=== PATIENT | male | born 1960 | race Caucasian/White ===

== ENCOUNTER 2016-11-09 21:35 | Observation (INO) | payer MEDICARE, MEDICAID ==
[~2016-11-09] VITALS: Ht 182.9 cm; Wt 105.0 kg
[2016-11-09 21:37] VITALS: BP 184/116; PULSE 93; RESP 18; TEMP 99.1; O2SAT 98
--- NOTE | 2016-11-09 21:57 | PD ---
HPI . Dyspnea Chief Complaint: Respiratory Symptoms Time Seen by Provider: 21:44 Travel History International Travel<30 days: No Contact w/Intl Traveler<30days: No Traveled to known affect area: No History of Present Illness HPI Patient presents with dyspnea which started today. He states that it has been getting progressively worse. He has also subsequently developed some chest pain. He denies dyspnea on exertion. He does complain with orthopnea. He states that the chest pain seems to be getting worse as the shortness of breath is getting worse. Patient reports that he has been off of all medications for the last couple of years. He has a history of hypertension, coronary artery disease with a previous PA, CHF and diabetes. PFSH Past Medical History Cardiovascular Problems: Yes (CHF) High Cholesterol: Yes Congestive Heart Failure: Yes Hypertension: Yes Social History Alcohol Use: No Tobacco Use: Yes (08/10 PPD) Substance Use: No Allergies-Medications (Allergen,Severity, Reaction): Coded Allergies: Contrast Media (Verified Allergy, Severe, Itching, 11/09/16) Reported Meds & Prescriptions Reported Meds & Active Scripts Active No Active Prescriptions or Reported Medications Review of Systems Except as stated in HPI: all other systems reviewed are Neg General / Constitutional: No: Fever, Chills Cardiovascular: Positive: Chest Pain or Discomfort Respiratory: Positive: Shortness of Breath Musculoskeletal: Positive: Edema (he states that the edema is chronic and is not any worse today than usual) Physical Exam Narrative GENERAL: Patient is awake and alert. He does not appear to be having any acute respiratory distress. SKIN: Warm and dry. HEAD: Atraumatic. Normocephalic. EYES: Pupils equal and round. Extraocular movements are intact. ENT: No nasal bleeding or discharge. Mucous membranes pink and moist. NECK: Trachea midline. Neck is supple. CARDIOVASCULAR: Regular rate and rhythm. Heart sounds are normal. RESPIRATORY: No accessory muscle use. Lungs have some rhonchi in the left base. GASTROINTESTINAL: Abdomen soft, non-tender, nondistended. MUSCULOSKELETAL: No obvious deformities. Trace pretibial pitting edema. NEUROLOGICAL: Awake and alert. No obvious cranial nerve deficits. Motor grossly within normal limits. Normal speech. PSYCHIATRIC: Appropriate mood and affect; insight and judgment normal. Data Data Last Documented VS Vital Signs Date Time Temp Pulse Resp B/P Pulse Ox O2 Delivery O2 Flow Rate FiO2 11/09/16 22:30 80 18 166/102 98 11/09/16 22:06 Nasal Cannula 2 11/09/16 21:37 99.1 Orders Complete Blood Count With Diff (11/09/16 21:52) Basic Metabolic Panel (Bmp) (11/09/16 21:52) B-Type Natriuretic Peptide (11/09/16 21:52) Ckmb (Isoenzyme) Profile (11/09/16 21:52) Troponin I (11/09/16 21:52) Iv Access Insert/Monitor (11/09/16 21:52) Electrocardiogram (11/09/16 21:52) Ecg Monitoring (11/09/16 21:52) Oximetry (11/09/16 21:52) Oxygen Administration (11/09/16 21:52) Chest, Single Ap (11/09/16 21:52) Sodium Chloride 0.9% Flush (Ns Flush) (11/09/16 22:00) Furosemide Inj (Lasix Inj) (11/09/16 22:00) Nitroglycerin 2% Oint (Nitroglycerin 2% (11/09/16 22:00) CKMB (11/09/16 22:02) CKMB% (11/09/16 22:02) Blood Culture (11/09/16 23:20) Ceftriaxone Inj (Rocephin Inj) (11/09/16 23:30) Azithromycin (Zithromax) (11/09/16 23:30) Aspirin (Aspirin) (11/09/16 23:30) Labs Laboratory Tests Test 11/09/16 22:02 White Blood Count 11.1 TH/MM3 Red Blood Count 5.24 MIL/MM3 Hemoglobin 15.8 GM/DL Hematocrit 46.0 % Mean Corpuscular Volume 87.9 FL Mean Corpuscular Hemoglobin 30.2 PG Mean Corpuscular Hemoglobin 34.3 % Concent Red Cell Distribution Width 14.2 % Platelet Count 177 TH/MM3 Mean Platelet Volume 8.9 FL Neutrophils (%) (Auto) 64.0 % Lymphocytes (%) (Auto) 24.8 % Monocytes (%) (Auto) 9.3 % Eosinophils (%) (Auto) 1.6 % Basophils (%) (Auto) 0.3 % Neutrophils # (Auto) 7.1 TH/MM3 Lymphocytes # (Auto) 2.7 TH/MM3 Monocytes # (Auto) 1.0 TH/MM3 Eosinophils # (Auto) 0.2 TH/MM3 Basophils # (Auto) 0.0 TH/MM3 CBC Comment DIFF FINAL Differential Comment Sodium Level 141 MEQ/L Potassium Level 3.8 MEQ/L Chloride Level 105 MEQ/L Carbon Dioxide Level 27.6 MEQ/L Anion Gap 8 MEQ/L Blood Urea Nitrogen 17 MG/DL Creatinine 1.31 MG/DL Estimat Glomerular Filtration 57 ML/MIN Rate Random Glucose 96 MG/DL Calcium Level 8.8 MG/DL Total Creatine Kinase 140 U/L Creatine Kinase MB 0.7 NG/ML Troponin I 0.02 NG/ML B-Type Natriuretic Peptide 135 PG/ML MDM Medical Decision Making Medical Screen Exam Complete: Yes Emergency Medical Condition: Yes Medical Record Reviewed: Yes (the patient does not have any previous visits here regarding coronary artery disease/PA/CHF) Interpretation(s) EKG shows a sinus rhythm with no ST segment elevation or depression. He does have some nonspecific T-wave changes. Differential Diagnosis Differential diagnosis of dyspnea includes but is not limited to congestive heart failure, pneumonia, wheezing, pneumothorax, pulmonary embolism Narrative Course Patient presents complaining with dyspnea. He has a history of CHF. He has been noncompliant with his medications. Last Impressions Chest X-Ray 11/09/162151 Signed Impressions: Service Date/Time: Wednesday, November 09, 2016 21:57 - CONCLUSION: Possible non-consolidative infiltrates in the left lower lung. Pepe Harper MD CBC & BMP Diagram 11/09/16 22:02 His CK and troponin are normal. His BNP is 135. I have discussed the results of his chest x-ray and blood tests. The patient is amenable to admission for further treatment of apparent pneumonia as well as hypertension. Physician Communication Physician Communication Discussed with Trey Abreu PA-C. The patient will be admitted to [facility] to Dr. Mckenzie's service. Diagnosis Primary Impression: Chest pain Qualified Code: R07.1 - Chest pain on breathing Additional Impressions: Pneumonia Qualified Code: J18.1 - Pneumonia of left lower lobe due to infectious organism Hypertension Qualified Code: I10 - Essential hypertension Dyspnea Qualified Code: R06.00 - Dyspnea, unspecified type Admitting Information Admitting Physician Requests: Observation Scripts No Active Prescriptions or Reported Meds Condition: Denise Salcedo MD Nov 09, 2016 21:57
[2016-11-09] MEDS ORDERED: SODIUM CHLORIDE 0.9% FLUSH 10 ML FLUSH IVF PRN (22:00)
[2016-11-09] MEDS ORDERED: NITROGLYCERIN 2% OINT 1 GM PACKET TOPICAL ONE (22:00)
[2016-11-09] MEDS ORDERED: FUROSEMIDE 40 MG/4 ML VIAL IVP ONE (22:00)
[2016-11-09 22:21] LABS: AUTOMATED NEUTROPHIL # 7.1 TH/MM3 (1.8-7.7); BASOPHIL % 0.3 % (0.0-2.0); EOSINOPHIL # 0.2 TH/MM3 (0-0.4); EOSINOPHIL % 1.6 % (0.0-4.0); HEMO FLAGS DIFF FINAL; LYMPH % 24.8 % (9.0-44.0); LYMPHOCYTE # 2.7 TH/MM3 (1.0-4.8); MEAN CELL VOLUME 87.9 FL (80.0-100.0); MEAN CORPUSCULAR HEMOGLOBIN 30.2 PG (27.0-34.0); MEAN CORPUSCULAR HGB CONC 34.3 % (32.0-36.0); MONO % 9.3 % (0.0-8.0); PLATELET COUNT 177 TH/MM3 (150-450); RED BLOOD COUNT 5.24 MIL/MM3 (4.50-5.90); RED CELL DISTRIBUTION WIDTH 14.2 % (11.6-17.2); WHITE BLOOD COUNT 11.1 TH/MM3 (4.0-11.0)
[2016-11-09 22:30] VITALS: BP 166/102; PULSE 80; RESP 18; O2SAT 98
--- NOTE | 2016-11-09 22:35 | RADRPT ---
EXAM DATE/TIME: 11/09/2016 21:57 [facility] COMPARISON: No previous studies available for comparison. INDICATIONS : Short of breath MEDICAL HISTORY : Diabetes mellitus type II. Hypertension Congestive heart failure. SURGICAL HISTORY : None. ENCOUNTER: Initial ACUITY: 1 day PAIN SCORE: 5/10 LOCATION: Bilateral chest FINDINGS: The right lung is clear. There is some peribronchial thickening in the left lower lung suggesting po ssible infiltrate. No focal areas of consolidation. The heart is upper limits normal size for an AP film. Both hemidiaphragms are well delineated. CONCLUSION: Possible non-consolidative infiltrates in the left lower lung. Pepe Harper MD on November 09, 2016 at 22:33 Board Certified Radiologist. This report was verified electronically.
[2016-11-09 22:53] LABS: ANION GAP 8 MEQ/L (5-15); BICARBONATE 27.6 MEQ/L (21.0-32.0); BLOOD UREA NITROGEN 17 MG/DL (7-18); CHLORIDE 105 MEQ/L (98-107); GLOMERULAR FILTRATION RATE 57 ML/MIN (>89); POTASSIUM 3.8 MEQ/L (3.5-5.1); SODIUM (NA) 141 MEQ/L (136-145)
[2016-11-09 22:57] LABS: CREATINE KINASE 140 U/L (39-308)
[2016-11-09 23:09] LABS: CKMB 0.7 NG/ML (0.5-3.6)
[2016-11-09] MEDS ORDERED: cefTRIAXone INJ 2,000 MG in SODIUM CHLORIDE 0.9% INJ 100 ML IV ONE (23:30)
[2016-11-09] MEDS ORDERED: AZITHROMYCIN 250 MG TAB PO ONE (23:30)
[2016-11-09] MEDS ORDERED: ASPIRIN 325 MG TAB PO ONE (23:30)
[2016-11-10] VITALS (10 sets, daily range): BP systolic 128–170; BP diastolic 75–110; PULSE 66–91; RESP 16–20; TEMP 98.2–98.7; O2SAT 95–99
[2016-11-10] MEDS ORDERED: ONDANSETRON HCL 4 MG/2 ML VIAL IVP PRN (01:00)
[2016-11-10] MEDS ORDERED: SODIUM CHLORIDE 0.9% FLUSH 10 ML FLUSH IV FLUSH PRN (01:00)
[2016-11-10] MEDS ORDERED: NITROGLYCERIN 0.4 MG SL 25 TABS/BTL SL PRN (01:00)
[2016-11-10] MEDS ORDERED: AZITHROMYCIN INJ 500 MG in SODIUM CHLOR 0.9% 250 ML INJ 250 ML IV SCH (01:00)
[2016-11-10] MEDS ORDERED: ACETAMINOPHEN 325 MG TAB PO PRN ×2 (01:00)
[2016-11-10] MEDS ORDERED: NALOXONE HCL 0.4 MG/ML AMP IV PRN (01:00)
[2016-11-10] MEDS ORDERED: SENNOSIDES 8.6 MG TAB PO PRN (01:00)
[2016-11-10] MEDS ORDERED: MORPHINE SULFATE 4 MG/ML INJ IV PRN (01:00)
[2016-11-10] MEDS: MORPHINE SULFATE 4 MG/ML INJ IV PRN ×2 (03:05→23:52)
[2016-11-10] MEDS: NITROGLYCERIN 2% OINT 1 GM PACKET TOPICAL SCH ×3 (05:07→18:28)
[2016-11-10] MEDS ORDERED: GLUCAGON 1 MG/ML VIAL OTHER PRN (08:45)
[2016-11-10] MEDS ORDERED: BENZONATATE 100 MG CAP PO PRN (08:45)
[2016-11-10] MEDS ORDERED: DEXTROSE 50% IN WATER 50 ML VIAL(D50) IV PRN (08:45)
[2016-11-10] MEDS ORDERED: ENOXAPARIN SODIUM 40 MG/0.4 ML SYRINGE SQ SCH (09:00)
[2016-11-10] MEDS ORDERED: ASPIRIN EC 81 MG TABEC PO SCH (09:00)
[2016-11-10] MEDS ORDERED: NICOTINE 7 MG/24 HR PATCH T-DERMAL SCH (09:00)
[2016-11-10] MEDS ORDERED: REMOVE OLD PATCH T-DERMAL SCH (09:00)
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
[2016-11-10] MEDS: METOPROLOL TARTRATE 25 MG TAB PO SCH ×2 (09:28→21:37)
[2016-11-10] MEDS: SODIUM CHLORIDE 0.9% FLUSH 10 ML FLUSH IV FLUSH SCH ×2 (09:29→21:39)
[2016-11-10] MEDS: INSULIN ASPART SUPPLEMENTAL SCALE SQ SCH ×3 (11:00→21:00)
[2016-11-10] MEDS: RESP: ALBUTEROL 2.5 MG/IPRATROPIUM 0.5 MG NEB (SCH) NEB ×2 (11:15→16:55)
--- NOTE | 2016-11-10 12:59 | MB ---
cc: BRANDYN EVERETT MD DATE OF CONSULTATION: 11/10/2016 REASON FOR CONSULTATION: Atypical chest pain. HISTORY OF PRESENT ILLNESS The patient is a pleasant 55-year-old gentleman who tells me he has a history of several myocardial infarctions in the past though he denies ever having a cardiac catheterization. He presented with several days of worsening pleuritic chest pain, particularly when he would lie flat. Because of the symptoms he presented emergency department where he has had two sets of negative cardiac enzymes. He is currently asymptomatic denying any residual chest pain, shortness of breath, lightheadedness, dizziness or syncope. PAST MEDICAL HISTORY 1. Several myocardial infarctions per the patient, though he denies cardiac catheterization. 2. Congestive heart failure (again per the patient, though he is quite vague about the details). 3. Ongoing tobacco abuse 4. Diabetes. 5. Obesity. 6. Hypertension. CURRENT MEDICATIONS 1. Ceftriaxone. 2. Azithromycin. 3. Aspirin 162 mg daily 4. Metoprolol 25 milligrams p.o. q12. ALLERGIES: CONTRAST MEDIA PHYSICAL EXAMINATION VITAL SIGNS: Afebrile, pulse 84, respiratory rate 18, BP 137/90 sating 97% on two liters. General: Very pleasant well-appearing gentleman who is somewhat vague about his cardiac history but in no distress. Neck: No JVD. Lungs: Occasional wheezes and otherwise clear. Cardiovascular: Regular rate and rhythm. No murmurs appreciated. Abdomen is benign. Extremities: No edema. LABORATORY DATA Sodium 141, potassium 3.8, chloride 105, bicarb 27.8, BUN 17, creatinine 1.31, glucose 96, cardiac enzymes are negative x2. White count 11.1, hematocrit 46.0, platelets 177. IMAGING STUDIES: Chest x-ray showed possible non-consolidative infiltrates in the left lower lung. EKG shows sinus rhythm with anterior/anterolateral T-wave changes consistent with ischemia. IMPRESSION: Atypical chest pain. The patient has atypical chest pain and chest x-ray showing possible consolidations, so pneumonia certainly is a reasonable diagnosis. Will add on D-Dimer and if positive he may require a V/Q scan to exclude pulmonary embolism. If cardiac enzymes are normal, though his EKG is certainly abnormal, consistent with the patient's history of prior cardiac catheterization so I will have him undergo a nuclear stress test. I do find it odd that he has never had a cardiac catheterization if indeed he has had these myocardial infarctions in the past. Further recommendations will be based on his upcoming studies. Thank you again for the opportunity to participate in this patient's care. MD GUILHERME Hankins/DOMINIQUE /11:35 AM /12:54 PM
--- NOTE | 2016-11-10 14:23 | EKG ---
Date Performed: 11/09/2016 Time Performed: 22:22:11 PTAGE: 55 years EKG: Nonspecific T-wave change anterolateraly NO PREVIOUS TRACING DOCTOR: Kam Martínez Interpretating Date/Time 11/10/2016 14:22:48
--- NOTE | 2016-11-10 14:37 | EKG ---
Date Performed: 11/10/2016 Time Performed: 07:34:22 PTAGE: 55 years EKG: Nonspecific T-wave change anterolaterally Since PREVIOUS TRACING 11/09/2016, T-wave changes are somewhat more prominent anterolaterally with T-wave inversions now in lead V3 and more prominently in V4. Clinical correlation is recommended . PREVIOUS TRACIN11/09/2016 14.04 DOCTOR: Kam Martínez Interpretating Date/Time 11/10/2016 14:37:05
[2016-11-10] MEDS ORDERED: HYDR-3583 PO (21:57)
[2016-11-10] MEDS ORDERED: ASPI81CH CHEW (21:57)
[2016-11-10] MEDS ORDERED: METF1000 PO (21:57)
[2016-11-10] MEDS ORDERED: CYCL1TAB29 PO (21:57)
[2016-11-10] MEDS ORDERED: METO25TA3 PO (21:57)
[2016-11-10] MEDS ORDERED: CLON0.3T PO (21:57)
[2016-11-10] MEDS ORDERED: CLOR3.755 PO (21:57)
[2016-11-10] MEDS ORDERED: FURO40TA PO (21:57)
[2016-11-11] MEDS ORDERED: AZITHROMYCIN INJ 500 MG in SODIUM CHLOR 0.9% 250 ML INJ 250 ML IV SCH ×2
[2016-11-11] MEDS ORDERED: cefTRIAXone INJ 1,000 MG in SODIUM CHLORIDE 0.9% INJ 100 ML IV SCH (01:00)
[2016-11-11] MEDS: RESP: ALBUTEROL 2.5 MG/IPRATROPIUM 0.5 MG NEB (SCH) NEB (02:29)
[2016-11-11 03:47] VITALS: BP 126/87; RESP 18; O2SAT 96
[2016-11-11 04:47] LABS: AUTOMATED NEUTROPHIL # 5.7 TH/MM3 (1.8-7.7); BASOPHIL % 0.4 % (0.0-2.0); EOSINOPHIL # 0.1 TH/MM3 (0-0.4); EOSINOPHIL % 1.5 % (0.0-4.0); HEMATOCRIT 43.3 % (39.0-51.0); HEMO FLAGS DIFF FINAL; LYMPH % 25.3 % (9.0-44.0); LYMPHOCYTE # 2.3 TH/MM3 (1.0-4.8); MEAN CELL VOLUME 88.8 FL (80.0-100.0); MEAN CORPUSCULAR HEMOGLOBIN 30.1 PG (27.0-34.0); MEAN CORPUSCULAR HGB CONC 33.9 % (32.0-36.0); MONO % 9.8 % (0.0-8.0); PLATELET COUNT 156 TH/MM3 (150-450); RED BLOOD COUNT 4.87 MIL/MM3 (4.50-5.90); RED CELL DISTRIBUTION WIDTH 14.1 % (11.6-17.2); WHITE BLOOD COUNT 9.1 TH/MM3 (4.0-11.0)
[2016-11-11 04:54] LABS: ALT (GPT) 17 U/L (12-78); ANION GAP 4 MEQ/L (5-15); AST (GOT) 11 U/L (15-37); BICARBONATE 33.3 MEQ/L (21.0-32.0); BLOOD UREA NITROGEN 19 MG/DL (7-18); CHLORIDE 106 MEQ/L (98-107); GLOMERULAR FILTRATION RATE 60 ML/MIN (>89); SODIUM (NA) 143 MEQ/L (136-145)
[2016-11-11 04:56] LABS: ALKALINE PHOSPHATASE 58 U/L (45-117); HDL CHOLESTEROL 38.2 MG/DL (40.0-60.0); INDIRECT BILIRUBIN 0.4 MG/DL (0.0-0.8); LDL CHOLESTEROL 80 MG/DL (0-99); TOTAL BILIRUBIN ADULT 0.5 MG/DL (0.2-1.0)
[2016-11-11] MEDS: NITROGLYCERIN 2% OINT 1 GM PACKET TOPICAL SCH ×2 (05:43)
[2016-11-11 11:40] LABS: HEMOGLOBIN A1a 1.1 %; HEMOGLOBIN A1b 0.9 %; HEMOGLOBIN Ao 85.1 %; HEMOGLOBIN P3 3.8 %
== END 2016-11-11 06:53 | disposition left against medical advice (07) ==
LOC: NEPC 21:35 → NEDA 23:42 → NEPGCP 11-10 01:52
PROVIDERS: ADMIT Internal Medicine; ATTEND Internal Medicine
DX: R07.89 Other chest pain (principal); R06.02 Shortness of breath; I11.0 Hypertensive heart disease with heart failure; I50.9 Heart failure, unspecified; I25.2 Old myocardial infarction; E11.9 Type 2 diabetes mellitus without complications; E78.00 Pure hypercholesterolemia, unspecified; I25.10 Atherosclerotic heart disease of native coronary artery without angina pectoris; N28.9 Disorder of kidney and ureter, unspecified; J44.1 Chronic obstructive pulmonary disease with (acute) exacerbation; E78.5 Hyperlipidemia, unspecified; G89.29 Other chronic pain; M54.5 Low back pain; E66.9 Obesity, unspecified; F17.200 Nicotine dependence, unspecified, uncomplicated; Z79.82 Long term (current) use of aspirin; Z91.041 Radiographic dye allergy status; Z79.4 Long term (current) use of insulin; Z91.14 Patient's other noncompliance with medication regimen; Z68.31 Body mass index [BMI] 31.0-31.9, adult
CPT/HCPCS: 71010; 80048; 80061; 80076; 82550; 82552; 82948; 83036; 83880; 84484; 85025; 85379; 87040; 87205; 93005; 94640; 94664; 96365; 96366; 96367; 96372; 96375; 99285; G0378; J0456; J0696; J1650; J1940; J2270; J7050

== ENCOUNTER 2017-02-04 12:51 | Emergency (ER) | payer MEDICARE, MEDICAID ==
[~2017-02-04] VITALS: Ht 185.4 cm; Wt 120.0 kg
[~2017-02-04 12:51] MED LIST: ASPI81CH CHEW; CLON0.3T PO; CLOR3.755 PO; CYCL1TAB29 PO; FURO40TA PO; HYDR-3583 PO; METF1000 PO; METO25TA3 PO
[2017-02-04 12:57] VITALS: BP 200/111; PULSE 101; RESP 18; TEMP 98.2; O2SAT 99
[2017-02-04 13:00] VITALS: BP 171/115; PULSE 86; RESP 18
--- NOTE | 2017-02-04 13:03 | PD ---
Physical Exam Time Seen by Provider: 12:57 Narrative 56yo M c/o generalized rash x 3 days. Says he has shingles. Rash is extremely itchy. Denies fever, vomiting. Has HTN and has taken his medications today. BP recheck in triage 171/115. Denies chest pain, SOB, CORRIGAN. Patient seen in triage. VS reviewed. Patient awaiting bed placement. Data Data Last Documented VS Vital Signs Date Time Temp Pulse Resp B/P (MAP) Pulse Ox O2 Delivery O2 Flow Rate FiO2 02/04/17 12:57 98.2 101 18 200/111 (140) 99 MDM Supervised Visit with GUERRERO: Sarika Short Feb 04, 2017 13:03
--- NOTE | 2017-02-04 14:33 | PD ---
HPI Chief Complaint: Skin Problem Time Seen by Provider: 14:33 Travel History International Travel<30 days: No Contact w/Intl Traveler<30days: No Traveled to known affect area: No History of Present Illness HPI 56-year-old male presents to emergency department for evaluation of a generalized, micropapular, pruritic rash. He states that he noticed this a few days ago. He states that it is burning and tingling at times. He denies any new exposures. No recent illnesses, fever, chills. He has had a sore throat recently. He thinks that this is shingles per his research. Denies HSV keratitis. No difficulty breathing. No urinary symptoms. No other symptoms to report. PFSH Past Medical History Blood Disorders: No Heart Rhythm Problems: No Cancer: No Cardiovascular Problems: Yes (HTN, [place] X3) High Cholesterol: Yes Chest Pain: Yes Congestive Heart Failure: Yes Cerebrovascular Accident: Yes (2004) Diabetes: Yes Endocrine: Yes Genitourinary: No Hypertension: Yes Immune Disorder: No Musculoskeletal: No Neurologic: No Psychiatric: No Reproductive: No Respiratory: No Thyroid Disease: No Social History Alcohol Use: No Tobacco Use: Yes (08/10 PPD) Substance Use: No Allergies-Medications (Allergen,Severity, Reaction): Coded Allergies: diatrizoate meglumine (Verified Allergy, Severe, Itching, 02/04/17) gadobenic acid (Verified Allergy, Severe, Itching, 02/04/17) gadodiamide (Verified Allergy, Severe, Itching, 02/04/17) gadoteridol (Verified Allergy, Severe, Itching, 02/04/17) iodixanol (Verified Allergy, Severe, Itching, 02/04/17) iohexol (Verified Allergy, Severe, Itching, 02/04/17) Reported Meds & Prescriptions Reported Meds & Active Scripts Active Zantac (Ranitidine HCl) 300 Mg Tab 300 Mg PO DAILY 3 Days Reported Aspirin 81 Mg Chew 81 Mg CHEW DAILY Flexeril (Cyclobenzaprine HCl) 10 Mg Tab 10 Mg PO TID Clorazepate (Clorazepate Dipotassium) 3.75 Mg Tab 3.75 Mg PO BID PRN Metformin (Metformin HCl) 1,000 Mg Tab 1,000 Mg PO DAILY With a meal Metoprolol Tartrate 25 Mg Tab 25 Mg PO BID Furosemide 40 Mg Tab 40 Mg PO BID Hydrocodone-Acetaminophen 10-325 mg Tab 1 Tab PO Q6H PRN Clonidine (Clonidine HCl) 0.3 Mg Tab 0.3 Mg PO BID Review of Systems Except as stated in HPI: all other systems reviewed are Neg Physical Exam Narrative GENERAL: Well-nourished male patient, ambulatory and in no acute distress SKIN: Focused skin assessment warm/dry. Micropapular rash over the trunk and extremities. No vesicles or pustules. HEAD: Atraumatic. Normocephalic. EYES: Pupils equal and round. No scleral icterus. No injection or drainage. ENT: No nasal bleeding or discharge. Mucous membranes pink and moist. NECK: Trachea midline. No JVD. CARDIOVASCULAR: Regular rate and rhythm. No murmur appreciated. RESPIRATORY: No accessory muscle use. Clear to auscultation. Breath sounds equal bilaterally. GASTROINTESTINAL: Abdomen soft, non-tender, nondistended. Hepatic and splenic margins not palpable. MUSCULOSKELETAL: No obvious deformities. No clubbing. No cyanosis. No edema. NEUROLOGICAL: Awake and alert. No obvious cranial nerve deficits. Motor grossly within normal limits. Normal speech. Data Data Last Documented VS Vital Signs Date Time Temp Pulse Resp B/P (MAP) Pulse Ox O2 Delivery O2 Flow Rate FiO2 02/04/17 17:07 97.8 154/86 (108) 99 02/04/17 14:30 17 02/04/17 13:00 86 Room Air Orders Orders Basic Metabolic Panel (Bmp) (02/04/17 14:51) Complete Blood Count With Diff (02/04/17 14:51) Iv Access Insert/Monitor (02/04/17 14:51) Group A Rapid Strep Screen (02/04/17 14:51) Diphenhydramine Inj (Benadryl Inj) (02/04/17 15:00) Methylprednisolone So Succ Inj (Solumedr (02/04/17 15:00) Famotidine Inj (Pepcid Inj) (02/04/17 15:00) Strep Culture (Group A) (02/04/17 15:10) Labs Laboratory Tests Test 02/04/17 15:10 White Blood Count 10.2 TH/MM3 Red Blood Count 5.29 MIL/MM3 Hemoglobin 16.2 GM/DL Hematocrit 48.1 % Mean Corpuscular Volume 90.8 FL Mean Corpuscular Hemoglobin 30.6 PG Mean Corpuscular Hemoglobin Concent 33.7 % Red Cell Distribution Width 14.0 % Platelet Count 193 TH/MM3 Mean Platelet Volume 8.9 FL Neutrophils (%) (Auto) 68.1 % Lymphocytes (%) (Auto) 19.8 % Monocytes (%) (Auto) 8.1 % Eosinophils (%) (Auto) 3.6 % Basophils (%) (Auto) 0.4 % Neutrophils # (Auto) 6.9 TH/MM3 Lymphocytes # (Auto) 2.0 TH/MM3 Monocytes # (Auto) 0.8 TH/MM3 Eosinophils # (Auto) 0.4 TH/MM3 Basophils # (Auto) 0.0 TH/MM3 CBC Comment DIFF FINAL Differential Comment Blood Urea Nitrogen 22 MG/DL Creatinine 1.74 MG/DL Random Glucose 90 MG/DL Calcium Level 8.9 MG/DL Sodium Level 143 MEQ/L Potassium Level 4.1 MEQ/L Chloride Level 105 MEQ/L Carbon Dioxide Level 30.9 MEQ/L Anion Gap 7 MEQ/L Estimat Glomerular Filtration Rate 41 ML/MIN MDM Medical Decision Making Medical Screen Exam Complete: Yes Emergency Medical Condition: Yes Medical Record Reviewed: Yes Differential Diagnosis Contact dermatitis versus allergic reaction versus urticaria versus folliculitis versus viral exanthem Narrative Course 56-year-old male presents to emergency department for evaluation of a micropapular rash. It is blanchable. It is generalized and on the trunk and extremities. Patient has a patent airway with no stridor. He does not recall any new exposures. I have assured him that this is not consistent with shingles. He is treated with Benadryl, Pepcid, and steroids. He is aware to monitor his blood glucose closely as this may place an increase. Patient verbalizes improvement in the itching. He'll be discharged follow-up with primary care provider. He agrees to return immediately with any acute serious symptoms. Diagnosis Primary Impression: Papular rash, generalized Additional Impression: Hypertension Qualified Codes: I10 - Essential (primary) hypertension Referrals: Primary Care Physician Patient Instructions: Acute Rash (ED), General Instructions Additional Instructions: Avoid scratching the lesions Follow-up with your primary care provider Seek dermatology evaluation Monitor blood glucose closely as steroids will cause an increase in your blood sugar Continue Benadryl as directed on the package as needed for symptoms of itching or rash Return immediately to the emergency department with any acute worsening symptoms Med/Other Pt SpecificInfo: Prescription(s) given Scripts Ranitidine (Zantac) 300 Mg Tab 300 MG PO DAILY for 3 Days, TAB 0 Refills Prov: Loreto Villanueva 02/04/17 Disposition: 01 DISCHARGE HOME Condition: Stable Loreto Villanueva Feb 04, 2017 14:33
[2017-02-04] MEDS ORDERED: methylPREDNISolone SOD SUCC 125 MG/2 ML VIAL IV PUSH ONE (15:00)
[2017-02-04] MEDS ORDERED: diphenhydrAMINE HCL 50 MG/ML VIAL IV PUSH ONE (15:00)
[2017-02-04] MEDS ORDERED: FAMOTIDINE 20 MG/2 ML VIAL IV PUSH SCH (15:00)
[2017-02-04 16:00] LABS: AUTOMATED NEUTROPHIL # 6.9 TH/MM3 (1.8-7.7); BASOPHIL % 0.4 % (0.0-2.0); EOSINOPHIL # 0.4 TH/MM3 (0-0.4); EOSINOPHIL % 3.6 % (0.0-4.0); HEMATOCRIT 48.1 % (39.0-51.0); HEMO FLAGS DIFF FINAL; LYMPH % 19.8 % (9.0-44.0); MEAN CELL VOLUME 90.8 FL (80.0-100.0); MEAN CORPUSCULAR HEMOGLOBIN 30.6 PG (27.0-34.0); MEAN CORPUSCULAR HGB CONC 33.7 % (32.0-36.0); MONO % 8.1 % (0.0-8.0); NEUT % 68.1 % (16.0-70.0); PLATELET COUNT 193 TH/MM3 (150-450); RED BLOOD COUNT 5.29 MIL/MM3 (4.50-5.90); WHITE BLOOD COUNT 10.2 TH/MM3 (4.0-11.0)
[2017-02-04 16:14] LABS: BICARBONATE 30.9 MEQ/L (21.0-32.0); POTASSIUM 4.1 MEQ/L (3.5-5.1)
[2017-02-04] MEDS ORDERED: ZANT300T PO (16:59)
[2017-02-04 17:07] VITALS: BP 154/86; TEMP 97.8
== END 2017-02-04 17:07 | disposition home or self-care (01) ==
LOC: NEPD 12:51
DX: R21 Rash and other nonspecific skin eruption (principal); J02.9 Acute pharyngitis, unspecified; I10 Essential (primary) hypertension; I50.9 Heart failure, unspecified; E11.9 Type 2 diabetes mellitus without complications; I25.2 Old myocardial infarction; F17.200 Nicotine dependence, unspecified, uncomplicated; Z86.73 Personal history of transient ischemic attack (TIA), and cerebral infarction without residual deficits; Z79.899 Other long term (current) drug therapy
CPT/HCPCS: 80048; 85025; 87081; 87880; 96374; 96375; 99284; J1200; J2930

== ENCOUNTER 2017-04-02 01:13 | Inpatient (IN) | payer MEDICARE, MEDICAID ==
[2017-04-02] VITALS (16 sets, daily range): BP systolic 120–201; BP diastolic 72–106; PULSE 73–115; RESP 18–28; TEMP 98.7–103.1; O2SAT 94–100
[~2017-04-02] VITALS: Ht 182.9 cm; Wt 123.2 kg
[~2017-04-02 01:13] MED LIST changes: +ZANT300T PO
[2017-04-02] MEDS ORDERED: SODIUM CHLORID 0.9% 500 ML INJ 500 ML IV ONE (01:45)
[2017-04-02] MEDS ORDERED: ACETAMINOPHEN 325 MG TAB PO ONE (01:45)
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
[2017-04-02 02:09] LABS: AUTOMATED NEUTROPHIL # 14.7 TH/MM3 (1.8-7.7); BASOPHIL # 0.1 TH/MM3 (0-0.2); BASOPHIL % 0.4 % (0.0-2.0); EOSINOPHIL # 0.1 TH/MM3 (0-0.4); EOSINOPHIL % 0.8 % (0.0-4.0); HEMATOCRIT 49.9 % (39.0-51.0); LYMPH % 8.5 % (9.0-44.0); LYMPHOCYTE # 1.5 TH/MM3 (1.0-4.8); MEAN CELL VOLUME 89.4 FL (80.0-100.0); MEAN CORPUSCULAR HEMOGLOBIN 30.4 PG (27.0-34.0); NEUT % 84.3 % (16.0-70.0); PLATELET COUNT 183 TH/MM3 (150-450); RED BLOOD COUNT 5.58 MIL/MM3 (4.50-5.90); RED CELL DISTRIBUTION WIDTH 13.7 % (11.6-17.2); WHITE BLOOD COUNT 17.5 TH/MM3 (4.0-11.0)
[2017-04-02 02:18] LABS: INTERNATIONAL NORMALIZED RATIO 0.9 RATIO; PROTHROMBIN TIME - PATIENT 10.4 SEC (9.8-11.6)
--- NOTE | 2017-04-02 02:24 | RADRPT ---
EXAM DATE/TIME: 04/02/2017 02:34 [place] COMPARISON: CHEST SINGLE AP, November 09, 2016, 21:57. INDICATIONS : Fever, shortness of breath. MEDICAL HISTORY : Hypertension. Congestive heart failure. Diabetes mellitus type II. SURGICAL HISTORY : None. ENCOUNTER: Initial ACUITY: 1 day PAIN SCORE: 0/10 LOCATION: Bilateral chest FINDINGS: A single view of the chest demonstrates minimal left basilar density. Right lung clear. Heart normal in size The cardiomediastinal contours are unremarkable. Osseous structures are intact. CONCLUSION: 1. Left basilar atelectasis versus minimal infiltrate. David David MD on April 02, 2017 at 2:22 Board Certified Radiologist. This report was verified electronically.
[2017-04-02 02:42] LABS: ALBUMIN 3.7 GM/DL (3.4-5.0); ALT (GPT) 25 U/L (12-78); AST (GOT) 14 U/L (15-37); BICARBONATE 29.9 MEQ/L (21.0-32.0); BLOOD UREA NITROGEN 14 MG/DL (7-18); C-REACTIVE PROTEIN 1.24 MG/DL (0.00-0.30); CALCIUM 8.8 MG/DL (8.5-10.1); CHLORIDE 105 MEQ/L (98-107); CREATININE 1.42 MG/DL (0.60-1.30); GLOMERULAR FILTRATION RATE 51 ML/MIN (>89); GLUCOSE,RANDOM 141 MG/DL (74-106); LIPASE 88 U/L (73-393); MAGNESIUM 1.9 MG/DL (1.5-2.5); SODIUM (NA) 140 MEQ/L (136-145)
[2017-04-02 02:45] LABS: ALKALINE PHOSPHATASE 79 U/L (45-117); TOTAL BILIRUBIN ADULT 0.6 MG/DL (0.2-1.0); TOTAL PROTEIN 7.9 GM/DL (6.4-8.2); TROPONIN I 0.03 NG/ML (0.02-0.05)
[2017-04-02] MEDS ORDERED: KETOROLAC TROMETHAMINE 30 MG/ML (IVP) VIAL IV PUSH ONE (03:15)
[2017-04-02] MEDS ORDERED: VANCOMYCIN INJ 1,000 MG in SODIUM CHLOR 0.9% 250 ML INJ 250 ML IV ONE (03:15)
[2017-04-02] MEDS ORDERED: SODIUM CHLOR 0.9% 1000 ML INJ 1,000 ML IV ONE (03:15)
[2017-04-02] MEDS ORDERED: LABETALOL HCL 100 MG/20 ML VIAL IV PUSH ONE (03:15)
[2017-04-02] MEDS ORDERED: PIPERACIL-TAZO 3.375 GM PREMIX 50 ML IV ONE (03:15)
[2017-04-02] MEDS ORDERED: RESP: ALBUTEROL 2.5 MG/IPRATROPIUM 0.5 MG NEB (SCH) NEB ONE (04:15)
[2017-04-02] MEDS ORDERED: NALOXONE HCL 0.4 MG/ML AMP IV PUSH PRN (04:30)
[2017-04-02] MEDS ORDERED: DEXTROSE 50% IN WATER 50 ML VIAL(D50) IV PUSH PRN ×2 (04:30→08:00)
[2017-04-02] MEDS ORDERED: BISACODYL 10 MG SUPP RECTAL PRN (04:30)
[2017-04-02] MEDS ORDERED: ONDANSETRON HCL 4 MG/2 ML VIAL IVP PRN (04:30)
[2017-04-02] MEDS ORDERED: GLUCAGON 1 MG/ML VIAL OTHER PRN ×2 (04:30→08:00)
[2017-04-02] MEDS ORDERED: Vancomycin Consult Pharmacy 1 EA OTHER SCH (04:30)
[2017-04-02] MEDS ORDERED: LACTULOSE SYRUP 20 GM/30 ML CUP PO PRN (04:30)
[2017-04-02] MEDS ORDERED: HEPARIN SODIUM - SQ 10,000 UNITS/ML VIAL SQ SCH (04:30)
[2017-04-02] MEDS ORDERED: MAGNESIUM HYDROXIDE SUSP 30 ML CUP PO PRN (04:30)
[2017-04-02] MEDS ORDERED: SENNOSIDES 8.6 MG TAB PO PRN (04:30)
[2017-04-02] MEDS ORDERED: SODIUM CHLORIDE 0.9% FLUSH 10 ML FLUSH IV FLUSH PRN (04:30)
[2017-04-02] MEDS ORDERED: VANCOMYCIN 1,000 MG/NS 250 ML IV ONE ×2 (05:00)
[2017-04-02] MEDS ORDERED: METOPROLOL TARTRATE 25 MG TAB PO SCH (06:00)
[2017-04-02] MEDS: INSULIN ASPART SUPPLEMENTAL SCALE SQ SCH ×7 (07:57→21:00)
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
[2017-04-02] MEDS: SODIUM CHLOR 0.45% 1000 ML INJ 1,000 ML IV SCH ×2 (09:13→22:06)
[2017-04-02] MEDS: METOPROLOL TARTRATE 25 MG TAB PO SCH ×2 (09:14→22:02)
[2017-04-02] MEDS: cloNIDine HCL 0.2 MG TAB PO SCH ×2 (09:14→22:02)
[2017-04-02] MEDS: cefTRIAXone INJ 1,000 MG in SODIUM CHLORIDE 0.9% INJ 100 ML IV SCH (09:14)
[2017-04-02] MEDS: DOXYCYCLINE HYCLATE 100 MG CAP PO SCH ×2 (09:15→22:01)
[2017-04-02] MEDS: FAMOTIDINE 20 MG TAB PO SCH ×2 (09:15→22:01)
[2017-04-02] MEDS: HEPARIN SODIUM - SQ 10,000 UNITS/ML VIAL SQ SCH ×2 (09:15→22:04)
[2017-04-02] MEDS: SODIUM CHLORIDE 0.9% FLUSH 10 ML FLUSH IV FLUSH SCH ×2 (09:15→22:05)
[2017-04-02] MEDS ORDERED: PIPERACIL-TAZO 3.375 GM PREMIX 50 ML IV SCH (10:00)
[2017-04-02 11:52] LABS: BILIRUBIN, URINE NEG (NEG); BLOOD, URINE NEG (NEG); GLUCOSE,URINE NEG (NEG); KETONE, URINE NEG (NEG); MUCUS URINE FEW /lpf (OCC); NITRITE,URINE NEG (NEG); PH, URINE 5.5 (5.0-8.5); SQUAMOUS EPITHELIAL CELL URINE <1 /hpf (0-5); URINE COLOR YELLOW (YELLW/STRAW); URINE LEUKOCYTE ESTERASE NEG (NEG)
[2017-04-02] MEDS ORDERED: ACETAMINOPHEN 325 MG TAB PO PRN (15:45)
[2017-04-02] MEDS: RESP: ALBUTEROL 2.5 MG/IPRATROPIUM 0.5 MG NEB (PRN) NEB (22:40)
[2017-04-02] MEDS: VANCOMYCIN INJ 1,500 MG in SODIUM CHLORID 0.9% 500 ML INJ 500 ML IV SCH (23:58)
[2017-04-03] VITALS (7 sets, daily range): BP systolic 126–142; BP diastolic 74–93; PULSE 72–93; RESP 18–24; TEMP 97.7–100; O2SAT 94–99
[2017-04-03 07:18] LABS: AUTOMATED NEUTROPHIL # 8.9 TH/MM3 (1.8-7.7); BASOPHIL # 0.1 TH/MM3 (0-0.2); BASOPHIL % 0.7 % (0.0-2.0); EOSINOPHIL % 0.1 % (0.0-4.0); HEMATOCRIT 40.9 % (39.0-51.0); HEMOGLOBIN 13.8 GM/DL (13.0-17.0); LYMPH % 13.2 % (9.0-44.0); LYMPHOCYTE # 1.5 TH/MM3 (1.0-4.8); MEAN CORPUSCULAR HEMOGLOBIN 30.7 PG (27.0-34.0); MEAN CORPUSCULAR HGB CONC 33.7 % (32.0-36.0); MEAN PLATELET VOLUME 9.1 FL (7.0-11.0); MONO % 7.1 % (0.0-8.0); MONOCYTE # 0.8 TH/MM3 (0-0.9); NEUT % 78.9 % (16.0-70.0); PLATELET COUNT 136 TH/MM3 (150-450); RED BLOOD COUNT 4.49 MIL/MM3 (4.50-5.90); RED CELL DISTRIBUTION WIDTH 13.8 % (11.6-17.2); WHITE BLOOD COUNT 11.3 TH/MM3 (4.0-11.0)
[2017-04-03] MEDS: INSULIN ASPART SUPPLEMENTAL SCALE SQ SCH ×8 (08:00→21:15)
[2017-04-03 08:05] LABS: BICARBONATE 25.2 MEQ/L (21.0-32.0); CALCIUM 8.3 MG/DL (8.5-10.1); CREATININE 1.3 MG/DL (0.60-1.30)
[2017-04-03] MEDS: cloNIDine HCL 0.2 MG TAB PO SCH ×2 (08:23→21:13)
[2017-04-03] MEDS: FAMOTIDINE 20 MG TAB PO SCH ×2 (08:23→21:13)
[2017-04-03] MEDS: DOXYCYCLINE HYCLATE 100 MG CAP PO SCH ×2 (08:23→21:13)
[2017-04-03] MEDS: METOPROLOL TARTRATE 25 MG TAB PO SCH ×2 (08:24→21:13)
[2017-04-03] MEDS: cefTRIAXone INJ 1,000 MG in SODIUM CHLORIDE 0.9% INJ 100 ML IV SCH (08:30)
[2017-04-03] MEDS: RESP: ALBUTEROL 2.5 MG/IPRATROPIUM 0.5 MG NEB (PRN) NEB ×2 (08:32→12:28)
[2017-04-03] MEDS: HEPARIN SODIUM - SQ 10,000 UNITS/ML VIAL SQ SCH ×2 (08:47→21:14)
--- NOTE | 2017-04-03 08:53 | HHI.PR ---
Subjective History of Present Illness Feels little better Still coughing a lot, swallowing the sputum Wheezing, shortness of breath Fever is down Appetite is okay but don't like hospital food Wants to smoke cigarette No Nausea or vomit No Abdominal pain Offers no other complaints Vitals/Results Vital Signs Vital Signs Date Time Temp Pulse Resp B/P (MAP) Pulse Ox O2 Delivery O2 Flow Rate FiO2 04/03/17 07:08 95 Nasal Cannula 2.00 04/03/17 07:07 98.5 81 24 137/93 (108) 97 04/03/17 03:40 99.1 75 19 135/89 (104) 99 04/03/17 02:40 Nasal Cannula 2.00 04/02/17 23:40 100.5 73 18 120/78 (92) 96 04/02/17 22:41 96 21 04/02/17 19:32 99.8 82 20 135/75 (95) 98 04/02/17 15:44 102.4 04/02/17 14:16 103.1 92 18 137/77 (97) 94 04/02/17 13:45 102.8 04/02/17 11:33 102.7 86 20 122/72 (89) 95 04/02/17 09:15 101.0 CBC/BMP: 04/03/17 0620 04/03/17 0620 Lab Results Laboratory Tests Test 04/02/17 11:30 04/03/17 06:20 Urine Color YELLOW Urine Turbidity CLEAR Urine pH 5.5 Urine Specific [place] 1.029 Urine Protein 30 mg/dL Urine Glucose (UA) NEG mg/dL Urine Ketones NEG mg/dL Urine Occult Blood NEG Urine Nitrite NEG Urine Bilirubin NEG Urine Urobilinogen 2.0 MG/DL Urine Leukocyte Esterase NEG Urine RBC 1 /hpf Urine WBC 1 /hpf Urine Squamous Epithelial Cells <1 /hpf Urine Mucus FEW /lpf Microscopic Urinalysis Comment CULT NOT INDICATED White Blood Count 11.3 TH/MM3 Red Blood Count 4.49 MIL/MM3 Hemoglobin 13.8 GM/DL Hematocrit 40.9 % Mean Corpuscular Volume 91.0 FL Mean Corpuscular Hemoglobin 30.7 PG Mean Corpuscular Hemoglobin Concent 33.7 % Red Cell Distribution Width 13.8 % Platelet Count 136 TH/MM3 Mean Platelet Volume 9.1 FL Neutrophils (%) (Auto) 78.9 % Lymphocytes (%) (Auto) 13.2 % Monocytes (%) (Auto) 7.1 % Eosinophils (%) (Auto) 0.1 % Basophils (%) (Auto) 0.7 % Neutrophils # (Auto) 8.9 TH/MM3 Lymphocytes # (Auto) 1.5 TH/MM3 Monocytes # (Auto) 0.8 TH/MM3 Eosinophils # (Auto) 0.0 TH/MM3 Basophils # (Auto) 0.1 TH/MM3 CBC Comment DIFF FINAL Differential Comment Blood Urea Nitrogen 16 MG/DL Creatinine 1.30 MG/DL Random Glucose 97 MG/DL Calcium Level 8.3 MG/DL Sodium Level 136 MEQ/L Potassium Level 3.8 MEQ/L Chloride Level 105 MEQ/L Carbon Dioxide Level 25.2 MEQ/L Anion Gap 6 MEQ/L Estimat Glomerular Filtration Rate 57 ML/MIN Microbiology Microbiology 04/02/17 Aerobic Blood Culture, Received Pending 04/02/17 Anaerobic Blood Culture, Received Pending 04/02/17 Influenza Types A,B Antigen ([facility]) - Final, Complete NEGATIVE FOR FLU A AND B ANTIGEN.... Physical Exam General General Appearance: No Acute Distress, Comfortable, Obese Eyes Eye Exam: Pupils Equal, Sclera White, Extraocular Movement Intact Ears & Nose Ears & Nose Exam: Nasal Mucosa Floral Throat Throat Exam: Oral Mucosa Floral & Moist Neck Neck Exam: Neck Supple, Trachea Midline Pulmonary Resp Exam: Breath Sounds Equal, No Distress, Rhonchi Cardiology CV Exam: Regular, Normal Sinus Rhythm Gastrointestinal/Abdomen GI Exam: Soft, Non-Tender, Bowel Sounds Present Musculoskeletal MS Exam: Joints Intact, Normal Tone Integumentary Skin Exam: Warm, Dry Skin Remarks Healing lesions right anterior arredondo with scab formation,minimal redness Neurologic Neuro Exam: Alert, Awake, Oriented, Speech Clear, Moving All Extremities Psychiatric Psych Exam: Appropriate Responses Assessment/Plan Assessment/Plan 1. Acute febrile illness 2. Leukocytosis and left shift associated infection, possible early pneumonia versus right lower extremity invasion with cellulitis, rule-out other etiologies, UTI, influenza, rule out bacteremia. 3. Diabetes type 2 4. Hypertension, poorly controlled. 5. Chronic kidney disease stage III. 6. Reported history of heart attack. 7. COPD 8. History of sleep apnea not using C-PAP. 9. Chronic back pain and narcotic dependence. 10. Chronic smoker 11. Strong family history of cancer. 12. Noncompliance with her care. 13. Homelessness. Plan Oxygen Empiric IV antibiotic, currently getting Rocephin and doxycycline Follow cultures and adjust antibiotic And IV steroids for possible COPD Aerosol Diabetic diet Accu-Cheks UC and daily at bedtime with sliding scale coverage Nicotine patch Counseled patient against cigarette smoking, he did not pay attention to my recommendation Blood pressure control Analgesics Pepcid For GI Subcutaneous Lovenox for DVT prophylaxis Discussed patient detail With NUPUR Jamil labs Will follow Jeremy Harris MD Apr 03, 2017 08:53
[2017-04-03] MEDS: SODIUM CHLORIDE 0.9% FLUSH 10 ML FLUSH IV FLUSH SCH ×2 (09:00→21:16)
[2017-04-03] MEDS: methylPREDNISolone SOD SUCC 40 MG/1 ML VIAL IV PUSH SCH ×2 (11:28→21:15)
[2017-04-03] MEDS: NICOTINE 14 MG/24 HR PATCH T-DERMAL SCH (11:29)
[2017-04-03] MEDS: REMOVE OLD PATCH T-DERMAL SCH (12:00)
[2017-04-03] MEDS: VANCOMYCIN INJ 1,500 MG in SODIUM CHLORID 0.9% 500 ML INJ 500 ML IV SCH (17:25)
[2017-04-04] VITALS (9 sets, daily range): BP systolic 118–158; BP diastolic 76–106; PULSE 69–76; RESP 18–20; TEMP 97.2–98; O2SAT 96–100
[2017-04-04] MEDS: RESP: ALBUTEROL 2.5 MG/IPRATROPIUM 0.5 MG NEB (PRN) NEB ×2 (00:06→15:21)
[2017-04-04 07:53] LABS: BICARBONATE 25.4 MEQ/L (21.0-32.0); CALCIUM 9.4 MG/DL (8.5-10.1); CREATININE 1.27 MG/DL (0.60-1.30)
[2017-04-04] MEDS: REMOVE OLD PATCH T-DERMAL SCH (09:00)
[2017-04-04] MEDS: INSULIN ASPART SUPPLEMENTAL SCALE SQ SCH ×8 (09:01→21:00)
[2017-04-04] MEDS: NICOTINE 14 MG/24 HR PATCH T-DERMAL SCH (09:02)
[2017-04-04] MEDS: methylPREDNISolone SOD SUCC 40 MG/1 ML VIAL IV PUSH SCH ×2 (09:03→21:56)
[2017-04-04] MEDS: HEPARIN SODIUM - SQ 10,000 UNITS/ML VIAL SQ SCH ×2 (09:03→21:56)
[2017-04-04] MEDS: FAMOTIDINE 20 MG TAB PO SCH ×2 (09:03→21:57)
[2017-04-04] MEDS: METOPROLOL TARTRATE 25 MG TAB PO SCH ×2 (09:03→21:56)
[2017-04-04] MEDS: DOXYCYCLINE HYCLATE 100 MG CAP PO SCH ×2 (09:03→21:56)
[2017-04-04] MEDS: cloNIDine HCL 0.2 MG TAB PO SCH ×2 (09:03→17:04)
[2017-04-04] MEDS: cefTRIAXone INJ 1,000 MG in SODIUM CHLORIDE 0.9% INJ 100 ML IV SCH (09:05)
[2017-04-04] MEDS: SODIUM CHLORIDE 0.9% FLUSH 10 ML FLUSH IV FLUSH SCH ×2 (09:05→21:57)
[2017-04-04] MEDS ORDERED: PHARMACY ORDERED LAB ONE (11:45)
--- NOTE | 2017-04-04 11:56 | HHI.PR ---
Subjective Remarks Follow-up cellulitis and hypertension Patient states his cellulitis in the right lower extremity is slowly improving complaining of now left lower extremity cellulitis Await cultures Continue on empiric antibiotics Adjust blood pressure medications A.m. labs Case management for discharge Physical therapy and occupational therapy Objective Vitals Vital Signs Date Time Temp Pulse Resp B/P (MAP) Pulse Ox O2 Delivery O2 Flow Rate FiO2 04/04/17 08:20 Nasal Cannula 2.00 21 04/04/17 07:45 97 Nasal Cannula 2.00 04/04/17 07:34 98.0 76 18 146/106 (119) 98 04/04/17 07:20 Nasal Cannula 2.00 04/04/17 05:30 97.9 72 20 134/86 (102) 100 04/04/17 00:37 97.6 76 19 118/76 (90) 97 04/04/17 00:08 96 Nasal Cannula 2.00 04/03/17 20:45 Nasal Cannula 2.00 04/03/17 20:35 97.7 72 18 126/74 (91) 97 04/03/17 15:45 98.5 82 24 131/83 (99) 97 04/03/17 14:47 98.8 04/03/17 12:00 100.0 93 18 142/88 (106) 94 I/O 04/03/17 04/03/17 04/03/17 04/04/17 04/04/17 04/04/17 07:00 15:00 23:00 07:00 15:00 23:00 Intake Total 1429 ml 647 ml 500 ml 1400 ml Output Total 200 ml 300 ml 700 ml 600 ml Balance 1229 ml 347 ml -200 ml 800 ml Intake Oral 500 ml 1400 ml IV Total 1429 ml 647 ml Output Urine Total 200 ml 300 ml 700 ml 600 ml Result Diagram: 04/03/17 0620 04/04/17 0553 Other Results Laboratory Tests Test 04/02/17 01:45 04/02/17 11:30 04/03/17 06:20 04/04/17 05:53 White Blood Count 17.5 TH/MM3 11.3 TH/MM3 Red Blood Count 5.58 MIL/MM3 4.49 MIL/MM3 Hemoglobin 17.0 GM/DL 13.8 GM/DL Hematocrit 49.9 % 40.9 % Mean Corpuscular Volume 89.4 FL 91.0 FL Mean Corpuscular Hemoglobin 30.4 PG 30.7 PG Mean Corpuscular Hemoglobin Concent 34.0 % 33.7 % Red Cell Distribution Width 13.7 % 13.8 % Platelet Count 183 TH/MM3 136 TH/MM3 Mean Platelet Volume 9.0 FL 9.1 FL Neutrophils (%) (Auto) 84.3 % 78.9 % Lymphocytes (%) (Auto) 8.5 % 13.2 % Monocytes (%) (Auto) 6.0 % 7.1 % Eosinophils (%) (Auto) 0.8 % 0.1 % Basophils (%) (Auto) 0.4 % 0.7 % Neutrophils # (Auto) 14.7 TH/MM3 8.9 TH/MM3 Lymphocytes # (Auto) 1.5 TH/MM3 1.5 TH/MM3 Monocytes # (Auto) 1.0 TH/MM3 0.8 TH/MM3 Eosinophils # (Auto) 0.1 TH/MM3 0.0 TH/MM3 Basophils # (Auto) 0.1 TH/MM3 0.1 TH/MM3 CBC Comment DIFF FINAL DIFF FINAL Differential Comment Prothrombin Time 10.4 SEC Prothromb Time International Ratio 0.9 RATIO Activated Partial Thromboplast Time 26.4 SEC Blood Urea Nitrogen 14 MG/DL 16 MG/DL 19 MG/DL Creatinine 1.42 MG/DL 1.30 MG/DL 1.27 MG/DL Random Glucose 141 MG/DL 97 MG/DL 174 MG/DL Total Protein 7.9 GM/DL Albumin 3.7 GM/DL Calcium Level 8.8 MG/DL 8.3 MG/DL 9.4 MG/DL Magnesium Level 1.9 MG/DL Alkaline Phosphatase 79 U/L Aspartate Amino Transf (AST/SGOT) 14 U/L Alanine Aminotransferase (ALT/SGPT) 25 U/L Total Bilirubin 0.6 MG/DL Sodium Level 140 MEQ/L 136 MEQ/L 139 MEQ/L Potassium Level 4.1 MEQ/L 3.8 MEQ/L 4.5 MEQ/L Chloride Level 105 MEQ/L 105 MEQ/L 105 MEQ/L Carbon Dioxide Level 29.9 MEQ/L 25.2 MEQ/L 25.4 MEQ/L Anion Gap 5 MEQ/L 6 MEQ/L 9 MEQ/L Estimat Glomerular Filtration Rate 51 ML/MIN 57 ML/MIN 58 ML/MIN Lactic Acid Level 1.4 mmol/L Total Creatine Kinase 172 U/L Creatine Kinase MB 1.5 NG/ML Troponin I 0.03 NG/ML C-Reactive Protein 1.24 MG/DL B-Type Natriuretic Peptide 106 PG/ML Lipase 88 U/L Urine Color YELLOW Urine Turbidity CLEAR Urine pH 5.5 Urine Specific [place] 1.029 Urine Protein 30 mg/dL Urine Glucose (UA) NEG mg/dL Urine Ketones NEG mg/dL Urine Occult Blood NEG Urine Nitrite NEG Urine Bilirubin NEG Urine Urobilinogen 2.0 MG/DL Urine Leukocyte Esterase NEG Urine RBC 1 /hpf Urine WBC 1 /hpf Urine Squamous Epithelial Cells <1 /hpf Urine Mucus FEW /lpf Microscopic Urinalysis Comment CULT NOT INDICATED Imaging Last Impressions Chest X-Ray 04/02/17 0139 Signed Impressions: Service Date/Time: Sunday, April 02, 2017 02:34 - CONCLUSION: 1. Left basilar atelectasis versus minimal infiltrate. David David MD Objective Remarks GENERAL: Awake alert oriented talkative and cooperative SKIN: Warm and dry. Has rash on the left lower extremity and right lower extremity with some areas of scabbing above the knee and below the knee on the right lower extremity HEAD: Atraumatic. Normocephalic. EYES: Pupils equal and round. No scleral icterus. No injection or drainage. Extraocular muscles intact ENT: No nasal bleeding or discharge. Mucous membranes pink and moist. Tongue is midline NECK: Trachea midline. No JVD. Supple CARDIOVASCULAR: Regular rate and rhythm. S1-S2 no S3 or S4 RESPIRATORY: No accessory muscle use.. Breath sounds equal bilaterally. Few rhonchi GASTROINTESTINAL: Abdomen soft, non-tender, nondistended. Hepatic and splenic margins not palpable. MUSCULOSKELETAL: Extremities without clubbing, cyanosis, or edema. No obvious deformities. NEUROLOGICAL: Awake and alert. No obvious cranial nerve deficits. Motor grossly within normal limits. Five out of 5 muscle strength in the arms and legs. Normal speech. PSYCHIATRIC: Appropriate mood and affect; insight and judgment normal. Medications and IVs Current Medications Acetaminophen (Tylenol) 650 mg ONCE ONCE PO Last administered on 04/02/17 02 :00; Start 04/02/17 at 01:45; Stop 04/02/17 at 01:46; Status DC Sodium Chloride 500 ml @ 500 mls/hr BOLUS ONCE IV Last administered on 02:00; Start 04/02/17 at 01:45; Stop 04/02/17 at 02:44; Status DC Piperacillin Sod/ Tazobactam Sod 50 ml @ 100 mls/hr ONCE ONCE IV Last administered on 04/02/17 03:24; Start 04/02/17 at 03:15; Stop 04/02/17 at 03 :44; Status DC Vancomycin HCl 1000 mg/Sodium Chloride 250 ml @ 250 mls/hr ONCE ONCE IV Last administered on 04/02/17 03:52; Start 04/02/17 at 03:15; Stop 04/02/17 at 04 :14; Status DC Sodium Chloride 1,000 ml @ 999 mls/hr BOLUS ONCE IV Last administered on 03:33; Start 04/02/17 at 03:15; Stop 04/02/17 at 04:15; Status DC Ketorolac Tromethamine (Toradol Inj) 15 mg ONCE ONCE IV PUSH Last administered on 04/02/17 03:33; Start 04/02/17 at 03:15; Stop 04/02/17 at 03 :16; Status DC Labetalol HCl (Trandate Inj) 10 mg ONCE ONCE IV PUSH Last administered on 03:34; Start 04/02/17 at 03:15; Stop 04/02/17 at 03:16; Status DC Albuterol/ Ipratropium (Duoneb Neb) 1 ampule ONCE ONCE NEB Last administered on 04/02/17 04:15; Start 04/02/17 at 04:15; Stop 04/02/17 at 04:16; Status DC Sodium Chloride (NS Flush) 2 ml UNSCH PRN IV FLUSH FLUSH AFTER USING IV ACCESS ; Start 04/02/17 at 04:30 Sodium Chloride (NS Flush) 2 ml BID IV FLUSH Last administered on 04/04/17 09 :05; Start 04/02/17 at 09:00 Ondansetron HCl (Zofran Inj) 4 mg Q6H PRN IVP NAUSEA OR VOMITING; Start at 04:30 Heparin Sodium (Porcine) (Heparin Inj) 5,000 units Q12H SQ ; Start 04/02/17 at 04:30; Stop 04/02/17 at 04:30; Status DC Naloxone HCl (Narcan Inj) 0.4 mg UNSCH PRN IV PUSH SEE LABEL COMMENTS; Start 04/02/17 at 04:30 Magnesium Hydroxide (Milk Of Magnesia Liq) 30 ml Q12H PRN PO Mild constipation ; Start 04/02/17 at 04:30 Sennosides (Senokot) 17.2 mg Q12H PRN PO Moderate constipation; Start at 04:30 Bisacodyl (Dulcolax Supp) 10 mg DAILY PRN RECTAL SEVERE CONSITIPATION; Start 04/02/17 at 04:30 Lactulose (Lactulose Liq) 30 ml DAILY PRN PO SEVERE CONSITIPATION; Start 04/02 at 04:30 Pharmacy Profile Note 0 ml @ 0 mls/hr UNSCH OTHER ; Start 04/02/17 at 04:30 Piperacillin Sod/ Tazobactam Sod 50 ml @ 100 mls/hr Q6H IV ; Start 04/02/17 at 10:00; Stop 04/02/17 at 10:00; Status DC Metoprolol Tartrate (Lopressor) 12.5 mg Q8HR PO Last administered on 06:20; Start 04/02/17 at 06:00; Stop 04/02/17 at 08:11; Status DC Clonidine (Catapres) 0.2 mg Q12HR PO Last administered on 04/04/17 09:03; Start 04/02/17 at 09:00 Dextrose (D50w (Vial) Inj) 50 ml UNSCH PRN IV PUSH HYPOGLYCEMIA-SEE COMMENTS; Start 04/02/17 at 04:30 Glucagon (Glucagon Inj) 1 mg UNSCH PRN OTHER HYPOGLYCEMIA-SEE COMMENTS; Start 04/02/17 at 04:30 Insulin Aspart (NovoLOG SUPPLEMENTAL SCALE) 1 ACHS SLIDING SCALE SQ Last administered on 04/04/17 09:01; Start 04/02/17 at 08:00 Famotidine (Pepcid) 20 mg BID PO Last administered on 04/04/17 09:03; Start 04/02/17 at 09:00 Heparin Sodium (Porcine) (Heparin Inj) 5,000 units Q12H SQ Last administered on 04/04/17 09:03; Start 04/02/17 at 09:00 Vancomycin HCl 1000 mg/Sodium Chloride 250 ml @ 250 mls/hr ONCE ONCE IV Last administered on 04/02/17 06:36; Start 04/02/17 at 05:00; Stop 04/02/17 at 05 :59; Status DC Dextrose (D50w (Vial) Inj) 50 ml UNSCH PRN IV PUSH HYPOGLYCEMIA-SEE COMMENTS; Start 04/02/17 at 08:00 Glucagon (Glucagon Inj) 1 mg UNSCH PRN OTHER HYPOGLYCEMIA-SEE COMMENTS; Start 04/02/17 at 08:00 Insulin Aspart (NovoLOG SUPPLEMENTAL SCALE) 1 ACHS SLIDING SCALE SQ Last administered on 04/03/17 17:28; Start 04/02/17 at 08:00 Ceftriaxone Sodium 1000 mg/ Sodium Chloride 100 ml @ 200 mls/hr Q24H IV Last administered on 04/04/17 09:05; Start 04/02/17 at 09:00 Doxycycline Hyclate (Vibramycin) 100 mg BID PO Last administered on 04/04/17 09:03; Start 04/02/17 at 09:00 Sodium Chloride 1,000 ml @ 84 mls/hr [id number] IV Last administered on 22:06; Start 04/02/17 at 09:00; Stop 04/03/17 at 10:19; Status DC Metoprolol Tartrate (Lopressor) 25 mg Q12HR PO Last administered on 04/04/17 09:03; Start 04/02/17 at 09:00 Vancomycin HCl 1500 mg/Sodium Chloride 515 ml @ 250 mls/hr Q18H IV Last administered on 04/03/17 17:25; Start 04/03/17 at 00:00 Miscellaneous Information SPECIFIC LAB TO BE DRAWN:VANCOMYCIN TROUGH DATE TO... ONCE ONCE .XX ; Start 04/04/17 at 11:45; Stop 04/04/17 at 11:46 Acetaminophen (Tylenol) 650 mg Q6H PRN PO PAIN SCALE 1-10; TEMP>101F Last administered on 04/02/17 15:45; Start 04/02/17 at 15:45 Albuterol/ Ipratropium (Duoneb Neb) 1 ampule Q4HR NEB PRN NEB SHORTNESS OF BREATH Last administered on 04/04/17 00:06; Start 04/02/17 at 22:00 Nicotine (Habitrol 14 Mg Patch.24 Hr) 1 patch DAILY T-DERMAL Last administered on 04/04/17 09:02; Start 04/03/17 at 12:00 Methylprednisolone Sodium Succinate (SoluMEDROL INJ) 40 mg Q12HR IV PUSH Last administered on 04/04/17 09:03; Start 04/03/17 at 12:00 Miscellaneous Information 1 DAILY T-DERMAL ; Start 04/03/17 at 12:00 A/P Assessment and Plan 1. Acute febrile illness 2. Leukocytosis and left shift associated infection, possible early pneumonia versus right lower extremity invasion with cellulitis, rule-out other etiologies, UTI, influenza, rule out bacteremia. 3. Diabetes type 2 4. Hypertension, poorly controlled. 5. Chronic kidney disease stage III. 6. Reported history of heart attack. 7. COPD 8. History of sleep apnea not using C-PAP. 9. Chronic back pain and narcotic dependence. 10. Chronic smoker 11. Strong family history of cancer. 12. Noncompliance with her care. 13. Homelessness. Plan Oxygen Empiric IV antibiotic, currently getting Rocephin and doxycycline Follow cultures and adjust antibiotic And IV steroids for possible COPD Aerosol Diabetic diet Accu-Cheks ac and daily at bedtime with sliding scale coverage Nicotine patch Counseled patient against cigarette smoking, he did not pay attention to my recommendation Blood pressure control Analgesics Pepcid For GI Subcutaneous Lovenox for DVT prophylaxis Discussed patient detail With NUPUR Herbert. labs Will follow am labs PT AND OT ANTIBIOTICS STOP SMOKING ADJUST HTN MEDS Alvarez Nix DO Apr 04, 2017 11:56
[2017-04-04] MEDS ORDERED: cloNIDine HCL 0.1 MG TAB PO PRN (12:00)
[2017-04-04] MEDS: VANCOMYCIN INJ 1,500 MG in SODIUM CHLORID 0.9% 500 ML INJ 500 ML IV SCH (14:08)
[2017-04-04] MEDS ORDERED: cloNIDine HCL 0.2 MG TAB PO SCH (17:00)
[2017-04-04] MEDS: FUROSEMIDE 40 MG/4 ML VIAL IV PUSH SCH (17:04)
[2017-04-04] MEDS ORDERED: FUROSEMIDE 40 MG TAB PO SCH (21:00)
[2017-04-05] VITALS (10 sets, daily range): BP systolic 122–158; BP diastolic 57–97; PULSE 58–70; RESP 16–20; TEMP 97.3–97.8; O2SAT 94–98
[2017-04-05] MEDS: cloNIDine HCL 0.2 MG TAB PO SCH ×3 (01:41→17:45)
[2017-04-05] MEDS: VANCOMYCIN 1,500 MG/NS 500 ML IV SCH ×4 (01:46→13:34)
[2017-04-05] MEDS: RESP: ALBUTEROL 2.5 MG/IPRATROPIUM 0.5 MG NEB (PRN) NEB ×3 (02:03→19:37)
[2017-04-05 08:42] LABS: AUTOMATED NEUTROPHIL # 9.6 TH/MM3 (1.8-7.7); BASOPHIL % 0.1 % (0.0-2.0); HEMATOCRIT 44.2 % (39.0-51.0); HEMOGLOBIN 14.7 GM/DL (13.0-17.0); LYMPH % 8.1 % (9.0-44.0); LYMPHOCYTE # 0.9 TH/MM3 (1.0-4.8); MEAN CELL VOLUME 90.9 FL (80.0-100.0); MEAN CORPUSCULAR HEMOGLOBIN 30.3 PG (27.0-34.0); MEAN CORPUSCULAR HGB CONC 33.4 % (32.0-36.0); MEAN PLATELET VOLUME 9.3 FL (7.0-11.0); MONO % 4.1 % (0.0-8.0); MONOCYTE # 0.4 TH/MM3 (0-0.9); NEUT % 87.7 % (16.0-70.0); PLATELET COUNT 177 TH/MM3 (150-450); RED BLOOD COUNT 4.86 MIL/MM3 (4.50-5.90); RED CELL DISTRIBUTION WIDTH 13.8 % (11.6-17.2)
[2017-04-05] MEDS ORDERED: RANITIDINE 300 MG PO SCH (09:00)
[2017-04-05] MEDS: REMOVE OLD PATCH T-DERMAL SCH (09:00)
[2017-04-05] MEDS: INSULIN ASPART SUPPLEMENTAL SCALE SQ SCH ×4 (09:04→22:07)
[2017-04-05] MEDS: NICOTINE 14 MG/24 HR PATCH T-DERMAL SCH (09:05)
[2017-04-05] MEDS: cefTRIAXone INJ 1,000 MG in SODIUM CHLORIDE 0.9% INJ 100 ML IV SCH (09:06)
[2017-04-05] MEDS: FUROSEMIDE 40 MG/4 ML VIAL IV PUSH SCH ×2 (09:06→17:45)
[2017-04-05] MEDS: methylPREDNISolone SOD SUCC 40 MG/1 ML VIAL IV PUSH SCH ×2 (09:06→21:59)
[2017-04-05] MEDS: ASPIRIN 81 MG CHEW TAB CHEW SCH (09:07)
[2017-04-05] MEDS: DOXYCYCLINE HYCLATE 100 MG CAP PO SCH ×2 (09:07→21:56)
[2017-04-05] MEDS: HEPARIN SODIUM - SQ 10,000 UNITS/ML VIAL SQ SCH ×2 (09:07→21:57)
[2017-04-05] MEDS: FAMOTIDINE 20 MG TAB PO SCH ×2 (09:07→21:56)
[2017-04-05] MEDS: SODIUM CHLORIDE 0.9% FLUSH 10 ML FLUSH IV FLUSH SCH ×2 (09:07→21:59)
[2017-04-05] MEDS: METOPROLOL TARTRATE 25 MG TAB PO SCH ×2 (09:07→21:56)
[2017-04-05 09:15] LABS: ALBUMIN 3.2 GM/DL (3.4-5.0); BICARBONATE 27.1 MEQ/L (21.0-32.0); BLOOD UREA NITROGEN 27 MG/DL (7-18); CALCIUM 9.3 MG/DL (8.5-10.1); CHLORIDE 104 MEQ/L (98-107); CREATININE 1.32 MG/DL (0.60-1.30); GLOMERULAR FILTRATION RATE 56 ML/MIN (>89); GLUCOSE,RANDOM 149 MG/DL (74-106); MAGNESIUM 2.4 MG/DL (1.5-2.5); SODIUM (NA) 139 MEQ/L (136-145)
[2017-04-05 09:16] LABS: AST (GOT) 13 U/L (15-37)
[2017-04-05 09:26] LABS: ALKALINE PHOSPHATASE 65 U/L (45-117); ALT (GPT) 45 U/L (12-78); FREE T4 0.94 NG/DL (0.76-1.46); PHOSPHORUS 3.5 MG/DL (2.5-4.9); TOTAL BILIRUBIN ADULT 0.5 MG/DL (0.2-1.0); TOTAL PROTEIN 7.3 GM/DL (6.4-8.2)
--- NOTE | 2017-04-05 14:37 | HHI.PR ---
Subjective Remarks No acute events overnight. Afebrile, vital signs stable. Patient continues to complain of severe shortness of breath with any ambulation, including just walking to the bathroom. He denies chest pain. States he is overall feeling better. Objective Vitals Vital Signs Date Time Temp Pulse Resp B/P (MAP) Pulse Ox O2 Delivery O2 Flow Rate FiO2 04/05/17 08:03 97.4 68 16 139/95 (110) 97 04/05/17 08:00 66 04/05/17 08:00 Nasal Cannula 2.00 04/05/17 07:30 98 Nasal Cannula 3.00 04/05/17 04:00 Nasal Cannula 3.00 04/05/17 04:00 97.3 63 20 158/97 (117) 96 04/05/17 02:07 98 Nasal Cannula 3.00 04/05/17 00:00 97.6 65 20 122/78 (93) 97 04/05/17 00:00 Nasal Cannula 3.00 04/04/17 20:00 97 Nasal Cannula 3.00 21 04/04/17 20:00 97.5 70 20 158/97 (117) 96 04/04/17 20:00 72 04/04/17 16:00 97.8 71 18 153/85 (107) 98 04/04/17 15:21 99 Nasal Cannula 3.00 I/O 04/04/17 04/04/17 04/04/17 04/05/17 04/05/17 04/05/17 07:00 15:00 23:00 07:00 15:00 23:00 Intake Total 1400 ml 100 ml 1095 ml Output Total 600 ml 600 ml Balance 800 ml 100 ml 495 ml Intake Oral 1400 ml 580 ml IV Total 100 ml 515 ml Output Urine Total 600 ml 600 ml # Voids 2 # Bowel Movements 0 Result Diagram: 04/05/1771704/05/17717 Objective Remarks Gen.: No acute distress Head: Normocephalic. Atraumatic. EENT: Pupils equal round and reactive to light. Nose without drainage. Airway intact. Throat without injection. Cardiovascular: Regular rate and rhythm. No murmurs, rubs or gallops. Respiratory: Lungs clear to auscultation bilaterally. No wheezes or rhonchi. Abdomen: Soft, nontender, nondistended. No peritoneal signs. Musculoskeletal: No gross deformities. No edema. Skin: No obvious rashes or erythema. Neuro: Sensory and motor grossly intact. Cranial nerves II through XII grossly intact. Psych: Appropriate mood and affect A/P Assessment and Plan 1. Acute febrile illness 2. Leukocytosis and left shift associated infection 3. Diabetes type 2 4. Hypertension, poorly controlled. 5. Chronic kidney disease stage III. 6. Reported history of heart attack. 7. COPD 8. History of sleep apnea not using C-PAP. 9. Chronic back pain and narcotic dependence. 10. Chronic smoker 11. Strong family history of cancer. 12. Noncompliance with care. 13. Homelessness. Plan Oxygen to maintain sats over 92%, patient requiring 2 L nasal cannula at this time Empiric IV antibiotic, currently getting Rocephin, vancomycin and doxycycline Follow cultures and adjust antibiotic - blood cultures no growth 3 days IV steroids for possible COPD - consider de-escalation tomorrow if oxygen requirements continued to improve Diabetic diet Continue antihypertensive regimen Accu-Cheks ac and daily at bedtime with sliding scale coverage Nicotine patch Pepcid For GI Subcutaneous Lovenox for DVT prophylaxis Lindsay Caceres MD Apr 05, 2017 14:37
[2017-04-06] VITALS (10 sets, daily range): BP systolic 139–152; BP diastolic 78–99; PULSE 55–70; RESP 18–20; TEMP 97.5–98.3; O2SAT 96–100
[2017-04-06] MEDS ORDERED: PHARMACY ORDERED LAB ONE (01:45)
[2017-04-06] MEDS: cloNIDine HCL 0.2 MG TAB PO SCH ×3 (02:36→17:39)
[2017-04-06] MEDS: VANCOMYCIN 1,500 MG/NS 500 ML IV SCH ×2 (02:37)
[2017-04-06] MEDS: RESP: ALBUTEROL 2.5 MG/IPRATROPIUM 0.5 MG NEB (PRN) NEB (06:11)
[2017-04-06 07:02] LABS: AUTOMATED NEUTROPHIL # 7.4 TH/MM3 (1.8-7.7); BASOPHIL % 0.2 % (0.0-2.0); HEMATOCRIT 41.9 % (39.0-51.0); LYMPH % 12.9 % (9.0-44.0); LYMPHOCYTE # 1.2 TH/MM3 (1.0-4.8); MEAN CELL VOLUME 91.1 FL (80.0-100.0); MEAN CORPUSCULAR HEMOGLOBIN 30.5 PG (27.0-34.0); MEAN CORPUSCULAR HGB CONC 33.5 % (32.0-36.0); MONO % 5.3 % (0.0-8.0); MONOCYTE # 0.5 TH/MM3 (0-0.9); NEUT % 81.6 % (16.0-70.0); PLATELET COUNT 169 TH/MM3 (150-450); RED CELL DISTRIBUTION WIDTH 13.5 % (11.6-17.2); WHITE BLOOD COUNT 9.1 TH/MM3 (4.0-11.0)
[2017-04-06 07:21] LABS: BICARBONATE 30.7 MEQ/L (21.0-32.0); CALCIUM 8.8 MG/DL (8.5-10.1); CREATININE 1.36 MG/DL (0.60-1.30)
[2017-04-06] MEDS: REMOVE OLD PATCH T-DERMAL SCH (08:24)
[2017-04-06] MEDS: NICOTINE 14 MG/24 HR PATCH T-DERMAL SCH (08:24)
[2017-04-06] MEDS: DOXYCYCLINE HYCLATE 100 MG CAP PO SCH (08:26)
[2017-04-06] MEDS: HEPARIN SODIUM - SQ 10,000 UNITS/ML VIAL SQ SCH ×2 (08:26→20:57)
[2017-04-06] MEDS: methylPREDNISolone SOD SUCC 40 MG/1 ML VIAL IV PUSH SCH ×2 (08:26→20:57)
[2017-04-06] MEDS: ASPIRIN 81 MG CHEW TAB CHEW SCH (08:26)
[2017-04-06] MEDS: METOPROLOL TARTRATE 25 MG TAB PO SCH ×2 (08:26→20:57)
[2017-04-06] MEDS: FAMOTIDINE 20 MG TAB PO SCH ×2 (08:26→20:57)
[2017-04-06] MEDS: cefTRIAXone INJ 1,000 MG in SODIUM CHLORIDE 0.9% INJ 100 ML IV SCH ×2 (08:27→09:03)
[2017-04-06] MEDS: SODIUM CHLORIDE 0.9% FLUSH 10 ML FLUSH IV FLUSH SCH ×2 (08:27→20:57)
[2017-04-06] MEDS: FUROSEMIDE 40 MG/4 ML VIAL IV PUSH SCH ×2 (08:27→17:39)
[2017-04-06] MEDS: INSULIN ASPART SUPPLEMENTAL SCALE SQ SCH ×4 (09:03→20:58)
--- NOTE | 2017-04-06 12:57 | HHI.PR ---
Subjective Remarks No acute events overnight. Patient complains that his LLE cellulitis is worsening. Denies CP/SOB. Stable on RA. Objective Vitals Vital Signs Date Time Temp Pulse Resp B/P (MAP) Pulse Ox O2 Delivery O2 Flow Rate FiO2 04/06/17 08:03 98.3 70 18 143/95 (111) 99 04/06/17 08:00 70 04/06/17 04:49 Room Air 04/06/17 04:00 97.6 63 20 150/88 (108) 100 04/06/17 00:00 97.6 67 20 142/78 (99) 98 04/06/17 00:00 Nasal Cannula 3.00 04/05/17 22:00 Nasal Cannula 3.00 04/05/17 20:00 Nasal Cannula 4.00 04/05/17 20:00 Nasal Cannula 4.00 04/05/17 20:00 97.8 70 20 129/57 (81) 97 04/05/17 20:00 70 04/05/17 19:40 98 Nasal Cannula 3.00 04/05/17 16:03 97.4 58 16 140/83 (102) 98 I/O 04/05/17 04/05/17 04/05/17 04/06/17 04/06/17 04/06/17 07:00 15:00 23:00 07:00 15:00 23:00 Intake Total 1095 ml 420 ml 1130 ml Output Total 600 ml Balance 495 ml 420 ml 1130 ml Intake Oral 580 ml 420 ml 600 ml IV Total 515 ml 530 ml Output Urine Total 600 ml # Voids 6 6 # Bowel Movements 0 1 Result Diagram: 04/06/17 0635 04/06/17 0635 Objective Remarks Gen.: No acute distress Head: Normocephalic. Atraumatic. EENT: Pupils equal round and reactive to light. Nose without drainage. Airway intact. Throat without injection. Cardiovascular: Regular rate and rhythm. No murmurs, rubs or gallops. Respiratory: Lungs clear to auscultation bilaterally. No wheezes or rhonchi. Abdomen: Soft, nontender, nondistended. No peritoneal signs. Musculoskeletal: No gross deformities. No edema. Skin: Area of erythema with purple papules on LLE arredondo. Neuro: Sensory and motor grossly intact. Cranial nerves II through XII grossly intact. Psych: Appropriate mood and affect A/P Assessment and Plan 1. Acute febrile illness 2. Leukocytosis and left shift associated infection 3. Diabetes type 2 4. Hypertension, poorly controlled. 5. Chronic kidney disease stage III. 6. Reported history of heart attack. 7. COPD 8. History of sleep apnea not using C-PAP. 9. Chronic back pain and narcotic dependence. 10. Chronic smoker 11. Strong family history of cancer. 12. Noncompliance with care. 13. Homelessness. Plan Completed empiric IV antibiotic coverage with Rocephin, vancomycin and doxycycline x 5 days for possible PNA and cellulitis. De-escalate on 04/06 given clinical improvement. Started Bactrim DS for cellulitis. Repeat labs in am, if stable patient can be dc'ed on PO abx. Follow cultures and adjust antibiotic - blood cultures no growth 4 days DC IV steroids for COPD given clinical improvement Diabetic diet Continue antihypertensive regimen Accu-Cheks ac and daily at bedtime with sliding scale coverage Nicotine patch Pepcid For GI Subcutaneous Lovenox for DVT prophylaxis Discharge Planning DC to retirement likely tomorrow Lindsay Caceres MD Apr 06, 2017 12:57
[2017-04-06 14:05] LABS: HEMOGLOBIN A1C 6.4 % (4.3-6.0)
[2017-04-06] MEDS: SULFAMETHOXAZOLE-TRIMETHOPRIM DS 800-160 MG TAB PO SCH (20:57)
[2017-04-07] VITALS: BP 132/91; PULSE 60; RESP 17; TEMP 97.5; O2SAT 99
[2017-04-07] MEDS: cloNIDine HCL 0.2 MG TAB PO SCH ×2 (01:39→08:17)
[2017-04-07 04:00] VITALS: BP 127/83; PULSE 57; RESP 17; TEMP 98; O2SAT 99
[2017-04-07 05:27] LABS: AUTOMATED NEUTROPHIL # 9.7 TH/MM3 (1.8-7.7); BASOPHIL % 0.3 % (0.0-2.0); HEMATOCRIT 45.8 % (39.0-51.0); HEMOGLOBIN 15.2 GM/DL (13.0-17.0); LYMPH % 12.8 % (9.0-44.0); LYMPHOCYTE # 1.5 TH/MM3 (1.0-4.8); MEAN CELL VOLUME 91.1 FL (80.0-100.0); MEAN CORPUSCULAR HEMOGLOBIN 30.2 PG (27.0-34.0); MEAN CORPUSCULAR HGB CONC 33.1 % (32.0-36.0); MEAN PLATELET VOLUME 8.5 FL (7.0-11.0); MONO % 6.6 % (0.0-8.0); MONOCYTE # 0.8 TH/MM3 (0-0.9); NEUT % 80.3 % (16.0-70.0); PLATELET COUNT 198 TH/MM3 (150-450); RED BLOOD COUNT 5.03 MIL/MM3 (4.50-5.90); RED CELL DISTRIBUTION WIDTH 13.6 % (11.6-17.2); WHITE BLOOD COUNT 12.1 TH/MM3 (4.0-11.0)
[2017-04-07 05:48] LABS: BICARBONATE 32.7 MEQ/L (21.0-32.0); CALCIUM 8.8 MG/DL (8.5-10.1); CREATININE 1.33 MG/DL (0.60-1.30)
[2017-04-07 08:00] VITALS: BP 133/90; PULSE 51; RESP 18; TEMP 98; O2SAT 99
[2017-04-07] MEDS: INSULIN ASPART SUPPLEMENTAL SCALE SQ SCH ×2 (08:00→12:00)
[2017-04-07 08:17] VITALS: PULSE 54
[2017-04-07] MEDS: METOPROLOL TARTRATE 25 MG TAB PO SCH (08:17)
[2017-04-07] MEDS: FUROSEMIDE 40 MG/4 ML VIAL IV PUSH SCH (08:17)
[2017-04-07] MEDS: FAMOTIDINE 20 MG TAB PO SCH (08:17)
[2017-04-07] MEDS: ASPIRIN 81 MG CHEW TAB CHEW SCH (08:17)
[2017-04-07] MEDS: HEPARIN SODIUM - SQ 10,000 UNITS/ML VIAL SQ SCH (08:17)
[2017-04-07] MEDS: SULFAMETHOXAZOLE-TRIMETHOPRIM DS 800-160 MG TAB PO SCH (08:17)
[2017-04-07] MEDS: methylPREDNISolone SOD SUCC 40 MG/1 ML VIAL IV PUSH SCH (08:17)
[2017-04-07] MEDS: REMOVE OLD PATCH T-DERMAL SCH (08:18)
[2017-04-07] MEDS: NICOTINE 14 MG/24 HR PATCH T-DERMAL SCH (08:18)
[2017-04-07] MEDS: SODIUM CHLORIDE 0.9% FLUSH 10 ML FLUSH IV FLUSH SCH (08:25)
[2017-04-07] MEDS ORDERED: SODIUM CHLORID 0.9% 500 ML INJ 500 ML IV SCH (09:00)
--- NOTE | 2017-04-07 09:08 | HHI.PR ---
Subjective Remarks Pt denies any CP/SOB/N/V States that his legs are like "night and day" and he is pleased w the results. Would like to go for a walk. Does have a PCP. Discussed w RN, no concerns Objective Vitals Vital Signs Date Time Temp Pulse Resp B/P (MAP) Pulse Ox O2 Delivery O2 Flow Rate FiO2 04/07/17 08:00 98.0 51 18 133/90 (104) 99 04/07/17 04:00 Nasal Cannula 3.00 04/07/17 04:00 98.0 57 17 127/83 (98) 99 04/07/17 00:00 Nasal Cannula 3.00 04/07/17 00:00 97.5 60 17 132/91 (105) 99 04/06/17 20:14 57 04/06/17 20:00 97.5 63 18 145/99 (114) 96 04/06/17 17:43 96 Nasal Cannula 3.00 04/06/17 16:03 97.5 55 18 152/94 (113) 96 04/06/17 13:24 99 Nasal Cannula 3.00 04/06/17 12:03 97.6 57 18 139/86 (103) 100 I/O 04/06/17 04/06/17 04/06/17 04/07/17 04/07/17 04/07/17 07:00 15:00 23:00 07:00 15:00 23:00 Intake Total 1130 ml 420 ml 0 ml Balance 1130 ml 420 ml 0 ml Intake Oral 600 ml 420 ml 0 ml IV Total 530 ml # Voids 6 6 2 # Bowel Movements 0 Result Diagram: 04/07/17 0515 04/07/17 0515 Imaging Last Impressions Chest X-Ray 04/02/17 0139 Signed Impressions: Service Date/Time: Sunday, April 02, 2017 02:34 - CONCLUSION: 1. Left basilar atelectasis versus minimal infiltrate. David David MD Objective Remarks Gen.: sitting up in chair, appears comfortable. EENT: EOMI Cardiovascular: Regular rate and rhythm. No murmurs Respiratory: Lungs clear to auscultation bilaterally. No wheezes Abdomen: Soft, nontender, nondistended. No peritoneal signs. Musculoskeletal: No gross deformities. No edema. Skin: minimal erythema on the left lower extremity. scabs noted bilaterally, no signs of infection. no swelling noted. Neuro: Sensory and motor grossly intact. Psych: Appropriate mood and affect A/P Assessment and Plan 1. Acute febrile illness 2. Leukocytosis and left shift associated infection 3. Diabetes type 2 4. Hypertension, poorly controlled. 5. Chronic kidney disease stage III. 6. Reported history of heart attack. 7. COPD 8. History of sleep apnea not using C-PAP. 9. Chronic back pain and narcotic dependence. 10. Chronic smoker 11. Strong family history of cancer. 12. Noncompliance with care. 13. Homelessness. Plan Pt Completed empiric IV antibiotic coverage with Rocephin, vancomycin and doxycycline x 5 days for possible PNA and cellulitis. He was de-escalated on given clinical improvement and was started on Bactrim DS for cellulitis. Pt is clinically improving and tolerating the bactrim well. Will go ahead and d/c patient on bactrim. all cultures neg x 4 days s/p IV steroids for COPD. will perform walk test however pt is currently on RA. anticipate he will do well. Diabetic diet Continue antihypertensive regimen. BP stable. Accu-Cheks ac and daily at bedtime with sliding scale coverage Nicotine patch Pepcid For GI Subcutaneous Lovenox for DVT prophylaxis Discharge Planning awaiting walk test. Cindi Oneal MD Apr 07, 2017 09:08
[2017-04-07] MEDS ORDERED: MEDR4PAK PO (09:12)
[2017-04-07] MEDS ORDERED: SULF1TAB23 PO (09:12)
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
--- NOTE | 2017-04-07 09:35 | HHI.PR ---
Addendum to Inpatient Note Addendum Reason: Additional Documentation Additional Information I was notified by RN that Tic room called and pt had 12 run beat of Vtach and I did review the strip. Will consult cards for evaluation and recs. Appreciate assistance. Pt is asymptomatic. will hold discharge until evaluate by Cindi Huerta MD Apr 07, 2017 09:35
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
[2017-04-07 12:00] VITALS: BP 134/87; PULSE 63; RESP 20; TEMP 98.2; O2SAT 93
[2017-04-07 13:49] VITALS: O2SAT 93
== END 2017-04-07 14:27 | disposition home or self-care (01) | DRG 871 ==
LOC: NEPC 01:13 → NEDA 04:20 → NEPFCDU 05:45 → N04A 04-04 11:50
PROVIDERS: ADMIT Hospitalist; ATTEND Hospitalist
DX: A41.9 Sepsis, unspecified organism (principal); J18.9 Pneumonia, unspecified organism; I47.2 Ventricular tachycardia; I13.0 Hypertensive heart and chronic kidney disease with heart failure and stage 1 through stage 4 chronic kidney disease, or unspecified chronic kidney disease; E11.22 Type 2 diabetes mellitus with diabetic chronic kidney disease; I50.9 Heart failure, unspecified; F11.20 Opioid dependence, uncomplicated; L03.115 Cellulitis of right lower limb; L03.116 Cellulitis of left lower limb; J44.0 Chronic obstructive pulmonary disease with (acute) lower respiratory infection; N18.3 Chronic kidney disease, stage 3 (moderate); E78.5 Hyperlipidemia, unspecified; G47.30 Sleep apnea, unspecified; G89.29 Other chronic pain; M54.9 Dorsalgia, unspecified; I25.10 Atherosclerotic heart disease of native coronary artery without angina pectoris; I25.2 Old myocardial infarction; E66.9 Obesity, unspecified; F17.210 Nicotine dependence, cigarettes, uncomplicated; Z59.0 Homelessness; Z80.9 Family history of malignant neoplasm, unspecified; Z86.73 Personal history of transient ischemic attack (TIA), and cerebral infarction without residual deficits; Z91.19 Patient's noncompliance with other medical treatment and regimen; Z68.36 Body mass index [BMI] 36.0-36.9, adult
CPT/HCPCS: 71010; 76937; 80048; 80053; 80202; 81001; 82550; 82552; 82948; 83036; 83605; 83690; 83735; 83880; 84100; 84439; 84443; 84484; 85025; 85610; 85730; 86140; 87040; 87804; 94620; 94640; 94664; 96361; 96365; 96367; 96375; J0696; J1644; J1815; J1885; J1940; J2543; J2920; J3370; J7030; J7040; J7050

== ENCOUNTER 2017-08-16 04:18 | Emergency (ER) | payer MEDICARE, MEDICAID ==
[~2017-08-16 04:18] MED LIST changes: +ASPI-516 CHEW; -ASPI81CH CHEW; +CYCL10TA PO; -CYCL1TAB29 PO; +MEDR4PAK PO; +SULF1TAB23 PO
[2017-08-16 04:23] VITALS: BP 202/131; PULSE 81; RESP 18; TEMP 97.8; O2SAT 96
--- NOTE | 2017-08-16 04:26 | PD ---
HPI Chief Complaint: Shortness of breath Time Seen by Provider: 04:24 Travel History International Travel<30 days: No Contact w/Intl Traveler<30days: No Traveled to known affect area: No History of Present Illness HPI 56-year-old male patient with history of COPD and CHF, presents to the ER today brought in by EMS for shortness of breath worsening at midnight. He has been wheezing, was initially given DuoNeb's and EMS thought they heard rales, started him on BiPAP, nitroglycerin, and Lasix 100 mg in the ambulance. He states he feels a little bit better but is still quite short of breath. He denies any fevers or other issues. Modifying Factors: None Associated Signs & Symptoms: Worsening shortness of breath, dyspnea on exertion Risk Factors: COPD, CHF PFSH Past Medical History Blood Disorders: No Heart Rhythm Problems: No Cancer: No Cardiovascular Problems: Yes (HTN, [place] X3) High Cholesterol: Yes Chest Pain: Yes Congestive Heart Failure: Yes Cerebrovascular Accident: Yes (2004?) Diabetes: Yes Diminished Hearing: No Endocrine: Yes Gastrointestinal Disorders: No Genitourinary: Yes Hypertension: Yes Immune Disorder: No Implanted Vascular Access Dvce: No Musculoskeletal: No Neurologic: No Psychiatric: No Reproductive: No Respiratory: Yes Renal Failure: Yes (CKD) Thyroid Disease: No Past Surgical History Other Surgery: No Social History Alcohol Use: No (PT DENIES) Tobacco Use: Yes (3/4 PPD) Substance Use: No Allergies-Medications (Allergen,Severity, Reaction): Coded Allergies: diatrizoate meglumine (Verified Allergy, Severe, Itching, 02/04/17) gadobenic acid (Verified Allergy, Severe, Itching, 02/04/17) gadodiamide (Verified Allergy, Severe, Itching, 02/04/17) gadoteridol (Verified Allergy, Severe, Itching, 02/04/17) iodixanol (Verified Allergy, Severe, Itching, 02/04/17) iohexol (Verified Allergy, Severe, Itching, 02/04/17) Iodinated Contrast- Oral and IV Dye (Unverified Allergy, Unknown, 04/03/17 ) PATIENT STATED ALLERGY TO CONTRAST MEDIA. Reported Meds & Prescriptions Reported Meds & Active Scripts Active Medrol Dosepak (Methylprednisolone) 4 Mg Dspk 4 Mg PO DIRECTED Per Pharmacist direction Sulfamethoxazole-Trimethoprim 800-160 Mg Tab 1 Tab PO Q12HR Zantac (Ranitidine HCl) 300 Mg Tab 300 Mg PO DAILY 3 Days Reported Aspirin 81 Mg Chew 81 Mg CHEW DAILY Flexeril (Cyclobenzaprine HCl) 10 Mg Tab 10 Mg PO TID Clorazepate (Clorazepate Dipotassium) 3.75 Mg Tab 3.75 Mg PO BID PRN Metformin (Metformin HCl) 1,000 Mg Tab 1,000 Mg PO DAILY With a meal Metoprolol Tartrate 25 Mg Tab 25 Mg PO BID Furosemide 40 Mg Tab 40 Mg PO BID Hydrocodone-Acetaminophen 10-325 mg Tab 1 Tab PO Q6H PRN Clonidine (Clonidine HCl) 0.3 Mg Tab 0.3 Mg PO BID Review of Systems Except as stated in HPI: all other systems reviewed are Neg Physical Exam Narrative GENERAL: Well-developed middle-age male patient currently and mild to moderate respiratory distress. Awake and oriented 3. SKIN: Focused skin assessment warm/dry. HEAD: Atraumatic. Normocephalic. EYES: Pupils equal and round. No scleral icterus. No injection or drainage. ENT: No nasal bleeding or discharge. Mucous membranes pink and moist. NECK: Trachea midline. No JVD. CARDIOVASCULAR: Regular rate and rhythm. No murmur appreciated. RESPIRATORY: Mild accessory muscle use. Wheezing bilaterally. Breath sounds equal bilaterally. GASTROINTESTINAL: Abdomen soft, non-tender, nondistended. Hepatic and splenic margins not palpable. MUSCULOSKELETAL: No obvious deformities. No clubbing. No cyanosis. No edema. NEUROLOGICAL: Awake and alert. No obvious cranial nerve deficits. Motor grossly within normal limits. Normal speech. PSYCHIATRIC: Appropriate mood and affect; insight and judgment normal. Data Data Last Documented VS Vital Signs Date Time Temp Pulse Resp B/P (MAP) Pulse Ox O2 Delivery O2 Flow Rate FiO2 08/16/17 06:46 08/16/17 06:38 81 18 97 08/16/17 04:54 Nasal Cannula 2.00 08/16/17 04:23 97.8 Orders Orders Complete Blood Count With Diff (08/16/17 04:24) Comprehensive Metabolic Panel (08/16/17 04:24) B-Type Natriuretic Peptide (08/16/17 04:24) Ckmb (Isoenzyme) Profile (08/16/17 04:24) Iv Access Insert/Monitor (08/16/17 04:24) Electrocardiogram (08/16/17 04:24) Ecg Monitoring (08/16/17 04:24) Oximetry (08/16/17 04:24) Oxygen Administration (08/16/17 04:24) Chest, Single Ap (08/16/17 04:24) Sodium Chloride 0.9% Flush (Ns Flush) (08/16/17 04:30) Albuterol-Ipratropium Neb (Duoneb Neb) (08/16/17 04:30) CKMB (08/16/17 04:45) CKMB% (08/16/17 04:45) Labs Laboratory Tests Test 08/16/17 04:45 White Blood Count 9.8 TH/MM3 Red Blood Count 5.33 MIL/MM3 Hemoglobin 16.2 GM/DL Hematocrit 46.9 % Mean Corpuscular Volume 88.0 FL Mean Corpuscular Hemoglobin 30.3 PG Mean Corpuscular Hemoglobin Concent 34.5 % Red Cell Distribution Width 13.0 % Platelet Count 183 TH/MM3 Mean Platelet Volume 8.3 FL Neutrophils (%) (Auto) 64.9 % Lymphocytes (%) (Auto) 26.3 % Monocytes (%) (Auto) 6.4 % Eosinophils (%) (Auto) 1.9 % Basophils (%) (Auto) 0.5 % Neutrophils # (Auto) 6.4 TH/MM3 Lymphocytes # (Auto) 2.6 TH/MM3 Monocytes # (Auto) 0.6 TH/MM3 Eosinophils # (Auto) 0.2 TH/MM3 Basophils # (Auto) 0.1 TH/MM3 CBC Comment DIFF FINAL Differential Comment Blood Urea Nitrogen 17 MG/DL Creatinine 1.46 MG/DL Random Glucose 122 MG/DL Total Protein 7.8 GM/DL Albumin 4.1 GM/DL Calcium Level 8.6 MG/DL Alkaline Phosphatase 88 U/L Aspartate Amino Transf (AST/SGOT) 25 U/L Alanine Aminotransferase (ALT/SGPT) 51 U/L Total Bilirubin 0.5 MG/DL Sodium Level 142 MEQ/L Potassium Level 3.6 MEQ/L Chloride Level 108 MEQ/L Carbon Dioxide Level 25.3 MEQ/L Anion Gap 9 MEQ/L Estimat Glomerular Filtration Rate 50 ML/MIN Total Creatine Kinase 135 U/L Creatine Kinase MB 1.9 NG/ML B-Type Natriuretic Peptide 418 PG/ML [facility] Medical Decision Making Medical Screen Exam Complete: Yes Emergency Medical Condition: Yes Medical Record Reviewed: Yes Interpretation(s) Laboratory Tests Test 08/16/17 04:45 Creatinine 1.46 MG/DL (0.60-1.30) Random Glucose 122 MG/DL (74-106) Chloride Level 108 MEQ/L (98-107) Estimat Glomerular Filtration Rate 50 ML/MIN (>89) B-Type Natriuretic Peptide 418 PG/ML (0-100) EKG shows normal sinus rhythm at a rate of 89 bpm. No signs of acute ST elevations or depressions. Last 24 hours Impressions Chest X-Ray 08/16/17 0424 Signed Impressions: Service Date/Time: Wednesday, August 16, 2017 04:28 - CONCLUSION: Bibasilar pneumonia. Trey Reyes MD Differential Diagnosis Pneumonia versus bronchitis versus COPD exacerbation versus CHF Narrative Course Chest x-ray shows bibasilar infiltrates questionable for pneumonia versus CHF. Patient's BNP is elevated at 400. Patient had been given Lasix by EMS, nitroglycerin, and several duo nebs have been given. On reevaluation at 6:50 AM , he states he is feeling much better. He is ambulatory in the ER, doing well, and at this point I do not think that this is pneumonia. There is no significant leukocytosis or any fevers. I suspect that this may be an underlying COPD exacerbation with possible mild CHF as well. It appears that he has been treated with current therapy. He states that he wants to leave at this point. My plan would be to release him with follow-up to primary care doctor. Return for worsening in symptoms as needed. The plan has been discussed with him and he states understanding. Diagnosis Primary Impression: COPD exacerbation Med/Other Pt SpecificInfo: Prescription(s) given Scripts Albuterol 6.7 GM Inh (Proventil Hfa 6.7 GM Inh) 90 Mcg/Act Aer 2 PUFF INH Q4-6H Y for SHORTNESS OF BREATH, #1 INHALER 0 Refills Prov: Yeimy Hilario MD 08/16/17 Furosemide (Lasix) 40 Mg Tab 40 MG PO BID, #14 TAB 0 Refills Prov: Yeimy Hilario MD 08/16/17 Methylprednisolone Dosepak (Medrol Dosepak) 4 Mg Dspk 4 MG PO DIRECTED, #1 DSPK 0 Refills Per Pharmacist direction Prov: Yeimy Hilario MD 08/16/17 Disposition: 01 DISCHARGE HOME Condition: Stable Yeimy Hilario MD Aug 16, 2017 04:26
[2017-08-16] MEDS ORDERED: SODIUM CHLORIDE 0.9% FLUSH 10 ML FLUSH IVF PRN (04:30)
[2017-08-16] MEDS: RESP: ALBUTEROL 2.5 MG/IPRATROPIUM 0.5 MG NEB (SCH) INH (04:37)
--- NOTE | 2017-08-16 04:48 | RADRPT ---
EXAM DATE/TIME: 08/16/2017 04:28 [facility] COMPARISON: CHEST SINGLE AP, April 02, 2017, 2:34. INDICATIONS : Shortness of breath. MEDICAL HISTORY : Hypercholesterolemia. Chronic obstructive pulmonary disease. Hypertension. Congestive heart fail ure. Diabetes mellitus type II. SURGICAL HISTORY : None. ENCOUNTER: Initial ACUITY: 1 day PAIN SCORE: 0/10 LOCATION: Bilateral chest FINDINGS: Ill-defined consolidation seen in both bases. No perceptible effusion. No pneumothorax. Heart size up per limits of normal. CONCLUSION: Bibasilar pneumonia. Trey Reyes MD on August 16, 2017 at 4:46 Board Certified Radiologist. This report was verified electronically.
[2017-08-16 05:03] LABS: AUTOMATED NEUTROPHIL # 6.4 TH/MM3 (1.8-7.7); BASOPHIL # 0.1 TH/MM3 (0-0.2); BASOPHIL % 0.5 % (0.0-2.0); EOSINOPHIL # 0.2 TH/MM3 (0-0.4); EOSINOPHIL % 1.9 % (0.0-4.0); HEMATOCRIT 46.9 % (39.0-51.0); HEMOGLOBIN 16.2 GM/DL (13.0-17.0); LYMPH % 26.3 % (9.0-44.0); LYMPHOCYTE # 2.6 TH/MM3 (1.0-4.8); MEAN CORPUSCULAR HEMOGLOBIN 30.3 PG (27.0-34.0); MEAN CORPUSCULAR HGB CONC 34.5 % (32.0-36.0); MEAN PLATELET VOLUME 8.3 FL (7.0-11.0); MONO % 6.4 % (0.0-8.0); MONOCYTE # 0.6 TH/MM3 (0-0.9); NEUT % 64.9 % (16.0-70.0); PLATELET COUNT 183 TH/MM3 (150-450); RED BLOOD COUNT 5.33 MIL/MM3 (4.50-5.90); WHITE BLOOD COUNT 9.8 TH/MM3 (4.0-11.0)
[2017-08-16 05:28] LABS: ALBUMIN 4.1 GM/DL (3.4-5.0); ALT (GPT) 51 U/L (12-78); AST (GOT) 25 U/L (15-37); BICARBONATE 25.3 MEQ/L (21.0-32.0); BLOOD UREA NITROGEN 17 MG/DL (7-18); CALCIUM 8.6 MG/DL (8.5-10.1); CHLORIDE 108 MEQ/L (98-107); CREATININE 1.46 MG/DL (0.60-1.30); GLOMERULAR FILTRATION RATE 50 ML/MIN (>89); GLUCOSE,RANDOM 122 MG/DL (74-106); SODIUM (NA) 142 MEQ/L (136-145)
[2017-08-16 05:31] LABS: ALKALINE PHOSPHATASE 88 U/L (45-117); TOTAL BILIRUBIN ADULT 0.5 MG/DL (0.2-1.0); TOTAL PROTEIN 7.8 GM/DL (6.4-8.2)
[2017-08-16 06:38] VITALS: BP 173/97; PULSE 81; RESP 18; O2SAT 97
[2017-08-16] MEDS ORDERED: FURO1TAB60 PO (06:52)
[2017-08-16] MEDS ORDERED: MEDR4PAK PO (06:52)
[2017-08-16] MEDS ORDERED: ALBU6.7H INH (06:52)
--- NOTE | 2017-08-16 23:47 | EKG ---
Date Performed: 08/16/2017 Time Performed: 04:27:40 PTAGE: 56 years EKG: Sinus rhythm POSSIBLE LEFT ATRIAL ENLARGEMENT MODERATE INTRAVENTRICULAR CONDUCTION DELAY NONSPECIFIC T-WAVE ABNOR MALITY ABNORMAL ECG PREVIOUS TRACING : 11/10/2016 07.34 Compared to prior tracing, anterolateral changes no longer noted DOCTOR: Elijah Cruz Interpretating Date/Time 08/16/2017 23:45:30
== END 2017-08-16 06:57 | disposition home or self-care (01) ==
LOC: NEPE 04:18
DX: J44.1 Chronic obstructive pulmonary disease with (acute) exacerbation (principal); J18.9 Pneumonia, unspecified organism; R94.31 Abnormal electrocardiogram [ECG] [EKG]; I13.0 Hypertensive heart and chronic kidney disease with heart failure and stage 1 through stage 4 chronic kidney disease, or unspecified chronic kidney disease; I50.9 Heart failure, unspecified; N18.9 Chronic kidney disease, unspecified; E11.22 Type 2 diabetes mellitus with diabetic chronic kidney disease; E78.00 Pure hypercholesterolemia, unspecified; F17.200 Nicotine dependence, unspecified, uncomplicated
CPT/HCPCS: 71045; 80053; 82550; 82552; 83880; 85025; 93005; 94640; 94664

== ENCOUNTER 2017-08-21 04:49 | Inpatient (IN) | payer MEDICARE, MEDICAID ==
[~2017-08-21] VITALS: Ht 182.9 cm; Wt 125.0 kg
[2017-08-21] VITALS (18 sets, daily range): BP systolic 144–182; BP diastolic 93–139; PULSE 63–92; RESP 16–20; TEMP 98.1–98.7; O2SAT 91–99
[~2017-08-21 04:49] MED LIST changes: +ALBU6.7H INH; +FURO1TAB60 PO
[2017-08-21] MEDS ORDERED: NITROGLYCERIN 0.4 MG SL 25 TABS/BTL SL ONE ×2 (05:00)
[2017-08-21] MEDS ORDERED: NITROGLYCERIN 2% OINT 1 GM PACKET TOPICAL ONE (05:00)
[2017-08-21] MEDS ORDERED: FUROSEMIDE 40 MG/4 ML VIAL IV PUSH ONE ×2 (05:00→10:30)
--- NOTE | 2017-08-21 05:16 | PD ---
HPI Chief Complaint: Respiratory Symptoms Time Seen by Provider: 04:53 Travel History International Travel<30 days: No Contact w/Intl Traveler<30days: No Traveled to known affect area: No History of Present Illness HPI Patient is a 56-year-old male who was outside on the [facility] sitting outside. He possibly was homeless he is brought in because he cannot breathe short of breath orthopnea he was just discharged recently from the hospital in the ER on the 10th 3 days ago with a chest x-ray that showed bibasilar pneumonias apparently he was given antibiotics and scripts but he was unable to fill them because of his co-pay is now reactivated that it is the new year and he has not paid down his deductible minimum he is without his Lasix without his metoprolol without his lisinopril and he comes into the ER hypertensive 175/137 , diffuse wheeze , etiology unclear to paramedics no treatment initiated en route, on arrival moderate resp distress. but able to communiocated in full sents [facility] Past Medical History Blood Disorders: No Heart Rhythm Problems: No Cancer: No Cardiovascular Problems: Yes (HTN, [place] X3) High Cholesterol: Yes Chest Pain: Yes Congestive Heart Failure: Yes COPD: Yes Cerebrovascular Accident: Yes Diabetes: Yes Patient Takes Glucophage: Yes (hasnt had for 16mths) Diminished Hearing: No Endocrine: Yes Gastrointestinal Disorders: No Genitourinary: Yes Hypertension: Yes Immune Disorder: No Implanted Vascular Access Dvce: No Kidney Stones: Yes Musculoskeletal: No Neurologic: No Psychiatric: No Reproductive: No Respiratory: Yes Renal Failure: Yes (CKD) Thyroid Disease: No Tetanus Vaccination: < 5 Years Influenza Vaccination: No Past Surgical History Other Surgery: Yes (FACIAL, C1-C2, L. FOOT) Social History Alcohol Use: No Tobacco Use: Yes (3/4PPD ) Substance Use: No Allergies-Medications (Allergen,Severity, Reaction): Coded Allergies: diatrizoate meglumine (Verified Allergy, Severe, Itching, 02/04/17) gadobenic acid (Verified Allergy, Severe, Itching, 02/04/17) gadodiamide (Verified Allergy, Severe, Itching, 02/04/17) gadoteridol (Verified Allergy, Severe, Itching, 02/04/17) iodixanol (Verified Allergy, Severe, Itching, 02/04/17) iohexol (Verified Allergy, Severe, Itching, 02/04/17) Iodinated Contrast- Oral and IV Dye (Unverified Allergy, Unknown, 04/03/17 ) PATIENT STATED ALLERGY TO CONTRAST MEDIA. Reported Meds & Prescriptions Reported Meds & Active Scripts Active Proventil Hfa 6.7 GM Inh (Albuterol Sulfate) 90 Mcg/Act Aer 2 Puff INH Q4-6H PRN Zantac (Ranitidine HCl) 300 Mg Tab 300 Mg PO DAILY 3 Days Reported Aspirin 81 Mg Chew 81 Mg CHEW DAILY Flexeril (Cyclobenzaprine HCl) 10 Mg Tab 10 Mg PO TID Clorazepate (Clorazepate Dipotassium) 3.75 Mg Tab 3.75 Mg PO BID PRN Metoprolol Tartrate 25 Mg Tab 25 Mg PO BID Hydrocodone-Acetaminophen 10-325 mg Tab 1 Tab PO Q6H PRN Review of Systems Except as stated in HPI: all other systems reviewed are Neg Physical Exam Narrative GENERAL: Patient is a sun burn red-faced from exposure SKIN: Warm and dry. HEAD: Atraumatic. Normocephalic. EYES: Pupils equal and round. No scleral icterus. No injection or drainage. ENT: No nasal bleeding or discharge. Mucous membranes pink and moist. NECK: Trachea midline. No JVD. CARDIOVASCULAR: Regular rate and rhythm. Hypertensive 175/137 RESPIRATORY: No accessory muscle use. Clear to auscultation. Breath sounds equal bilaterally. Diffuse wheezes throughout all [place] possibly cardiac asthma GASTROINTESTINAL: Abdomen soft, non-tender, nondistended. Hepatic and splenic margins not palpable. MUSCULOSKELETAL: Extremities without clubbing, cyanosis, or edema. No obvious deformities. NEUROLOGICAL: Awake and alert. No obvious cranial nerve deficits. Motor grossly within normal limits. Five out of 5 muscle strength in the arms and legs. Normal speech. PSYCHIATRIC: Appropriate mood and affect; insight and judgment normal. Data Data Last Documented VS Vital Signs Date Time Temp Pulse Resp B/P (MAP) Pulse Ox O2 Delivery O2 Flow Rate FiO2 08/21/17 06:07 80 20 160/100 (120) 94 Room Air 08/21/17 04:51 98.7 Orders Orders Nitroglycerin Sl (Nitrostat Sl) (08/21/17 05:00) Nitroglycerin Sl (Nitrostat Sl) (08/21/17 05:00) Furosemide Inj (Lasix Inj) (08/21/17 05:00) Nitroglycerin 2% Oint (Nitroglycerin 2% (08/21/17 05:00) Complete Blood Count With Diff (08/21/17 04:55) Comprehensive Metabolic Panel (08/21/17 04:55) Ckmb (Isoenzyme) Profile (08/21/17 04:55) Troponin I (08/21/17 04:55) B-Type Natriuretic Peptide (08/21/17 04:55) Lipase (08/21/17 04:55) Chest, Single Ap (08/21/17 04:55) Lisinopril (Prinivil) (08/21/17 05:30) Metoprolol Tartrate (Lopressor) (08/21/17 05:30) CKMB (08/21/17 05:00) CKMB% (08/21/17 05:00) Aspirin Chew (Aspirin Chew) (08/21/17 09:00) Aspirin Chew (Aspirin Chew) (08/21/17 06:15) Vital Signs (Adult) Q4H (08/21/17 06:12) Activity Oob With Assistance (08/21/17 06:12) Data Entry Email Processor / Telemetry .CONTINUOUS (08/21/17 06:12) Intake + Output SANCHEZ.QSHIFT (08/21/17 06:12) Diet Heart Healthy (08/21/17 Breakfast) Sodium Chloride 0.9% Flush (Ns Flush) (08/21/17 06:15) Sodium Chloride 0.9% Flush (Ns Flush) (08/21/17 09:00) Basic Metabolic Panel (Bmp) (08/22/17 06:00) Complete Blood Count With Diff (08/22/17 06:00) Troponin I (08/21/17 11:00) Troponin I (08/21/17 17:00) Electrocardiogram (08/21/17 11:00) Pt Request For Service (08/21/17 06:12) Case Management Consult (08/21/17 06:12) Naloxone Inj (Narcan Inj) (08/21/17 06:15) Admit Order (Ed Use Only) (08/21/17 06:13) Ct Thorax/ Chest Wo Iv Contras (08/21/17 ) Labs Laboratory Tests Test 08/21/17 05:00 White Blood Count 9.0 TH/MM3 Red Blood Count 5.39 MIL/MM3 Hemoglobin 16.0 GM/DL Hematocrit 47.2 % Mean Corpuscular Volume 87.5 FL Mean Corpuscular Hemoglobin 29.7 PG Mean Corpuscular Hemoglobin Concent 34.0 % Red Cell Distribution Width 13.0 % Platelet Count 181 TH/MM3 Mean Platelet Volume 8.7 FL Neutrophils (%) (Auto) 67.1 % Lymphocytes (%) (Auto) 23.6 % Monocytes (%) (Auto) 7.2 % Eosinophils (%) (Auto) 1.6 % Basophils (%) (Auto) 0.5 % Neutrophils # (Auto) 6.0 TH/MM3 Lymphocytes # (Auto) 2.1 TH/MM3 Monocytes # (Auto) 0.6 TH/MM3 Eosinophils # (Auto) 0.1 TH/MM3 Basophils # (Auto) 0.0 TH/MM3 CBC Comment DIFF FINAL Differential Comment Blood Urea Nitrogen 16 MG/DL Creatinine 1.36 MG/DL Random Glucose 115 MG/DL Total Protein 7.5 GM/DL Albumin 3.9 GM/DL Calcium Level 8.5 MG/DL Alkaline Phosphatase 80 U/L Aspartate Amino Transf (AST/SGOT) 21 U/L Alanine Aminotransferase (ALT/SGPT) 42 U/L Total Bilirubin 0.6 MG/DL Sodium Level 144 MEQ/L Potassium Level 3.7 MEQ/L Chloride Level 107 MEQ/L Carbon Dioxide Level 28.7 MEQ/L Anion Gap 8 MEQ/L Estimat Glomerular Filtration Rate 54 ML/MIN Total Creatine Kinase 149 U/L Creatine Kinase MB 1.9 NG/ML Troponin I 0.04 NG/ML B-Type Natriuretic Peptide 404 PG/ML Lipase 80 U/L [facility] Medical Decision Making Medical Screen Exam Complete: Yes Emergency Medical Condition: Yes Medical Record Reviewed: Yes Differential Diagnosis DDx diagnosis is CHF fluid overload versus COPD exacerbation versus pneumonia versus bronchitis thorax versus other possibly viral ,, vs ACS with flash pulmonary edema other flu Narrative Course BNP 404 and Chest xray inconclusive possible edema but motion artifact , CT ordered and pt admit for resp distress and htn and possible fluid overload lungs Diagnosis Primary Impression: Shortness of breath Additional Impression: HTN (hypertension) Scripts Atorvastatin (Atorvastatin) 40 Mg Tab 40 MG PO HS for Cholesterol Management, #30 TAB Prov: Ramona Lan [employer] 08/23/17 Nicotine (Eq Nicotine) 21 Mg/24 Hour Dis 1 PATCH T-DERMAL DAILY for Tobacco Cessation, #30 PATCH Prov: Ramona Lan 08/23/17 Methylprednisolone Dosepak (Medrol Dosepak) 4 Mg Dspk 4 MG PO DIRECTED for COPD exac, #1 DSPK 0 Refills Per Pharmacist direction Prov: Ramona Lan 08/23/17 Furosemide (Furosemide) 40 Mg Tab 40 MG PO BID for CHF, #60 TAB 0 Refills Prov: Ramona Lan 08/23/17 Jr Horner MD Aug 21, 2017 05:16
[2017-08-21 05:20] LABS: BASOPHIL % 0.5 % (0.0-2.0); EOSINOPHIL # 0.1 TH/MM3 (0-0.4); EOSINOPHIL % 1.6 % (0.0-4.0); HEMATOCRIT 47.2 % (39.0-51.0); LYMPH % 23.6 % (9.0-44.0); LYMPHOCYTE # 2.1 TH/MM3 (1.0-4.8); MEAN CELL VOLUME 87.5 FL (80.0-100.0); MEAN CORPUSCULAR HEMOGLOBIN 29.7 PG (27.0-34.0); MEAN PLATELET VOLUME 8.7 FL (7.0-11.0); MONO % 7.2 % (0.0-8.0); MONOCYTE # 0.6 TH/MM3 (0-0.9); NEUT % 67.1 % (16.0-70.0); PLATELET COUNT 181 TH/MM3 (150-450); RED BLOOD COUNT 5.39 MIL/MM3 (4.50-5.90)
--- NOTE | 2017-08-21 05:28 | RADRPT ---
EXAM DATE/TIME: 08/21/2017 05:05 [facility] COMPARISON: CHEST SINGLE AP, August 16, 2017, 4:28. INDICATIONS : Shortness of breath. MEDICAL HISTORY : Hypercholesterolemia. Chronic obstructive pulmonary disease. Hypertension. Congestive heart failure. Diabetes mellitus type II. SURGICAL HISTORY : None. ENCOUNTER: Initial ACUITY: 1 day PAIN SCORE: 0/10 LOCATION: Bilateral chest FINDINGS: Study is breathing motion degraded. A single view of the chest demonstrates the lungs to be symmetric ally aerated without evidence of mass, infiltrate or effusion. Mild cardiomegaly. Pulmonary vasculatu re cannot be assessed. Osseous structures are intact. CONCLUSION: Cardiomegaly. Pepe Boyer Jr., MD on August 21, 2017 at 5:25 Board Certified Radiologist. This report was verified electronically.
[2017-08-21] MEDS ORDERED: METOPROLOL TARTRATE 25 MG TAB PO ONE (05:30)
[2017-08-21] MEDS ORDERED: LISINOPRIL 20 MG TAB PO ONE (05:30)
[2017-08-21 05:47] LABS: ALBUMIN 3.9 GM/DL (3.4-5.0); ALT (GPT) 42 U/L (12-78); AST (GOT) 21 U/L (15-37); BICARBONATE 28.7 MEQ/L (21.0-32.0); BLOOD UREA NITROGEN 16 MG/DL (7-18); CALCIUM 8.5 MG/DL (8.5-10.1); CHLORIDE 107 MEQ/L (98-107); CREATININE 1.36 MG/DL (0.60-1.30); GLOMERULAR FILTRATION RATE 54 ML/MIN (>89); GLUCOSE,RANDOM 115 MG/DL (74-106); SODIUM (NA) 144 MEQ/L (136-145)
[2017-08-21 05:50] LABS: ALKALINE PHOSPHATASE 80 U/L (45-117); TOTAL BILIRUBIN ADULT 0.6 MG/DL (0.2-1.0); TOTAL PROTEIN 7.5 GM/DL (6.4-8.2); TROPONIN I 0.04 NG/ML (0.02-0.05)
[2017-08-21] MEDS ORDERED: SODIUM CHLORIDE 0.9% FLUSH 10 ML FLUSH IV FLUSH PRN (06:15)
[2017-08-21] MEDS ORDERED: NALOXONE HCL 0.4 MG/ML AMP IV PUSH PRN (06:15)
[2017-08-21] MEDS ORDERED: ASPIRIN 81 MG CHEW TAB CHEW ONE (06:15)
--- NOTE | 2017-08-21 06:46 | RADRPT ---
EXAM DATE/TIME: 08/21/2017 06:31 [facility] COMPARISON: No previous studies available for comparison. INDICATIONS : Shortness of breath, evaluate for pneumonia. RADIATION DOSE: 17.41 CTDIvol (mGy) MEDICAL HISTORY : Hypertension. Congestive heart failure. Chronic obstructive pulmonary disease. Renal failure. SURGICAL HISTORY : None. ENCOUNTER: Initial ACUITY: 4 - 6 days PAIN SCALE: 0/10 LOCATION: chest TECHNIQUE: Volumetric scanning of the chest was performed. Using automated exposure control and adjustment of t he mA and/or kV according to patient size, radiation dose was kept as low as reasonably achievable to obtain optimal diagnostic quality images. DICOM format image data is available electronically for r eview and comparison. Follow-up recommendations for detected pulmonary nodules are based at a minimum on nodule size and pa tient risk factors according to Fleischner Society Guidelines. FINDINGS: LUNGS: There is no consolidation or pneumothorax. No concerning pulmonary nodule is visualized. PLEURAE: There is no pleural thickening or pleural effusion. MEDIASTINUM: The heart and great vessels demonstrate no acute abnormality. There is no mediastinal or hilar lymph adenopathy. AXILLAE: Within normal limits. No lymphadenopathy. MUSCULOSKELETAL: Within normal limits for patient age. MISCELLANEOUS: The visualized upper abdominal organs demonstrate no acute abnormality. CONCLUSION: No acute disease. Pepe Boyer Jr., MD on August 21, 2017 at 6:43 Board Certified Radiologist. This report was verified electronically.
[2017-08-21] MEDS: SODIUM CHLORIDE 0.9% FLUSH 10 ML FLUSH IV FLUSH SCH ×2 (09:00→21:14)
[2017-08-21] MEDS ORDERED: ASPIRIN 81 MG CHEW TAB CHEW SCH (09:00)
[2017-08-21] MEDS: METOPROLOL TARTRATE 25 MG TAB PO SCH ×2 (10:30→21:14)
--- NOTE | 2017-08-21 10:30 | HHI.HP ---
[facility] Service [facility] Primary Care Physician Duglas Perez III, Admission Diagnosis chf Diagnoses: Travel History International Travel<30 Days: No Contact w/Intl Traveler <30 Da: No Traveled to Known Affected Are: No History of Present Illness 56-year-old male says he called 911 because he was feeling short of breath for the last 2-3 days they came upon gradually. Says that his shortness of breath would get worse when he would lie down, when he sits up gets better. Denies any chest pain nausea vomiting fevers or chills. Says that he has been out of his prescribed medications for the last 8-9 days. When he has his medications most recently, he says he was asymptomatic and doing fine. He apparently came to our emergency room about 5 days ago for similar symptoms but did not get his medications filled because he could not afford them even with his insurance co- pays. Patient says he is homeless and chooses to be homeless. Says he gets a check every month for disability secondary to 3 heart attacks and stroke yet he says he has not undergone any cardiac catheterization with no stenting. Patient denies ever having a diagnosis of congestive heart failure. In the emergency room he was found to be hypoxic at 88%, given Lasix, clinical improvement in his dyspnea. Eventually reached 90% saturations on room air. Review of Systems Except as stated in HPI: all other systems reviewed are Neg Past Family Social History Past Medical History Apparently coronary artery disease and CVA Allergies: Coded Allergies: diatrizoate meglumine (Verified Allergy, Severe, Itching, 02/04/17) gadobenic acid (Verified Allergy, Severe, Itching, 02/04/17) gadodiamide (Verified Allergy, Severe, Itching, 02/04/17) gadoteridol (Verified Allergy, Severe, Itching, 02/04/17) iodixanol (Verified Allergy, Severe, Itching, 02/04/17) iohexol (Verified Allergy, Severe, Itching, 02/04/17) Iodinated Contrast- Oral and IV Dye (Unverified Allergy, Unknown, 04/03/17 ) PATIENT STATED ALLERGY TO CONTRAST MEDIA. Family History Father with lung cancer, liver cancer, pancreatic cancer Mother with metastatic lung cancer Social History Reports smoking a pack per day lifelong Physical Exam Vital Signs Vital Signs Date Time Temp Pulse Resp B/P (MAP) Pulse Ox O2 Delivery O2 Flow Rate FiO2 08/21/17 08:08 66 16 154/94 (114) 98 Nasal Cannula 2.00 08/21/17 06:23 75 20 167/97 (120) 95 Room Air 08/21/17 06:07 80 20 160/100 (120) 94 Room Air 08/21/17 06:04 81 20 179/110 (133) 95 Room Air 08/21/17 05:55 81 179/115 (136) 97 Room Air 08/21/17 05:27 87 20 169/112 (131) 94 Room Air 08/21/17 05:22 169/105 (126) 08/21/17 05:13 85 161/99 (119) 08/21/17 05:11 89 20 154/99 (117) 94 Room Air 08/21/17 05:03 89 20 169/120 (136) 95 Room Air 08/21/17 04:55 90 20 182/114 (136) 95 Room Air 08/21/17 04:51 98.7 92 20 178/139 (152) 95 Physical Exam VS: afebrile GENERAL: Lying in bed, no acute distress, on nasal cannula SKIN: Warm and dry. EYES: No scleral icterus. No injection or drainage. ENT: No nasal bleeding or discharge. Mucous membranes pink and moist. CARDIOVASCULAR: Regular rate and rhythm. no murmurs RESPIRATORY: No accessory muscle use. Slightly diminished breath sounds in the bases, otherwise clear, on nasal cannula GASTROINTESTINAL: Abdomen soft, non-tender, nondistended, obese habitus. Extremities: No clubbing, cyanosis. Mild to moderate bilateral lower extremity nonpitting edema MUSCULOSKELETAL: adequate muscle bulk and tone for age and habitus NEUROLOGICAL: Awake and alert. No obvious cranial nerve deficits. No facial droop nor slurred speech noted. PSYCHIATRIC: Appropriate mood and affect; insight and judgment normal. Laboratory Laboratory Tests Test 08/21/17 05:00 White Blood Count 9.0 Red Blood Count 5.39 Hemoglobin 16.0 Hematocrit 47.2 Mean Corpuscular Volume 87.5 Mean Corpuscular Hemoglobin 29.7 Mean Corpuscular Hemoglobin Concent 34.0 Red Cell Distribution Width 13.0 Platelet Count 181 Mean Platelet Volume 8.7 Neutrophils (%) (Auto) 67.1 Lymphocytes (%) (Auto) 23.6 Monocytes (%) (Auto) 7.2 Eosinophils (%) (Auto) 1.6 Basophils (%) (Auto) 0.5 Neutrophils # (Auto) 6.0 Lymphocytes # (Auto) 2.1 Monocytes # (Auto) 0.6 Eosinophils # (Auto) 0.1 Basophils # (Auto) 0.0 CBC Comment DIFF FINAL Differential Comment Blood Urea Nitrogen 16 Creatinine 1.36 Random Glucose 115 Total Protein 7.5 Albumin 3.9 Calcium Level 8.5 Alkaline Phosphatase 80 Aspartate Amino Transf (AST/SGOT) 21 Alanine Aminotransferase (ALT/SGPT) 42 Total Bilirubin 0.6 Sodium Level 144 Potassium Level 3.7 Chloride Level 107 Carbon Dioxide Level 28.7 Anion Gap 8 Estimat Glomerular Filtration Rate 54 Total Creatine Kinase 149 Creatine Kinase MB 1.9 Troponin I 0.04 B-Type Natriuretic Peptide 404 Lipase 80 Result Diagram: 08/21/17 0500 08/21/17 0500 Imaging Last Impressions Chest X-Ray 08/21/17 0455 Signed Impressions: Service Date/Time: August 05:05 - CONCLUSION: Cardiomegaly. Pepe Boyer Jr., MD Chest CT 08/21/17 0000 Signed Impressions: Service Date/Time: August 06:31 - CONCLUSION: No acute disease. MD Bijal Walker Jr. VTE Risk Assessment Jonahrini VTE Risk Assessment: Mod/High Risk (score >= 2) Caprini Risk Assessment Model Point Value = 1 Point Value = 2 Point Value = 3 Point Value = 5 Age 41-60 Minor surgery BMI > 25 kg/m2 Swollen legs Varicose veins or History of unexplained or recurrent spontaneous Oral contraceptives or hormone replacement Sepsis (< 1 month) Serious lung disease, including pneumonia (< 1 month) Abnormal pulmonary function Acute myocardial infarction Congestive heart failure (< 1 month) History of inflammatory bowel disease Medical patient at bed rest Age 61-74 Arthroscopic surgery Major open surgery (> 45 min) Laparoscopic surgery (> 45 min) Malignancy Confined to bed (> 72 hours) Immobilizing plaster cast Central venous access Age >= 75 History of VTE Family history of VTE Factor V Leiden Prothrombin [id number] Lupus anticoagulant Anticardiolipin antibodies Elevated serum homocysteine Heparin-induced thrombocytopenia Other congenital or acquired thrombophilia Stroke (< 1 month) Elective arthroplasty Hip, pelvis, or leg fracture Acute spinal cord injury (< 1 month) Prophylaxis Regimen Total Risk Factor Score Risk Level Prophylaxis Regimen 0-1 Low Early ambulation 2 Moderate Order ONE of the following: *Sequential Compression Device (SCD) *Heparin 5000 units SQ BID 3-4 Higher Order ONE of the following medications: *Heparin 5000 units SQ TID *Enoxaparin/Lovenox 40 mg SQ daily (WT < 150 kg, CrCl > 30 mL/min) *Enoxaparin/Lovenox 30 mg SQ daily (WT < 150 kg, CrCl > 10-29 mL/min) *Enoxaparin/Lovenox 30 mg SQ BID (WT < 150 kg, CrCl > 30 mL/min) AND/OR *Sequential Compression Device (SCD) 5 or more Highest Order ONE of the following medications: *Heparin 5000 units SQ TID (Preferred with Epidurals) *Enoxaparin/Lovenox 40 mg SQ daily (WT < 150 kg, CrCl > 30 mL/min) *Enoxaparin/Lovenox 30 mg SQ daily (WT < 150 kg, CrCl > 10-29 mL/min) *Enoxaparin/Lovenox 30 mg SQ BID (WT < 150 kg, CrCl > 30 mL/min) AND *Sequential Compression Device (SCD) Assessment and Plan Assessment and Plan Acute hypoxic respiratory failure -Likely secondary to below etiologies, treat as below, supplemental O2 as needed. I independently reviewed the CT chest which was unremarkable for any infiltrates. Shortness of breath - possible undiagnosed congestive heart failure (either right sided or left sided given smoking hx) although BNP is just around 400, will obtain echocardiogram, continue with twice daily Lasix IV. Intake and output. Resume previously prescribed Lopressor - additionally will order steroids and duo nebs to cover for suspected undiagnosed COPD History of CAD/CVA -Continue home aspirin, start Lipitor Lovenox Will order past MR from OSH in [facility]. Physician Certification 2 Midnight Certification Type: Admission for Inpatient Services Order for Inpatient Services The services are ordered in accordance with Medicare regulations or non- Medicare payer requirements, as applicable. In the case of services not specified as inpatient-only, they are appropriately provided as inpatient services in accordance with the 2-midnight benchmark. Estimated LOS (days): 2 2 days is the estimated time the patient will need to remain in the hospital, assuming treatment plan goals are met and no additional complications. Post-Hospital Plan: Not yet determined Jonathan Clarke MD Aug 21, 2017 10:30
[2017-08-21] MEDS: methylPREDNISolone SOD SUCC 125 MG/2 ML VIAL IV PUSH SCH ×2 (14:00→21:14)
[2017-08-21] MEDS: RESP: ALBUTEROL 2.5 MG/IPRATROPIUM 0.5 MG NEB (SCH) NEB ×2 (14:00→22:45)
--- NOTE | 2017-08-21 14:08 | EKG ---
Date Performed: 08/21/2017 Time Performed: 04:54:29 PTAGE: 56 years EKG: Sinus rhythm WITH OCCASIONAL SUPRAVENTRICULAR PREMATURE COMPLEXES POSSIBLE LEFT ATRIAL ENLARGEMENT MODERATE INTRA VENTRICULAR CONDUCTION DELAY NONSPECIFIC T-WAVE ABNORMALITY ABNORMAL ECG Since the PREVIOUS TRACING , no significant change noted PREVIOUS TRACING DOCTOR: Mariangel Briggs Interpretating Date/Time 08/21/2017 13:58:37
[2017-08-21] MEDS ORDERED: ENOXAPARIN SODIUM 30 MG/0.3 ML SYRINGE SQ SCH (16:00)
[2017-08-21] MEDS: FUROSEMIDE 40 MG/4 ML VIAL IV PUSH SCH (18:30)
[2017-08-21] MEDS: ATORVASTATIN 40 MG TAB PO SCH (21:13)
[2017-08-22] VITALS (10 sets, daily range): BP systolic 109–163; BP diastolic 65–99; PULSE 74–84; RESP 16–20; TEMP 97.7–98.2; O2SAT 91–98
[2017-08-22] MEDS: methylPREDNISolone SOD SUCC 125 MG/2 ML VIAL IV PUSH SCH ×3 (05:17→21:10)
[2017-08-22 07:43] LABS: AUTOMATED NEUTROPHIL # 12.8 TH/MM3 (1.8-7.7); BASOPHIL % 0.1 % (0.0-2.0); HEMATOCRIT 49.9 % (39.0-51.0); HEMOGLOBIN 16.9 GM/DL (13.0-17.0); LYMPH % 6.5 % (9.0-44.0); LYMPHOCYTE # 0.9 TH/MM3 (1.0-4.8); MEAN CORPUSCULAR HEMOGLOBIN 29.9 PG (27.0-34.0); MONO % 0.9 % (0.0-8.0); MONOCYTE # 0.1 TH/MM3 (0-0.9); NEUT % 92.5 % (16.0-70.0); PLATELET COUNT 223 TH/MM3 (150-450); RED BLOOD COUNT 5.67 MIL/MM3 (4.50-5.90); RED CELL DISTRIBUTION WIDTH 13.5 % (11.6-17.2); WHITE BLOOD COUNT 13.8 TH/MM3 (4.0-11.0)
[2017-08-22 08:14] LABS: BICARBONATE 27.1 MEQ/L (21.0-32.0); CALCIUM 9.5 MG/DL (8.5-10.1); CREATININE 1.43 MG/DL (0.60-1.30)
[2017-08-22] MEDS: RESP: ALBUTEROL 2.5 MG/IPRATROPIUM 0.5 MG NEB (SCH) NEB ×3 (08:37→20:16)
[2017-08-22] MEDS: METOPROLOL TARTRATE 25 MG TAB PO SCH ×2 (09:52→21:11)
[2017-08-22] MEDS: ASPIRIN 81 MG CHEW TAB CHEW SCH (09:53)
[2017-08-22] MEDS: SODIUM CHLORIDE 0.9% FLUSH 10 ML FLUSH IV FLUSH SCH ×2 (09:54→21:11)
[2017-08-22] MEDS: FUROSEMIDE 40 MG/4 ML VIAL IV PUSH SCH ×2 (09:54→18:16)
[2017-08-22] MEDS ORDERED: LORazepam 0.5 MG TAB PO PRN (10:30)
[2017-08-22] MEDS: NICOTINE 21 MG/24 HR PATCH T-DERMAL SCH (11:43)
--- NOTE | 2017-08-22 14:06 | HHI.PR ---
Subjective Remarks The patient is in the chair he feels short of breath however seems better than yesterday. Satting well on 3 L cannula. No nausea vomiting no diarrhea or constipation. Eating fairly well. Not much lower extremity edema. No fever or chills. He is not coughing. Objective Vitals Vital Signs Date Time Temp Pulse Resp B/P (MAP) Pulse Ox O2 Delivery O2 Flow Rate FiO2 08/22/17 11:14 97.7 84 16 156/85 (108) 95 08/22/17 07:21 98.0 76 16 158/86 (110) 92 08/22/17 05:05 98.2 76 18 144/77 (99) 92 08/22/17 00:58 74 18 140/68 (92) 91 08/22/17 00:00 75 08/21/17 22:47 93 Nasal Cannula 3.00 08/21/17 21:45 98.1 86 18 171/93 (119) 91 08/21/17 20:30 Room Air 08/21/17 17:35 Nasal Cannula 3.00 08/21/17 16:16 98.4 73 20 171/113 (132) 97 I/O 08/21/17 08/21/17 08/21/17 08/22/17 08/22/17 08/22/17 07:00 15:00 23:00 07:00 15:00 23:00 Intake Total 150 ml 480 ml 960 ml Output Total 1950 ml 600 ml 400 ml Balance -1950 ml 150 ml -120 ml 560 ml Intake Oral 150 ml 480 ml 960 ml Output Urine Total 1950 ml 600 ml 400 ml # Voids 3 2 Result Diagram: 08/22/17 0600 08/22/17 0600 Imaging Last Impressions Chest X-Ray 08/21/17 0455 Signed Impressions: Service Date/Time: August 05:05 - CONCLUSION: Cardiomegaly. Pepe Boyer Jr., MD Chest CT 08/21/17 0000 Signed Impressions: Service Date/Time: August 06:31 - CONCLUSION: No acute disease. Pepe Boyer Jr., MD Objective Remarks GENERAL: Lying in bed, no acute distress, on nasal cannula SKIN: Warm and dry. CARDIOVASCULAR: Regular rate and rhythm. no murmurs RESPIRATORY: No accessory muscle use. Slightly diminished breath sounds in the bases, otherwise clear, on nasal cannula GASTROINTESTINAL: Abdomen soft, non-tender, nondistended, obese habitus. Extremities: No clubbing, cyanosis. Mild to moderate bilateral lower extremity nonpitting edema MUSCULOSKELETAL: adequate muscle bulk and tone for age and habitus NEUROLOGICAL: Awake and alert. No obvious cranial nerve deficits. No facial droop nor slurred speech noted. PSYCHIATRIC: Appropriate mood and affect; insight and judgment normal. A/P Assessment and Plan Acute hypoxic respiratory failure CHF with patient -Likely secondary to below etiologies, treat as below, supplemental O2 as needed. I independently reviewed the CT chest which was unremarkable for any infiltrates. Shortness of breath CHF with exacerbation - possible undiagnosed congestive heart failure (either right sided or left sided given smoking hx) although BNP is just around 400, will obtain echocardiogram, continue with twice daily Lasix IV. Intake and output. Resume previously prescribed Lopressor - additionally will order steroids and duo nebs to cover for suspected undiagnosed COPD History of CAD/CVA -Continue home aspirin, start Lipitor Lovenox Will order past MR from OSH in [facility]. Discussed with the patient, nurse. Discharge home in 1 or 2 days when improved. Patient still requires oxygen by 3 L will have to do a walking test at discharge. Marleny Montana MD Aug 22, 2017 14:06
--- NOTE | 2017-08-22 14:26 | EKG ---
Date Performed: 08/21/2017 Time Performed: 11:29:00 PTAGE: 56 years EKG: Sinus rhythm POSSIBLE LEFT ATRIAL ENLARGEMENT MODERATE T-WAVE ABNORMALITY, CONSIDER ANTEROLATERAL ISCHEMIA ABNORM AL ECG PREVIOUS TRACING : 08/21/[address]-T changes more pronounced. Cannot rule out ischemia. DOCTOR: Venkat Philip Interpretating Date/Time 08/22/2017 14:25:53
--- NOTE | 2017-08-22 17:38 | ECHRPT ---
Indication: HEART FAILURE CONCLUSIONS Mildly dilated left ventricle. Wall thickness is normal. The left ventricular systolic function is mildly reduced with an estimated ejection fraction 45%. M ild global hypokinesis. Trace mitral valve regurgitation. There is mild tricuspid valve regurgitation. The estimated pulmonary arterial pressure is 47 mmHg. BP: 171 / 113 HR: Rhythm: MEASUREMENTS (Male / Female) Normal Values Technical Quality:Good 2D ECHO LV Diastolic Diameter PLAX 6.4 cm 4.2 - 5.9 / 3.9 - 5.3 cm LV Systolic Diameter PLAX 5.4 cm IVS Diastolic Thickness 1.2 cm 0.6 - 1.0 / 0.6 - 0.9 cm LVPW Diastolic Thickness 1.1 cm 0.6 - 1.0 / 0.6 - 0.9 cm LV Relative Wall Thickness 0.4 RV Internal Dim ED PLAX 4.3 cm LVOT Diameter 2.3 cm LA Systolic Diameter LX 6.1 cm 3.0 - 4.0 / 2.7 - 3.8 cm LA Volume Index 47.9 cm/m 16 - 28 cm/m M-MODE Aortic Root Diameter MM 3.2 cm LA Systolic Diameter MM 5.5 cm LA Ao Ratio MM 1.7 AV Cusp Separation MM 2.2 cm DOPPLER AV Peak Velocity 132.0 cm/s AV Peak Gradient 7.0 mmHg LVOT Peak Velocity 107.0 cm/s LVOT Peak Gradient 4.6 mmHg AV Area Cont Eq pk 3.4 cm MV Area PHT 3.9 cm Mitral E Point Velocity 109.0 cm/s Mitral A Point Velocity 59.2 cm/s Mitral E to A Ratio 1.8 LV E' Lateral Velocity 8.6 cm/s Mitral E to LV E' Lateral Ratio 12.7 LV E' Septal Velocity 4.4 cm/s Mitral E to LV E' Septal Ratio 24.6 TR Peak Velocity 305.0 cm/s TR Peak Gradient 37.2 mmHg Right Atrial Pressure 10.0 mmHg Pulmonary Artery Systolic Pressu 47.2 mmHg Right Ventricular Systolic Press 47.2 mmHg FINDINGS LEFT VENTRICLE Mildly dilated left ventricle. Wall thickness is normal. The left ventricular systolic function is mildly reduced with an estimated ejection fraction 45%. M ild global hypokinesis. RIGHT VENTRICLE Normal right ventricular size and systolic function. LEFT ATRIUM The left atrial size is upper limits of normal. RIGHT ATRIUM The right atrial size is normal. ATRIAL SEPTUM Normal atrial septal thickness without atrial level shunting by limited color doppler interrogation. AORTA The aortic root and proximal ascending aorta are normal in size on limited imaging. MITRAL VALVE Structurally normal mitral valve. Trace mitral valve regurgitation. AORTIC VALVE Trileaflet aortic valve. No aortic valve stenosis or regurgitation. TRICUSPID VALVE There is mild tricuspid valve regurgitation. The estimated pulmonary arterial pressure is 47 mmHg. PULMONARY VALVE No pulmonary valve regurgitation or stenosis. VESSELS The inferior vena cava is normal in size. PERICARDIUM No pericardial effusion. Herman Kirk MD (Electronically Signed) Final Date:22 August 2017 17:38
[2017-08-22] MEDS: ENOXAPARIN SODIUM 40 MG/0.4 ML SYRINGE SQ SCH (18:20)
[2017-08-22] MEDS: ATORVASTATIN 40 MG TAB PO SCH (21:10)
[2017-08-23 03:45] VITALS: BP 135/86; PULSE 71; RESP 18; TEMP 97.5; O2SAT 96
[2017-08-23] MEDS: methylPREDNISolone SOD SUCC 125 MG/2 ML VIAL IV PUSH SCH ×2 (05:33→13:16)
[2017-08-23] MEDS: RESP: ALBUTEROL 2.5 MG/IPRATROPIUM 0.5 MG NEB (SCH) NEB ×2 (07:16→14:00)
[2017-08-23 08:00] VITALS: BP 139/91; PULSE 90; RESP 19; TEMP 98; O2SAT 97
[2017-08-23] MEDS: NICOTINE 21 MG/24 HR PATCH T-DERMAL SCH (08:25)
[2017-08-23] MEDS: SODIUM CHLORIDE 0.9% FLUSH 10 ML FLUSH IV FLUSH SCH (08:26)
[2017-08-23] MEDS: METOPROLOL TARTRATE 25 MG TAB PO SCH (08:26)
[2017-08-23] MEDS ORDERED: NICO21DI25 T-DERMAL (08:27)
[2017-08-23] MEDS ORDERED: FURO40TA PO (08:27)
[2017-08-23] MEDS ORDERED: MEDR4PAK PO (08:27)
[2017-08-23] MEDS: FUROSEMIDE 40 MG/4 ML VIAL IV PUSH SCH (08:27)
[2017-08-23] MEDS ORDERED: ATOR40TA16 PO (08:27)
[2017-08-23] MEDS: ASPIRIN 81 MG CHEW TAB CHEW SCH (08:28)
[2017-08-23] MEDS ORDERED: REMOVE OLD PATCH T-DERMAL SCH (09:00)
[2017-08-23] MEDS ORDERED: BUDESONIDE-FORMOTEROL 160/4.5 MCG INHALER INH SCH (09:00)
[2017-08-23 11:39] LABS: HEMATOCRIT 46.6 % (39.0-51.0); HEMOGLOBIN 15.5 GM/DL (13.0-17.0); MEAN CELL VOLUME 89.1 FL (80.0-100.0); MEAN CORPUSCULAR HEMOGLOBIN 29.7 PG (27.0-34.0); MEAN CORPUSCULAR HGB CONC 33.3 % (32.0-36.0); MEAN PLATELET VOLUME 9.1 FL (7.0-11.0); PLATELET COUNT 207 TH/MM3 (150-450); RED BLOOD COUNT 5.23 MIL/MM3 (4.50-5.90); RED CELL DISTRIBUTION WIDTH 13.5 % (11.6-17.2); WHITE BLOOD COUNT 17.1 TH/MM3 (4.0-11.0)
[2017-08-23] MEDS ORDERED: GLUCAGON 1 MG/ML VIAL OTHER PRN (11:45)
[2017-08-23] MEDS ORDERED: DEXTROSE 50% IN WATER 50 ML VIAL(D50) IV PUSH PRN (11:45)
[2017-08-23 11:57] LABS: BICARBONATE 30.6 MEQ/L (21.0-32.0); CALCIUM 8.8 MG/DL (8.5-10.1); CREATININE 1.66 MG/DL (0.60-1.30)
[2017-08-23 12:00] VITALS: BP 115/60; PULSE 70; RESP 20; TEMP 98.1; O2SAT 93
[2017-08-23] MEDS: INSULIN ASPART SUPPLEMENTAL SCALE SQ SCH ×2 (12:00→13:16)
--- NOTE | 2017-08-23 14:01 | HHI.DS ---
Discharge Summary Admission Date Aug 22, 2017 at 15:54 Discharge Date: Aug 23, 2017 Admitting Diagnosis chf (1) COPD exacerbation ICD Code: J44.1 - Chronic obstructive pulmonary disease with (acute) exacerbation Status: Acute (2) Tobacco abuse ICD Code: Z72.0 - Tobacco use Status: Acute (3) CHF (congestive heart failure) ICD Code: I50.9 - Heart failure, unspecified Status: Acute (4) Nonsustained paroxysmal ventricular tachycardia ICD Code: I47.2 - Ventricular tachycardia (5) Non compliance with medical treatment ICD Code: Z91.19 - Patient's noncompliance with other medical treatment and regimen Status: Acute Procedures none Brief History - From Admission 56-year-old male says he called 911 because he was feeling short of breath for the last 2-3 days they came upon gradually. Says that his shortness of breath would get worse when he would lie down, when he sits up gets better. Denies any chest pain nausea vomiting fevers or chills. Says that he has been out of his prescribed medications for the last 8-9 days. When he has his medications most recently, he says he was asymptomatic and doing fine. He apparently came to our emergency room about 5 days ago for similar symptoms but did not get his medications filled because he could not afford them even with his insurance co- pays. Patient says he is homeless and chooses to be homeless. Says he gets a check every month for disability secondary to 3 heart attacks and stroke yet he says he has not undergone any cardiac catheterization with no stenting. Patient denies ever having a diagnosis of congestive heart failure. In the emergency room he was found to be hypoxic at 88%, given Lasix, clinical improvement in his dyspnea. Eventually reached 90% saturations on room air. CBC/BMP: 08/23/17 1038 08/23/17 1038 Significant Findings Laboratory Tests Test 08/21/17 05:00 08/21/17 11:02 08/21/17 20:37 08/22/17 06:00 Creatinine 1.36 MG/DL (0.60-1.30) 1.43 MG/DL (0.60-1.30) Random Glucose 115 MG/DL (74-106) 160 MG/DL (74-106) Estimat Glomerular Filtration Rate 54 ML/MIN (>89) 51 ML/MIN (>89) B-Type Natriuretic Peptide 404 PG/ML (0-100) Troponin I LESS THAN 0.02 NG/ML White Blood Count 13.8 TH/MM3 (4.0-11.0) Neutrophils (%) (Auto) 92.5 % (16.0-70.0) Lymphocytes (%) (Auto) 6.5 % (9.0-44.0) Neutrophils # (Auto) 12.8 TH/MM3 (1.8-7.7) Lymphocytes # (Auto) 0.9 TH/MM3 (1.0-4.8) Blood Urea Nitrogen 22 MG/DL (7-18) Test 08/23/17 10:38 White Blood Count 17.1 TH/MM3 (4.0-11.0) Blood Urea Nitrogen 30 MG/DL (7-18) Creatinine 1.66 MG/DL (0.60-1.30) Random Glucose 232 MG/DL (74-106) Estimat Glomerular Filtration Rate 43 ML/MIN (>89) Imaging Last Impressions Chest X-Ray 08/21/17 0455 Signed Impressions: Service Date/Time: August 05:05 - CONCLUSION: Cardiomegaly. Pepe Boyer Jr., MD Chest CT 08/21/17 0000 Signed Impressions: Service Date/Time: August 06:31 - CONCLUSION: No acute disease. Pepe Boyer Jr., MD PE at Discharge GENERAL: Lying in bed, no acute distress, on nasal cannula SKIN: Warm and dry. CARDIOVASCULAR: Regular rate and rhythm. no murmurs RESPIRATORY: No accessory muscle use. Slightly diminished breath sounds in the bases, otherwise clear, on nasal cannula GASTROINTESTINAL: Abdomen soft, non-tender, nondistended, obese habitus. Extremities: No clubbing, cyanosis. Mild to moderate bilateral lower extremity nonpitting edema MUSCULOSKELETAL: adequate muscle bulk and tone for age and habitus NEUROLOGICAL: Awake and alert. No obvious cranial nerve deficits. No facial droop nor slurred speech noted. PSYCHIATRIC: Appropriate mood and affect; insight and judgment normal. Pt update on day of discharge Patient is walking without any problems. Passed O2 walking test. Feels much imprpved. No n/v/d/c. Hospital Course 42 y/o female with a history of depression presented to the ED with complaints of shortness of breath. PNA, unilateral, right upper Possible Underlying COPD, smoker -CT angiogram reviewed and shows Scattered areas of infiltrate most pronounced within the right upper lobe. -Duonebs scheduled and prn -Solumedrol IV -Protonix po for GI prophylaxis -IV antibiotics: Zithromax and Rocephin -Guaifenesin BID -Sputum culture pending results -Blood cultures pending Elevated troponin, patient denies chest pain, likely due to excessive coughing r/o ACS Troponin 0.15, ck-mb 6.8 -Possibly demand ischemia -Serial troponin 0.15-->0.16 -Serial EKG. EKG reviewed SR without ST changes noted -CPK improving Depression, chronic -Resume home medications zoloft DVT prophylaxis: SCDs 42 y/o female with a history of depression presented to the ED with complaints of shortness of breath. PNA, unilateral, right upper Possible Underlying COPD, smoker -CT angiogram reviewed and shows Scattered areas of infiltrate most pronounced within the right upper lobe. -Duonebs scheduled and prn -Solumedrol IV -Protonix po for GI prophylaxis -IV antibiotics: Zithromax and Rocephin -Guaifenesin BID -Sputum culture pending results -Blood cultures pending Elevated troponin, patient denies chest pain r/o ACS Troponin 0.15, ck-mb 6.8 -Possibly demand ischemia -Serial troponin 0.15-->0.16 -Serial EKG. EKG reviewed SR without ST changes noted -CPK improving Depression, chronic -Resume home medications zoloft DVT prophylaxis: SCDs Patient improved / Passed O2 walking test. DC home in stable condition to follow up as OP with pCP and consultants Pt Condition on Discharge: Stable Discharge Disposition: Discharge Home Discharge Time: > 30 minutes Discharge Instructions DIET: Follow Instructions for: Heart Healthy Diet Activities you can perform: Weight Bearing as Shakila Follow up Referrals: Cardiology - 2 Weeks PCP Follow-up - 2-3 Days Pulmonology - 2 Weeks New Medications: Atorvastatin (Atorvastatin) 40 Mg Tab 40 MG PO HS for Cholesterol Management, #30 TAB Nicotine (Eq Nicotine) 21 Mg/24 Hour Dis 1 PATCH T-DERMAL DAILY for Tobacco Cessation, #30 PATCH Continued Medications: Albuterol 6.7 GM Inh (Proventil Hfa 6.7 GM Inh) 90 Mcg/Act Aer 2 PUFF INH Q4-6H PRN for SHORTNESS OF BREATH, #1 INHALER 0 Refills Aspirin (Aspirin) 81 Mg Chew 81 MG CHEW DAILY, TAB 0 Refills Clorazepate (Clorazepate) 3.75 Mg Tab 3.75 MG PO BID PRN for Anxiety, TAB 0 Refills Cyclobenzaprine (Flexeril) 10 Mg Tab 10 MG PO TID for Muscle Spasm, #90 TAB 0 Refills Furosemide (Furosemide) 40 Mg Tab 40 MG PO BID for CHF, #60 TAB 0 Refills (This prescription has been renewed) Hydrocodone-Acetaminophen (Hydrocodone-Acetaminophen) 10-325 mg Tab 1 TAB PO Q6H PRN for PAIN, TAB 0 Refills Methylprednisolone Dosepak (Medrol Dosepak) 4 Mg Dspk 4 MG PO DIRECTED for COPD exac, #1 DSPK 0 Refills (This prescription has been renewed) Per Pharmacist direction Metoprolol Tartrate (Metoprolol Tartrate) 25 Mg Tab 25 MG PO BID, #60 TAB 0 Refills Ranitidine (Zantac) 300 Mg Tab 300 MG PO DAILY for 3 Days, TAB 0 Refills Discontinued Medications: Clonidine (Clonidine) 0.3 Mg Tab 0.3 MG PO BID for Blood Pressure Management, #60 TAB 0 Refills Furosemide (Lasix) 40 Mg Tab 40 MG PO BID, #14 TAB 0 Refills Metformin (Metformin) 1,000 Mg Tab 1000 MG PO DAILY for Blood Sugar Management, #30 TAB 0 Refills With a meal Sulfamethoxazole-Trimethoprim (Sulfamethoxazole-Trimethoprim) 800-160 Mg Tab 1 TAB PO Q12HR, #4 TAB Marleny Montana MD Aug 23, 2017 14:01
--- NOTE | 2017-08-23 15:45 | HHI.DCPOC ---
Discharge Care Plan Diagnosis: (1) COPD exacerbation (2) Tobacco abuse (3) CHF (congestive heart failure) Your Health Problems Are: Shortness of Breath Goals to Promote Your Health * To prevent worsening of your condition and complications * To maintain your health at the optimal level Directions to Meet Your Goals Take your medications as prescribed Follow your dietary instruction Follow activity as directed Keep your appointments as scheduled Take your immunizations and boosters as scheduled If your symptoms worsen call your PCP, if no PCP go to Urgent Care Center or Emergency Room Smoking is Dangerous to Your Health. Avoid second hand smoke Call the 24-hour hour crisis hotline for domestic abuse at [facility] Lan Aug 23, 2017 3:45 pm
[2017-08-23 16:00] VITALS: BP 132/78; PULSE 79; RESP 18; TEMP 98.3; O2SAT 96
[2017-08-23] MEDS: ENOXAPARIN SODIUM 40 MG/0.4 ML SYRINGE SQ SCH (16:00)
[2017-08-24] MEDS ORDERED: FUROSEMIDE 40 MG TAB PO SCH (09:00)
--- NOTE | 2017-09-04 16:02 | PQ ---
Physician Query Response Document PATIENT: VINCE GODINEZ : 1960 ADMIT DATE: 08/22/2017 3:54 PM DISCH DATE: 08/23/2017 5:02 PM RESPONDING PROVIDER #: mcosma QUERY TEXT: CHF Acuity and Type Congestive Heart Failure is documented in the Medical Record. Please document the type and acuity (in cludes probable or suspected) Such as: Type: -- Systolic -- Diastolic -- Combined -- Other, please specify Acuity: -- Acute -- Chronic -- Acute on chronic -- Other, please specify Also please document the underlying cause of the CHF (includes probable or suspected) If you have any additional questions/comments and/or concerns, please do not hesitate to reach out to the CDI/Coding Hotline, Ext. [phone]. The patient's Clinical Indicators include: Discharge Summary documents diagnosis of CHF. Echocardiogram performed 08/22/17: CONCLUSIONS; Mildly dilated left ventricle. Wall thickness is normal. The left ventricular systolic function is mildly reduced with an estimated ejection fraction 45%. Mi ld global hypokinesis. Trace mitral valve regurgitation. There is mild tricuspid valve regurgitation. The estimated pulmonary arterial pressure is 47 mmHg. Query created by: Reva Barlow on 08/29/2017 4:59 PM RESPONSE TEXT: Mild Systolic CHF with EF of 45% Electronically signed by: Marleny Montana MD 09/04/2017 3:58 PM
== END 2017-08-23 17:02 | disposition home or self-care (01) | DRG 189 ==
LOC: NEPC 04:49 → NEDA 06:22 → INTOOBSV 06:22 → NEDA 11:24 → NEPGCP 16:23 → OBSVTOIN 08-22 15:54
PROVIDERS: ADMIT Hospitalist; ATTEND Hospitalist
DX: J96.01 Acute respiratory failure with hypoxia (principal); I47.2 Ventricular tachycardia; J18.9 Pneumonia, unspecified organism; I50.20 Unspecified systolic (congestive) heart failure; J44.1 Chronic obstructive pulmonary disease with (acute) exacerbation; J44.0 Chronic obstructive pulmonary disease with (acute) lower respiratory infection; F17.210 Nicotine dependence, cigarettes, uncomplicated; I25.10 Atherosclerotic heart disease of native coronary artery without angina pectoris; I25.2 Old myocardial infarction; F32.9 Major depressive disorder, single episode, unspecified; Z59.0 Homelessness; Z91.19 Patient's noncompliance with other medical treatment and regimen; Z86.73 Personal history of transient ischemic attack (TIA), and cerebral infarction without residual deficits
CPT/HCPCS: 71045; 71250; 80048; 80053; 82550; 82552; 82948; 83690; 83880; 84484; 85025; 85027; 93005; 93306; 94618; 94640; 94664; 96374; G8987-GP; G8988-GP; J1650; J1815; J1940; J2930

== ENCOUNTER 2017-09-19 16:34 | Observation (INO) | payer MEDICARE, MEDICAID ==
[~2017-09-19] VITALS: Ht 185.4 cm; Wt 122.5 kg
[~2017-09-19 16:34] MED LIST changes: +ATOR40TA16 PO; -CLON0.3T PO; -FURO1TAB60 PO; -METF1000 PO; +NICO21DI25 T-DERMAL; -SULF1TAB23 PO
[2017-09-19 16:37] VITALS: BP 185/99; PULSE 90; RESP 20; TEMP 98.3; O2SAT 99
[2017-09-19 20:22] VITALS: BP 185/120; PULSE 75; RESP 16; O2SAT 98
[2017-09-19] MEDS ORDERED: METF500T PO (20:30)
[2017-09-19] MEDS ORDERED: NAPR500 PO (20:30)
[2017-09-19] MEDS ORDERED: LISI40TA PO (20:30)
[2017-09-19] MEDS ORDERED: ASPI-183 PO (20:30)
[2017-09-19] MEDS ORDERED: CLON0.3T PO (20:30)
--- NOTE | 2017-09-19 20:33 | PD ---
HPI Chief Complaint: Cold / Flu Symptoms Time Seen by Provider: 20:32 Travel History International Travel<30 days: No Contact w/Intl Traveler<30days: No Traveled to known affect area: No History of Present Illness HPI 56-year-old male arrives by EMS due to shortness of breath and orthopnea. He reports frequent cough lately. He reports a diagnosis of COPD and CHF. Strict compliance with Lasix is reported. He does report multiple pneumonias in the past few months however denies change in normal state of health otherwise. No fever. Patient denies dyspnea on exertion. No dietary indiscretion with salt. PFSH Past Medical History Blood Disorders: No Heart Rhythm Problems: No Cancer: No Cardiovascular Problems: Yes (HTN, CO X3) High Cholesterol: Yes Chest Pain: Yes Congestive Heart Failure: Yes COPD: Yes Cerebrovascular Accident: Yes Diabetes: Yes Patient Takes Glucophage: Yes Diminished Hearing: No Endocrine: Yes Gastrointestinal Disorders: No Genitourinary: Yes Hypertension: Yes Immune Disorder: No Implanted Vascular Access Dvce: No Kidney Stones: Yes Musculoskeletal: No Neurologic: No Psychiatric: No Reproductive: No Respiratory: Yes (COPD) Renal Failure: Yes (CKD) Thyroid Disease: No Past Surgical History Other Surgery: Yes (FACIAL, C1-C2, L. FOOT) Social History Alcohol Use: No Tobacco Use: Yes (1ppd) Substance Use: No Allergies-Medications (Allergen,Severity, Reaction): Coded Allergies: diatrizoate meglumine (Verified Allergy, Severe, Itching, 02/04/17) gadobenic acid (Verified Allergy, Severe, Itching, 02/04/17) gadodiamide (Verified Allergy, Severe, Itching, 02/04/17) gadoteridol (Verified Allergy, Severe, Itching, 02/04/17) iodixanol (Verified Allergy, Severe, Itching, 02/04/17) iohexol (Verified Allergy, Severe, Itching, 02/04/17) Iodinated Contrast- Oral and IV Dye (Unverified Allergy, Unknown, 04/03/17 ) PATIENT STATED ALLERGY TO CONTRAST MEDIA. Reported Meds & Prescriptions Reported Meds & Active Scripts Active Atorvastatin (Atorvastatin Calcium) 40 Mg Tab 40 Mg PO HS Furosemide 40 Mg Tab 40 Mg PO BID Proventil Hfa 6.7 GM Inh (Albuterol Sulfate) 90 Mcg/Act Aer 2 Puff INH Q4-6H PRN Reported Lisinopril 40 Mg Tab 40 Mg PO DAILY Clonidine (Clonidine HCl) 0.3 Mg Tab 0.3 Mg PO BID Naprosyn (Naproxen) 500 Mg Tab 500 Mg PO BID Aspirin 325 Mg Tab 325 Mg PO DAILY Metformin (Metformin HCl) 500 Mg Tab 500 Mg PO DAILY With a meal Flexeril (Cyclobenzaprine HCl) 10 Mg Tab 10 Mg PO TID Clorazepate (Clorazepate Dipotassium) 3.75 Mg Tab 3.75 Mg PO BID PRN Metoprolol Tartrate 25 Mg Tab 25 Mg PO BID Review of Systems Except as stated in HPI: all other systems reviewed are Neg General / Constitutional: No: Fever Eyes: No: Diploplia HENT: No: Vertigo Physical Exam Narrative GENERAL: 56-year-old male pleasant well-nourished well-developed Vital Signs Date Time Temp Pulse Resp B/P (MAP) Pulse Ox O2 Delivery O2 Flow Rate FiO2 09/19/17 20:45 96 Nasal Cannula 3.00 09/19/17 20:22 97 3.00 09/19/17 20:22 75 16 185/120 (141) 98 Nasal Cannula 3.00 09/19/17 16:37 98.3 90 20 185/99 (127) 99 SKIN: Warm and dry. HEAD: Atraumatic. Normocephalic. EYES: Pupils equal and round. No scleral icterus. No injection or drainage. ENT: No nasal bleeding or discharge. Mucous membranes pink and moist. NECK: Trachea midline. No JVD. CARDIOVASCULAR: Regular rate and rhythm. RESPIRATORY: Wheezing is present bilaterally. No significant tachypnea. GASTROINTESTINAL: Abdomen soft, non-tender, nondistended. Hepatic and splenic margins not palpable. MUSCULOSKELETAL: Trace edema bilateral lower extremities. No induration or warmth. NEUROLOGICAL: Awake and alert. No obvious cranial nerve deficits. Motor grossly within normal limits. Five out of 5 muscle strength in the arms and legs. Normal speech. PSYCHIATRIC: Appropriate mood and affect; insight and judgment normal. Data Data Last Documented VS Vital Signs Date Time Temp Pulse Resp B/P (MAP) Pulse Ox O2 Delivery O2 Flow Rate FiO2 09/19/17 22:15 99 3.00 09/19/17 21:56 76 20 Nasal Cannula 09/19/17 16:37 98.3 Orders Orders Complete Blood Count With Diff (09/19/17 20:38) Comprehensive Metabolic Panel (09/19/17 20:38) B-Type Natriuretic Peptide (09/19/17 20:38) Magnesium (Mg) (09/19/17 20:38) Ckmb (Isoenzyme) Profile (09/19/17 20:38) Troponin I (09/19/17 20:38) Iv Access Insert/Monitor (09/19/17 20:38) Electrocardiogram (09/19/17 20:38) Ecg Monitoring (09/19/17 20:38) Oximetry (09/19/17 20:38) Oxygen Administration (09/19/17 20:38) Chest, Single Ap (09/19/17 20:38) Sodium Chloride 0.9% Flush (Ns Flush) (09/19/17 20:45) Furosemide Inj (Lasix Inj) (09/19/17 20:45) Methylprednisolone So Succ Inj (Solumedr (09/19/17 20:45) Albuterol-Ipratropium Neb (Duoneb Neb) (09/19/17 20:45) CKMB (09/19/17 20:50) CKMB% (09/19/17 20:50) Furosemide Inj (Lasix Inj) (09/19/17 22:00) Admit Order (Ed Use Only) (09/19/17 ) Continuous Miner / Telemetry SANCHEZ.Q8H (09/19/17 22:15) Vital Signs (Adult) Q4H (09/19/17 22:15) Diet Npo (09/20/17 Breakfast) Activity Oob With Assistance (09/19/17 22:15) Notify Dr: Other (09/19/17 22:15) Labs Laboratory Tests Test 09/19/17 20:50 White Blood Count 7.8 TH/MM3 Red Blood Count 5.48 MIL/MM3 Hemoglobin 16.6 GM/DL Hematocrit 48.4 % Mean Corpuscular Volume 88.2 FL Mean Corpuscular Hemoglobin 30.2 PG Mean Corpuscular Hemoglobin Concent 34.2 % Red Cell Distribution Width 14.0 % Platelet Count 188 TH/MM3 Mean Platelet Volume 9.2 FL Neutrophils (%) (Auto) 53.5 % Lymphocytes (%) (Auto) 30.4 % Monocytes (%) (Auto) 10.3 % Eosinophils (%) (Auto) 5.3 % Basophils (%) (Auto) 0.5 % Neutrophils # (Auto) 4.2 TH/MM3 Lymphocytes # (Auto) 2.4 TH/MM3 Monocytes # (Auto) 0.8 TH/MM3 Eosinophils # (Auto) 0.4 TH/MM3 Basophils # (Auto) 0.0 TH/MM3 CBC Comment DIFF FINAL Differential Comment Blood Urea Nitrogen 18 MG/DL Creatinine 1.46 MG/DL Random Glucose 104 MG/DL Total Protein 7.2 GM/DL Albumin 3.7 GM/DL Calcium Level 9.4 MG/DL Magnesium Level 2.4 MG/DL Alkaline Phosphatase 79 U/L Aspartate Amino Transf (AST/SGOT) 17 U/L Alanine Aminotransferase (ALT/SGPT) 19 U/L Total Bilirubin 0.4 MG/DL Sodium Level 142 MEQ/L Potassium Level 4.4 MEQ/L Chloride Level 110 MEQ/L Carbon Dioxide Level 26.1 MEQ/L Anion Gap 6 MEQ/L Estimat Glomerular Filtration Rate 50 ML/MIN Total Creatine Kinase 118 U/L Creatine Kinase MB 1.3 NG/ML Troponin I LESS THAN 0.02 NG/ML B-Type Natriuretic Peptide 289 PG/ML [facility] Medical Decision Making Medical Screen Exam Complete: Yes Emergency Medical Condition: Yes Medical Record Reviewed: Yes Differential Diagnosis CHF, COPD, pneumonia, anemia, renal failure Narrative Course CBC & BMP Diagram 09/19/17 20:50 Total Protein 7.2, Albumin 3.7, Calcium Level 9.4, Magnesium Level 2.4, Alkaline Phosphatase 79, Aspartate Amino Transf (AST/SGOT) 17, Alanine Aminotransferase (ALT/SGPT) 19, Total Bilirubin 0.4 EKG shows a sinus rhythm with a rate of 78 normal axis intervals nonspecific ST changes BNP 289 Troponin less than 0.02 CXR: NACPD, cardiomegaly Patient received 40 mg IV Lasix. Patient is a good RDU candidate. d/w Dr Melo Diagnosis Primary Impression: CHF (congestive heart failure) Qualified Codes: I50.9 - Heart failure, unspecified Additional Impression: Shortness of breath Admitting Information Admitting Physician Requests: Observation Aaron Cruz MD Sep 19, 2017 20:33
[2017-09-19] MEDS ORDERED: FUROSEMIDE 40 MG/4 ML VIAL IVP ONE (20:45)
[2017-09-19] MEDS ORDERED: methylPREDNISolone SOD SUCC 125 MG/2 ML VIAL IV PUSH ONE (20:45)
[2017-09-19] MEDS: RESP: ALBUTEROL 2.5 MG/IPRATROPIUM 0.5 MG NEB (SCH) INH (20:51)
[2017-09-19 21:28] LABS: AUTOMATED NEUTROPHIL # 4.2 TH/MM3 (1.8-7.7); BASOPHIL % 0.5 % (0.0-2.0); EOSINOPHIL # 0.4 TH/MM3 (0-0.4); EOSINOPHIL % 5.3 % (0.0-4.0); HEMATOCRIT 48.4 % (39.0-51.0); HEMOGLOBIN 16.6 GM/DL (13.0-17.0); LYMPH % 30.4 % (9.0-44.0); LYMPHOCYTE # 2.4 TH/MM3 (1.0-4.8); MEAN CELL VOLUME 88.2 FL (80.0-100.0); MEAN CORPUSCULAR HEMOGLOBIN 30.2 PG (27.0-34.0); MEAN CORPUSCULAR HGB CONC 34.2 % (32.0-36.0); MEAN PLATELET VOLUME 9.2 FL (7.0-11.0); MONO % 10.3 % (0.0-8.0); MONOCYTE # 0.8 TH/MM3 (0-0.9); NEUT % 53.5 % (16.0-70.0); PLATELET COUNT 188 TH/MM3 (150-450); RED BLOOD COUNT 5.48 MIL/MM3 (4.50-5.90); WHITE BLOOD COUNT 7.8 TH/MM3 (4.0-11.0)
--- NOTE | 2017-09-19 21:30 | RADRPT ---
EXAM DATE/TIME: 09/19/2017 20:44 [place] COMPARISON: CHEST SINGLE AP, August 21, 2017, 5:05. INDICATIONS : Pain and shortness of breath. MEDICAL HISTORY : Congestive heart failure. Chronic obstructive pulmonary disease. SURGICAL HISTORY : None. ENCOUNTER: Initial ACUITY: 3 days PAIN SCORE: 5/10 LOCATION: Bilateral chest FINDINGS: A single view of the chest demonstrates cardiomegaly without consolidation or significant edema. No s ignificant effusion. No pneumothorax. CONCLUSION: Cardiomegaly without focal airspace disease or significant effusion. Cristian Miranda MD on September 19, 2017 at 21:26 Board Certified Radiologist. This report was verified electronically.
[2017-09-19 21:35] LABS: ALT (GPT) 19 U/L (12-78)
[2017-09-19 21:38] LABS: ALKALINE PHOSPHATASE 79 U/L (45-117); TOTAL BILIRUBIN ADULT 0.4 MG/DL (0.2-1.0); TOTAL PROTEIN 7.2 GM/DL (6.4-8.2); TROPONIN I LESS THAN 0.02 NG/ML (0.02-0.05)
[2017-09-19] MEDS: SODIUM CHLORIDE 0.9% FLUSH 10 ML FLUSH IVF PRN ×2 (21:38→22:15)
[2017-09-19 21:40] LABS: ALBUMIN 3.7 GM/DL (3.4-5.0); AST (GOT) 17 U/L (15-37); BICARBONATE 26.1 MEQ/L (21.0-32.0); BLOOD UREA NITROGEN 18 MG/DL (7-18); CALCIUM 9.4 MG/DL (8.5-10.1); CHLORIDE 110 MEQ/L (98-107); CREATININE 1.46 MG/DL (0.60-1.30); GLOMERULAR FILTRATION RATE 50 ML/MIN (>89); GLUCOSE,RANDOM 104 MG/DL (74-106); MAGNESIUM 2.4 MG/DL (1.5-2.5); SODIUM (NA) 142 MEQ/L (136-145)
[2017-09-19 21:56] VITALS: BP 164/102; PULSE 76; RESP 20
[2017-09-19] MEDS ORDERED: FUROSEMIDE 40 MG/4 ML VIAL IV PUSH ONE (22:00)
[2017-09-19 22:15] VITALS: O2SAT 99
[2017-09-19] MEDS ORDERED: BISACODYL 10 MG SUPP RECTAL PRN (22:30)
[2017-09-19] MEDS ORDERED: RESP: ALBUTEROL 2.5 MG/IPRATROPIUM 0.5 MG NEB (PRN) NEB (22:30)
[2017-09-19] MEDS ORDERED: ACETAMINOPHEN/HYDROcodone 325 MG/5 MG TAB PO PRN (22:30)
[2017-09-19] MEDS ORDERED: MORPHINE SULFATE 2 MG/ML SYRINGE IV PUSH PRN (22:30)
[2017-09-19] MEDS ORDERED: LACTULOSE SYRUP 20 GM/30 ML CUP PO PRN (22:30)
[2017-09-19] MEDS ORDERED: ACETAMINOPHEN 325 MG TAB PO PRN (22:30)
[2017-09-19] MEDS ORDERED: SENNOSIDES 8.6 MG TAB PO PRN (22:30)
[2017-09-19] MEDS ORDERED: MAGNESIUM HYDROXIDE SUSP 30 ML CUP PO PRN (22:30)
[2017-09-19] MEDS ORDERED: ONDANSETRON HCL 4 MG/2 ML VIAL IVP PRN (22:30)
[2017-09-19] MEDS ORDERED: GLUCAGON 1 MG/ML VIAL OTHER PRN (22:30)
[2017-09-19] MEDS ORDERED: SODIUM CHLORIDE 0.9% FLUSH 10 ML FLUSH IV FLUSH PRN (22:30)
[2017-09-19] MEDS ORDERED: DEXTROSE 50% IN WATER 50 ML VIAL(D50) IV PUSH PRN (22:30)
--- NOTE | 2017-09-19 22:32 | HHI.HP ---
HPI [facility] Duglas Perez III, MD Admission Diagnosis CHF Exacerbation Diagnoses: (1) CHF (congestive heart failure) Diagnosis: Principal (2) COPD (chronic obstructive pulmonary disease) Diagnosis: Principal (3) Renal insufficiency Diagnosis: Principal (4) HTN (hypertension) Diagnosis: Principal (5) DM (diabetes mellitus) Diagnosis: Principal (6) Tobacco abuse Diagnosis: Principal Travel History International Travel<30 Days: No Contact w/Intl Traveler <30 Da: No Traveled to Known Affected Are: No History of Present Illness This is a 56-year-old male with a PMH of HTN, CHF (Echo 08/22/2017 with EF 45%), COPD, DM and Tobacco Abuse who presented to the ER w/ complaints of SOB and wheezing x2 days. States symptoms have been "on and off" since May. States he is supposed to be on oxygen but "insurance won't cover it and I can't afford it". Continues to smoke <1ppd. Reports compliance w/ other medications. Denies fever or chills. On arrival, BP 185/99, HR 90, O2 sat 99% on 2L [place], Afebrile. CBC unremarkable. Creatinine 1.46, potassium 1.66 on 2017. Troponin negative. BNP 289. CXR with cardiomegaly, no focal airspace disease or effusion. S/p Lasix in ER in addition to DuoNeb. Review of Systems Except as stated in HPI: all other systems reviewed are Neg ROS: 14 point review of systems otherwise negative. Past Family Social History Past Medical History PMH: HTN, CHF (Echo 08/22/2017 with EF 45%), COPD, DM and Tobacco Abuse Past Surgical History PAST SURGICAL HISTORY: Facial Surgery, Left Foot Surgery, Cervical Surgery Allergies: Coded Allergies: diatrizoate meglumine (Verified Allergy, Severe, Itching, 02/04/17) gadobenic acid (Verified Allergy, Severe, Itching, 02/04/17) gadodiamide (Verified Allergy, Severe, Itching, 02/04/17) gadoteridol (Verified Allergy, Severe, Itching, 02/04/17) iodixanol (Verified Allergy, Severe, Itching, 02/04/17) iohexol (Verified Allergy, Severe, Itching, 02/04/17) Iodinated Contrast- Oral and IV Dye (Unverified Allergy, Unknown, 04/03/17 ) PATIENT STATED ALLERGY TO CONTRAST MEDIA. Family History PAST FAMILY HISTORY: Reviewed. No h/o DM or CAD Social History PAST SOCIAL HISTORY: Negative for alcohol or drugs. Smokes <1ppd. Physical Exam Vital Signs Vital Signs Date Time Temp Pulse Resp B/P (MAP) Pulse Ox O2 Delivery O2 Flow Rate FiO2 09/19/17 22:15 99 3.00 09/19/17 21:56 76 20 164/102 (122) Nasal Cannula 3.00 09/19/17 20:45 96 Nasal Cannula 3.00 09/19/17 20:22 97 3.00 09/19/17 20:22 75 16 185/120 (141) 98 Nasal Cannula 3.00 09/19/17 16:37 98.3 90 20 185/99 (127) 99 Physical Exam PE: GENERAL: Middle-aged white male in no acute distress, resting comfortably. HEENT: PERRLA, EOMI. No scleral icterus or conjunctival pallor. No lid lag or facial droop. CARDIOVASCULAR: Regular rate and rhythm. No obvious murmurs to auscultation. No chest tenderness to palpation. RESPIRATORY: No obvious rhonchi. Occasional wheezing. Clear to auscultation. Breath sounds equal bilaterally. GASTROINTESTINAL: Abdomen soft, non-tender, nondistended. BS normal. MUSCULOSKELETAL: Extremities without clubbing, cyanosis, or edema. No obvious deformities. NEUROLOGICAL: Awake, alert and oriented x4. No focal neurologic deficits. Moving both upper and lower extremities spontaneously. Laboratory Laboratory Tests Test 09/19/17 20:50 White Blood Count 7.8 Red Blood Count 5.48 Hemoglobin 16.6 Hematocrit 48.4 Mean Corpuscular Volume 88.2 Mean Corpuscular Hemoglobin 30.2 Mean Corpuscular Hemoglobin Concent 34.2 Red Cell Distribution Width 14.0 Platelet Count 188 Mean Platelet Volume 9.2 Neutrophils (%) (Auto) 53.5 Lymphocytes (%) (Auto) 30.4 Monocytes (%) (Auto) 10.3 Eosinophils (%) (Auto) 5.3 Basophils (%) (Auto) 0.5 Neutrophils # (Auto) 4.2 Lymphocytes # (Auto) 2.4 Monocytes # (Auto) 0.8 Eosinophils # (Auto) 0.4 Basophils # (Auto) 0.0 CBC Comment DIFF FINAL Differential Comment Blood Urea Nitrogen 18 Creatinine 1.46 Random Glucose 104 Total Protein 7.2 Albumin 3.7 Calcium Level 9.4 Magnesium Level 2.4 Alkaline Phosphatase 79 Aspartate Amino Transf (AST/SGOT) 17 Alanine Aminotransferase (ALT/SGPT) 19 Total Bilirubin 0.4 Sodium Level 142 Potassium Level 4.4 Chloride Level 110 Carbon Dioxide Level 26.1 Anion Gap 6 Estimat Glomerular Filtration Rate 50 Total Creatine Kinase 118 Creatine Kinase MB 1.3 Troponin I LESS THAN 0.02 B-Type Natriuretic Peptide 289 Result Diagram: 09/19/17204909/19/172049 Caprin VTE Risk Assessment Mer VTE Risk Assessment: No/Low Risk (score <= 1) Caprini Risk Assessment Model Point Value = 1 Point Value = 2 Point Value = 3 Point Value = 5 Age 41-60 Minor surgery BMI > 25 kg/m2 Swollen legs Varicose veins or History of unexplained or recurrent spontaneous Oral contraceptives or hormone replacement Sepsis (< 1 month) Serious lung disease, including pneumonia (< 1 month) Abnormal pulmonary function Acute myocardial infarction Congestive heart failure (< 1 month) History of inflammatory bowel disease Medical patient at bed rest Age 61-74 Arthroscopic surgery Major open surgery (> 45 min) Laparoscopic surgery (> 45 min) Malignancy Confined to bed (> 72 hours) Immobilizing plaster cast Central venous access Age >= 75 History of VTE Family history of VTE Factor V Leiden Prothrombin [id number] Lupus anticoagulant Anticardiolipin antibodies Elevated serum homocysteine Heparin-induced thrombocytopenia Other congenital or acquired thrombophilia Stroke (< 1 month) Elective arthroplasty Hip, pelvis, or leg fracture Acute spinal cord injury (< 1 month) Prophylaxis Regimen Total Risk Factor Score Risk Level Prophylaxis Regimen 0-1 Low Early ambulation 2 Moderate Order ONE of the following: *Sequential Compression Device (SCD) *Heparin 5000 units SQ BID 3-4 Higher Order ONE of the following medications: *Heparin 5000 units SQ TID *Enoxaparin/Lovenox 40 mg SQ daily (WT < 150 kg, CrCl > 30 mL/min) *Enoxaparin/Lovenox 30 mg SQ daily (WT < 150 kg, CrCl > 10-29 mL/min) *Enoxaparin/Lovenox 30 mg SQ BID (WT < 150 kg, CrCl > 30 mL/min) AND/OR *Sequential Compression Device (SCD) 5 or more Highest Order ONE of the following medications: *Heparin 5000 units SQ TID (Preferred with Epidurals) *Enoxaparin/Lovenox 40 mg SQ daily (WT < 150 kg, CrCl > 30 mL/min) *Enoxaparin/Lovenox 30 mg SQ daily (WT < 150 kg, CrCl > 10-29 mL/min) *Enoxaparin/Lovenox 30 mg SQ BID (WT < 150 kg, CrCl > 30 mL/min) AND *Sequential Compression Device (SCD) Assessment and Plan Problem List: (1) CHF (congestive heart failure) ICD Code: I50.9 - Heart failure, unspecified Status: Acute (2) COPD (chronic obstructive pulmonary disease) ICD Code: J44.9 - Chronic obstructive pulmonary disease, unspecified (3) Renal insufficiency ICD Code: N28.9 - Disorder of kidney and ureter, unspecified (4) HTN (hypertension) ICD Code: I10 - Essential (primary) hypertension Status: Acute (5) DM (diabetes mellitus) ICD Code: E11.9 - Type 2 diabetes mellitus without complications (6) Tobacco abuse ICD Code: Z72.0 - Tobacco use Status: Acute Assessment and Plan A/P: 1. CHF: Acute on Chronic. Systolic. Echo 08/22/17 w/ EF 45%, BNP 289, + orthopnea. S/p Lasix in ER. Will admit for Observation, continue Lasix IV bid , Monitor I/O, repeat labs in am. 2. COPD: Chronic Respiratory Failure w/ Acute Exacerbation. O2 sat 96% on 3L [place], states supposed to be on home oxygen but can't afford it. Solu-Medrol, DuoNeb, Symbicort, Mucinex. Counselled on tobacco. Eval for Home O2 needs 3. HTN: Uncontrolled. BP 180's, will resume home medications, monitor BP. 4. Renal Insufficiency: Chronic. Creatinine 1.46, previously 1.66 on . Monitor I/O, caution w/ diuresis. 5. DM: Sliding scale w/ Accu-Cheks. Hold Metformin for now 6. Tobacco Abuse: Ongoing. Pt counselled. NicoDerm prn 7. DVT Prophylaxis: Heparin sq 8. Social work for d/c planning as needed. 9. Case discussed w/ ER physician at length, labs/records/imaging reviewed by me. Problem Qualifiers (1) CHF (congestive heart failure): Qualified Codes: I50.9 - Heart failure, unspecified Evie Melo MD Sep 19, 2017 22:32
[2017-09-19] MEDS: NICOTINE 21 MG/24 HR PATCH T-DERMAL SCH (22:59)
[2017-09-19] MEDS: REMOVE OLD PATCH T-DERMAL SCH (23:01)
[2017-09-19 23:24] VITALS: BP 140/68; PULSE 79; RESP 16; TEMP 98.4; O2SAT 93
[2017-09-20] VITALS (7 sets, daily range): BP systolic 125–160; BP diastolic 58–98; PULSE 78–93; RESP 18–20; TEMP 97.2–98.6; O2SAT 92–98
[2017-09-20 04:19] LABS: AUTOMATED NEUTROPHIL # 6.8 TH/MM3 (1.8-7.7); BASOPHIL % 0.1 % (0.0-2.0); EOSINOPHIL % 0.2 % (0.0-4.0); HEMATOCRIT 50.2 % (39.0-51.0); HEMOGLOBIN 16.8 GM/DL (13.0-17.0); LYMPH % 6.2 % (9.0-44.0); LYMPHOCYTE # 0.5 TH/MM3 (1.0-4.8); MEAN CELL VOLUME 88.7 FL (80.0-100.0); MEAN CORPUSCULAR HEMOGLOBIN 29.7 PG (27.0-34.0); MEAN CORPUSCULAR HGB CONC 33.5 % (32.0-36.0); MEAN PLATELET VOLUME 8.9 FL (7.0-11.0); MONOCYTE # 0.1 TH/MM3 (0-0.9); NEUT % 92.5 % (16.0-70.0); PLATELET COUNT 173 TH/MM3 (150-450); RED BLOOD COUNT 5.66 MIL/MM3 (4.50-5.90); RED CELL DISTRIBUTION WIDTH 13.9 % (11.6-17.2); WHITE BLOOD COUNT 7.3 TH/MM3 (4.0-11.0)
[2017-09-20 04:45] LABS: AST (GOT) 13 U/L (15-37); BICARBONATE 29.4 MEQ/L (21.0-32.0); BLOOD UREA NITROGEN 16 MG/DL (7-18); CALCIUM 9.2 MG/DL (8.5-10.1); CHLORIDE 105 MEQ/L (98-107); CREATININE 1.58 MG/DL (0.60-1.30); GLOMERULAR FILTRATION RATE 45 ML/MIN (>89); GLUCOSE,RANDOM 183 MG/DL (74-106); SODIUM (NA) 141 MEQ/L (136-145)
[2017-09-20 04:46] LABS: ALT (GPT) 19 U/L (12-78)
[2017-09-20 04:50] LABS: ALKALINE PHOSPHATASE 83 U/L (45-117); TOTAL BILIRUBIN ADULT 0.4 MG/DL (0.2-1.0); TOTAL PROTEIN 7.8 GM/DL (6.4-8.2); TROPONIN I LESS THAN 0.02 NG/ML (0.02-0.05)
[2017-09-20] MEDS: methylPREDNISolone SOD SUCC 40 MG/1 ML VIAL IV PUSH SCH ×4 (05:20→17:18)
[2017-09-20] MEDS: INSULIN ASPART SUPPLEMENTAL SCALE SQ SCH ×4 (08:00→21:49)
[2017-09-20] MEDS: NICOTINE 21 MG/24 HR PATCH T-DERMAL SCH (08:06)
[2017-09-20] MEDS: DOCUSATE SODIUM 50 MG/SENNA 8.6 MG TAB PO SCH ×2 (08:06→21:51)
[2017-09-20] MEDS: cloNIDine HCL 0.3 MG TAB PO SCH ×2 (08:06→21:51)
[2017-09-20] MEDS: guaiFENesin E.R. 600 MG TAB PO SCH ×2 (08:06→21:51)
[2017-09-20] MEDS: CYCLOBENZAPRINE HCL 10 MG TAB PO SCH ×3 (08:06→17:18)
[2017-09-20] MEDS: ASPIRIN 325 MG TAB PO SCH (08:06)
[2017-09-20] MEDS: SODIUM CHLORIDE 0.9% FLUSH 10 ML FLUSH IV FLUSH SCH ×2 (08:06→21:50)
[2017-09-20] MEDS: HEPARIN SODIUM - SQ 10,000 UNITS/ML VIAL SQ SCH ×2 (08:07→21:50)
[2017-09-20] MEDS: BUDESONIDE-FORMOTEROL 160/4.5 MCG INHALER INH SCH ×2 (08:07→21:50)
[2017-09-20] MEDS: FUROSEMIDE 40 MG/4 ML VIAL IV PUSH SCH ×2 (08:07→17:18)
[2017-09-20] MEDS: METOPROLOL TARTRATE 25 MG TAB PO SCH ×2 (08:16→21:55)
--- NOTE | 2017-09-20 09:43 | HHI.PR ---
Subjective Remarks in no acute distress. however still with wheezing and exertional dyspnea. afebrile. Objective Vitals Vital Signs Date Time Temp Pulse Resp B/P (MAP) Pulse Ox O2 Delivery O2 Flow Rate FiO2 09/20/17 08:32 98.2 93 18 160/98 (118) 92 09/20/17 04:15 98.6 78 20 155/76 (102) 96 09/20/17 00:38 80 09/19/17 23:24 98.4 79 16 140/68 (92) 93 09/19/17 22:15 99 3.00 09/19/17 21:56 76 20 164/102 (122) Nasal Cannula 3.00 09/19/17 20:45 96 Nasal Cannula 3.00 09/19/17 20:22 97 3.00 09/19/17 20:22 75 16 185/120 (141) 98 Nasal Cannula 3.00 09/19/17 16:37 98.3 90 20 185/99 (127) 99 I/O 09/19/17 09/19/17 09/19/17 09/20/17 09/20/17 09/20/17 07:00 15:00 23:00 07:00 15:00 23:00 Output Total 1425 ml Balance -1425 ml Output Urine Total 1425 ml # Voids 3 Result Diagram: 09/20/1733709/20/17337 Imaging Last Impressions Chest X-Ray 09/19/172037 Signed Impressions: Service Date/Time: Tuesday, September 19, 2017 20:44 - CONCLUSION: Cardiomegaly without focal airspace disease or significant effusion. Cristian Miranda MD Objective Remarks GENERAL: This is a well-nourished, well-developed patient, in no apparent distress. CARDIOVASCULAR: Regular rate and regular rhythm without murmurs, gallops, or rubs. RESPIRATORY: bilateral wheezing. GASTROINTESTINAL: Abdomen soft, non-tender, nondistended. Normal, active bowel sounds MUSCULOSKELETAL: Extremities with mild bilateral pedal edema. NEURO: Alert & Oriented x4 to person, place, time, situation. Moves all ext x4 Medications and IVs Inpatient Medications Acetaminophen (Tylenol) 650 mg Q6H PRN PO FEVER/PAIN SCALE 1 TO 2; Start at 22:30 Acetaminophen/ Hydrocodone Bitart ([place] 5-325 Mg) 1 tab Q4H PRN PO PAIN SCALE 3 TO 5; Start 09/19/17 at 22:30 Albuterol/ Ipratropium (Duoneb Neb) 1 ampule Q4HR NEB PRN NEB SOB/WHEEZING; Start 09/19/17 at 22:30 Aspirin (Aspirin) 325 mg DAILY PO Last administered on 09/20/17at 08:06; Start 09/20/17 at 09:00 Atorvastatin Calcium (Lipitor) 40 mg HS PO ; Start 09/20/17 at 21:00 Bisacodyl (Dulcolax Supp) 10 mg DAILY PRN RECTAL SEVERE CONSITIPATION/ IF NPO ; Start 09/19/17 at 22:30 Budesonide/ Formoterol Fumarate (Symbicort 160-4.5 Mcg Inh) 2 puff Q12HR INH Last administered on 09/20/17at 08:07; Start 09/20/17 at 09:00 Clonidine (Catapres) 0.3 mg BID PO Last administered on 09/20/17at 08:06; Start 09/20/17 at 09:00 Cyclobenzaprine HCl (Flexeril) 10 mg TID PO Last administered on 09/20/17at 08: 06; Start 09/20/17 at 09:00 Dextrose (D50w (Vial) Inj) 50 ml UNSCH PRN IV PUSH HYPOGLYCEMIA-SEE COMMENTS; Start 09/19/17 at 22:30 Furosemide (Lasix Inj) 40 mg BID@09,18 IV PUSH Last administered on 09/20/17at 08:07; Start 09/20/17 at 09:00 Glucagon (Glucagon Inj) 1 mg UNSCH PRN OTHER HYPOGLYCEMIA-SEE COMMENTS; Start 09/19/17 at 22:30 Guaifenesin (Mucinex Er) 1,200 mg BID PO Last administered on 09/20/17at 08:06; Start 09/20/17 at 09:00 Heparin Sodium (Porcine) (Heparin Inj) 5,000 units Q12H SQ Last administered on 09/20/17at 08:07; Start 09/20/17 at 09:00 Insulin Aspart (NovoLOG SUPPLEMENTAL SCALE) 1 ACHS SLIDING SCALE SQ ; Start at 08:00 Lactulose (Lactulose Liq) 30 ml DAILY PRN PO SEVERE CONSITIPATION/ IF PO; Start 09/19/17 at 22:30 Magnesium Hydroxide (Milk Of Magnamita Liq) 30 ml Q12H PRN PO Mild constipation ; Start 09/19/17 at 22:30 Methylprednisolone Sodium Succinate (SoluMEDROL INJ) 40 mg Q6HR IV PUSH Last administered on 09/20/17at 05:20; Start 09/20/17 at 00:00 Metoprolol Tartrate (Lopressor) 25 mg BID PO Last administered on 09/20/17at 08: 16; Start 09/20/17 at 09:00 Miscellaneous Information 1 HS T-DERMAL Last administered on 09/19/17at 23:01; Start 09/19/17 at 22:45 Morphine Sulfate (Morphine Inj) 2 mg Q3H PRN IV PUSH Pain 6-10; Start 09/19/17 at 22:30 Nicotine (Habitrol 21 Mg Patch.24 Hr) 1 patch DAILY T-DERMAL Last administered on 09/20/17at 08:06; Start 09/19/17 at 22:45 Ondansetron HCl (Zofran Inj) 4 mg Q6H PRN IVP NAUSEA OR VOMITING; Start at 22:30 Senna/Docusate Sodium (Anamaria-Colace) 1 tab BID PO Last administered on at 08:06; Start 09/20/17 at 09:00 Sennosides (Senokot) 17.2 mg Q12H PRN PO Moderate constipation; Start 09/19/17 at 22:30 Sodium Chloride (NS Flush) 2 ml BID IV FLUSH Last administered on 09/20/17at 08: 06; Start 09/20/17 at 09:00 A/P Problem List: (1) CHF (congestive heart failure) ICD Code: I50.9 - Heart failure, unspecified Status: Acute (2) COPD (chronic obstructive pulmonary disease) ICD Code: J44.9 - Chronic obstructive pulmonary disease, unspecified (3) Renal insufficiency ICD Code: N28.9 - Disorder of kidney and ureter, unspecified (4) HTN (hypertension) ICD Code: I10 - Essential (primary) hypertension Status: Acute (5) DM (diabetes mellitus) ICD Code: E11.9 - Type 2 diabetes mellitus without complications (6) Tobacco abuse ICD Code: Z72.0 - Tobacco use Status: Acute Assessment and Plan A/P 1. CHF: Acute on Chronic. Systolic. Echo 08/22/17 w/ EF 45%, BNP 289, + orthopnea. S/p Lasix in ER. continue Lasix IV bid, Monitor I/O. 2. COPD: Chronic Respiratory Failure w/ Acute Exacerbation. O2 sat 96% on 3L [place], states supposed to be on home oxygen but can't afford it. Solu-Medrol, DuoNeb, Symbicort, Mucinex. Counselled on tobacco. Eval for Home O2 needs 3. HTN: Uncontrolled. BP 180's, will resume home medications, monitor BP. 4. Renal Insufficiency: Chronic. Monitor I/O, caution w/ diuresis. 5. DM: Sliding scale w/ Accu-Cheks. Hold Metformin for now 6. Tobacco Abuse: Ongoing. Pt counselled. NicoDerm prn 7. DVT Prophylaxis: Heparin sq Discharge Planning not ready for discharge. change to observation. Problem Qualifiers (1) CHF (congestive heart failure): Qualified Codes: I50.9 - Heart failure, unspecified Derrell Meza MD Sep 20, 2017 09:42
[2017-09-20] MEDS ORDERED: RESP: ALBUTEROL 1.25 MG/3 ML NEB (PRN) NEB (09:45)
[2017-09-20] MEDS: RESP: ALBUTEROL 2.5 MG/IPRATROPIUM 0.5 MG NEB (SCH) NEB ×4 (11:35→23:21)
--- NOTE | 2017-09-20 16:48 | EKG ---
Date Performed: 09/19/2017 Time Performed: 20:37:08 PTAGE: 56 years EKG: Sinus rhythm POSSIBLE LEFT ATRIAL ENLARGEMENT MODERATE T-WAVE ABNORMALITY, CONSIDER LATERAL ISCHEMIA Since the pr evious tracing, no significant change noted ABNORMAL ECG PREVIOUS TRACING : 08/21/2017 11.29 DOCTOR: Janet Plascencia Interpretating Date/Time 09/20/2017 16:46:44
[2017-09-20] MEDS ORDERED: ATORVASTATIN 40 MG TAB PO SCH (21:00)
[2017-09-20] MEDS: REMOVE OLD PATCH T-DERMAL SCH (21:00)
[2017-09-21 00:11] VITALS: BP 142/73; PULSE 68; RESP 18; TEMP 97.8; O2SAT 94
[2017-09-21] MEDS: methylPREDNISolone SOD SUCC 40 MG/1 ML VIAL IV PUSH SCH ×2 (00:30→07:06)
[2017-09-21] MEDS: RESP: ALBUTEROL 2.5 MG/IPRATROPIUM 0.5 MG NEB (SCH) NEB ×4 (03:18→15:04)
[2017-09-21 03:20] VITALS: BP 130/75; PULSE 68; RESP 18; TEMP 98.3; O2SAT 97
[2017-09-21 07:23] VITALS: O2SAT 94
[2017-09-21] MEDS: INSULIN ASPART SUPPLEMENTAL SCALE SQ SCH ×2 (08:00→12:00)
[2017-09-21 08:01] VITALS: BP 128/68; PULSE 70; RESP 20; TEMP 98.6; O2SAT 96
[2017-09-21] MEDS: CYCLOBENZAPRINE HCL 10 MG TAB PO SCH ×2 (08:24→12:25)
[2017-09-21] MEDS: SODIUM CHLORIDE 0.9% FLUSH 10 ML FLUSH IV FLUSH SCH (08:24)
[2017-09-21] MEDS: DOCUSATE SODIUM 50 MG/SENNA 8.6 MG TAB PO SCH (08:24)
[2017-09-21] MEDS: METOPROLOL TARTRATE 25 MG TAB PO SCH (08:24)
[2017-09-21] MEDS: cloNIDine HCL 0.3 MG TAB PO SCH (08:24)
[2017-09-21] MEDS: HEPARIN SODIUM - SQ 10,000 UNITS/ML VIAL SQ SCH (08:25)
[2017-09-21] MEDS: ASPIRIN 325 MG TAB PO SCH (08:25)
[2017-09-21] MEDS: FUROSEMIDE 40 MG/4 ML VIAL IV PUSH SCH (08:26)
[2017-09-21] MEDS: BUDESONIDE-FORMOTEROL 160/4.5 MCG INHALER INH SCH (09:00)
[2017-09-21] MEDS: NICOTINE 21 MG/24 HR PATCH T-DERMAL SCH (09:00)
--- NOTE | 2017-09-21 09:59 | HHI.PR ---
Subjective Remarks in no acute distress. sob has much improved and now looks more comfortable. no other complaints. Objective Vitals Vital Signs Date Time Temp Pulse Resp B/P (MAP) Pulse Ox O2 Delivery O2 Flow Rate FiO2 09/21/17 08:01 98.6 70 20 128/68 (88) 96 09/21/17 07:23 94 Nasal Cannula 3.00 09/21/17 03:20 98.3 68 18 130/75 (93) 97 09/21/17 00:11 97.8 68 18 142/73 (96) 94 09/20/17 20:52 98.0 81 20 125/60 (81) 95 09/20/17 19:30 98 Nasal Cannula 3.00 09/20/17 16:00 97.2 84 20 126/58 (80) 92 09/20/17 12:00 97.2 84 20 126/58 (80) 92 I/O 09/20/17 09/20/17 09/20/17 09/21/17 09/21/17 09/21/17 07:00 15:00 23:00 07:00 15:00 23:00 Intake Total 900 ml Output Total 2500 ml Balance -1600 ml Intake Oral 900 ml Output Urine Total 2500 ml # Voids 3 Result Diagram: 09/20/1733709/20/17337 Imaging Last Impressions Chest X-Ray 09/19/172037 Signed Impressions: Service Date/Time: Tuesday, September 19, 2017 20:44 - CONCLUSION: Cardiomegaly without focal airspace disease or significant effusion. Cristian Miranda MD Objective Remarks GENERAL: This is a well-nourished, well-developed patient, in no apparent distress. CARDIOVASCULAR: Regular rate and regular rhythm without murmurs, gallops, or rubs. RESPIRATORY: better air entry bilaterally. GASTROINTESTINAL: Abdomen soft, non-tender, nondistended. Normal, active bowel sounds MUSCULOSKELETAL: Extremities with mild bilateral pedal edema. NEURO: Alert & Oriented x4 to person, place, time, situation. Moves all ext x4 Procedures none Medications and IVs Inpatient Medications Acetaminophen (Tylenol) 650 mg Q6H PRN PO FEVER/PAIN SCALE 1 TO 2; Start at 22:30 Acetaminophen/ Hydrocodone Bitart ([place] 5-325 Mg) 1 tab Q4H PRN PO PAIN SCALE 3 TO 5; Start 09/19/17 at 22:30 Albuterol Sulfate (Albuterol Neb) 1.25 mg Q2HR NEB PRN NEB SHORTNESS OF BREATH ; Start 09/20/17 at 09:45 Albuterol/ Ipratropium (Duoneb Neb) 1 ampule Q4HR NEB NEB Last administered on 09/21/17 07:21; Start 09/20/17 at 12:00 Aspirin (Aspirin) 325 mg DAILY PO Last administered on 09/21/17 08:25; Start 09/20/17 at 09:00 Atorvastatin Calcium (Lipitor) 40 mg HS PO Last administered on 09/20/17 21:52 ; Start 09/20/17 at 21:00 Bisacodyl (Dulcolax Supp) 10 mg DAILY PRN RECTAL SEVERE CONSITIPATION/ IF NPO ; Start 09/19/17 at 22:30 Budesonide/ Formoterol Fumarate (Symbicort 160-4.5 Mcg Inh) 2 puff Q12HR INH Last administered on 09/20/17 21:50; Start 09/20/17 at 09:00 Clonidine (Catapres) 0.3 mg BID PO Last administered on 09/21/17 08:24; Start 09/20/17 at 09:00 Cyclobenzaprine HCl (Flexeril) 10 mg TID PO Last administered on 09/21/17 08: 24; Start 09/20/17 at 09:00 Dextrose (D50w (Vial) Inj) 50 ml UNSCH PRN IV PUSH HYPOGLYCEMIA-SEE COMMENTS; Start 09/19/17 at 22:30 Furosemide (Lasix Inj) 40 mg BID@,18 IV PUSH Last administered on 09/21/17at 08:26; Start 09/20/17 at 09:00 Glucagon (Glucagon Inj) 1 mg UNSCH PRN OTHER HYPOGLYCEMIA-SEE COMMENTS; Start 09/19/17 at 22:30 Guaifenesin (Mucinex Er) 1,200 mg BID PO Last administered on 09/20/17at 21:51; Start 09/20/17 at 09:00 Heparin Sodium (Porcine) (Heparin Inj) 5,000 units Q12H SQ Last administered on 09/21/17 08:25; Start 09/20/17 at 09:00 Insulin Aspart (NovoLOG SUPPLEMENTAL SCALE) 1 ACHS SLIDING SCALE SQ Last administered on 09/20/17at 21:49; Start 09/20/17 at 08:00 Lactulose (Lactulose Liq) 30 ml DAILY PRN PO SEVERE CONSITIPATION/ IF PO; Start 09/19/17 at 22:30 Magnesium Hydroxide (Milk Of Magnesia Liq) 30 ml Q12H PRN PO Mild constipation ; Start 09/19/17 at 22:30 Methylprednisolone Sodium Succinate (SoluMEDROL INJ) 40 mg Q6HR IV PUSH Last administered on 09/21/17at 07:06; Start 09/20/17 at 00:00 Metoprolol Tartrate (Lopressor) 25 mg BID PO Last administered on 09/21/17 08: 24; Start 09/20/17 at 09:00 Miscellaneous Information 1 HS T-DERMAL Last administered on 09/19/17at 23:01; Start 09/19/17 at 22:45 Morphine Sulfate (Morphine Inj) 2 mg Q3H PRN IV PUSH Pain 6-10; Start 09/19/17 at 22:30 Nicotine (Habitrol 21 Mg Patch.24 Hr) 1 patch DAILY T-DERMAL Last administered on 09/20/17at 08:06; Start 09/19/17 at 22:45 Ondansetron HCl (Zofran Inj) 4 mg Q6H PRN IVP NAUSEA OR VOMITING; Start at 22:30 Senna/Docusate Sodium (Anamaria-Colace) 1 tab BID PO Last administered on at 08:24; Start 09/20/17 at 09:00 Sennosides (Senokot) 17.2 mg Q12H PRN PO Moderate constipation; Start 09/19/17 at 22:30 Sodium Chloride (NS Flush) 2 ml BID IV FLUSH Last administered on 09/21/17at 08: 24; Start 09/20/17 at 09:00 A/P Problem List: (1) CHF (congestive heart failure) ICD Code: I50.9 - Heart failure, unspecified Status: Acute (2) COPD (chronic obstructive pulmonary disease) ICD Code: J44.9 - Chronic obstructive pulmonary disease, unspecified (3) Renal insufficiency ICD Code: N28.9 - Disorder of kidney and ureter, unspecified (4) HTN (hypertension) ICD Code: I10 - Essential (primary) hypertension Status: Acute (5) DM (diabetes mellitus) ICD Code: E11.9 - Type 2 diabetes mellitus without complications (6) Tobacco abuse ICD Code: Z72.0 - Tobacco use Status: Acute Assessment and Plan A/P 1. CHF: Acute on Chronic. Systolic. Echo 08/22/17 w/ EF 45%, continue Lasix IV bid, Monitor I/O.- improved. 2. COPD: Chronic Respiratory Failure w/ Acute Exacerbation. O2 sat 96% on 3L [place], states supposed to be on home oxygen but can't afford it. Solu-Medrol, DuoNeb, Symbicort, Mucinex. Counselled on tobacco. Eval for Home O2 needs; walk test today. 3. HTN: Uncontrolled. resumed home medications, monitor BP. 4. Renal Insufficiency: Chronic. Monitor I/O, caution w/ diuresis. 5. DM: Sliding scale w/ Accu-Cheks. dc metformin due to renal insufficiency and CHF- will start on Glipizide and f/u as outpatient. 6. Tobacco Abuse: Ongoing. Pt counselled. NicoDerm prn 7. DVT Prophylaxis: Heparin sq Discharge Planning walk test today. dc home within the next 24 hrs- pending walk test. see med list. d/w the patient. Problem Qualifiers (1) CHF (congestive heart failure): Qualified Codes: I50.9 - Heart failure, unspecified Derrell Meza MD Sep 21, 2017 09:59
[2017-09-21] MEDS ORDERED: GLIP1TAB60 PO (10:06)
[2017-09-21] MEDS ORDERED: Budeson-Formot 160-4.5 Mcg Inh INH (10:06)
[2017-09-21] MEDS ORDERED: PRED5TAB PO (10:06)
[2017-09-21 11:05] VITALS: BP 103/63; PULSE 70; RESP 20; TEMP 98.9; O2SAT 95
[2017-09-21] MEDS: guaiFENesin E.R. 600 MG TAB PO SCH (12:25)
--- NOTE | 2017-09-21 12:56 | HHI.DCPOC ---
Discharge Care Plan Diagnosis: (1) DM (diabetes mellitus) (2) HTN (hypertension) (3) Tobacco abuse (4) Renal insufficiency (5) COPD (chronic obstructive pulmonary disease) (6) CHF (congestive heart failure) (7) Shortness of breath Your Health Problems Are: Anxiety Shortness of Breath Goals to Promote Your Health * To prevent worsening of your condition and complications * To maintain your health at the optimal level Directions to Meet Your Goals Take your medications as prescribed Follow your dietary instruction Follow activity as directed Keep your appointments as scheduled Take your immunizations and boosters as scheduled If your symptoms worsen call your PCP, if no PCP go to Urgent Care Center or Emergency Room Smoking is Dangerous to Your Health. Avoid second hand smoke Call the 24-hour hour crisis hotline for domestic abuse at Ramona Lan Sep 21, 2017 12:56
[2017-09-21] MEDS ORDERED: methylPREDNISolone SOD SUCC 40 MG/1 ML VIAL IV PUSH SCH (14:00)
[2017-09-21] MEDS ORDERED: OXYGENDME NAS.CANULA (15:43)
== END 2017-09-21 16:08 | disposition home or self-care (01) ==
LOC: NEPC 16:34 → NEDA 22:16 → NEPGCP 23:07
PROVIDERS: ADMIT Internal Medicine; ATTEND Internal Medicine
DX: I50.9 Heart failure, unspecified (principal); I13.0 Hypertensive heart and chronic kidney disease with heart failure and stage 1 through stage 4 chronic kidney disease, or unspecified chronic kidney disease; N18.9 Chronic kidney disease, unspecified; J44.9 Chronic obstructive pulmonary disease, unspecified; E11.22 Type 2 diabetes mellitus with diabetic chronic kidney disease; J96.20 Acute and chronic respiratory failure, unspecified whether with hypoxia or hypercapnia; I25.2 Old myocardial infarction; F41.9 Anxiety disorder, unspecified; E78.00 Pure hypercholesterolemia, unspecified; F17.210 Nicotine dependence, cigarettes, uncomplicated; Z86.73 Personal history of transient ischemic attack (TIA), and cerebral infarction without residual deficits; Z87.442 Personal history of urinary calculi
CPT/HCPCS: 71045; 80053; 82550; 82552; 82948; 83735; 83880; 84484; 85025; 93005; 94618; 94640; 94664; 96372; 96374; 96375; 96376; 99285; G0378; J1644; J1815; J1940; J2920; J2930

== ENCOUNTER 2017-10-04 11:05 | Emergency (ER) | payer MEDICARE, MEDICAID ==
[~2017-10-04] VITALS: Ht 185.4 cm; Wt 122.5 kg
[~2017-10-04 11:05] MED LIST changes: +ASPI-183 PO; -ASPI-516 CHEW; +Budeson-Formot 160-4.5 Mcg Inh INH; +CLON0.3T PO; +GLIP1TAB60 PO; -HYDR-3583 PO; +LISI40TA PO; -MEDR4PAK PO; -NICO21DI25 T-DERMAL; +PRED5TAB PO; -ZANT300T PO
[2017-10-04 11:08] VITALS: BP 182/91; PULSE 92; RESP 18; TEMP 98; O2SAT 97
[2017-10-04 11:16] VITALS: BP 187/92; PULSE 91; RESP 16; O2SAT 99
[2017-10-04] MEDS ORDERED: METF500T4 PO (11:18)
--- NOTE | 2017-10-04 11:22 | PD ---
HPI Chief Complaint: Back/ Neck Pain or Injury Time Seen by Provider: 11:11 Travel History International Travel<30 days: No Contact w/Intl Traveler<30days: No Traveled to known affect area: No History of Present Illness HPI 56-year-old male presents emergency department with acute on chronic low back pain. Patient states he was fine yesterday, was able to ride his bicycle, but this morning upon awakening he had severe low back pain and stiffness. He had difficulty getting out of bed. He denies radiation to either lower extremity. He has no urinary symptoms or bowel symptoms. No recent fever or chills. Patient states that he used to be taking Lortab 04/02 up until a year and a half ago, when he was switched to Naprosyn daily. Patient takes Flexeril as well. Patient has history of CHF, pulmonary edema, and COPD, but has no complaints of chest congestion or shortness of breath. Pain is back is currently 10/10 and worse with movement or palpation. He is allergic to CT dye. PFSH Past Medical History Hx Anticoagulant Therapy: Yes Blood Disorders: No Anxiety: Yes Depression: Yes Heart Rhythm Problems: Yes Cancer: No Cardiovascular Problems: Yes (CHF, [place]) High Cholesterol: Yes Chest Pain: Yes Congestive Heart Failure: Yes COPD: Yes Diabetes: Yes (type 2) Patient Takes Glucophage: Yes (10/03) Diminished Hearing: No Endocrine: Yes Gastrointestinal Disorders: No Genitourinary: No (pt denies ) Hypertension: Yes Immune Disorder: No Implanted Vascular Access Dvce: No Kidney Stones: Yes Musculoskeletal: No Neurologic: No Psychiatric: No Reproductive: No Respiratory: Yes (COPD) Immunizations Current: Yes Renal Failure: Yes (CKD) Sleep Apnea: Yes (cpap at home) Thyroid Disease: No Past Surgical History Other Surgery: Yes (FACIAL, C1-C2, L. FOOT) Social History Alcohol Use: No Tobacco Use: Yes (1ppd) Substance Use: No Allergies-Medications (Allergen,Severity, Reaction): Coded Allergies: diatrizoate meglumine (Verified Allergy, Severe, Itching, 10/04/17) gadobenic acid (Verified Allergy, Severe, Itching, 10/04/17) gadodiamide (Verified Allergy, Severe, Itching, 10/04/17) gadoteridol (Verified Allergy, Severe, Itching, 10/04/17) iodixanol (Verified Allergy, Severe, Itching, 10/04/17) iohexol (Verified Allergy, Severe, Itching, 10/04/17) Iodinated Contrast- Oral and IV Dye (Unverified Allergy, Unknown, 10/04/17) PATIENT STATED ALLERGY TO CONTRAST MEDIA. Reported Meds & Prescriptions Reported Meds & Active Scripts Active Hydrocodone-Acetaminophen 5-325 mg Tab 1 Tab PO Q6H PRN Flexeril (Cyclobenzaprine HCl) 10 Mg Tab 10 Mg PO TID Ibuprofen 800 Mg Tab 800 Mg PO Q8H PRN Prednisone 5 Mg Tab 5 Mg PO DIRECTED 10 Days 40 mg po daily for two days then 30 mg po daily for two days then 20 mg po daily for two days then 10 mg po daily for two days then 5 mg po daily for two days then stop. [Budeson-Formot 160-4.5 Mcg Inh] 60 PUFF Aero 2 Puff INH Q12HR Atorvastatin (Atorvastatin Calcium) 40 Mg Tab 40 Mg PO HS Furosemide 40 Mg Tab 40 Mg PO BID Proventil Hfa 6.7 GM Inh (Albuterol Sulfate) 90 Mcg/Act Aer 2 Puff INH Q4-6H PRN Reported Metformin ER (Metformin HCl) 500 Mg Edson 500 Mg PO DAILY With evening meal Lisinopril 40 Mg Tab 40 Mg PO DAILY Clonidine (Clonidine HCl) 0.3 Mg Tab 0.3 Mg PO BID Aspirin 325 Mg Tab 325 Mg PO DAILY Flexeril (Cyclobenzaprine HCl) 10 Mg Tab 10 Mg PO TID Clorazepate (Clorazepate Dipotassium) 3.75 Mg Tab 3.75 Mg PO BID PRN Metoprolol Tartrate 25 Mg Tab 25 Mg PO BID Review of Systems Except as stated in HPI: all other systems reviewed are Neg General / Constitutional: No: Fever Eyes: No: Visual changes HENT: No: Headaches Cardiovascular: No: Chest Pain or Discomfort Respiratory: No: Shortness of Breath Gastrointestinal: No: Abdominal Pain Genitourinary: No: Dysuria Musculoskeletal: Positive: Myalgias, Arthralgias, Limited ROM, Pain Skin: No Rash Neurologic: No: Weakness Psychiatric: No: Depression Endocrine: No: Polydipsia Hematologic/Lymphatic: No: Easy Bruising Physical Exam Narrative GENERAL: Patient appears in mild to moderate distress. He is ambulatory with some guarding. SKIN: Warm and dry. Normal color. Normal turgor. No rash. HEAD: Atraumatic. Normocephalic. EYES: Pupils equal and round. No scleral icterus. No injection or drainage. ENT: No nasal bleeding or discharge. Mucous membranes pink and moist. Pharynx is clear. Airway is patent. NECK: Supple and nontender. CARDIOVASCULAR: Regular rate and rhythm. RESPIRATORY: No accessory muscle use. Clear to auscultation. Breath sounds equal bilaterally. GASTROINTESTINAL: Abdomen soft, non-tender, nondistended. Hepatic and splenic margins not palpable. MUSCULOSKELETAL: Extremities without clubbing, cyanosis, or edema. No obvious deformities. Patient has severe soft tissue back pain with palpation to the lower lumbar spine without bony tenderness or lower extremity radicular signs. Straight leg raise is normal bilaterally. Neurovascular exam is normal. NEUROLOGICAL: Awake and alert. No obvious cranial nerve deficits. Motor grossly within normal limits. Five out of 5 muscle strength in the arms and legs. Normal speech. PSYCHIATRIC: Appropriate mood and affect; insight and judgment normal. Data Data Last Documented VS Vital Signs Date Time Temp Pulse Resp B/P (MAP) Pulse Ox O2 Delivery O2 Flow Rate FiO2 10/04/17 11:16 91 16 187/92 (123) 99 Room Air 10/04/17 11:08 98.0 Orders Orders Ketorolac Inj (Toradol Inj) (10/04/17 11:30) Orphenadrine Inj (Norflex Inj) (10/04/17 11:30) Oxycodone-Acetamin 5-325 Mg (Percocet (10/04/17 11:30) Ed Discharge Order (10/04/17 12:32) Spine, Lumbar - Ltd (Ap & Lat) (10/04/17 13:35) [facility] Medical Decision Making Medical Screen Exam Complete: Yes Emergency Medical Condition: Yes Medical Record Reviewed: Yes Differential Diagnosis Lumbago. Muscle spasm. Acute on chronic back pain. Malingering. Narrative Course Patient is medically stable at time of exam. Patient is given Percocet 5/325 p.o. now. Patient is given Norflex 60 mg IM as well as 60 mg Toradol IM. Radiographic imaging is not felt warranted based on my history and physical.\ After 45 minutes, patient is improved and sleeping comfortably in the bed. Patient sent home on ibuprofen 800 mg 3 times daily with food. He is given a refill of Flexeril 10 mg every 8 hours as needed muscle spasm #15 Patient is given Lortab 5/325 one every 6 hours as needed pain #12 Patient to follow-up with his primary care physician as needed. Diagnosis Primary Impression: Acute exacerbation of chronic low back pain Patient Instructions: Acute Low Back Pain (ED), General Instructions, Narcotic given in the ED Additional Instructions: Patient is given Percocet 5/325 p.o. now. Patient is given Norflex 60 mg IM as well as 60 mg Toradol IM. Radiographic imaging is not felt warranted based on my history and physical.\ After 45 minutes, patient is improved and sleeping comfortably in the bed. Patient sent home on ibuprofen 800 mg 3 times daily with food. He is given a refill of Flexeril 10 mg every 8 hours as needed muscle spasm #15 Patient is given Lortab 5/325 one every 6 hours as needed pain #12 Patient to follow-up with his primary care physician as needed. Med/Other Pt SpecificInfo: Prescription(s) given Scripts Hydrocodone-Acetaminophen (Hydrocodone-Acetaminophen) 5-325 mg Tab 1 TAB PO Q6H Y for PAIN, #12 TAB 0 Refills Prov: Hilton Ramirez MD 10/04/17 Cyclobenzaprine (Flexeril) 10 Mg Tab 10 MG PO TID for Muscle Spasm, #15 TAB 0 Refills Prov: Hilton Ramirez MD 10/04/17 Ibuprofen (Ibuprofen) 800 Mg Tab 800 MG PO Q8H Y for Pain/Inflammation, #60 TAB 0 Refills Prov: Hilton Ramirez MD 10/04/17 Disposition: 01 DISCHARGE HOME Condition: Stable Isra Zaldivar Oct 04, 2017 11:22
[2017-10-04] MEDS ORDERED: ORPHENADRINE INJ 60 MG/2 ML AMP IM ONE (11:30)
[2017-10-04] MEDS ORDERED: KETOROLAC TROMETHAMINE 60 MG/2 ML (IM) VIAL IM ONE (11:30)
[2017-10-04] MEDS ORDERED: oxyCODONE/ACETAMINOPHEN 5 MG/325 MG TAB PO ONE (11:30)
[2017-10-04] MEDS ORDERED: ALBU0.08 NEB (12:23)
[2017-10-04] MEDS ORDERED: NEBULIZER1 MI1 (12:23)
[2017-10-04] MEDS ORDERED: TRAM50TA PO (12:23)
[2017-10-04] MEDS ORDERED: IBUP1TAB7 PO (12:31)
[2017-10-04] MEDS ORDERED: HYDR-3516 PO (12:31)
[2017-10-04] MEDS ORDERED: CYCL10TA PO (12:31)
== END 2017-10-04 14:17 | disposition home or self-care (01) ==
LOC: NEPD 11:05
DX: M54.5 Low back pain (principal); G89.29 Other chronic pain; I13.0 Hypertensive heart and chronic kidney disease with heart failure and stage 1 through stage 4 chronic kidney disease, or unspecified chronic kidney disease; I50.9 Heart failure, unspecified; E11.22 Type 2 diabetes mellitus with diabetic chronic kidney disease; N18.9 Chronic kidney disease, unspecified; E78.00 Pure hypercholesterolemia, unspecified; J44.9 Chronic obstructive pulmonary disease, unspecified; F17.200 Nicotine dependence, unspecified, uncomplicated; Z79.84 Long term (current) use of oral hypoglycemic drugs
CPT/HCPCS: 96372; 99283; J1885; J2360

== ENCOUNTER 2017-10-18 14:25 | Inpatient (IN) | payer MEDICARE, MEDICAID ==
[~2017-10-18] VITALS: Ht 185.4 cm; Wt 121.6 kg
[~2017-10-18 14:25] MED LIST changes: -GLIP1TAB60 PO; +HYDR-3516 PO; +IBUP1TAB7 PO; +METF500T4 PO
[2017-10-18 14:34] VITALS: TEMP 103.3
[2017-10-18 14:38] VITALS: BP 177/90; PULSE 110; RESP 19; O2SAT 95
[2017-10-18] MEDS ORDERED: ACETAMINOPHEN 325 MG TAB PO ONE (14:45)
[2017-10-18] MEDS ORDERED: SODIUM CHLOR 0.9% 1000 ML INJ 1,000 ML IV ONE ×2 (14:45→16:00)
--- NOTE | 2017-10-18 14:46 | PD ---
HPI . Fever Chief Complaint: Fever Time Seen by Provider: 14:36 Travel History International Travel<30 days: No Contact w/Intl Traveler<30days: No Traveled to known affect area: No History of Present Illness HPI Patient presents with the acute onset of fever. He is a homeless man. He was fine this morning when he woke up. He suddenly developed fevers and chills this afternoon. Rescue was called and he was brought to the hospital. His fever is associated with a cough. He denies any other infectious type symptoms. No modifying factors. Symptoms are mild to moderate. PFSH Past Medical History Hx Anticoagulant Therapy: Yes Blood Disorders: No Anxiety: Yes Depression: Yes Heart Rhythm Problems: Yes Cancer: No Cardiovascular Problems: Yes (CHF) High Cholesterol: Yes Chest Pain: Yes Congestive Heart Failure: Yes COPD: Yes Cerebrovascular Accident: Yes Diabetes: Yes Patient Takes Glucophage: Yes Diminished Hearing: No Endocrine: Yes Gastrointestinal Disorders: No Hypertension: Yes Immune Disorder: No Implanted Vascular Access Dvce: No Kidney Stones: Yes Musculoskeletal: No Neurologic: No Psychiatric: No Reproductive: No Respiratory: Yes (COPD) Immunizations Current: Yes Renal Failure: Yes (CKD) Sleep Apnea: Yes (cpap at home) Thyroid Disease: No ?: Not Past Surgical History Other Surgery: Yes (FACIAL, C1-C2, L. FOOT) Social History Alcohol Use: No Tobacco Use: Yes (1ppd) Substance Use: No Allergies-Medications (Allergen,Severity, Reaction): Coded Allergies: diatrizoate meglumine (Verified Allergy, Severe, Itching, 10/18/17) gadobenic acid (Verified Allergy, Severe, Itching, 10/18/17) gadodiamide (Verified Allergy, Severe, Itching, 10/18/17) gadoteridol (Verified Allergy, Severe, Itching, 10/18/17) iodixanol (Verified Allergy, Severe, Itching, 10/18/17) iohexol (Verified Allergy, Severe, Itching, 10/18/17) Iodinated Contrast- Oral and IV Dye (Unverified Allergy, Unknown, 10/18/17) PATIENT STATED ALLERGY TO CONTRAST MEDIA. acetaminophen (Verified Adverse Reaction, Unknown, Nausea/Vomiting, ) Reported Meds & Prescriptions Reported Meds & Active Scripts Active Hydrocodone-Acetaminophen 5-325 mg Tab 1 Tab PO Q6H PRN Ibuprofen 800 Mg Tab 800 Mg PO Q8H PRN Atorvastatin (Atorvastatin Calcium) 40 Mg Tab 40 Mg PO HS Furosemide 40 Mg Tab 40 Mg PO BID Proventil Hfa 6.7 GM Inh (Albuterol Sulfate) 90 Mcg/Act Aer 2 Puff INH Q4-6H PRN Reported Symbicort Inh (Budesonide/Formoterol Fumarate) 160-4.5 Mcg/Act Aero 2 Puff INH Q12HR Metformin ER (Metformin HCl) 500 Mg Edson 500 Mg PO DAILY With evening meal Lisinopril 40 Mg Tab 40 Mg PO DAILY Clonidine (Clonidine HCl) 0.3 Mg Tab 0.3 Mg PO BID Aspirin 325 Mg Tab 325 Mg PO DAILY Flexeril (Cyclobenzaprine HCl) 10 Mg Tab 10 Mg PO TID Clorazepate (Clorazepate Dipotassium) 3.75 Mg Tab 3.75 Mg PO BID PRN Metoprolol Tartrate 25 Mg Tab 25 Mg PO BID Review of Systems Except as stated in HPI: all other systems reviewed are Neg General / Constitutional: Positive: Fever, Chills HENT: No: Sore Throat, Rhinorrhea, Congestion Respiratory: Positive: Cough Gastrointestinal: No: Nausea, Vomiting, Diarrhea Genitourinary: No: Urgency, Frequency, Dysuria Physical Exam Narrative GENERAL: Awake and alert and in no acute distress. SKIN: warm/dry. Very hot to the touch. HEAD: Normocephalic. Atraumatic. EYES: Pupils equal and round. No scleral icterus. No injection or drainage. ENT: No nasal bleeding or discharge. Mucous membranes pink and moist. NECK: Trachea midline. Full range of motion without pain.. CARDIOVASCULAR: Regular rate and rhythm. Heart sounds are normal. RESPIRATORY: No accessory muscle use. Scattered rhonchi. Breath sounds equal bilaterally. GASTROINTESTINAL: Abdomen soft. Nontender. Bowel sounds present. Nondistended. MUSCULOSKELETAL: No obvious deformities. NEUROLOGICAL: Awake and alert. No obvious cranial nerve deficits. Motor grossly within normal limits. Normal speech. PSYCHIATRIC: Appropriate mood and affect; insight and judgment normal. Data Data Last Documented VS Vital Signs Date Time Temp Pulse Resp B/P (MAP) Pulse Ox O2 Delivery O2 Flow Rate FiO2 10/18/17 16:52 100.9 109 19 145/76 (99) 93 Room Air Orders Orders Sepsis Workup Initiated (10/18/17 ) Complete Blood Count With Diff (10/18/17 14:36) Comprehensive Metabolic Panel (10/18/17 14:36) Lactic Acid Sepsis Protocol (10/18/17 14:36) Urinalysis - C+S If Indicated (10/18/17 14:36) Blood Culture (10/18/17 14:36) Chest, Single Ap (10/18/17 14:36) Ecg Monitoring (10/18/17 14:36) Iv Access Insert/Monitor (10/18/17 14:36) Oximetry (10/18/17 14:36) Acetaminophen (Tylenol) (10/18/17 14:45) Sodium Chlor 0.9% 1000 Ml Inj (Ns 1000 M (10/18/17 14:45) Ibuprofen (Motrin) (10/18/17 15:00) Influenzae A/B Antigen (10/18/17 15:50) Sodium Chlor 0.9% 1000 Ml Inj (Ns 1000 M (10/18/17 16:00) Labs Laboratory Tests Test 10/18/17 14:45 10/18/17 14:55 10/18/17 17:27 Urine Color LIGHT-YELLOW Urine Turbidity CLEAR Urine pH 7.0 Urine Specific Elaine 1.011 Urine Protein NEG mg/dL Urine Glucose (UA) NEG mg/dL Urine Ketones NEG mg/dL Urine Occult Blood NEG Urine Nitrite NEG Urine Bilirubin NEG Urine Urobilinogen LESS THAN 2.0 MG/DL Urine Leukocyte Esterase NEG Urine RBC 1 /hpf Urine Mucus FEW /lpf Microscopic Urinalysis Comment CATH-CULT NOT IND White Blood Count 17.8 TH/MM3 Red Blood Count 5.08 MIL/MM3 Hemoglobin 15.1 GM/DL Hematocrit 45.1 % Mean Corpuscular Volume 88.9 FL Mean Corpuscular Hemoglobin 29.8 PG Mean Corpuscular Hemoglobin Concent 33.5 % Red Cell Distribution Width 14.3 % Platelet Count 212 TH/MM3 Mean Platelet Volume 8.6 FL Neutrophils (%) (Auto) 88.1 % Lymphocytes (%) (Auto) 5.1 % Monocytes (%) (Auto) 5.9 % Eosinophils (%) (Auto) 0.6 % Basophils (%) (Auto) 0.3 % Neutrophils # (Auto) 15.7 TH/MM3 Lymphocytes # (Auto) 0.9 TH/MM3 Monocytes # (Auto) 1.0 TH/MM3 Eosinophils # (Auto) 0.1 TH/MM3 Basophils # (Auto) 0.1 TH/MM3 CBC Comment DIFF FINAL Differential Comment Blood Urea Nitrogen 16 MG/DL Creatinine 1.58 MG/DL Random Glucose 150 MG/DL Total Protein 7.1 GM/DL Albumin 3.6 GM/DL Calcium Level 8.7 MG/DL Alkaline Phosphatase 69 U/L Aspartate Amino Transf (AST/SGOT) 14 U/L Alanine Aminotransferase (ALT/SGPT) 22 U/L Total Bilirubin 0.6 MG/DL Sodium Level 141 MEQ/L Potassium Level 3.8 MEQ/L Chloride Level 105 MEQ/L Carbon Dioxide Level 24.9 MEQ/L Anion Gap 11 MEQ/L Estimat Glomerular Filtration Rate 45 ML/MIN Lactic Acid Level 2.4 mmol/L 1.2 mmol/L [facility] Medical Decision Making Medical Screen Exam Complete: Yes Emergency Medical Condition: Yes Differential Diagnosis Differential diagnosis of fever includes but is not limited to viral illness, strep throat, otitis media, pneumonia, sepsis, UTI Narrative Course This is a homeless man who presents with the acute onset of fever. Septic workup is in process. He will be treated with a liter of IV fluids and some Tylenol. Further treatment will be dependent upon the results of this tests. Last Impressions Chest X-Ray 10/18/17 1436 Signed Impressions: Service Date/Time: Wednesday, October 18, 2017 14:46 - CONCLUSION: Cardiomegaly with mild interstitial prominence, no consolidation Alvarez Foy MD FACR CBC & BMP Diagram 10/18/17 14:55 Total Protein 7.1, Albumin 3.6, Calcium Level 8.7, Alkaline Phosphatase 69, Aspartate Amino Transf (AST/SGOT) 14 L, Alanine Aminotransferase (ALT/SGPT) 22, Total Bilirubin 0.6 LA 2.4 UA neg flu neg repeat LA 1.2 This patient meets SIRS criteria but not sepsis criteria. He does not have an obvious source for fever. His lactic acid has come down with fluids. Sepsis Criteria SIRS Criteria (2 or more): Temp > 100.9 or < 96.8, Heart rate over 90, WBC > 51753, < 4000 or > 10% bands Criteria Outcome: Meets SIRS criteria Physician Communication Physician Communication Case was discussed with Dr. Rouse who recommends admission for observation. Diagnosis Primary Impression: Fever Qualified Codes: R50.9 - Fever, unspecified Additional Impression: SIRS (systemic inflammatory response syndrome) Admitting Information Admitting Physician Requests: Observation Condition: Stable Denise Snowden MD October 18, 2017 14:46
[2017-10-18] MEDS ORDERED: IBUPROFEN 800 MG TAB PO ONE (15:00)
--- NOTE | 2017-10-18 15:01 | RADRPT ---
EXAM DATE/TIME: 10/18/2017 14:46 [facility] COMPARISON: CHEST SINGLE AP, September 19, 2017, 20:44. INDICATIONS : Shortness of breath, cough and fever. MEDICAL HISTORY : Chronic obstructive pulmonary disease. Hypertension SURGICAL HISTORY : None. ENCOUNTER: Initial ACUITY: 1 day PAIN SCORE: 0/10 LOCATION: chest FINDINGS: A single view of the chest demonstrates the lungs to be symmetrically aerated without evidence of mas s, infiltrate or effusion. Cardiomegaly with mild interstitial changes. No consolidation or effusio n. Osseous structures are intact. CONCLUSION: Cardiomegaly with mild interstitial prominence, no consolidation Alvarez Foy MD FACR on October 18, 2017 at 14:58 Board Certified Radiologist. This report was verified electronically.
[2017-10-18 15:30] LABS: AUTOMATED NEUTROPHIL # 15.7 TH/MM3 (1.8-7.7); BASOPHIL # 0.1 TH/MM3 (0-0.2); BASOPHIL % 0.3 % (0.0-2.0); EOSINOPHIL # 0.1 TH/MM3 (0-0.4); EOSINOPHIL % 0.6 % (0.0-4.0); HEMATOCRIT 45.1 % (39.0-51.0); HEMOGLOBIN 15.1 GM/DL (13.0-17.0); LYMPH % 5.1 % (9.0-44.0); LYMPHOCYTE # 0.9 TH/MM3 (1.0-4.8); MEAN CELL VOLUME 88.9 FL (80.0-100.0); MEAN CORPUSCULAR HEMOGLOBIN 29.8 PG (27.0-34.0); MEAN CORPUSCULAR HGB CONC 33.5 % (32.0-36.0); MEAN PLATELET VOLUME 8.6 FL (7.0-11.0); MONO % 5.9 % (0.0-8.0); NEUT % 88.1 % (16.0-70.0); PLATELET COUNT 212 TH/MM3 (150-450); RED BLOOD COUNT 5.08 MIL/MM3 (4.50-5.90); RED CELL DISTRIBUTION WIDTH 14.3 % (11.6-17.2); WHITE BLOOD COUNT 17.8 TH/MM3 (4.0-11.0)
[2017-10-18 15:39] LABS: LACTIC ACID SEPSIS PROTOCOL 2.4 mmol/L (0.4-2.0)
[2017-10-18 15:40] LABS: BILIRUBIN, URINE NEG (NEG); BLOOD, URINE NEG (NEG); GLUCOSE,URINE NEG (NEG); KETONE, URINE NEG (NEG); MUCUS URINE FEW /lpf (OCC); NITRITE,URINE NEG (NEG); URINE COLOR LIGHT-YELLOW (YELLW/STRAW); URINE LEUKOCYTE ESTERASE NEG (NEG)
[2017-10-18 15:46] LABS: ALBUMIN 3.6 GM/DL (3.4-5.0); ALT (GPT) 22 U/L (12-78); AST (GOT) 14 U/L (15-37); BICARBONATE 24.9 MEQ/L (21.0-32.0); BLOOD UREA NITROGEN 16 MG/DL (7-18); CALCIUM 8.7 MG/DL (8.5-10.1); CHLORIDE 105 MEQ/L (98-107); CREATININE 1.58 MG/DL (0.60-1.30); GLOMERULAR FILTRATION RATE 45 ML/MIN (>89); GLUCOSE,RANDOM 150 MG/DL (74-106); SODIUM (NA) 141 MEQ/L (136-145)
[2017-10-18 15:48] LABS: ALKALINE PHOSPHATASE 69 U/L (45-117); TOTAL BILIRUBIN ADULT 0.6 MG/DL (0.2-1.0); TOTAL PROTEIN 7.1 GM/DL (6.4-8.2)
[2017-10-18 16:52] VITALS: BP 145/76; PULSE 109; RESP 19; TEMP 100.9; O2SAT 93
[2017-10-18] MEDS ORDERED: SYMB160A INH (17:22)
[2017-10-18] MEDS: ENOXAPARIN SODIUM 40 MG/0.4 ML SYRINGE SQ SCH (18:15)
[2017-10-18] MEDS ORDERED: LACTULOSE SYRUP 20 GM/30 ML CUP PO PRN (18:15)
[2017-10-18] MEDS ORDERED: SODIUM CHLORIDE 0.9% FLUSH 10 ML FLUSH IV FLUSH PRN (18:15)
[2017-10-18] MEDS ORDERED: SENNOSIDES 8.6 MG TAB PO PRN (18:15)
[2017-10-18] MEDS ORDERED: MAGNESIUM HYDROXIDE SUSP 30 ML CUP PO PRN (18:15)
[2017-10-18] MEDS ORDERED: NALOXONE HCL 0.4 MG/ML AMP IV PUSH PRN (18:15)
[2017-10-18] MEDS ORDERED: BISACODYL 10 MG SUPP RECTAL PRN (18:15)
--- NOTE | 2017-10-18 18:16 | HHI.HP ---
[facility] Duglas Perez III, MD Admission Diagnosis fever Diagnoses: Chief Complaint: Fever, cough Travel History International Travel<30 Days: No Contact w/Intl Traveler <30 Da: No Traveled to Known Affected Are: No Sepsis Criteria SIRS Criteria (2 or more): Temp > 100.9 or < 96.8, Heart rate over 90, WBC > 86155, < 4000 or > 10% bands Sepsis Criteria (SIRS+source): Infect source susp/known Severe Sepsis (+one): Lactate >2 Criteria Outcome: Meets SIRS criteria, Meets sepsis criteria, Meets severe sepsis criteria History of Present Illness Mr. Perkins is a pleasant 56-year-old male with a history of COPD, diabetes mellitus, hyperlipidemia who presents to the emergency department on 05/2018 due to shortness of breath, cough, fever. Symptoms started day prior to this admission. Patient reports very little productive cough. He has headache but no generalized body ache. He denies any chest pain, abdominal pain , constipation or diarrhea. Denies any changes in bladder habits. On arrival, temperature 103.3F, heart rate 110, respiration 19, blood pressure 177/90, pulse oximetry 95% on room air. WBC 17.8, BUN 16, creatinine 1.58, estimated GFR 45, random glucose 150, lactic acid 2.4 and repeat lactic acid 1.2. Review of Systems Except as stated in HPI: all other systems reviewed are Neg Past Family Social History Past Medical History Hyperlipidemia, hypertension, headache, diabetes mellitus, COPD Past Surgical History C1 and C2 fracture surgery, no surgery, right knee surgery. Reported Medications Hydrocodone-Acetaminophen 5-325 mg Tab 1 Tab PO Q6H PRN Ibuprofen 800 Mg Tab 800 Mg PO Q8H PRN Atorvastatin (Atorvastatin Calcium) 40 Mg Tab 40 Mg PO HS Furosemide 40 Mg Tab 40 Mg PO BID Proventil Hfa 6.7 GM Inh (Albuterol Sulfate) 90 Mcg/Act Aer 2 Puff INH Q4-6H PRN Reported Symbicort Inh (Budesonide/Formoterol Fumarate) 160-4.5 Mcg/Act Aero 2 Puff INH Q12HR Metformin ER (Metformin HCl) 500 Mg Edson 500 Mg PO DAILY With evening meal Lisinopril 40 Mg Tab 40 Mg PO DAILY Clonidine (Clonidine HCl) 0.3 Mg Tab 0.3 Mg PO BID Aspirin 325 Mg Tab 325 Mg PO DAILY Flexeril (Cyclobenzaprine HCl) 10 Mg Tab 10 Mg PO TID Clorazepate (Clorazepate Dipotassium) 3.75 Mg Tab 3.75 Mg PO BID PRN Metoprolol Tartrate 25 Mg Tab 25 Mg PO BID Allergies: Coded Allergies: diatrizoate meglumine (Verified Allergy, Severe, Itching, 10/18/17) gadobenic acid (Verified Allergy, Severe, Itching, 10/18/17) gadodiamide (Verified Allergy, Severe, Itching, 10/18/17) gadoteridol (Verified Allergy, Severe, Itching, 10/18/17) iodixanol (Verified Allergy, Severe, Itching, 10/18/17) iohexol (Verified Allergy, Severe, Itching, 10/18/17) Iodinated Contrast- Oral and IV Dye (Unverified Allergy, Unknown, 10/18/17) PATIENT STATED ALLERGY TO CONTRAST MEDIA. acetaminophen (Verified Adverse Reaction, Unknown, Nausea/Vomiting, ) Family History Mother had metastatic cancer father had lung, liver, pancreatic cancer. Social History Patient smokes 1 pack a day. He quit drinking in 1978. Denies current alcohol use. Denies using illicit drugs. Physical Exam Vital Signs Vital Signs Date Time Temp Pulse Resp B/P (MAP) Pulse Ox O2 Delivery O2 Flow Rate FiO2 10/18/17 16:52 100.9 109 19 145/76 (99) 93 Room Air 10/18/17 14:38 110 19 177/90 (119) 95 Room Air 10/18/17 14:34 103.3 Physical Exam GENERAL: This is a well-nourished, well-developed patient, in no apparent distress. SKIN: No rashes, ecchymoses or lesions. Warm and dry. HEAD: Atraumatic. Normocephalic. No temporal or scalp tenderness. EYES: Pupils equal round and reactive. No injection or drainage. ENT: Nose without bleeding, purulent drainage or septal hematoma. Airway patent. NECK: Trachea midline. No lymphadenopathy. Supple, nontender, no meningeal signs. CARDIOVASCULAR: Regular rhythm with tachycardia without murmurs, gallops, or rubs. No JVD. RESPIRATORY: Moderate air entry. No wheezes, rales, or rhonchi. GASTROINTESTINAL: Abdomen soft, non-tender, nondistended. No guarding. MUSCULOSKELETAL: Extremities without clubbing, cyanosis, or edema. NEUROLOGICAL: Awake and alert. Cranial nerves II through XII intact. No focal neurological deficits. Normal speech. Laboratory Laboratory Tests Test 10/18/17 14:45 10/18/17 14:55 10/18/17 17:27 Urine Color LIGHT-YELLOW Urine Turbidity CLEAR Urine pH 7.0 Urine Specific [place] 1.011 Urine Protein NEG Urine Glucose (UA) NEG Urine Ketones NEG Urine Occult Blood NEG Urine Nitrite NEG Urine Bilirubin NEG Urine Urobilinogen LESS THAN 2.0 Urine Leukocyte Esterase NEG Urine RBC 1 Urine Mucus FEW Microscopic Urinalysis Comment CATH-CULT NOT IND White Blood Count 17.8 Red Blood Count 5.08 Hemoglobin 15.1 Hematocrit 45.1 Mean Corpuscular Volume 88.9 Mean Corpuscular Hemoglobin 29.8 Mean Corpuscular Hemoglobin Concent 33.5 Red Cell Distribution Width 14.3 Platelet Count 212 Mean Platelet Volume 8.6 Neutrophils (%) (Auto) 88.1 Lymphocytes (%) (Auto) 5.1 Monocytes (%) (Auto) 5.9 Eosinophils (%) (Auto) 0.6 Basophils (%) (Auto) 0.3 Neutrophils # (Auto) 15.7 Lymphocytes # (Auto) 0.9 Monocytes # (Auto) 1.0 Eosinophils # (Auto) 0.1 Basophils # (Auto) 0.1 CBC Comment DIFF FINAL Differential Comment Blood Urea Nitrogen 16 Creatinine 1.58 Random Glucose 150 Total Protein 7.1 Albumin 3.6 Calcium Level 8.7 Alkaline Phosphatase 69 Aspartate Amino Transf (AST/SGOT) 14 Alanine Aminotransferase (ALT/SGPT) 22 Total Bilirubin 0.6 Sodium Level 141 Potassium Level 3.8 Chloride Level 105 Carbon Dioxide Level 24.9 Anion Gap 11 Estimat Glomerular Filtration Rate 45 Lactic Acid Level 2.4 1.2 Date/Time Source Procedure Growth Status 10/18/17 14:45 Blood Peripheral Aerobic Blood Culture Pending Received 10/18/17 14:45 Blood Peripheral Anaerobic Blood Culture Pending Received 10/18/17 16:02 Nasal Washing Influenza Types A,B Antigen (BAILEY) - Final NEGATIVE FOR FLU A AND B ANTIGEN.... Complete Result Diagram: 10/18/17 1455 10/18/17 1455 Imaging Last Impressions Chest X-Ray 10/18/17 1436 Signed Impressions: Service Date/Time: Friday, October 18, 2017 14:46 - CONCLUSION: Cardiomegaly with mild interstitial prominence, no consolidation Alvarez Foy MD FACR [place] VTE Risk Assessment Caprini VTE Risk Assessment: Mod/High Risk (score >= 2) Caprini Risk Assessment Model Point Value = 1 Point Value = 2 Point Value = 3 Point Value = 5 Age 41-60 Minor surgery BMI > 25 kg/m2 Swollen legs Varicose veins or History of unexplained or recurrent spontaneous Oral contraceptives or hormone replacement Sepsis (< 1 month) Serious lung disease, including pneumonia (< 1 month) Abnormal pulmonary function Acute myocardial infarction Congestive heart failure (< 1 month) History of inflammatory bowel disease Medical patient at bed rest Age 61-74 Arthroscopic surgery Major open surgery (> 45 min) Laparoscopic surgery (> 45 min) Malignancy Confined to bed (> 72 hours) Immobilizing plaster cast Central venous access Age >= 75 History of VTE Family history of VTE Factor V Leiden Prothrombin [id number] Lupus anticoagulant Anticardiolipin antibodies Elevated serum homocysteine Heparin-induced thrombocytopenia Other congenital or acquired thrombophilia Stroke (< 1 month) Elective arthroplasty Hip, pelvis, or leg fracture Acute spinal cord injury (< 1 month) Prophylaxis Regimen Total Risk Factor Score Risk Level Prophylaxis Regimen 0-1 Low Early ambulation 2 Moderate Order ONE of the following: *Sequential Compression Device (SCD) *Heparin 5000 units SQ BID 3-4 Higher Order ONE of the following medications: *Heparin 5000 units SQ TID *Enoxaparin/Lovenox 40 mg SQ daily (WT < 150 kg, CrCl > 30 mL/min) *Enoxaparin/Lovenox 30 mg SQ daily (WT < 150 kg, CrCl > 10-29 mL/min) *Enoxaparin/Lovenox 30 mg SQ BID (WT < 150 kg, CrCl > 30 mL/min) AND/OR *Sequential Compression Device (SCD) 5 or more Highest Order ONE of the following medications: *Heparin 5000 units SQ TID (Preferred with Epidurals) *Enoxaparin/Lovenox 40 mg SQ daily (WT < 150 kg, CrCl > 30 mL/min) *Enoxaparin/Lovenox 30 mg SQ daily (WT < 150 kg, CrCl > 10-29 mL/min) *Enoxaparin/Lovenox 30 mg SQ BID (WT < 150 kg, CrCl > 30 mL/min) AND *Sequential Compression Device (SCD) Assessment and Plan Problem List: (1) Severe sepsis ICD Code: A41.9 - Sepsis, unspecified organism; R65.20 - Severe sepsis without septic shock (2) Pneumonia ICD Code: J18.9 - Pneumonia, unspecified organism Status: Acute (3) COPD (chronic obstructive pulmonary disease) ICD Code: J44.9 - Chronic obstructive pulmonary disease, unspecified (4) HTN (hypertension) ICD Code: I10 - Essential (primary) hypertension Status: Acute (5) DM (diabetes mellitus) ICD Code: E11.9 - Type 2 diabetes mellitus without complications Assessment and Plan Mr. Perkins is a 56-year-old male with a history of COPD, diabetes mellitus, hypertension, hyperlipidemia who presented on 10/18/2017 to the emergency department due to shortness of breath, cough, fever. Severe sepsis (tachycardia, fever, elevated WBC, lactic acid 2.4, suspected infection pneumonia) Probable pneumonia COPD -Clinically patient's symptoms are consistent with pneumonia. -We will start patient on ceftriaxone 2 g daily and Levaquin 750 mg daily pharmacy to adjust dose if necessary. -DuoNeb as needed -Currently patient is on room air. -If labs improve and patient remains hemodynamically stable, patient can likely be discharged within 1-2 days on oral antibiotics. -Consider Levaquin for 7 days. Hypertension -We will hold lisinopril for now due to creatinine 1.58 although this might be his baseline. -Patient takes clonidine scheduled. We will give clonidine as needed. -Start amlodipine 5 mg daily Chronic kidney disease stage III -Right and 1.58 may be close to his baseline. Patient has been taking NSAIDs for headache. -Advised patient not to take too much NSAIDs as it may affect his blood pressure as well as CKD. -We will avoid NSAIDs as well as lisinopril for now. Lisinopril can be considered in future due to his diabetes. Diabetes mellitus -Patient takes metformin 500 Mg daily. Will hold off for now. -Estimated GFR 45. It would be reasonable to continue metformin on discharge. -We will cover him with sliding scale insulin for now. Full code. Lovenox. Natty Rouse DO October 18, 2017 18:16
[2017-10-18 18:26] VITALS: O2SAT 94
[2017-10-18] MEDS ORDERED: cloNIDine HCL 0.1 MG TAB PO PRN (19:15)
[2017-10-18 19:24] VITALS: BP 158/71; PULSE 107; RESP 17; TEMP 100.1; O2SAT 95
[2017-10-18] MEDS: BUDESONIDE-FORMOTEROL 160/4.5 MCG INHALER INH SCH (21:00)
[2017-10-18] MEDS: SODIUM CHLORIDE 0.9% FLUSH 10 ML FLUSH IV FLUSH SCH (21:00)
[2017-10-18] MEDS: ATORVASTATIN 40 MG TAB PO SCH (21:27)
[2017-10-18] MEDS: METOPROLOL TARTRATE 25 MG TAB PO SCH (21:27)
[2017-10-18] MEDS: ACETAMINOPHEN 325 MG TAB PO PRN (21:28)
[2017-10-18] MEDS: cefTRIAXone INJ 2,000 MG in SODIUM CHLORIDE 0.9% INJ 100 ML IV SCH (21:29)
[2017-10-18] MEDS: SODIUM CHLOR 0.9% 1000 ML INJ 1,000 ML IV SCH (21:30)
[2017-10-18] MEDS: LEVOFLOXACIN 750 MG PREMIX INJ 150 ML IV SCH (21:30)
[2017-10-19] VITALS (8 sets, daily range): BP systolic 113–169; BP diastolic 58–102; PULSE 70–113; RESP 16–20; TEMP 97.8–102.3; O2SAT 91–98
[2017-10-19] MEDS: ACETAMINOPHEN 325 MG TAB PO PRN (02:07)
[2017-10-19] MEDS: RESP: ALBUTEROL 2.5 MG/IPRATROPIUM 0.5 MG NEB (PRN) NEB ×2 (02:57→12:37)
[2017-10-19 05:35] LABS: AUTOMATED NEUTROPHIL # 11.9 TH/MM3 (1.8-7.7); BASOPHIL % 0.3 % (0.0-2.0); EOSINOPHIL % 0.1 % (0.0-4.0); HEMATOCRIT 41.6 % (39.0-51.0); LYMPH % 5.8 % (9.0-44.0); LYMPHOCYTE # 0.8 TH/MM3 (1.0-4.8); MEAN CELL VOLUME 88.1 FL (80.0-100.0); MEAN CORPUSCULAR HEMOGLOBIN 29.6 PG (27.0-34.0); MEAN CORPUSCULAR HGB CONC 33.6 % (32.0-36.0); MEAN PLATELET VOLUME 8.7 FL (7.0-11.0); MONO % 5.8 % (0.0-8.0); MONOCYTE # 0.8 TH/MM3 (0-0.9); PLATELET COUNT 179 TH/MM3 (150-450); RED BLOOD COUNT 4.73 MIL/MM3 (4.50-5.90); RED CELL DISTRIBUTION WIDTH 14.3 % (11.6-17.2); WHITE BLOOD COUNT 13.5 TH/MM3 (4.0-11.0)
[2017-10-19 06:00] LABS: ALKALINE PHOSPHATASE 63 U/L (45-117); ALT (GPT) 20 U/L (12-78); AST (GOT) 14 U/L (15-37); BICARBONATE 24.7 MEQ/L (21.0-32.0); BLOOD UREA NITROGEN 16 MG/DL (7-18); CALCIUM 8.2 MG/DL (8.5-10.1); CHLORIDE 107 MEQ/L (98-107); CREATININE 1.51 MG/DL (0.60-1.30); GLOMERULAR FILTRATION RATE 48 ML/MIN (>89); GLUCOSE,RANDOM 113 MG/DL (74-106); SODIUM (NA) 141 MEQ/L (136-145); TOTAL BILIRUBIN ADULT 0.6 MG/DL (0.2-1.0); TOTAL PROTEIN 6.5 GM/DL (6.4-8.2)
[2017-10-19] MEDS: BUDESONIDE-FORMOTEROL 160/4.5 MCG INHALER INH SCH ×2 (09:06→21:00)
[2017-10-19] MEDS: SODIUM CHLORIDE 0.9% FLUSH 10 ML FLUSH IV FLUSH SCH ×2 (09:06→21:00)
[2017-10-19] MEDS: amLODIPine BESYLATE 5 MG TAB PO SCH (09:06)
[2017-10-19] MEDS: METOPROLOL TARTRATE 25 MG TAB PO SCH ×2 (09:07→21:05)
--- NOTE | 2017-10-19 10:35 | HHI.PR ---
Subjective Remarks Nursing denies any deterioration since last night. Patient himself says he still feels miserable. Is asking for me to increase his oxygen requirement even though there is no evidence right now that he is desaturating 3 L. Objective Vital Signs Date Time Temp Pulse Resp B/P (MAP) Pulse Ox O2 Delivery O2 Flow Rate FiO2 10/19/17 08:10 99.4 85 20 145/93 (110) 98 10/19/17 04:00 97.8 82 16 113/58 (76) 94 10/19/17 02:00 Nasal Cannula 3.00 10/19/17 00:00 Room Air 10/19/17 00:00 102.3 113 17 152/79 (103) 97 10/18/17 19:24 100.1 107 17 158/71 (100) 95 10/18/17 19:05 Nasal Cannula 2.00 10/18/17 18:26 94 21 10/18/17 16:52 100.9 109 19 145/76 (99) 93 Room Air 10/18/17 14:38 110 19 177/90 (119) 95 Room Air 10/18/17 14:34 103.3 I/O 10/18/17 10/18/17 10/18/17 10/19/17 10/19/17 10/19/17 07:00 15:00 23:00 07:00 15:00 23:00 Intake Total 2100 ml 390 ml Output Total 800 ml Balance 2100 ml -410 ml Intake Oral 240 ml IV Total 2100 ml 150 ml Output Urine Total 800 ml # Bowel Movements 1 Result Diagram: 10/19/17 0400 10/19/17 0400 Objective Remarks Lying in bed, awake, alert, has nasal cannula in his nose Appears to be in distress secondary to headache pain hAs expiratory wheezing with no focal crackles heard A/P Assessment and Plan Mr. Perkins is a 56-year-old male with a history of COPD, diabetes mellitus, hypertension, hyperlipidemia who presented on 10/18/2017 to the emergency department due to shortness of breath, cough, fever. Sepsis secondary to likely pneumonia -Blood cultures pending, see treatment below with antibiotic Probable pneumonia COPD -Clinically patient's symptoms are consistent with pneumonia. -ceftriaxone 2 g daily and Levaquin 750 mg daily pharmacy to adjust dose if necessary. -DuoNeb as needed, ordering IV steroids due to wheezing heard - If labs improve and patient remains hemodynamically stable, patient can likely be discharged within 1-2 days on oral antibiotics. Hypertension -We will hold lisinopril for now due to creatinine 1.58 although this might be his baseline. -Patient takes clonidine scheduled. We will give clonidine as needed. -amlodipine 5 mg daily Chronic sCHF - restart home lasix, lisinopril to be started but at a lower dose given CKD Chronic kidney disease stage III -Right and 1.58 may be close to his baseline. Patient has been taking NSAIDs for headache. -We will avoid NSAIDs Diabetes mellitus -Estimated GFR 45. It would be reasonable to continue metformin on discharge. -sliding scale insulin for now. Jonathan Clarke MD October 19, 2017 10:35
[2017-10-19] MEDS ORDERED: methylPREDNISolone SOD SUCC 125 MG/2 ML VIAL IV PUSH ONE (10:45)
[2017-10-19] MEDS ORDERED: DIAZEPAM 2 MG TAB PO PRN (11:45)
[2017-10-19] MEDS ORDERED: LISINOPRIL 5 MG TAB PO ONE (12:00)
[2017-10-19] MEDS: ASPIRIN EC 81 MG TABEC PO SCH (12:17)
[2017-10-19] MEDS: FUROSEMIDE 40 MG TAB PO SCH ×2 (12:18→17:21)
[2017-10-19] MEDS: SODIUM CHLOR 0.9% 1000 ML INJ 1,000 ML IV SCH ×2 (12:30→14:12)
[2017-10-19] MEDS: ENOXAPARIN SODIUM 40 MG/0.4 ML SYRINGE SQ SCH ×2 (17:21→17:27)
[2017-10-19] MEDS: LEVOFLOXACIN 750 MG PREMIX INJ 150 ML IV SCH (21:01)
[2017-10-19] MEDS: methylPREDNISolone SOD SUCC 125 MG/2 ML VIAL IV PUSH SCH (21:02)
[2017-10-19] MEDS: cefTRIAXone INJ 2,000 MG in SODIUM CHLORIDE 0.9% INJ 100 ML IV SCH (21:02)
[2017-10-19] MEDS: ATORVASTATIN 40 MG TAB PO SCH (21:03)
[2017-10-20] VITALS: BP 127/62; PULSE 73; RESP 19; TEMP 97.8; O2SAT 96
[2017-10-20] MEDS: SODIUM CHLOR 0.9% 1000 ML INJ 1,000 ML IV SCH (03:27)
[2017-10-20 04:00] VITALS: BP 149/99; PULSE 73; RESP 18; TEMP 97.6; O2SAT 97
[2017-10-20 08:00] VITALS: BP 145/96; PULSE 76; RESP 20; TEMP 98.2; O2SAT 96
[2017-10-20] MEDS: methylPREDNISolone SOD SUCC 125 MG/2 ML VIAL IV PUSH SCH (08:54)
[2017-10-20] MEDS: amLODIPine BESYLATE 5 MG TAB PO SCH (08:54)
[2017-10-20] MEDS: FUROSEMIDE 40 MG TAB PO SCH (08:54)
[2017-10-20] MEDS: ASPIRIN EC 81 MG TABEC PO SCH (08:57)
[2017-10-20] MEDS: METOPROLOL TARTRATE 25 MG TAB PO SCH (08:57)
[2017-10-20] MEDS: SODIUM CHLORIDE 0.9% FLUSH 10 ML FLUSH IV FLUSH SCH (08:58)
[2017-10-20] MEDS: BUDESONIDE-FORMOTEROL 160/4.5 MCG INHALER INH SCH (08:59)
[2017-10-20] MEDS ORDERED: LISINOPRIL 10 MG TAB PO SCH (09:00)
[2017-10-20] MEDS ORDERED: DEXTROSE 50% IN WATER 50 ML VIAL(D50) IV PUSH PRN (10:30)
[2017-10-20] MEDS ORDERED: GLUCAGON 1 MG/ML VIAL OTHER PRN (10:30)
[2017-10-20 12:00] VITALS: BP 157/103; PULSE 83; RESP 20; TEMP 98.2; O2SAT 93
[2017-10-20] MEDS ORDERED: INSULIN NovoLIN REGULAR SUPPLEMENTAL SCALE SQ SCH (12:00)
--- NOTE | 2017-10-20 12:51 | HHI.DCPOC ---
Discharge Care Plan Diagnosis: (1) Severe sepsis (2) Pneumonia (3) Shortness of breath Goals to Promote Your Health * To prevent worsening of your condition and complications * To maintain your health at the optimal level Directions to Meet Your Goals Take your medications as prescribed Follow your dietary instruction Follow activity as directed Keep your appointments as scheduled Take your immunizations and boosters as scheduled If your symptoms worsen call your PCP, if no PCP go to Urgent Care Center or Emergency Room Smoking is Dangerous to Your Health. Avoid second hand smoke Call the 24-hour hour crisis hotline for domestic abuse at Jonathan Clarke MD October 20, 2017 12:51
[2017-10-20] MEDS ORDERED: LEVO750T3 PO (13:20)
[2017-10-20] MEDS ORDERED: PRED20 PO (13:20)
[2017-10-20] MEDS ORDERED: ASPI81TA23 PO (13:20)
[2017-10-20] MEDS ORDERED: LISI10TA3 PO (13:20)
--- NOTE | 2017-10-20 13:21 | HHI.PR ---
Subjective Remarks Nursing denies any deterioration since last night. Patient is asking for an immediate shower. Otherwise he says he feels "110%." Objective Vital Signs Date Time Temp Pulse Resp B/P (MAP) Pulse Ox O2 Delivery O2 Flow Rate FiO2 10/20/17 08:00 98.2 76 20 145/96 (112) 96 10/20/17 07:00 Venturi Mask 3.00 35 10/20/17 04:00 97.6 73 18 149/99 (116) 97 10/20/17 04:00 97 Room Air 10/20/17 00:00 97.8 73 19 127/62 (83) 96 10/19/17 21:00 96 Venturi Mask 10/19/17 20:00 97.8 70 19 145/86 (105) 97 10/19/17 17:14 98 Venturi Mask 6.00 35 10/19/17 16:10 99.1 84 20 156/90 (112) 97 I/O 10/19/17 10/19/17 10/19/17 10/20/17 10/20/17 10/20/17 07:00 15:00 23:00 07:00 15:00 23:00 Intake Total 390 ml 460 ml 1150 ml Output Total 800 ml 900 ml 850 ml Balance -410 ml -440 ml 300 ml Intake Oral 240 ml 360 ml IV Total 150 ml 100 ml 1150 ml Output Urine Total 800 ml 900 ml 850 ml # Bowel Movements 1 1 Result Diagram: 10/19/17 0400 10/19/17 0400 Objective Remarks Lying in bed, awake, alert, has nasal cannula in his nose Appears to be in distress secondary to headache pain Clear lungs bilaterally, unlabored breathing, A/P Assessment and Plan Mr. Perkins is a 56-year-old male who was admitted with sepsis likely secondary to pneumonia with COPD exacerbation. -Clinically stabilized, tolerating 3 L nasal cannula which is the patient's baseline at home. We will discharge the patient on oral steroid taper as well as Levaquin. Blood cultures are negative. Patient has met maximal benefit from hospitalization and is clinically stable for discharge. Jonathan Clarke MD October 20, 2017 13:21
== END 2017-10-20 15:49 | disposition home or self-care (01) | DRG 871 ==
LOC: NEPC 14:25 → NEDA 18:14 → OBSVTOIN 18:15 → N04A 19:24
PROVIDERS: ADMIT Hospitalist; ATTEND Hospitalist
DX: A41.9 Sepsis, unspecified organism (principal); J18.9 Pneumonia, unspecified organism; I13.0 Hypertensive heart and chronic kidney disease with heart failure and stage 1 through stage 4 chronic kidney disease, or unspecified chronic kidney disease; I50.22 Chronic systolic (congestive) heart failure; E11.22 Type 2 diabetes mellitus with diabetic chronic kidney disease; J44.1 Chronic obstructive pulmonary disease with (acute) exacerbation; J44.0 Chronic obstructive pulmonary disease with (acute) lower respiratory infection; N18.3 Chronic kidney disease, stage 3 (moderate); R65.20 Severe sepsis without septic shock; E78.5 Hyperlipidemia, unspecified; F17.210 Nicotine dependence, cigarettes, uncomplicated; G47.30 Sleep apnea, unspecified; Z86.73 Personal history of transient ischemic attack (TIA), and cerebral infarction without residual deficits; Z59.0 Homelessness; Z87.442 Personal history of urinary calculi; Z88.8 Allergy status to other drugs, medicaments and biological substances; Z79.84 Long term (current) use of oral hypoglycemic drugs; Z79.82 Long term (current) use of aspirin
CPT/HCPCS: 71045; 80053; 81001; 82948; 83605; 85025; 87040; 87804; 94640; 94664; 96360; 96361; J0696; J1650; J1956; J2930; J7030

== ENCOUNTER 2017-11-17 01:17 | Emergency (ER) | payer MEDICARE, MEDICAID ==
[~2017-11-17] VITALS: Ht 182.9 cm; Wt 125.0 kg
[~2017-11-17 01:17] MED LIST changes: -ASPI-183 PO; +ASPI81TA23 PO; -Budeson-Formot 160-4.5 Mcg Inh INH; -IBUP1TAB7 PO; +LEVO750T3 PO; +LISI10TA3 PO; -LISI40TA PO; +PRED20 PO; -PRED5TAB PO; +SYMB160A INH
[2017-11-17 01:21] VITALS: BP 160/112; PULSE 93; RESP 22; TEMP 98.2; O2SAT 98
[2017-11-17 01:33] VITALS: BP 143/96; PULSE 90; RESP 20; TEMP 98; O2SAT 94
--- NOTE | 2017-11-17 01:55 | PD ---
HPI Chief Complaint: Respiratory Symptoms Time Seen by Provider: 01:41 Travel History International Travel<30 days: No Contact w/Intl Traveler<30days: No Traveled to known affect area: No History of Present Illness HPI Patient is a 56-year-old male with history of COPD, diabetes, hyperlipidemia, presents to the emergency room with complaints of cough and shortness of breath with wheezing. Patient reports that he is oxygen dependent with 3 L of nasal cannula oxygen at all times. Patient reports that he is a heavy smoker, reports history of COPD. Patient reports that for the past few days, he has been having a nonproductive cough with shortness of breath. Patient reports that he has been wheezing and has been using "too many albuterol treatments." Patient reports that nothing has been making symptoms better or worse. Reports that symptoms are similar to when he has had COPD exacerbation. Patient denies any fevers or chills, denies any chest pain at this time. Patient with no other complaints at this time. PFSH Past Medical History Hx Anticoagulant Therapy: Yes Blood Disorders: No Anxiety: Yes Depression: Yes Heart Rhythm Problems: Yes Cancer: No Cardiovascular Problems: Yes (CHF) High Cholesterol: Yes Chest Pain: Yes Congestive Heart Failure: Yes COPD: Yes Cerebrovascular Accident: Yes Diabetes: Yes Patient Takes Glucophage: Yes (11/03/2018) Diminished Hearing: No Endocrine: Yes Gastrointestinal Disorders: No Hypertension: Yes Immune Disorder: No Implanted Vascular Access Dvce: No Kidney Stones: Yes Musculoskeletal: No Neurologic: No Psychiatric: No Reproductive: No Respiratory: Yes (COPD) Immunizations Current: Yes Renal Failure: Yes (CKD) Sleep Apnea: Yes (cpap at home) Thyroid Disease: No Tetanus Vaccination: < 5 Years Influenza Vaccination: No Past Surgical History Other Surgery: Yes (FACIAL, C1-C2, L. FOOT) Social History Alcohol Use: No Tobacco Use: Yes (1ppd) Substance Use: No Allergies-Medications (Allergen,Severity, Reaction): Coded Allergies: diatrizoate meglumine (Verified Allergy, Severe, Itching, 11/17/17) gadobenic acid (Verified Allergy, Severe, Itching, 11/17/17) gadodiamide (Verified Allergy, Severe, Itching, 11/17/17) gadoteridol (Verified Allergy, Severe, Itching, 11/17/17) iodixanol (Verified Allergy, Severe, Itching, 11/17/17) iohexol (Verified Allergy, Severe, Itching, 11/17/17) Iodinated Contrast- Oral and IV Dye (Unverified Allergy, Unknown, 11/17/17) PATIENT STATED ALLERGY TO CONTRAST MEDIA. acetaminophen (Verified Adverse Reaction, Unknown, Nausea/Vomiting, ) Reported Meds & Prescriptions Reported Meds & Active Scripts Active Aspirin EC (Aspirin) 81 Mg Tabdr 81 Mg PO DAILY Lisinopril 10 Mg Tab 10 Mg PO DAILY Levofloxacin 750 Mg Tablet 750 Mg PO DAILY Atorvastatin (Atorvastatin Calcium) 40 Mg Tab 40 Mg PO HS Furosemide 40 Mg Tab 40 Mg PO BID Proventil Hfa 6.7 GM Inh (Albuterol Sulfate) 90 Mcg/Act Aer 2 Puff INH Q4-6H PRN Reported Symbicort Inh (Budesonide/Formoterol Fumarate) 160-4.5 Mcg/Act Aero 2 Puff INH Q12HR Metformin ER (Metformin HCl) 500 Mg Edson 500 Mg PO DAILY With evening meal Clonidine (Clonidine HCl) 0.3 Mg Tab 0.3 Mg PO BID Flexeril (Cyclobenzaprine HCl) 10 Mg Tab 10 Mg PO TID Clorazepate (Clorazepate Dipotassium) 3.75 Mg Tab 3.75 Mg PO BID PRN Metoprolol Tartrate 25 Mg Tab 25 Mg PO BID Review of Systems General / Constitutional: No: Fever Eyes: No: Visual changes HENT: No: Headaches Cardiovascular: No: Chest Pain or Discomfort, Palpitations, Irregular Rhythm Respiratory: Positive: Cough, Shortness of Breath, Wheezing Gastrointestinal: No: Abdominal Pain Genitourinary: No: Dysuria Musculoskeletal: No: Pain Skin: No Rash Neurologic: No: Weakness Psychiatric: No: Depression Endocrine: No: Polydipsia Hematologic/Lymphatic: No: Easy Bruising Physical Exam Narrative GENERAL: Mild distress SKIN: Focused skin assessment warm/dry. HEAD: Atraumatic. Normocephalic. EYES: Pupils equal and round. No scleral icterus. No injection or drainage. ENT: No nasal bleeding or discharge. Mucous membranes pink and moist. NECK: Trachea midline. No JVD. CARDIOVASCULAR: Regular rate and rhythm. No murmur appreciated. RESPIRATORY: No accessory muscle use. Scattered wheezing. Breath sounds equal bilaterally. GASTROINTESTINAL: Abdomen soft, non-tender, nondistended. Hepatic and splenic margins not palpable. MUSCULOSKELETAL: No obvious deformities. No clubbing. No cyanosis. No edema. NEUROLOGICAL: Awake and alert. No obvious cranial nerve deficits. Motor grossly within normal limits. Normal speech. PSYCHIATRIC: Appropriate mood and affect; insight and judgment normal. Data Data Last Documented VS Vital Signs Date Time Temp Pulse Resp B/P (MAP) Pulse Ox O2 Delivery O2 Flow Rate FiO2 11/17/17 02:05 20 11/17/17 02:04 Room Air 11/17/17 01:33 98.0 90 94 Orders Orders Complete Blood Count With Diff (11/17/17 01:49) Basic Metabolic Panel (Bmp) (11/17/17 01:49) B-Type Natriuretic Peptide (11/17/17 01:49) Magnesium (Mg) (11/17/17 01:49) Arterial Blood Gas (Abg) (11/17/17 01:49) Iv Access Insert/Monitor (11/17/17 01:49) Electrocardiogram (11/17/17 01:49) Ecg Monitoring (11/17/17 01:49) Oximetry (11/17/17 01:49) Oxygen Administration (11/17/17 01:49) Chest, Single Ap (11/17/17 01:49) Sodium Chloride 0.9% Flush (Ns Flush) (11/17/17 02:00) Methylprednisolone So Succ Inj (Solumedr (11/17/17 02:00) Albuterol-Ipratropium Neb (Duoneb Neb) (11/17/17 02:00) Sodium Chlor 0.9% 1000 Ml Inj (Ns 1000 M (11/17/17 02:00) Furosemide Inj (Lasix Inj) (11/17/17 09:00) Labs Laboratory Tests Test 11/17/17 02:02 11/17/17 02:10 White Blood Count 8.1 TH/MM3 Red Blood Count 5.16 MIL/MM3 Hemoglobin 15.5 GM/DL Hematocrit 46.3 % Mean Corpuscular Volume 89.7 FL Mean Corpuscular Hemoglobin 30.1 PG Mean Corpuscular Hemoglobin Concent 33.6 % Red Cell Distribution Width 14.9 % Platelet Count 200 TH/MM3 Mean Platelet Volume 8.2 FL Neutrophils (%) (Auto) 65.6 % Lymphocytes (%) (Auto) 23.6 % Monocytes (%) (Auto) 7.8 % Eosinophils (%) (Auto) 2.4 % Basophils (%) (Auto) 0.6 % Neutrophils # (Auto) 5.3 TH/MM3 Lymphocytes # (Auto) 1.9 TH/MM3 Monocytes # (Auto) 0.6 TH/MM3 Eosinophils # (Auto) 0.2 TH/MM3 Basophils # (Auto) 0.0 TH/MM3 CBC Comment DIFF FINAL Differential Comment Blood Urea Nitrogen 20 MG/DL Creatinine 1.34 MG/DL Random Glucose 124 MG/DL Calcium Level 8.6 MG/DL Magnesium Level 2.1 MG/DL Sodium Level 145 MEQ/L Potassium Level 4.1 MEQ/L Chloride Level 110 MEQ/L Carbon Dioxide Level 26.6 MEQ/L Anion Gap 8 MEQ/L Estimat Glomerular Filtration Rate 55 ML/MIN B-Type Natriuretic Peptide 625 PG/ML Blood Gas Puncture Site RT RADIAL Blood Gas Patient Temperature 98.6 Blood Gas HCO3 25 mmol/L Blood Gas Base Excess 0.8 mmol/L Blood Gas Oxygen Saturation 94 % Arterial Blood pH 7.40 Arterial Blood Partial Pressure CO2 41 mmHg Arterial Blood Partial Pressure O2 120 mmHG Arterial Blood Oxygen Content 19.4 Vol % Arterial Blood Carboxyhemoglobin 4.7 % Arterial Blood Methemoglobin 0.6 % Blood Gas Hemoglobin 14.6 G/DL Oxygen Delivery Device NASAL CANNULA Blood Gas Liter Flow 3 L/M MDM Medical Decision Making Medical Screen Exam Complete: Yes Emergency Medical Condition: Yes Medical Record Reviewed: Yes Interpretation(s) EKG at 0101: NSR at 91bpm, qt/qtc: 388/436, nonspecific t wave and t seg changes ; ekg similar to ekg from 09/19/17 Vital Signs Date Time Temp Pulse Resp B/P (MAP) Pulse Ox O2 Delivery O2 Flow Rate FiO2 11/17/17 01:33 98.0 90 20 143/96 (112) 94 Room Air 11/17/17 01:21 98.2 93 22 160/112 (128) 98 Differential Diagnosis COPD exacerbation, pneumonia, CHF, ACS, arrhythmia, electrolyte abnormality, PE , pneumothorax Narrative Course During the course of the patients emergency department visit, the patients history, examination, and differential diagnosis were reviewed with the patient. The patient was placed on a environmental monitoring technician with oximetry and frequent blood pressure monitoring. The patient had an IV access obtained and blood work sent for analysis. Patient was placed on 3 L nasal cannula oxygen as this is what he uses every day at baseline. The patient was initially provided IV Solu-Medrol as well as 3 DuoNeb's and IV fluids. The patients laboratory studies were reviewed and remarkable for Laboratory Tests Test 11/17/17 02:02 11/17/17 02:10 White Blood Count 8.1 TH/MM3 (4.0-11.0) Red Blood Count 5.16 MIL/MM3 (4.50-5.90) Hemoglobin 15.5 GM/DL (13.0-17.0) Hematocrit 46.3 % (39.0-51.0) Mean Corpuscular Volume 89.7 FL (80.0-100.0) Mean Corpuscular Hemoglobin 30.1 PG (27.0-34.0) Mean Corpuscular Hemoglobin Concent 33.6 % (32.0-36.0) Red Cell Distribution Width 14.9 % (11.6-17.2) Platelet Count 200 TH/MM3 (150-450) Mean Platelet Volume 8.2 FL (7.0-11.0) Neutrophils (%) (Auto) 65.6 % (16.0-70.0) Lymphocytes (%) (Auto) 23.6 % (9.0-44.0) Monocytes (%) (Auto) 7.8 % (0.0-8.0) Eosinophils (%) (Auto) 2.4 % (0.0-4.0) Basophils (%) (Auto) 0.6 % (0.0-2.0) Neutrophils # (Auto) 5.3 TH/MM3 (1.8-7.7) Lymphocytes # (Auto) 1.9 TH/MM3 (1.0-4.8) Monocytes # (Auto) 0.6 TH/MM3 (0-0.9) Eosinophils # (Auto) 0.2 TH/MM3 (0-0.4) Basophils # (Auto) 0.0 TH/MM3 (0-0.2) CBC Comment DIFF FINAL Differential Comment Blood Urea Nitrogen 20 MG/DL (7-18) Creatinine 1.34 MG/DL (0.60-1.30) Random Glucose 124 MG/DL (74-106) Calcium Level 8.6 MG/DL (8.5-10.1) Magnesium Level 2.1 MG/DL (1.5-2.5) Sodium Level 145 MEQ/L (136-145) Potassium Level 4.1 MEQ/L (3.5-5.1) Chloride Level 110 MEQ/L (98-107) Carbon Dioxide Level 26.6 MEQ/L (21.0-32.0) Anion Gap 8 MEQ/L (5-15) Estimat Glomerular Filtration Rate 55 ML/MIN (>89) B-Type Natriuretic Peptide 625 PG/ML (0-100) Blood Gas Puncture Site RT RADIAL Blood Gas Patient Temperature 98.6 Blood Gas HCO3 25 mmol/L (22-26) Blood Gas Base Excess 0.8 mmol/L (-2-2) Blood Gas Oxygen Saturation 94 % (90-100) Arterial Blood pH 7.40 (7.380-7.420) Arterial Blood Partial Pressure CO2 41 mmHg (38-42) Arterial Blood Partial Pressure O2 120 mmHG (61-120) Arterial Blood Oxygen Content 19.4 Vol % (12.0-20.0) Arterial Blood Carboxyhemoglobin 4.7 % (0-4) Arterial Blood Methemoglobin 0.6 % (0-2) Blood Gas Hemoglobin 14.6 G/DL (12.0-16.0) Oxygen Delivery Device NASAL CANNULA Blood Gas Liter Flow 3 L/M Radiology studies were reviewed and remarkable for Last Impressions Chest X-Ray 11/17/17 0149 Signed Impressions: CONCLUSION: Cardiac silhouette enlargement and pulmonary vascular congestion/mild pulmonary edema. cbc: wnl bmp: bun 20, creatine 1.34, glucose 124 bnp 624 Chest x-ray with pulmonary vascular congestion with mild pulmonary edema. Patient was given IV Solu-Medrol, duo nebs as well as IV Lasix, patient is feeling much better at this time. Patient will be discharged home with instructions to follow-up with his primary care doctor, signs and symptoms of when to return to the emergency room was reviewed with patient in detail. Patient was instructed to stop smoking cigarettes. Diagnosis Primary Impression: CHF (congestive heart failure) Qualified Codes: I50.9 - Heart failure, unspecified Additional Impressions: COPD (chronic obstructive pulmonary disease) Qualified Codes: J44.9 - Chronic obstructive pulmonary disease, unspecified Smoking addiction Patient Instructions: General Instructions Additional Instructions: Please follow up with your primary care doctor in 2-3 days Return to the ER if symptoms worsen or progress Return to the ER as needed Med/Other Pt SpecificInfo: Prescription(s) given Scripts Albuterol 8.5 GM Inh (Proair Hfa 8.5 GM Inh) 90 Mcg/Act Aer 2 PUFF INH Q4-6H Y for SHORTNESS OF BREATH, #1 INHALER 0 Refills 108 mcg/actuation Prov: Lindsay Heard DO 11/17/17 Prednisone (Prednisone) 20 Mg Tab 20 MG PO BID for 5 Days, #10 TAB 0 Refills Prov: Lindsay Heard DO 11/17/17 Disposition: 01 DISCHARGE HOME Condition: Stable Lindsay Heard DO Nov 17, 2017 01:55
[2017-11-17] MEDS ORDERED: methylPREDNISolone SOD SUCC 125 MG/2 ML VIAL IV PUSH ONE (02:00)
[2017-11-17] MEDS ORDERED: SODIUM CHLORIDE 0.9% FLUSH 10 ML FLUSH IVF PRN (02:00)
[2017-11-17] MEDS ORDERED: SODIUM CHLOR 0.9% 1000 ML INJ 1,000 ML IV ONE (02:00)
[2017-11-17 02:05] VITALS: RESP 20
[2017-11-17 02:07] LABS: AUTOMATED NEUTROPHIL # 5.3 TH/MM3 (1.8-7.7); BASOPHIL % 0.6 % (0.0-2.0); EOSINOPHIL # 0.2 TH/MM3 (0-0.4); EOSINOPHIL % 2.4 % (0.0-4.0); HEMATOCRIT 46.3 % (39.0-51.0); HEMOGLOBIN 15.5 GM/DL (13.0-17.0); LYMPH % 23.6 % (9.0-44.0); LYMPHOCYTE # 1.9 TH/MM3 (1.0-4.8); MEAN CELL VOLUME 89.7 FL (80.0-100.0); MEAN CORPUSCULAR HEMOGLOBIN 30.1 PG (27.0-34.0); MEAN CORPUSCULAR HGB CONC 33.6 % (32.0-36.0); MEAN PLATELET VOLUME 8.2 FL (7.0-11.0); MONO % 7.8 % (0.0-8.0); MONOCYTE # 0.6 TH/MM3 (0-0.9); NEUT % 65.6 % (16.0-70.0); PLATELET COUNT 200 TH/MM3 (150-450); RED BLOOD COUNT 5.16 MIL/MM3 (4.50-5.90); RED CELL DISTRIBUTION WIDTH 14.9 % (11.6-17.2); WHITE BLOOD COUNT 8.1 TH/MM3 (4.0-11.0)
[2017-11-17] MEDS: RESP: ALBUTEROL 2.5 MG/IPRATROPIUM 0.5 MG NEB (SCH) INH (02:16)
--- NOTE | 2017-11-17 02:18 | RADRPT ---
EXAM DATE: 11/17/2017 2:11 AM EDT AGE/SEX: 56 years / Male INDICATIONS: Shortness of breath. CLINICAL DATA: This is the patient's initial encounter. Patient reports that signs and symptoms have been present for 1 day and indicates a pain score of 0/10. MEDICAL/SURGICAL HISTORY: Chronic obstructive pulmonary disease. Congestive heart failure. Di abetes. Myocardial infarction. CVA. None. COMPARISON: No prior exams available for comparison. FINDINGS: Single AP view of the chest. Moderate cardiac silhouette enlargement. Mild bilateral diffuse pulmonar y vasculature enlargement and indistinctness suggesting pulmonary vascular congestion/mild pulmonary edema. No evidence of pleural effusion or pneumothorax. CONCLUSION: Cardiac silhouette enlargement and pulmonary vascular congestion/mild pulmonary edema. Electronically signed by: Fransisco Delgadillo MD 11/17/2017 2:16 AM EDT
[2017-11-17 02:43] LABS: BICARBONATE 26.6 MEQ/L (21.0-32.0); CALCIUM 8.6 MG/DL (8.5-10.1); CREATININE 1.34 MG/DL (0.60-1.30); MAGNESIUM 2.1 MG/DL (1.5-2.5)
[2017-11-17] MEDS ORDERED: PRED20 PO (03:33)
[2017-11-17] MEDS ORDERED: ALBUAER3 INH (03:33)
[2017-11-17] MEDS ORDERED: FUROSEMIDE 100 MG/10 ML VIAL IV PUSH ONE (03:45)
[2017-11-17 03:48] VITALS: BP 176/88; PULSE 92; RESP 20; O2SAT 94
[2017-11-17] MEDS ORDERED: FUROSEMIDE 40 MG/4 ML VIAL IV PUSH SCH (09:00)
--- NOTE | 2017-11-17 14:46 | EKG ---
Date Performed: 11/17/2017 Time Performed: 01:01:59 PTAGE: 56 years EKG: Sinus rhythm WITH FREQUENT SUPRAVENTRICULAR PREMATURE COMPLEXES NONSPECIFIC ST & T-WAVE ABNORMALITY ABNORMAL ECG Since the PREVIOUS TRACING , no significant change noted PREVIOUS TRACIN09/19/2017 @20.37 DOCTOR: Flo Magallanes Interpretating Date/Time 11/17/2017 14:44:48
== END 2017-11-17 06:03 | disposition home or self-care (01) ==
LOC: NEPE 01:17
DX: I13.0 Hypertensive heart and chronic kidney disease with heart failure and stage 1 through stage 4 chronic kidney disease, or unspecified chronic kidney disease (principal); I50.9 Heart failure, unspecified; E11.22 Type 2 diabetes mellitus with diabetic chronic kidney disease; N18.9 Chronic kidney disease, unspecified; J44.9 Chronic obstructive pulmonary disease, unspecified; F17.210 Nicotine dependence, cigarettes, uncomplicated; E78.00 Pure hypercholesterolemia, unspecified; Z79.84 Long term (current) use of oral hypoglycemic drugs; Z99.81 Dependence on supplemental oxygen
CPT/HCPCS: 36600; 71045; 80048; 82805; 83735; 83880; 85025; 93005; 94640; 94664; 96361; 96374; 96375; 99285; J1940; J2930; J7030

== ENCOUNTER 2017-12-13 19:24 | Observation (INO) ==
[2017-12-13] MEDS ORDERED: Lisinopril 20 MG Tablet PO ONE (21:07)
--- NOTE | 2017-12-13 21:24 | XR ---
EXAM DATE: 12/13/2017 9:20 PM EDT AGE/SEX: 56 years / Male INDICATIONS: Dyspnea CLINICAL DATA: This is the patient's initial encounter. Patient reports that signs and symptoms have been present for 1 day and indicates a pain score of 0/10. MEDICAL/SURGICAL HISTORY: Chronic obstructive pulmonary disease. None. COMPARISON: [facility] [place], CHEST SINGLE AP, 12/02/2017. . FINDINGS: A single AP view of the chest demonstrates the lungs to be symmetrically aerated without evidence of mass, infiltrate or effusion. The cardiomediastinal contours are prominent. Osseous structures are i ntact. CONCLUSION: Cardiomegaly. No focal consolidation or significant effusion. No pneumothorax. Electronically signed by: Cristian Miranda MD 12/13/2017 9:23 PM EDT
[2017-12-13 21:48] LABS: Baso % (Auto) 0.4 % (0.0-2.0); Eos # (Auto) 0.1 th/mm3 (0.0-0.4); Eos % (Auto) 1.5 % (0.0-4.0); Hematocrit 46.6 % (39.0-51.0); Hemoglobin 15.2 gm/dL (13.0-17.0); Lymph # (Auto) 2.3 th/mm3 (1.0-4.8); Lymph % (Auto) 22.9 % (9.0-44.0); Mean Corpuscular HGB Conc 32.6 % (32.0-36.0); Mean Corpuscular Volume 88.9 fL (80.0-100.0); Mean Platelet Volume 8.6 fL (7.0-11.0); Mono # (Auto) 0.7 th/mm3 (0.0-0.9); Mono % (Auto) 7.1 % (0.0-8.0); Neut # (Auto) 6.8 th/mm3 (1.8-7.7); Neut % (Auto) 68.1 % (16.0-70.0); Platelet Count 196 th/mm3 (150-450); Red Blood Count 5.24 mil/mm3 (4.50-5.90); Red Cell Distribution Width 14.8 % (11.6-17.2); White Blood Count 9.9 th/mm3 (4.0-11.0)
[2017-12-13 22:04] LABS: Albumin 3.6 g/dL (3.4-5.0); Anion Gap 9 meq/L (5-15); Aspartate Aminotransferase 28 U/L (15-37); Blood Urea Nitrogen 16 mg/dL (7-18); Calcium 8.7 mg/dL (8.5-10.1); Carbon Dioxide 23.9 meq/L (21.0-32.0); Chloride 111 meq/L (98-107); Glomerular Filtration Rate 54 mL/min (>89); Glucose,Random 103 mg/dL (74-106); Magnesium 2.2 mg/dL (1.5-2.5); Potassium 3.6 meq/L (3.5-5.1); Sodium 144 meq/L (136-145)
[2017-12-13 22:05] LABS: Alanine Aminotransferase 51 U/L (12-78)
[2017-12-13 22:08] LABS: Alkaline Phosphatase 69 U/L (45-117); Creatine Kinase 148 U/L (39-308); Troponin I 0.04 ng/mL (0.02-0.05)
[2017-12-13 22:18] LABS: Activated Partial Thrombo Time 25.8 sec (24.3-30.1); Prothrombin Time 10.6 sec (9.8-11.6)
[2017-12-13 22:21] LABS: Creatine Kinase MB 1.8 ng/mL (0.5-3.6)
--- NOTE | 2017-12-13 23:05 | ED ---
HPI General Chief Complaint: Shortness of Breath/Dyspnea Stated Complaint: Respiratory complaint Time Seen by Provider: 12/13/17 20:59 History of Present Illness Patient has a history of COPD presents secondary to shortness of breath 2 days. Says that he uses inhalers but only helped for short amount of time. Last COPD exacerbation was today, patient states that he has them every day. Last hospitalization he reports has been 2-3 weeks ago. He denies fever, chills , nausea, vomiting, chest pain, but reports lower extremity edema and cough. He' s been out of his lasix for about 1 week. Related Data Allergies Allergy/AdvReac Type Severity Reaction Status Date / Time diatrizoate meglumine Allergy Severe Itching Verified 12/02/17 00:14 gadobenic acid Allergy Severe Itching Verified 12/02/17 00:14 gadodiamide Allergy Severe Itching Verified 12/02/17 00:14 gadoteridol Allergy Severe Itching Verified 12/02/17 00:14 iodixanol Allergy Severe Itching Verified 12/02/17 00:14 iohexol Allergy Severe Itching Verified 12/02/17 00:14 Iodinated Contrast- Oral and Allergy Unknown Unverified 12/02/17 00:14 IV Dye acetaminophen AdvReac Unknown Nausea/Vomi Verified 12/02/17 00:14 ting Review of Systems ROS Unobtainable All other systems reviewed negative except as stated in HPI PMFSH Social History Social History Second Hand Smoke Exposure: Yes Smoking Status: Current every day smoker Tobacco Type: Cigarettes How Often Do You Have a Drink Containing Alcohol: Monthly or less Recent Travel in [facility] within the Last 8 Weeks: No Recent Out of Country Travel within the Last 8 Weeks: No Immunization History Tetanus Immunization: >5 Years Hx Influenza Vaccine This Season: Yes Exam Narrative Exam Narrative: GENERAL: No acute distress. SKIN: Focused skin assessment warm/dry. HEAD: Atraumatic. Normocephalic. EYES: Pupils equal and round. No scleral icterus. No injection or drainage. ENT: No nasal bleeding or discharge. Mucous membranes pink and moist. NECK: Trachea midline. No JVD. CARDIOVASCULAR: Regular rate and rhythm. No murmur appreciated. RESPIRATORY: No accessory muscle use. Positive crackles at the bases bilaterally GASTROINTESTINAL: Abdomen soft, non-tender, nondistended. Hepatic and splenic margins not palpable. MUSCULOSKELETAL: No obvious deformities. No clubbing. No cyanosis. Bilateral lower extremity edema NEUROLOGICAL: Awake and alert. No obvious cranial nerve deficits. Motor grossly within normal limits. Normal speech. PSYCHIATRIC: Appropriate mood and affect; insight and judgment normal. Course Initial Documented Vital Signs Temperature 98.9 F 12/13/17 19:46 Pulse Rate 88 12/13/17 19:46 Respiratory Rate 20 12/13/17 19:46 Blood Pressure 172/132 H 12/13/17 19:46 Pulse Oximetry 96 12/13/17 19:46 Last Documented Vital Signs Temperature 98.9 F 12/13/17 19:46 Pulse Rate 82 12/13/17 21:55 Respiratory Rate 25 H 12/13/17 21:47 Blood Pressure 175/115 H 12/13/17 21:55 Pulse Oximetry 98 12/13/17 21:55 Medical Decision Making MDM Narrative Medical decision making narrative: Patient presents to the emergency department complaining of shortness of breath. Placed on vehicle monitor technician, continuous pulse ox, IV access obtained. Labs/chest x-ray/EKG ordered. She requests an DuoNeb, which was given. He is also requesting to be placed on oxygen, despite room air O2 sat of 96% Labs: Elevated creatinine, BNP; ECG: SR, rate 78, TWI I, avL, V5, V6 CXR: CONCLUSION: Cardiomegaly. No focal consolidation or significant effusion. No pneumothorax. Patient given 40mg IV lasix and 1 in NTG to chest wall. Will admit for chf exacerbation. Lab Data Result diagrams: 12/13/17 21:30 12/13/17 21:30 Lab Results 12/13/17 12/13/17 12/13/17 Range/Units 21:30 21:30 21:30 WBC 9.9 (4.0-11.0) th/mm3 RBC 5.24 (4.50-5.90) mil/mm3 Hgb 15.2 (13.0-17.0) gm/dL Hct 46.6 (39.0-51.0) % MCV 88.9 (80.0-100.0) fL MCH 29.0 (27.0-34.0) pg MCHC 32.6 (32.0-36.0) % RDW 14.8 (11.6-17.2) % Plt Count 196 (150-450) th/mm3 MPV 8.6 (7.0-11.0) fL Neut % (Auto) 68.1 (16.0-70.0) % Lymph % (Auto) 22.9 (9.0-44.0) % Gove % (Auto) 7.1 (0.0-8.0) % Eos % (Auto) 1.5 (0.0-4.0) % Baso % (Auto) 0.4 (0.0-2.0) % Neut # (Auto) 6.8 (1.8-7.7) th/mm3 Lymph # (Auto) 2.3 (1.0-4.8) th/mm3 Gove # (Auto) 0.7 (0.0-0.9) th/mm3 Eos # (Auto) 0.1 (0.0-0.4) th/mm3 Baso # (Auto) 0.0 (0.0-0.2) th/mm3 WBC Differential . Differential Comment Auto diff final PT 10.6 (9.8-11.6) sec INR 1.0 Ratio APTT 25.8 (24.3-30.1) sec Sodium 144 (136-145) meq/L Potassium 3.6 (3.5-5.1) meq/L Chloride 111 H (98-107) meq/L Carbon Dioxide 23.9 (21.0-32.0) meq/L Anion Gap 9 (5-15) meq/L BUN 16 (7-18) mg/dL Creatinine 1.37 H (0.60-1.30) mg/dL Estimated GFR 54 L (>89) mL/min Random Glucose 103 (74-106) mg/dL Calcium 8.7 (8.5-10.1) mg/dL Magnesium 2.2 (1.5-2.5) mg/dL Total Bilirubin 0.5 (0.2-1.0) mg/dL AST 28 (15-37) U/L ALT 51 (12-78) U/L Alkaline Phosphatase 69 (45-117) U/L Total Creatine Kinase 148 (39-308) U/L CK-MB (CK-2) 1.8 (0.5-3.6) ng/mL Troponin I 0.04 (0.02-0.05) ng/mL B-Natriuretic Peptide (0-100) pg/mL Total Protein 7.0 (6.4-8.2) g/dL Albumin 3.6 (3.4-5.0) g/dL 12/13/17 Range/Units 21:30 WBC (4.0-11.0) th/mm3 RBC (4.50-5.90) mil/mm3 Hgb (13.0-17.0) gm/dL Hct (39.0-51.0) % MCV (80.0-100.0) fL MCH (27.0-34.0) pg MCHC (32.0-36.0) % RDW (11.6-17.2) % Plt Count (150-450) th/mm3 MPV (7.0-11.0) fL Neut % (Auto) (16.0-70.0) % Lymph % (Auto) (9.0-44.0) % Gove % (Auto) (0.0-8.0) % Eos % (Auto) (0.0-4.0) % Baso % (Auto) (0.0-2.0) % Neut # (Auto) (1.8-7.7) th/mm3 Lymph # (Auto) (1.0-4.8) th/mm3 Gove # (Auto) (0.0-0.9) th/mm3 Eos # (Auto) (0.0-0.4) th/mm3 Baso # (Auto) (0.0-0.2) th/mm3 WBC Differential Differential Comment PT (9.8-11.6) sec INR Ratio APTT (24.3-30.1) sec Sodium (136-145) meq/L Potassium (3.5-5.1) meq/L Chloride (98-107) meq/L Carbon Dioxide (21.0-32.0) meq/L Anion Gap (5-15) meq/L BUN (7-18) mg/dL Creatinine (0.60-1.30) mg/dL Estimated GFR (>89) mL/min Random Glucose (74-106) mg/dL Calcium (8.5-10.1) mg/dL Magnesium (1.5-2.5) mg/dL Total Bilirubin (0.2-1.0) mg/dL AST (15-37) U/L ALT (12-78) U/L Alkaline Phosphatase (45-117) U/L Total Creatine Kinase (39-308) U/L CK-MB (CK-2) (0.5-3.6) ng/mL Troponin I (0.02-0.05) ng/mL B-Natriuretic Peptide 850 H (0-100) pg/mL Total Protein (6.4-8.2) g/dL Albumin (3.4-5.0) g/dL Imaging Data Radiologist's impression: ITS Impressions Chest X-Ray 12/13/17 21:07 CONCLUSION: Cardiomegaly. No focal consolidation or significant effusion. No pneumothorax. Discharge Plan Discharge Disposition Patient Disposition: 30 Still Patient Discharge Condition Condition: Stable Discharge Details Discharge Problem: CHF (congestive heart failure) Physicians Team ED Provider: Zahra Pimentel Primary Care Provider: Duglas Sloan III Status ED Status: With Doctor
[2017-12-14] MEDS ORDERED: Acetaminophen 325 MG Tablet PO PRN (08:46)
[2017-12-14] MEDS ORDERED: Dextrose 50% in Water 50 ML Vial IV.PUSH PRN (08:48)
[2017-12-14] MEDS ORDERED: Naproxen 500 MG Tablet PO ONE (09:00)
--- NOTE | 2017-12-14 09:06 | P.HP ---
History of Present Illness Service: [facility] Primary Care Physician: Duglas Sloan III, MD Chief Complaint: Shortness of breath History of Present Illness: Patient is a 56-year-old male with primary medical history CHF, CVA, DM type II , HTN, HLD who initially came into the hospital for evaluation of increasing shortness of breath. Patient states that he has been short of breath for more than several days but yesterday. States that he continues to smoke 1 pack per day and was unable to quit even with gum, patch, hypnosis, injections. States that currently he lives in his car and has plans to go to [place] to meet up with you found son. Reports he has improved shortness of breath and dyspnea. Currently in O2 nasal cannula. Denies pain and discomfort. Denies chest pain, palpitations, headaches, dizziness. Denies fevers, chills, n/v/d. Denies hematuria, dysuria. - Diagnosis (1) CHF (congestive heart failure) (2) COPD (chronic obstructive pulmonary disease) Inpatient Certification: I certify that the inpatient services were ordered in accordance with Medicare regulations governing the order. This includes certification that hospital inpatient services are reasonable and necessary and in the case of services not specified as inpatient-only under 42 CFR 419.22(n), that they are appropriately provided as inpatient services in accordance to with the 2-midnight benchmark under 43 CFR 412.3(e) Estimated Total Length of Stay (Days): 2 Review of Systems All other systems reviewed negative except as stated in HPI PMFSH - History History Provided By: Patient - Medical History Medical History: Medical History (Last Updated 12/14/17 @ 08:55 by AMENA Burns) Cervical spine fracture (Acute) CVA (cerebral vascular accident) (Acute) Hypercholesteremia (Acute) Diabetes (Acute) CHF (congestive heart failure) (Acute) HTN (hypertension) (Acute) COPD (chronic obstructive pulmonary disease) (Acute) History of cervical fracture - Surgical History Surgical History: Surgical History (Last Updated 12/14/17 @ 08:55 by AMENA Burns) Status post right knee replacement - Family History Family History: Family History (Last Updated 12/14/17 @ 08:55 by AMENA Burns) Mother Family history of diabetes mellitus Father Family history of cancer - Tobacco History Second Hand Smoke Exposure: No Tobacco Use In Past 30 Days: Yes Smoking Status: Current every day smoker Tobacco Type: Cigarettes Packs Per Day: 1 - Alcohol History How Often Do You Have a Drink Containing Alcohol: Monthly or less - Substance Use History Substance History: No History of Abuse - Travel History Recent Travel in the [place] Within the Last 8 Weeks: No Recent Travel Out of the Country Within the Last 8 Weeks: No - Immunization History Tetanus Immunization: >5 Years Hx Influenza Vaccine This Season: Yes Medications and Allergies Active Medications: Active Medications Acetaminophen (Tylenol) 650 mg PO Q4H PRN PRN Reason: CORRIGAN, Pain 1-6, Temp >100.4 Albuterol (Duoneb Neb (Prn)) 1 ampul NEB Q4HR NEB PRN PRN Reason: SOB/Wheezing Albuterol (Duoneb Neb (Dennys)) 1 ampul NEB Q6HR WHILE AWAKE NEB [place] Budesonide/Formoterol Fumarate (Symbicort 160/4.5 Mcg Inh) 2 puff INH BID [place] Furosemide (Lasix Inj) 40 mg IV.PUSH BID@0900,1800 [facility] Last Admin: 12/14/17 08:35 Dose: 40 mg Naproxen (Naprosyn) 500 mg PO ONCE ONE Stop: 12/14/17 08:48 Sodium Chloride (Ns Flush) 2 ml IV.FLUSH BID [place] Last Admin: 12/14/17 08:37 Dose: 2 ml Sodium Chloride (Ns Flush) 2 ml IV.FLUSH UNSCH PRN PRN Reason: FLUSH AFTER USING IV ACCESS Tiotropium [place] (Spiriva 18 Mcg Inh) 18 mcg INH DAILY [facility] Allergies Allergy/AdvReac Type Severity Reaction Status Date / Time diatrizoate meglumine Allergy Severe Itching Verified 12/02/17 00:14 gadobenic acid Allergy Severe Itching Verified 12/02/17 00:14 gadodiamide Allergy Severe Itching Verified 12/02/17 00:14 gadoteridol Allergy Severe Itching Verified 12/02/17 00:14 iodixanol Allergy Severe Itching Verified 12/02/17 00:14 iohexol Allergy Severe Itching Verified 12/02/17 00:14 Iodinated Contrast- Oral and Allergy Unknown Unverified 12/02/17 00:14 IV Dye acetaminophen AdvReac Unknown Nausea/Vomi Verified 06/26/18 00:14 ting Exam Vital signs: Vital Signs 12/13/17 19:46 12/13/17 21:47 12/13/17 21:55 Temperature 98.9 F Pulse Rate 88 79 82 Respiratory Rate 20 25 H Blood Pressure 172/132 H 175/115 H Pulse Oximetry 96 98 12/13/17 23:34 12/14/17 01:31 12/14/17 02:02 Temperature 97.9 F Pulse Rate 75 78 80 Respiratory Rate 12 17 18 Blood Pressure 149/97 H 148/88 H 162/109 H Pulse Oximetry 97 95 97 12/14/17 03:52 12/14/17 08:00 Temperature 98.1 F 98.5 F Pulse Rate 80 86 Respiratory Rate 18 16 Blood Pressure 160/103 H 154/97 H Pulse Oximetry 97 98 Intake & Output 12/13/17 12/14/17 12/14/17 18:59 06:59 18:59 Weight 117.934 kg Narrative: GENERAL: This is a well-nourished, well-developed patient, mildly short of breath when conversing. SKIN: Warm and dry. HEENT: Normocephalic. Pupils equal round and reactive. Nose without bleeding. Airway patent. NECK: Trachea midline. Supple. CARDIOVASCULAR: Regular rate and rhythm with faint murmur, No gallops, or rubs. RESPIRATORY: Mild expiratory wheeze. Moderate air entry. GASTROINTESTINAL: Abdomen soft, non-tender, protuberant. Bowel Sounds normoactive x4. MUSCULOSKELETAL: Extremities without clubbing, cyanosis, or edema. NEUROLOGICAL: Awake and alert. Oriented to time, place, person. Moves all extremities. Normal speech. Results - Labs CBC & Chem 7: 12/13/17 21:30 12/15/17 06:16 Labs: Laboratory Results - last 24 hr 12/13/17 12/13/17 12/13/17 21:30 21:30 21:30 WBC 9.9 RBC 5.24 Hgb 15.2 Hct 46.6 MCV 88.9 MCH 29.0 MCHC 32.6 RDW 14.8 Plt Count 196 MPV 8.6 Neut % (Auto) 68.1 Lymph % (Auto) 22.9 [place] % (Auto) 7.1 Eos % (Auto) 1.5 Baso % (Auto) 0.4 Neut # (Auto) 6.8 Lymph # (Auto) 2.3 [place] # (Auto) 0.7 Eos # (Auto) 0.1 Baso # (Auto) 0.0 WBC Differential . Differential Comment Auto diff final PT 10.6 INR 1.0 APTT 25.8 Sodium 144 Potassium 3.6 Chloride 111 H Carbon Dioxide 23.9 Anion Gap 9 BUN 16 Creatinine 1.37 H Estimated GFR 54 L Random Glucose 103 Calcium 8.7 Magnesium 2.2 Total Bilirubin 0.5 AST 28 ALT 51 Alkaline Phosphatase 69 Total Creatine Kinase 148 CK-MB (CK-2) 1.8 Troponin I 0.04 B-Natriuretic Peptide Total Protein 7.0 Albumin 3.6 12/13/17 21:30 WBC RBC Hgb Hct MCV MCH MCHC RDW Plt Count MPV Neut % (Auto) Lymph % (Auto) [place] % (Auto) Eos % (Auto) Baso % (Auto) Neut # (Auto) Lymph # (Auto) [place] # (Auto) Eos # (Auto) Baso # (Auto) WBC Differential Differential Comment PT INR APTT Sodium Potassium Chloride Carbon Dioxide Anion Gap BUN Creatinine Estimated GFR Random Glucose Calcium Magnesium Total Bilirubin AST ALT Alkaline Phosphatase Total Creatine Kinase CK-MB (CK-2) Troponin I B-Natriuretic Peptide 850 H Total Protein Albumin - Imaging Impressions Chest X-Ray 12/13/17 21:07 CONCLUSION: Cardiomegaly. No focal consolidation or significant effusion. No pneumothorax. Caprini VTE Risk Assessment Caprini VTE Risk Assessment: Moderate/High Risk (score >= 2) Caprini Risk Assessment Model: Point Value = 1 Point Value = 2 Point Value = 3 Point Value = 5 Age 41-60 Minor surgery BMI > 25 kg/m2 Swollen legs Varicose veins or History of unexplained or recurrent spontaneous Oral contraceptives or hormone replacement Sepsis (< 1 month) Serious lung disease, including pneumonia (< 1 month) Abnormal pulmonary function Acute myocardial infarction Congestive heart failure (< 1 month) History of inflammatory bowel disease Medical patient at bed rest Age 61-74 Arthroscopic surgery Major open surgery (> 45 min) Laparoscopic surgery (> 45 min) Malignancy Confined to bed (> 72 hours) Immobilizing plaster cast Central venous access Age >= 75 History of VTE Family history of VTE Factor V Leiden Prothrombin [id number] Lupus anticoagulant Anticardiolipin antibodies Elevated serum homocysteine Heparin-induced thrombocytopenia Other congenital or acquired thrombophilia Stroke (< 1 month) Elective arthroplasty Hip, pelvis, or leg fracture Acute spinal cord injury (< 1 month) Prophylaxis Regimen: Total Risk Factor Score Risk Level Prophylaxis Regimen 0-1 Low Early ambulation 2 Moderate Order ONE of the following: *Sequential Compression Device (SCD) *Heparin 5000 units SQ BID 3-4 Higher Order ONE of the following medications: *Heparin 5000 units SQ TID *Enoxaparin/Lovenox 40 mg SQ daily (WT < 150 kg, CrCl > 30 mL/min) *Enoxaparin/Lovenox 30 mg SQ daily (WT < 150 kg, CrCl > 10-29 mL/min) *Enoxaparin/Lovenox 30 mg SQ BID (WT < 150 kg, CrCl > 30 mL/min) AND/OR *Sequential Compression Device (SCD) 5 or more Highest Order ONE of the following medications: *Heparin 5000 units SQ TID (Preferred with Epidurals) *Enoxaparin/Lovenox 40 mg SQ daily (WT < 150 kg, CrCl > 30 mL/min) *Enoxaparin/Lovenox 30 mg SQ daily (WT < 150 kg, CrCl > 10-29 mL/min) *Enoxaparin/Lovenox 30 mg SQ BID (WT < 150 kg, CrCl > 30 mL/min) AND *Sequential Compression Device (SCD) Assessment and Plan - Assessment (1) CHF (congestive heart failure) Code(s): I50.9 - Heart failure, unspecified Status: Acute (2) COPD (chronic obstructive pulmonary disease) Code(s): J44.9 - Chronic obstructive pulmonary disease, unspecified Status: Acute - Plan Patient is a 56-year-old male with primary medical history CHF, CVA, DM type II , HTN, HLD who initially came into the hospital for evaluation of increasing shortness of breath. CHF, systolic Acute exacerbation -Chest x-ray showed cardiomegaly. No focal consolidation or significant effusion. No pneumothorax -BNP 800 -Continue Lasix IV twice daily -Fluid restriction. Eyes and nose -Discussed with patient significantly diagnostic and lab results and diagnosis of CHF. Patient may need better management for CHF. Previous echo EF 44% (08/2017) -Monitor BMP, renal function -Had nitro paste, gives patient headache -Tylenol COPD mild exacerbation Tobacco abuse -Counseled. Discuss risk of continuing to smoke, not limited to -Nicotine patch -Duo nebs as needed, scheduled -Symbicort, tiotropium -O2 nasal cannula as needed keep O2 sat greater than 90% Acute kidney injury, possibly with underlying CKD secondary to diabetic nephropathy -Avoid nephrotoxins. Monitor renal indicis. DM type 2, on metformin at home -Hold off metformin for now. Start insulin sliding scale. Check hemoglobin A1c. DVT prop heparin Code Status: Full code Discussed Condition With: Patient, nursing Discharge Planning: Plan to DC home when clinically improved. (1) CHF (congestive heart failure) Qualifiers: Heart failure type: unspecified Heart failure chronicity: acute on chronic Qualified Code(s): I50.9 - Heart failure, unspecified
--- NOTE | 2017-12-14 11:20 | ECG ---
Date Performed: 12/13/2017 Time Performed: 23:11:09 PTAGE: 56 years EKG: Sinus rhythm POSSIBLE LEFT ATRIAL ENLARGEMENT NONSPECIFIC T-WAVE ABNORMALITY ABNORMAL ECG PREVIOUS TRACING : 12/02/2017 07.53 No significant change from previous tracing noted. DOCTOR: Herman Kirk Interpretating Date/Time 12/14/2017 11:19:33
[2017-12-14] MEDS: Tiotropium Bromide 18 MCG/ACT Inhaler INH SCH (12:28)
[2017-12-14] MEDS: Budesonide-Formoterol 160/4.5 MCG 6 GM Inhaler INH SCH ×2 (12:28→20:55)
[2017-12-14] MEDS: Heparin - SQ 10,000 UNITS/ML Vial SQ SCH ×2 (13:02→20:53)
[2017-12-14 13:34] LABS: Hemoglobin A1c 6.5 % (4.3-6.0)
[2017-12-14] MEDS: Insulin NovoLOG Aspart Correctional Sugar Inj SQ SCH ×2 (14:33→22:11)
[2017-12-14] MEDS: hydrALAZINE 25 MG Tablet PO SCH (20:52)
[2017-12-15 07:46] LABS: Calcium 9.2 mg/dL (8.5-10.1); Carbon Dioxide 30.6 meq/L (21.0-32.0)
[2017-12-15 07:48] LABS: Potassium 3.9 meq/L (3.5-5.1)
[2017-12-15 08:17] LABS: Bilirubin,Urine Negative (Negative); Clarity,Urine Clear (Clear); Color,Urine Yellow (Yellw/Straw); Glucose,Urine (UA) Negative (Negative); Hyaline Casts,Urine 1 /lpf (0-3); Leukocyte Esterase,Urine Negative (Negative); Mucus,Urine Few /lpf (Occasional); Nitrite,Urine Negative (Negative); Specific Gravity,Urine 1.011 (1.002-1.035)
--- NOTE | 2017-12-15 08:58 | P.PN ---
Subjective Interval history: Follow-up visit CHF exacerbation, COPD exacerbation, tobacco abuse, noncompliance. Patient seen and examined today. Reports he is doing a lot better. Shortness of breath has improved. Occasional cough which is chronic. States he cannot stop himself but when he gets out of the hospital he will continue to smoke. Discussed extensively with patient his condition and exacerbations can occur if he continues to smoke. Denies pain and discomfort. Denies chest pain, palpitations, headaches, dizziness. Denies fevers, chills, n/ v/d. Denies dysuria. Physical Exam Vital signs: Vital Signs 12/14/17 09:05 12/14/17 09:11 12/14/17 12:00 Temperature 97.9 F Pulse Rate 75 80 Respiratory Rate 16 20 Blood Pressure 166/122 H Pulse Oximetry 98 97 12/14/17 15:59 12/14/17 16:00 12/14/17 19:53 Temperature 97.6 F Pulse Rate 88 87 78 Respiratory Rate 18 20 18 Blood Pressure 152/120 H Pulse Oximetry 94 L 98 12/14/17 21:57 12/15/17 04:00 12/15/17 07:17 Temperature 97.4 F L 97.8 F Pulse Rate 79 75 72 Respiratory Rate 16 15 19 Blood Pressure 167/99 H 140/105 H Pulse Oximetry 98 98 12/15/17 08:00 Temperature 98.0 F Pulse Rate 82 Respiratory Rate 18 Blood Pressure 168/114 H Pulse Oximetry 97 Intake & Output 12/14/17 12/15/17 12/15/17 18:59 06:59 18:59 Output Total 1600 / 1600 Balance -1600 / -1600 Output: Urine 1600 / 1600 Other: # Voids 2 Narrative: GENERAL: This is a well-nourished, well-developed patient, in no apparent distress. SKIN: Warm and dry. HEENT: Normocephalic. Pupils equal round and reactive. Nose without bleeding. Airway patent. NECK: Trachea midline. No JVD. Supple. CARDIOVASCULAR: Regular rate and rhythm without murmurs, gallops, or rubs. RESPIRATORY: Moderate air entry, no wheezes, rales, or rhonchi. GASTROINTESTINAL: Abdomen soft, non-tender, nondistended. Bowel Sounds normoactive x4. MUSCULOSKELETAL: Extremities without clubbing, cyanosis. Trace edema NEUROLOGICAL: Awake and alert. Oriented to time, place, person. No focal neuro deficit. Moves all extremities. Normal speech. Results - Labs CBC & Chem 7: 12/13/17 21:30 12/15/17 06:16 Laboratory Results - last 24 hr 12/13/17 12/14/17 12/14/17 21:30 13:00 18:23 Sodium Potassium Chloride Carbon Dioxide Anion Gap BUN Creatinine Estimated GFR POC Glucose 169 H 109 Random Glucose Hemoglobin A1c 6.5 H Calcium Urine Color Urine Clarity Urine pH Ur Specific [place] Urine Protein Urine Glucose (UA) Urine Ketones Urine Occult Blood Urine Nitrate Urine Bilirubin Urine Urobilinogen Ur Leukocyte Esterase Urine RBC Urine WBC Hyaline Casts Urine Mucus 12/14/17 12/15/17 12/15/17 21:55 05:00 06:16 Sodium 142 Potassium 3.9 Chloride 105 Carbon Dioxide 30.6 Anion Gap 6 BUN 17 Creatinine 1.54 H Estimated GFR 47 L POC Glucose 174 H Random Glucose 117 H Hemoglobin A1c Calcium 9.2 Urine Color Yellow Urine Clarity Clear Urine pH 5.0 Ur Specific [place] 1.011 Urine Protein Negative Urine Glucose (UA) Negative Urine Ketones Negative Urine Occult Blood Negative Urine Nitrate Negative Urine Bilirubin Negative Urine Urobilinogen Less than 2 Ur Leukocyte Esterase Negative Urine RBC Less than 1 Urine WBC Less than 1 Hyaline Casts 1 Urine Mucus Few H 12/15/17 08:06 Sodium Potassium Chloride Carbon Dioxide Anion Gap BUN Creatinine Estimated GFR POC Glucose 157 H Random Glucose Hemoglobin A1c Calcium Urine Color Urine Clarity Urine pH Ur Specific [place] Urine Protein Urine Glucose (UA) Urine Ketones Urine Occult Blood Urine Nitrate Urine Bilirubin Urine Urobilinogen Ur Leukocyte Esterase Urine RBC Urine WBC Hyaline Casts Urine Mucus Assessment and Plan - Assessment (1) CHF (congestive heart failure) Code(s): I50.9 - Heart failure, unspecified Status: Acute (2) COPD (chronic obstructive pulmonary disease) Code(s): J44.9 - Chronic obstructive pulmonary disease, unspecified Status: Acute - Plan Patient is a 56-year-old male with primary medical history CHF, CVA, DM type II , HTN, HLD who initially came into the hospital for evaluation of increasing shortness of breath. CHF, systolic Acute exacerbation -Chest x-ray showed cardiomegaly. No focal consolidation or significant effusion. No pneumothorax -BNP 800 -Lasix IV twice daily given -Fluid restriction. Eyes and nose -Discussed with patient significantly diagnostic and lab results and diagnosis of CHF. Patient may need better management for CHF. Previous echo EF 44% (08/2017) -Switch to PO, improved status COPD mild exacerbation Tobacco abuse -Counseled. Discuss risk of continuing to smoke, not limited to -Nicotine patch -Duo nebs as needed, scheduled -Symbicort, tiotropium -O2 nasal cannula as needed keep O2 sat greater than 90% -Walk test today, if passed DC home without O2 Acute kidney injury, possibly with underlying CKD secondary to diabetic nephropathy -Avoid nephrotoxins. Monitor renal indicis. -Increase index secondary to diuretic use, but clinically needed for now DM type 2, on metformin at home -Hold off metformin for now. Insulin sliding scale. -Monitor Accuchecks -HgA1C 6.5 -DC home with Januvia DVT prop heparin Code Status: Full code Discussed Condition With: Patient, nursing Discharge Planning: Plan to DC home when clinically improved. (1) CHF (congestive heart failure) Qualifiers: Heart failure type: unspecified Heart failure chronicity: acute on chronic Qualified Code(s): I50.9 - Heart failure, unspecified
[2017-12-15] MEDS: Tiotropium Bromide 18 MCG/ACT Inhaler INH SCH (09:25)
[2017-12-15] MEDS: Budesonide-Formoterol 160/4.5 MCG 6 GM Inhaler INH SCH (09:25)
[2017-12-15] MEDS: hydrALAZINE 25 MG Tablet PO SCH (09:27)
[2017-12-15] MEDS: Heparin - SQ 10,000 UNITS/ML Vial SQ SCH (09:29)
[2017-12-15] MEDS: Insulin NovoLOG Aspart Correctional Sugar Inj SQ SCH ×3 (09:30→09:35)
--- NOTE | 2017-12-15 09:41 | P.DS ---
Date of admission: 12/13/17 23:22 Primary care physician: Duglas Sloan III, MD Attending physician on discharge: Mariola Vicente Anticipated date of discharge: 12/15/17 Brief History from admission: Patient is a 56-year-old male with primary medical history CHF, CVA, DM type II , HTN, HLD who initially came into the hospital for evaluation of increasing shortness of breath. Patient states that he has been short of breath for more than several days but yesterday. States that he continues to smoke 1 pack per day and was unable to quit even with gum, patch, hypnosis, injections. States that currently he lives in his car and has plans to go to [place] to meet up with you found son. Reports he has improved shortness of breath and dyspnea. Currently in O2 nasal cannula. Denies pain and discomfort. Denies chest pain, palpitations, headaches, dizziness. Denies fevers, chills, n/v/d. Denies hematuria, dysuria. DS: Diagnosis - Discharge Diagnosis (1) CHF (congestive heart failure) Status: Acute (2) COPD (chronic obstructive pulmonary disease) Status: Acute DS: Medications - Discharge Medications Prescriptions: budesonide-formoterol [Symbicort] 2 puff INH BID #1 inhaler carvedilol [Coreg] 3.125 mg PO BID #60 tab furosemide [Lasix] 40 mg PO DAILY #30 tab losartan [Cozaar] 50 mg PO DAILY #30 tab nicotine 1 patch TRANSDERMAL DAILY #30 ea sitagliptin [Januvia] 50 mg PO DAILY #30 tab tiotropium bromide [Spiriva with HandiHaler] 18 mcg INH DAILY #1 inh DS: Summary Hospital Course: Patient is a 56-year-old male with primary medical history CHF, CVA, DM type II , HTN, HLD who initially came into the hospital for evaluation of increasing shortness of breath. Patient BNP is 800. Chest x-ray showed cardiomegaly with no focal consolidation or significant effusion. Patient was started on IV Lasix twice daily which has significantly improve his shortness of breath. Fluid restriction, diet restriction of low salt has been provided. Discussed with patient significantly diagnostic and lab results and his diagnosis of congestive heart failure. His previous echo showed 45% EF. Discussed better management and outpatient. Patient provided medication including Coreg, losartan, Lasix p.o. for the outpatient. Patient also has mild exacerbation of his COPD. He is a current smoker with 1 pack per day more than 30 years. Counseling has been proven provided including nicotine patch use. Patient states that he will continue to smoke and outpatient because he cannot help himself. States that he had tried hypnosis, patches, gums, chewables, injectables but without success. States that he will continue to smoke in the outpatient and he is going to try his best to quit. He was started on Symbicort , tiotropium, provided nebulization. His labs showed some acute kidney injury possibly secondary to Lasix use but is clinically needed because of patient presentation. Patient also appears to have underlying CKD secondary to diabetic nephropathy, hypertensive nephropathy. He is on metformin at home for diabetes. Discussed with patient to hold off on metformin use for now and will be placed on Januvia 50 mg daily. He needs to follow-up with his primary care doctor to readjust his medications. His current hemoglobin A1c is 6.5. Clinically improved. Patient has met maximal benefits of hospitalization. Clinically stable for discharge. - Time Spent with Patient Total time spent providing and/or coordinating discharge services: Less than 30 minutes - Quality: VTE Deep Vein Thrombosis/Pulmonary Embolism Present on Admission: No Exam Vital signs: Vital Signs 12/14/17 12:00 12/14/17 15:59 12/14/17 16:00 Temperature 97.9 F 97.6 F Pulse Rate 80 88 87 Respiratory Rate 20 18 20 Blood Pressure 166/122 H 152/120 H Pulse Oximetry 97 94 L 12/14/17 19:53 12/14/17 21:57 12/15/17 04:00 Temperature 97.4 F L 97.8 F Pulse Rate 78 79 75 Respiratory Rate 18 16 15 Blood Pressure 167/99 H 140/105 H Pulse Oximetry 98 98 12/15/17 07:17 12/15/17 08:00 Temperature 98.0 F Pulse Rate 72 82 Respiratory Rate 19 18 Blood Pressure 168/114 H Pulse Oximetry 98 97 Intake & Output 12/14/17 12/15/17 12/15/17 18:59 06:59 18:59 Output Total 1600 / 1600 Balance -1600 / -1600 Output: Urine 1600 / 1600 Other: # Voids 2 Narrative: GENERAL: This is a well-nourished, well-developed patient, in no apparent distress. SKIN: Warm and dry. HEENT: Normocephalic. Pupils equal round and reactive. Nose without bleeding. Airway patent. NECK: Trachea midline. No JVD. Supple. CARDIOVASCULAR: Regular rate and rhythm without murmurs, gallops, or rubs. RESPIRATORY: Moderate air entry, no wheezes, rales, or rhonchi. GASTROINTESTINAL: Abdomen soft, non-tender, nondistended. Bowel Sounds normoactive x4. MUSCULOSKELETAL: Extremities without clubbing, cyanosis. Trace edema NEUROLOGICAL: Awake and alert. Oriented to time, place, person. No focal neuro deficit. Moves all extremities. Normal speech. Results Procedures completed during hospitalization: None Labs on day of discharge: Labs from last 24 hours 12/15/17 12/15/17 12/15/17 08:06 06:16 05:00 Sodium 142 Potassium 3.9 Chloride 105 Carbon Dioxide 30.6 Anion Gap 6 BUN 17 Creatinine 1.54 H Estimated GFR 47 L POC Glucose 157 H Random Glucose 117 H Hemoglobin A1c Calcium 9.2 Urine Color Yellow Urine Clarity Clear Urine pH 5.0 Ur Specific [place] 1.011 Urine Protein Negative Urine Glucose (UA) Negative Urine Ketones Negative Urine Occult Blood Negative Urine Nitrate Negative Urine Bilirubin Negative Urine Urobilinogen Less than 2 Ur Leukocyte Esterase Negative Urine RBC Less than 1 Urine WBC Less than 1 Hyaline Casts 1 Urine Mucus Few H 12/14/17 12/14/17 12/14/17 21:55 18:23 13:00 Sodium Potassium Chloride Carbon Dioxide Anion Gap BUN Creatinine Estimated GFR POC Glucose 174 H 109 169 H Random Glucose Hemoglobin A1c Calcium Urine Color Urine Clarity Urine pH Ur Specific [place] Urine Protein Urine Glucose (UA) Urine Ketones Urine Occult Blood Urine Nitrate Urine Bilirubin Urine Urobilinogen Ur Leukocyte Esterase Urine RBC Urine WBC Hyaline Casts Urine Mucus 12/13/17 21:30 Sodium Potassium Chloride Carbon Dioxide Anion Gap BUN Creatinine Estimated GFR POC Glucose Random Glucose Hemoglobin A1c 6.5 H Calcium Urine Color Urine Clarity Urine pH Ur Specific [place] Urine Protein Urine Glucose (UA) Urine Ketones Urine Occult Blood Urine Nitrate Urine Bilirubin Urine Urobilinogen Ur Leukocyte Esterase Urine RBC Urine WBC Hyaline Casts Urine Mucus - Impressions ITS Impressions Chest X-Ray 12/13/17 21:07 CONCLUSION: Cardiomegaly. No focal consolidation or significant effusion. No pneumothorax. Discharge Plan - Discharge Disposition Patient Disposition: Discharge Home - Discharge Condition Condition: Stable - Discharge Order Discharge Orders: Discharge Order (Routine); Ordered 12/15/17 Ordered By: Ramona Queen - Discharge Details Discharge Comment: DC after he passed walk test - Physicians Team Primary Care Provider: Duglas Sloan III Attending Provider: Mariola Vicente
== END 2017-12-15 11:39 | disposition home or self-care (01) ==
LOC: NEDA 19:24 → NEPE 19:24 → NEPGCP 19:24
PROVIDERS: ADMIT Family Medicine; ATTEND Family Medicine
DX: E78.00 Pure hypercholesterolemia, unspecified; Z91.19 Patient's noncompliance with other medical treatment and regimen; F17.210 Nicotine dependence, cigarettes, uncomplicated; I13.0 Hypertensive heart and chronic kidney disease with heart failure and stage 1 through stage 4 chronic kidney disease, or unspecified chronic kidney disease; Z79.84 Long term (current) use of oral hypoglycemic drugs; J44.1 Chronic obstructive pulmonary disease with (acute) exacerbation; Z79.899 Other long term (current) drug therapy; I50.20 Unspecified systolic (congestive) heart failure; R06.02 Shortness of breath; Z86.73 Personal history of transient ischemic attack (TIA), and cerebral infarction without residual deficits; Z83.3 Family history of diabetes mellitus; N17.9 Acute kidney failure, unspecified; N18.9 Chronic kidney disease, unspecified; R06.00 Dyspnea, unspecified; R60.0 Localized edema; R05 Cough; Z59.0 Homelessness; E11.22 Type 2 diabetes mellitus with diabetic chronic kidney disease; Z80.9 Family history of malignant neoplasm, unspecified; E78.5 Hyperlipidemia, unspecified; E11.21 Type 2 diabetes mellitus with diabetic nephropathy

== ENCOUNTER 2017-12-27 18:01 | Observation (INO) ==
--- NOTE | 2017-12-27 18:37 | XR ---
EXAM DATE: 12/27/2017 6:34 PM EDT AGE/SEX: 57 years / Male INDICATIONS: Shortness of breath. CLINICAL DATA: This is the patient's initial encounter. Patient reports that signs and symptoms have been present for 1 day and indicates a pain score of 0/10. MEDICAL/SURGICAL HISTORY: . Chronic obstructive pulmonary disease. Congestive heart failure. Di abetes. Myocardial infarction. CVA. . None. COMPARISON: C, CHEST 1V SINGLE AP, 12/13/2017. . FINDINGS: A single AP erect portable view of the chest was obtained and demonstrates no new confluent infiltrat es or effusions. The heart size remains mildly prominent. There is no perihilar edema. The bony thora x is intact. Overlying electrocardiogram leads are present. CONCLUSION: Stable appearance with no acute cardiopulmonary disease. Electronically signed by: Anthony Askew MD 12/27/2017 6:36 PM EDT
[2017-12-27 19:13] LABS: Activated Partial Thrombo Time 24.7 sec (24.3-30.1); Prothrombin Time 10.6 sec (9.8-11.6)
[2017-12-27 19:14] LABS: Magnesium 2.4 mg/dL (1.5-2.5)
[2017-12-27 19:38] LABS: Baso % (Auto) 0.5 % (0.0-2.0); Eos # (Auto) 0.2 th/mm3 (0.0-0.4); Hematocrit 45.5 % (39.0-51.0); Lymph # (Auto) 2.6 th/mm3 (1.0-4.8); Lymph % (Auto) 30.7 % (9.0-44.0); Mean Corpuscular HGB Conc 32.9 % (32.0-36.0); Mean Corpuscular Hemoglobin 29.5 pg (27.0-34.0); Mean Corpuscular Volume 89.7 fL (80.0-100.0); Mean Platelet Volume 9.2 fL (7.0-11.0); Mono # (Auto) 0.6 th/mm3 (0.0-0.9); Mono % (Auto) 7.7 % (0.0-8.0); Neut % (Auto) 59.1 % (16.0-70.0); Platelet Count 178 th/mm3 (150-450); Red Blood Count 5.07 mil/mm3 (4.50-5.90); Red Cell Distribution Width 14.7 % (11.6-17.2); White Blood Count 8.4 th/mm3 (4.0-11.0)
[2017-12-27 19:55] LABS: Albumin 3.5 g/dL (3.4-5.0); Anion Gap 9 meq/L (5-15); Aspartate Aminotransferase 9 U/L (15-37); Blood Urea Nitrogen 18 mg/dL (7-18); Calcium 8.8 mg/dL (8.5-10.1); Carbon Dioxide 26.4 meq/L (21.0-32.0); Chloride 112 meq/L (98-107); Glomerular Filtration Rate 44 mL/min (>89); Glucose,Random 105 mg/dL (74-106); Potassium 3.8 meq/L (3.5-5.1); Sodium 147 meq/L (136-145)
[2017-12-27 20:00] LABS: Alanine Aminotransferase 23 U/L (12-78); Alkaline Phosphatase 59 U/L (45-117); Total Protein 6.7 g/dL (6.4-8.2); Troponin I 0.03 ng/mL (0.02-0.05)
[2017-12-27] MEDS ORDERED: Lisinopril 20 MG Tablet PO ONE (20:12)
--- NOTE | 2017-12-27 20:24 | ED ---
HPI General Chief Complaint: Shortness of Breath/Dyspnea Stated Complaint: Resp Time Seen by Provider: 12/27/17 19:08 History of Present Illness Patient is a 56-year-old male with history of COPD, diabetes, hyperlipidemia, presents to the emergency room with complaints of cough and shortness of breath with wheezing. Patient reports that he is oxygen dependent with 3 L of nasal cannula oxygen at all times. Patient reports that he is a heavy smoker, reports history of COPD. Ran out of his meds did not take lasix today nor his clonidine nor lisinopril, symptoms have been getting progressively worse over the last few days. And he is noncompliant with his meds he says he did his laundry and somehow someone stole his meds? I am unclear exactly the history Related Data Home Medications Medication Instructions Recorded Confirmed trazodone 100 mg PO HS PRN 12/27/17 12/28/17 Previous Rx's Medication Instructions Recorded aspirin 81 mg PO DAILY 30 Days #30 tab 12/29/17 atorvastatin 40 mg PO DAILY 30 Days #30 tab 12/29/17 budesonide-formoterol [Symbicort] 2 puff INHALATION BID 30 Days g 12/29/17 carvedilol [Coreg] 3.125 mg PO BID #60 tab 12/29/17 clonidine HCl [Catapres] 0.2 mg PO BID 30 Days #60 tab 12/29/17 furosemide [Lasix] 40 mg PO DAILY 30 Days #30 tab 12/29/17 lisinopril 40 mg PO DAILY 30 Days #60 tab 12/29/17 potassium chloride 10 meq PO DAILY #30 tab 12/29/17 sitagliptin [Januvia] 50 mg PO DAILY #30 tab 12/29/17 tiotropium bromide [Spiriva with 18 mcg INH DAILY #1 inh 12/29/17 HandiHaler] Allergies Allergy/AdvReac Type Severity Reaction Status Date / Time diatrizoate meglumine Allergy Severe Itching Verified 12/02/17 00:14 gadobenic acid Allergy Severe Itching Verified 12/02/17 00:14 gadodiamide Allergy Severe Itching Verified 12/02/17 00:14 gadoteridol Allergy Severe Itching Verified 12/02/17 00:14 iodixanol Allergy Severe Itching Verified 12/02/17 00:14 iohexol Allergy Severe Itching Verified 12/02/17 00:14 Iodinated Contrast- Oral and Allergy Unknown Hypotension Verified 12/27/17 18:19 IV Dye acetaminophen AdvReac Unknown Nausea/Vomi Verified 12/02/17 00:14 ting Review of Systems Except as stated in HPI: all other systems reviewed are negative Respiratory Reports dyspnea and Reports other Comments: orthopnea [facility] Family History Family History Mother Family history of diabetes mellitus Father Family history of cancer Social History Social History Substance History: No History of Abuse Second Hand Smoke Exposure: Yes Smoking Status: Heavy tobacco smoker Tobacco Type: Cigarettes Packs Per Day: 1 Cigarettes Per Day: 20.0 How Often Do You Have a Drink Containing Alcohol: Never Recent Travel in [facility] within the Last 8 Weeks: No Recent Out of Country Travel within the Last 8 Weeks: No Immunization History Tetanus Immunization: Unable to Assess Hx Influenza Vaccine This Season: Unable to Assess Exam Narrative Exam Narrative: GENERAL: Patient in mild respiratory distress sitting up straight increased respiratory rate mild SKIN: Warm and dry. HEAD: Atraumatic. Normocephalic. EYES: Pupils equal and round. No scleral icterus. No injection or drainage. ENT: No nasal bleeding or discharge. Mucous membranes pink and moist. NECK: Trachea midline. No JVD. CARDIOVASCULAR: Regular rate and rhythm. RESPIRATORY: Patient is got bilateral basal rales and then upper airway wheeze he is moving air well in the upper airways bilaterally there are crackles and rales in the lower lungs bilateral GASTROINTESTINAL: Abdomen soft, non-tender, nondistended. Hepatic and splenic margins not palpable. MUSCULOSKELETAL: Extremities without clubbing, cyanosis, or edema. No obvious deformities. NEUROLOGICAL: Awake and alert. No obvious cranial nerve deficits. Motor grossly within normal limits. Five out of 5 muscle strength in the arms and legs. Normal speech. PSYCHIATRIC: Appropriate mood and affect; insight and judgment normal. Course Initial Documented Vital Signs Temperature 98.1 F 12/27/17 18:08 Pulse Rate 80 12/27/17 18:08 Respiratory Rate 22 12/27/17 18:08 Blood Pressure 187/110 H 12/27/17 18:08 Last Documented Vital Signs Temperature 97.9 F 12/29/17 11:58 Pulse Rate 59 L 12/29/17 11:58 Respiratory Rate 18 12/29/17 11:58 Blood Pressure 123/86 12/29/17 11:58 Pulse Oximetry 93 L 12/29/17 11:58 Medical Decision Making MDM Narrative Medical decision making narrative: Chest x-ray is done patient was placed on BiPAP patient is given diuretics and nitr oglycerin he is feeling much better chest x-ray indicates congestive heart failure he is admitted for further diuresis and management of his fluid overload BNP 1012 admit Differential Diagnosis Differential Diagnosis: Differential diagnosis includes COPD exacerbation versus CHF exacerbation versus fluid overload secondary to med noncompliance secondary to having no medication at home possible bronchitis possible pulmonary embolism possibly cardiac arrhythmia leading to venous congestion of the lungs Lab Data Result diagrams: 12/28/17 06:15 12/29/17 06:07 Lab Results 12/27/17 12/27/17 12/27/17 Range/Units 18:50 18:50 18:50 WBC 8.4 (4.0-11.0) th/mm3 RBC 5.07 (4.50-5.90) mil/mm3 Hgb 15.0 (13.0-17.0) gm/dL Hct 45.5 (39.0-51.0) % MCV 89.7 (80.0-100.0) fL MCH 29.5 (27.0-34.0) pg MCHC 32.9 (32.0-36.0) % RDW 14.7 (11.6-17.2) % Plt Count 178 (150-450) th/mm3 MPV 9.2 (7.0-11.0) fL Neut % (Auto) 59.1 (16.0-70.0) % Lymph % (Auto) 30.7 (9.0-44.0) % [place] % (Auto) 7.7 (0.0-8.0) % Eos % (Auto) 2.0 (0.0-4.0) % Baso % (Auto) 0.5 (0.0-2.0) % Neut # (Auto) 5.0 (1.8-7.7) th/mm3 Lymph # (Auto) 2.6 (1.0-4.8) th/mm3 [place] # (Auto) 0.6 (0.0-0.9) th/mm3 Eos # (Auto) 0.2 (0.0-0.4) th/mm3 Baso # (Auto) 0.0 (0.0-0.2) th/mm3 WBC Differential . Differential Comment Auto diff final PT 10.6 (9.8-11.6) sec INR 1.0 Ratio APTT 24.7 (24.3-30.1) sec Sodium 147 H (136-145) meq/L Potassium 3.8 (3.5-5.1) meq/L Chloride 112 H (98-107) meq/L Carbon Dioxide 26.4 (21.0-32.0) meq/L Anion Gap 9 (5-15) meq/L BUN 18 (7-18) mg/dL Creatinine 1.62 H (0.60-1.30) mg/dL Estimated GFR 44 L (>89) mL/min POC Glucose (68-110) mg/dl Random Glucose 105 (74-106) mg/dL Calcium 8.8 (8.5-10.1) mg/dL Magnesium (1.5-2.5) mg/dL Total Bilirubin 0.6 (0.2-1.0) mg/dL AST 9 L (15-37) U/L ALT 23 (12-78) U/L Alkaline Phosphatase 59 (45-117) U/L Total Creatine Kinase (39-308) U/L Troponin I 0.03 (0.02-0.05) ng/mL B-Natriuretic Peptide (0-100) pg/mL Total Protein 6.7 (6.4-8.2) g/dL Albumin 3.5 (3.4-5.0) g/dL 12/27/17 12/27/17 12/28/17 Range/Units 18:50 18:50 06:15 WBC 8.1 (4.0-11.0) th/mm3 RBC 5.30 (4.50-5.90) mil/mm3 Hgb 15.8 (13.0-17.0) gm/dL Hct 47.9 (39.0-51.0) % MCV 90.3 (80.0-100.0) fL MCH 29.9 (27.0-34.0) pg MCHC 33.1 (32.0-36.0) % RDW 15.0 (11.6-17.2) % Plt Count 185 (150-450) th/mm3 MPV 9.0 (7.0-11.0) fL Neut % (Auto) 89.7 H (16.0-70.0) % Lymph % (Auto) 8.2 L (9.0-44.0) % [place] % (Auto) 2.0 (0.0-8.0) % Eos % (Auto) 0.0 (0.0-4.0) % Baso % (Auto) 0.1 (0.0-2.0) % Neut # (Auto) 7.3 (1.8-7.7) th/mm3 Lymph # (Auto) 0.7 L (1.0-4.8) th/mm3 [place] # (Auto) 0.2 (0.0-0.9) th/mm3 Eos # (Auto) 0.0 (0.0-0.4) th/mm3 Baso # (Auto) 0.0 (0.0-0.2) th/mm3 WBC Differential . Differential Comment Auto diff final PT (9.8-11.6) sec INR Ratio APTT (24.3-30.1) sec Sodium (136-145) meq/L Potassium (3.5-5.1) meq/L Chloride (98-107) meq/L Carbon Dioxide (21.0-32.0) meq/L Anion Gap (5-15) meq/L BUN (7-18) mg/dL Creatinine (0.60-1.30) mg/dL Estimated GFR (>89) mL/min POC Glucose (68-110) mg/dl Random Glucose (74-106) mg/dL Calcium (8.5-10.1) mg/dL Magnesium 2.4 (1.5-2.5) mg/dL Total Bilirubin (0.2-1.0) mg/dL AST (15-37) U/L ALT (12-78) U/L Alkaline Phosphatase (45-117) U/L Total Creatine Kinase 97 (39-308) U/L Troponin I (0.02-0.05) ng/mL B-Natriuretic Peptide 1012 H (0-100) pg/mL Total Protein (6.4-8.2) g/dL Albumin (3.4-5.0) g/dL 12/28/17 12/28/17 12/28/17 Range/Units 06:15 08:34 13:27 WBC (4.0-11.0) th/mm3 RBC (4.50-5.90) mil/mm3 Hgb (13.0-17.0) gm/dL Hct (39.0-51.0) % MCV (80.0-100.0) fL MCH (27.0-34.0) pg MCHC (32.0-36.0) % RDW (11.6-17.2) % Plt Count (150-450) th/mm3 MPV (7.0-11.0) fL Neut % (Auto) (16.0-70.0) % Lymph % (Auto) (9.0-44.0) % [place] % (Auto) (0.0-8.0) % Eos % (Auto) (0.0-4.0) % Baso % (Auto) (0.0-2.0) % Neut # (Auto) (1.8-7.7) th/mm3 Lymph # (Auto) (1.0-4.8) th/mm3 [place] # (Auto) (0.0-0.9) th/mm3 Eos # (Auto) (0.0-0.4) th/mm3 Baso # (Auto) (0.0-0.2) th/mm3 WBC Differential Differential Comment PT (9.8-11.6) sec INR Ratio APTT (24.3-30.1) sec Sodium 142 (136-145) meq/L Potassium 3.9 (3.5-5.1) meq/L Chloride 107 (98-107) meq/L Carbon Dioxide 26.2 (21.0-32.0) meq/L Anion Gap 9 (5-15) meq/L BUN 19 H (7-18) mg/dL Creatinine 1.68 H (0.60-1.30) mg/dL Estimated GFR 42 L (>89) mL/min POC Glucose 171 H 152 H (68-110) mg/dl Random Glucose 163 H (74-106) mg/dL Calcium 9.1 (8.5-10.1) mg/dL Magnesium (1.5-2.5) mg/dL Total Bilirubin 0.7 (0.2-1.0) mg/dL AST 14 L (15-37) U/L ALT 23 (12-78) U/L Alkaline Phosphatase 62 (45-117) U/L Total Creatine Kinase (39-308) U/L Troponin I (0.02-0.05) ng/mL B-Natriuretic Peptide (0-100) pg/mL Total Protein 7.2 (6.4-8.2) g/dL Albumin 3.7 (3.4-5.0) g/dL 12/28/17 12/28/17 12/29/17 Range/Units 17:11 20:59 06:07 WBC (4.0-11.0) th/mm3 RBC (4.50-5.90) mil/mm3 Hgb (13.0-17.0) gm/dL Hct (39.0-51.0) % MCV (80.0-100.0) fL MCH (27.0-34.0) pg MCHC (32.0-36.0) % RDW (11.6-17.2) % Plt Count (150-450) th/mm3 MPV (7.0-11.0) fL Neut % (Auto) (16.0-70.0) % Lymph % (Auto) (9.0-44.0) % [place] % (Auto) (0.0-8.0) % Eos % (Auto) (0.0-4.0) % Baso % (Auto) (0.0-2.0) % Neut # (Auto) (1.8-7.7) th/mm3 Lymph # (Auto) (1.0-4.8) th/mm3 [place] # (Auto) (0.0-0.9) th/mm3 Eos # (Auto) (0.0-0.4) th/mm3 Baso # (Auto) (0.0-0.2) th/mm3 WBC Differential Differential Comment PT (9.8-11.6) sec INR Ratio APTT (24.3-30.1) sec Sodium 144 (136-145) meq/L Potassium 4.0 (3.5-5.1) meq/L Chloride 106 (98-107) meq/L Carbon Dioxide 29.9 (21.0-32.0) meq/L Anion Gap 8 (5-15) meq/L BUN 23 H (7-18) mg/dL Creatinine 1.72 H (0.60-1.30) mg/dL Estimated GFR 41 L (>89) mL/min POC Glucose 113 H 180 H (68-110) mg/dl Random Glucose 121 H (74-106) mg/dL Calcium 8.8 (8.5-10.1) mg/dL Magnesium (1.5-2.5) mg/dL Total Bilirubin (0.2-1.0) mg/dL AST (15-37) U/L ALT (12-78) U/L Alkaline Phosphatase (45-117) U/L Total Creatine Kinase (39-308) U/L Troponin I (0.02-0.05) ng/mL B-Natriuretic Peptide (0-100) pg/mL Total Protein (6.4-8.2) g/dL Albumin (3.4-5.0) g/dL 12/29/17 12/29/17 12/29/17 Range/Units 07:45 10:21 11:58 WBC (4.0-11.0) th/mm3 RBC (4.50-5.90) mil/mm3 Hgb (13.0-17.0) gm/dL Hct (39.0-51.0) % MCV (80.0-100.0) fL MCH (27.0-34.0) pg MCHC (32.0-36.0) % RDW (11.6-17.2) % Plt Count (150-450) th/mm3 MPV (7.0-11.0) fL Neut % (Auto) (16.0-70.0) % Lymph % (Auto) (9.0-44.0) % [place] % (Auto) (0.0-8.0) % Eos % (Auto) (0.0-4.0) % Baso % (Auto) (0.0-2.0) % Neut # (Auto) (1.8-7.7) th/mm3 Lymph # (Auto) (1.0-4.8) th/mm3 [place] # (Auto) (0.0-0.9) th/mm3 Eos # (Auto) (0.0-0.4) th/mm3 Baso # (Auto) (0.0-0.2) th/mm3 WBC Differential Differential Comment PT (9.8-11.6) sec INR Ratio APTT (24.3-30.1) sec Sodium (136-145) meq/L Potassium (3.5-5.1) meq/L Chloride (98-107) meq/L Carbon Dioxide (21.0-32.0) meq/L Anion Gap (5-15) meq/L BUN (7-18) mg/dL Creatinine (0.60-1.30) mg/dL Estimated GFR (>89) mL/min POC Glucose 119 H 136 H (68-110) mg/dl Random Glucose (74-106) mg/dL Calcium (8.5-10.1) mg/dL Magnesium (1.5-2.5) mg/dL Total Bilirubin (0.2-1.0) mg/dL AST (15-37) U/L ALT (12-78) U/L Alkaline Phosphatase (45-117) U/L Total Creatine Kinase (39-308) U/L Troponin I (0.02-0.05) ng/mL B-Natriuretic Peptide 313 H (0-100) pg/mL Total Protein (6.4-8.2) g/dL Albumin (3.4-5.0) g/dL Imaging Data Radiologist's impression: Chest X-Ray 12/27/17 18:19 CONCLUSION: Stable appearance with no acute cardiopulmonary disease. Discharge Plan Discharge Disposition Patient Disposition: 01 Discharge Home Discharge Condition Condition: Good Discharge Order Discharge Orders: Discharge Order (Routine); Ordered 12/29/17 Ordered By: Wilfredo Edmond Discharge Details Anticipated Discharge Date: 12/29/17 Physicians Team ED Provider: Jr Horner Primary Care Provider: Duglas Sloan III Attending Provider: Wilfredo Edmond Status ED Status: Left Department Discharge Information Discharge Date/Time: 12/28/17 01:57
[2017-12-28] MEDS ORDERED: Temazepam 15 MG Capsule PO PRN (00:17)
[2017-12-28] MEDS ORDERED: Bisacodyl 10 MG Supp RECTAL PRN (00:17)
[2017-12-28] MEDS ORDERED: hydrALAZINE HCl Inj 20 MG/ML Vial IV.PUSH ONE (00:17)
[2017-12-28] MEDS ORDERED: Dextrose 50% in Water 50 ML Vial IV.PUSH PRN (00:19)
--- NOTE | 2017-12-28 02:11 | P.HPIM ---
History of Present Illness Primary Care Physician: Duglas Sloan III, MD History of Present Illness: This is a 57-year-old male with a PMH of HTN, CHF (Echo 08/22/2017 with EF 45%), COPD, O2 Dependent, Tobacco Abuse and DM who presented to the ER with complaints of SOB, cough and wheezing. Recent admit 12/13-12/15/17 for similar symptoms, d/c'd on Lasix, Coreg, Losartan, Symbicort and Spiriva, however states he's been off his medications for several days because he ran out. Denies chest pain, fever or chills. On arrival, BP 187/110, HR 80, O2 sat 98% on 3.5L NC, Afebrile. CBC unremarkable. INR 1.0. Creatinine 1.62, previously 1.35 on 12/02/2017. BNP 1000. CXR stable appearance. S/p Lasix, DuoNeb and Clonidine in ER w/ improvement. - Diagnosis (1) CHF (congestive heart failure) (2) HTN (hypertension) (3) COPD (chronic obstructive pulmonary disease) (4) DM (diabetes mellitus) Review of Systems All other systems reviewed negative except as stated in HPI PMFSH - History History Provided By: Patient, Insulation Hoseman / EMT - Medical History Medical History: Medical History (Last Updated 12/27/17 @ 18:10 by Diann Mcnally) History of cervical fracture (Acute) Cervical spine fracture (Acute) CVA (cerebral vascular accident) (Acute) Hypercholesteremia (Acute) Diabetes (Acute) CHF (congestive heart failure) (Acute) HTN (hypertension) (Acute) COPD (chronic obstructive pulmonary disease) (Acute) - Surgical History Surgical History: Surgical History (Last Updated 12/27/17 @ 18:10 by Diann Mcnally) Status post right knee replacement (Acute) - Family History Family History: Family History (Last Updated 12/14/17 @ 08:55 by AMENA Burns) Mother Family history of diabetes mellitus Father Family history of cancer - Tobacco History Second Hand Smoke Exposure: No Tobacco Use In Past 30 Days: No Smoking Status: Never smoker Tobacco Type: Cigarettes Packs Per Day: 1 - Alcohol History How Often Do You Have a Drink Containing Alcohol: Never - Substance Use History Substance History: No History of Abuse, Unable to Obtain - Travel History Recent Travel in the [place] Within the Last 8 Weeks: No Recent Travel Out of the Country Within the Last 8 Weeks: No - Immunization History Tetanus Immunization: Unable to Assess Hx Influenza Vaccine This Season: Unable to Assess Medications and Allergies Active Medications: Active Medications Al Hydroxide/Mg Hydroxide (Milk Of Magnesia Liq) 30 ml PO Q12H PRN PRN Reason: Mild Constipation Albuterol (Duoneb Neb (Prn)) 1 ampul NEB Q4HR NEB PRN PRN Reason: SOB/WHEEZING Aspirin (Ecotrin) 81 mg PO DAILY [facility] Atorvastatin Calcium (Lipitor) 40 mg PO DAILY [facility] Bisacodyl (Dulcolax Supp) 10 mg RECTAL DAILY PRN PRN Reason: SEVERE CONSITIPATION Budesonide/Formoterol Fumarate (Symbicort 160/4.5 Mcg Inh) 2 puff INH BID [facility] Carvedilol (Coreg) 3.125 mg PO BID [facility] Clonidine HCl (Catapres) 0.2 mg PO BID [facility] Dextrose (D50w Vial) 50 ml IV.PUSH UNSCH PRN PRN Reason: PER HYPOGLYCEMIA PROTOCOL Furosemide (Lasix Inj) 40 mg IV.PUSH BID@0900,1800 [facility] Glucagon (Glucagon Inj) 1 mg OTHER PRN PRN PRN Reason: for Hypoglycemia Protocol Heparin Sodium (Porcine) (Heparin Inj) 5,000 units SQ Q12H [facility] Insulin Aspart (Novolog Insulin Correctional Sugar Inj) 0 unit SQ ACHS [facility]; Protocol Lactulose (Lactulose Liq) 30 ml PO DAILY PRN PRN Reason: SEVERE CONSITIPATION Lisinopril (Prinivil) 40 mg PO DAILY [facility] Nitroglycerin (Nitro-Bid 2% Oint) 0.5 inch TOPICAL Q6HR PRN PRN Reason: CHEST PAIN Ondansetron HCl (Zofran Inj) 4 mg IV.PUSH Q6H PRN PRN Reason: NAUSEA OR VOMITING Senna/Docusate Sodium ([place]-Colace) 1 tab PO BID [facility] Sennosides (Senokot) 17.2 mg PO Q12H PRN PRN Reason: Moderate Constipation Temazepam (Restoril) 15 mg PO HS PRN PRN Reason: INSOMNIA Tiotropium [place] (Spiriva 18 Mcg Inh) 18 mcg INH DAILY [facility] Trazodone HCl (Desyrel) 100 mg PO DAILY [facility] Allergies Allergy/AdvReac Type Severity Reaction Status Date / Time diatrizoate meglumine Allergy Severe Itching Verified 12/02/17 00:14 gadobenic acid Allergy Severe Itching Verified 12/02/17 00:14 gadodiamide Allergy Severe Itching Verified 12/02/17 00:14 gadoteridol Allergy Severe Itching Verified 12/02/17 00:14 iodixanol Allergy Severe Itching Verified 12/02/17 00:14 iohexol Allergy Severe Itching Verified 12/02/17 00:14 Iodinated Contrast- Oral and Allergy Unknown Hypotension Verified 12/27/17 18:19 IV Dye acetaminophen AdvReac Unknown Nausea/Vomi Verified 12/02/17 00:14 ting Home Medications Medication Instructions Recorded Confirmed Type aspirin 81 mg PO DAILY 12/27/17 12/27/17 History atorvastatin 40 mg PO DAILY 12/27/17 12/27/17 History budesonide-formoterol [Symbicort] 2 puff INHALATION BID 12/27/17 12/27/17 History clonidine HCl [Catapres] 0.2 mg PO BID 12/27/17 12/27/17 History furosemide [Lasix] 40 mg PO DAILY 12/27/17 12/27/17 History lisinopril 40 mg PO DAILY 12/27/17 12/27/17 History metformin 500 mg PO BID 12/27/17 12/27/17 History metoprolol tartrate 25 mg PO DAILY 12/27/17 12/27/17 History potassium chloride 10 meq PO DAILY 12/27/17 12/27/17 History trazodone 100 mg PO DAILY 12/27/17 12/27/17 History Exam Vital signs: Vital Signs 12/27/17 18:08 12/27/17 20:10 12/27/17 22:48 Temperature 98.1 F Pulse Rate 80 88 76 Respiratory Rate 22 18 17 Blood Pressure 187/110 H 181/122 H 180/87 H Pulse Oximetry 98 97 12/28/17 00:29 12/28/17 00:40 12/28/17 00:45 Temperature Pulse Rate 68 69 68 Respiratory Rate 18 20 Blood Pressure 167/100 H Pulse Oximetry 98 98 12/28/17 00:52 Temperature Pulse Rate 72 Respiratory Rate 20 Blood Pressure 158/91 H Pulse Oximetry 96 Intake & Output 12/27/17 12/27/17 12/28/17 06:59 18:59 06:59 Output Total 3000 / 3000 Balance -3000 / -3000 Weight 120 kg Output: Urine 3000 / 3000 Narrative: PE: GENERAL: Middle-aged white male in no acute distress. Resting comfortably peer HEENT: PERRLA, EOMI. No scleral icterus or conjunctival pallor. No lid lag or facial droop. CARDIOVASCULAR: Regular rate and rhythm. No obvious murmurs to auscultation. No chest tenderness to palpation. RESPIRATORY: No obvious rhonchi, occasional wheezing. Clear to auscultation. Breath sounds equal bilaterally. GASTROINTESTINAL: Abdomen soft, non-tender, nondistended. BS normal. MUSCULOSKELETAL: Extremities without clubbing, cyanosis, or edema. No obvious deformities. NEUROLOGICAL: Awake, alert and oriented x4. No focal neurologic deficits. Moving both upper and lower extremities spontaneously. Results - Labs CBC & Chem 7: 12/27/17 18:50 12/27/17 18:50 Labs: Short CBC 12/27/17 Range/Units 18:50 WBC 8.4 (4.0-11.0) th/mm3 Hgb 15.0 (13.0-17.0) gm/dL Hct 45.5 (39.0-51.0) % Plt Count 178 (150-450) th/mm3 BMP 12/27/17 18:50 Sodium 147 H Potassium 3.8 Chloride 112 H Carbon Dioxide 26.4 BUN 18 Creatinine 1.62 H Calcium 8.8 Cardiac Enzymes 12/27/17 12/27/17 Range/Units 18:50 18:50 Total Creatine Kinase 97 (39-308) U/L Troponin I 0.03 (0.02-0.05) ng/mL Liver Function 12/27/17 Range/Units 18:50 Total Bilirubin 0.6 (0.2-1.0) mg/dL AST 9 L (15-37) U/L ALT 23 (12-78) U/L Alkaline Phosphatase 59 (45-117) U/L Albumin 3.5 (3.4-5.0) g/dL - Imaging Impressions Chest X-Ray 12/27/17 18:19 CONCLUSION: Stable appearance with no acute cardiopulmonary disease. Caprini VTE Risk Assessment Caprini VTE Risk Assessment: No/Low Risk (score <= 1) Caprini Risk Assessment Model: Point Value = 1 Point Value = 2 Point Value = 3 Point Value = 5 Age 41-60 Minor surgery BMI > 25 kg/m2 Swollen legs Varicose veins or History of unexplained or recurrent spontaneous Oral contraceptives or hormone replacement Sepsis (< 1 month) Serious lung disease, including pneumonia (< 1 month) Abnormal pulmonary function Acute myocardial infarction Congestive heart failure (< 1 month) History of inflammatory bowel disease Medical patient at bed rest Age 61-74 Arthroscopic surgery Major open surgery (> 45 min) Laparoscopic surgery (> 45 min) Malignancy Confined to bed (> 72 hours) Immobilizing plaster cast Central venous access Age >= 75 History of VTE Family history of VTE Factor V Leiden Prothrombin [id number] Lupus anticoagulant Anticardiolipin antibodies Elevated serum homocysteine Heparin-induced thrombocytopenia Other congenital or acquired thrombophilia Stroke (< 1 month) Elective arthroplasty Hip, pelvis, or leg fracture Acute spinal cord injury (< 1 month) Prophylaxis Regimen: Total Risk Factor Score Risk Level Prophylaxis Regimen 0-1 Low Early ambulation 2 Moderate Order ONE of the following: *Sequential Compression Device (SCD) *Heparin 5000 units SQ BID 3-4 Higher Order ONE of the following medications: *Heparin 5000 units SQ TID *Enoxaparin/Lovenox 40 mg SQ daily (WT < 150 kg, CrCl > 30 mL/min) *Enoxaparin/Lovenox 30 mg SQ daily (WT < 150 kg, CrCl > 10-29 mL/min) *Enoxaparin/Lovenox 30 mg SQ BID (WT < 150 kg, CrCl > 30 mL/min) AND/OR *Sequential Compression Device (SCD) 5 or more Highest Order ONE of the following medications: *Heparin 5000 units SQ TID (Preferred with Epidurals) *Enoxaparin/Lovenox 40 mg SQ daily (WT < 150 kg, CrCl > 30 mL/min) *Enoxaparin/Lovenox 30 mg SQ daily (WT < 150 kg, CrCl > 10-29 mL/min) *Enoxaparin/Lovenox 30 mg SQ BID (WT < 150 kg, CrCl > 30 mL/min) AND *Sequential Compression Device (SCD) Assessment and Plan - Assessment (1) CHF (congestive heart failure) Code(s): I50.9 - Heart failure, unspecified Status: Acute (2) HTN (hypertension) Code(s): I10 - Essential (primary) hypertension Status: Acute (3) COPD (chronic obstructive pulmonary disease) Code(s): J44.9 - Chronic obstructive pulmonary disease, unspecified Status: Acute (4) DM (diabetes mellitus) Code(s): E11.9 - Type 2 diabetes mellitus without complications Status: Acute - Plan A/P: 1. CHF: Acute on Chronic. Systolic. Due to non-compliance. Echo 08/22/17 w/ EF 45%, states off Lasix for several days since he ran out. BNP 1012, increased in comparison to previous visits. CXR w/ no significant findings, images reviewed. S/p Lasix in ER, continue w/ Lasix 40mg IV bid, monitor I/O. 2. COPD: Chronic Respiratory Failure w/ Acute Exacerbation. Moderate. Wheezing on exam. Solu-Medrol, DuoNeb, Symbicort, resume home Spiriva, Non- compliant w/ meds-stressed importance of taking his medications as prescribed. 3. HTN: Uncontrolled. Secondary to non-compliance compounded by SOB. S/p Clonidine and Lisinopril in ER, monitor BP, antihypertensives as needed for BP > 180, resume home medications. 4. DM: Sliding scale w/ Accu-Cheks. 5. DVT Prophylaxis: SCD/Teds 6. Social work for d/c planning as needed 7. Case discussed w/ ER physician at length, labs/records/imaging reviewed by me. (1) CHF (congestive heart failure) Qualifiers:
[2017-12-28 07:29] LABS: Baso % (Auto) 0.1 % (0.0-2.0); Hematocrit 47.9 % (39.0-51.0); Hemoglobin 15.8 gm/dL (13.0-17.0); Lymph # (Auto) 0.7 th/mm3 (1.0-4.8); Lymph % (Auto) 8.2 % (9.0-44.0); Mean Corpuscular HGB Conc 33.1 % (32.0-36.0); Mean Corpuscular Hemoglobin 29.9 pg (27.0-34.0); Mean Corpuscular Volume 90.3 fL (80.0-100.0); Mono # (Auto) 0.2 th/mm3 (0.0-0.9); Neut # (Auto) 7.3 th/mm3 (1.8-7.7); Neut % (Auto) 89.7 % (16.0-70.0); Platelet Count 185 th/mm3 (150-450); White Blood Count 8.1 th/mm3 (4.0-11.0)
[2017-12-28 07:45] LABS: Albumin 3.7 g/dL (3.4-5.0); Anion Gap 9 meq/L (5-15); Aspartate Aminotransferase 14 U/L (15-37); Blood Urea Nitrogen 19 mg/dL (7-18); Calcium 9.1 mg/dL (8.5-10.1); Carbon Dioxide 26.2 meq/L (21.0-32.0); Chloride 107 meq/L (98-107); Glomerular Filtration Rate 42 mL/min (>89); Glucose,Random 163 mg/dL (74-106); Potassium 3.9 meq/L (3.5-5.1); Sodium 142 meq/L (136-145)
[2017-12-28 07:46] LABS: Alanine Aminotransferase 23 U/L (12-78)
[2017-12-28 07:49] LABS: Alkaline Phosphatase 62 U/L (45-117); Total Protein 7.2 g/dL (6.4-8.2)
[2017-12-28] MEDS ORDERED: traZODone 100 MG Tablet PO SCH (09:00)
[2017-12-28] MEDS ORDERED: Budesonide-Formoterol 160/4.5 MCG 6 GM Inhaler INH SCH (09:00)
[2017-12-28] MEDS: Tiotropium Bromide 18 MCG/ACT Inhaler INH SCH (10:30)
[2017-12-28] MEDS: Insulin NovoLOG Aspart Correctional Sugar Inj SQ SCH ×4 (10:32→21:07)
[2017-12-28] MEDS: Heparin - SQ 10,000 UNITS/ML Vial SQ SCH ×2 (10:32→20:55)
[2017-12-28] MEDS: Senna/Docusate Sodium 8.6/50 MG Tablet PO SCH ×2 (10:34→20:57)
[2017-12-28] MEDS: Lisinopril 20 MG Tablet PO SCH (10:34)
--- NOTE | 2017-12-28 15:34 | ECG ---
Date Performed: 12/27/2017 Time Performed: 18:11:08 PTAGE: 57 years EKG: Sinus rhythm WITH OCCASIONAL SUPRAVENTRICULAR PREMATURE COMPLEXES NONSPECIFIC T-WAVE ABNORMALITY ABNORMAL ECG Com pared to PREVIOUS TRACING , PACs are new, otherwise no significant change. PREVIOUS TRACIN12/13 23.11 DOCTOR: Kam Martínez Interpretating Date/Time 12/28/2017 15:34:08
[2017-12-28] MEDS: Budesonide-Formoterol 80/4.5 MCG 6.9 GM Inhaler INH SCH (22:08)
[2017-12-29 06:32] LABS: Calcium 8.8 mg/dL (8.5-10.1); Carbon Dioxide 29.9 meq/L (21.0-32.0)
[2017-12-29 07:29] VITALS: RESP 18
[2017-12-29] MEDS: Insulin NovoLOG Aspart Correctional Sugar Inj SQ SCH ×2 (07:53→12:01)
[2017-12-29] MEDS: Senna/Docusate Sodium 8.6/50 MG Tablet PO SCH (08:36)
[2017-12-29] MEDS: Heparin - SQ 10,000 UNITS/ML Vial SQ SCH (08:37)
[2017-12-29] MEDS: Lisinopril 20 MG Tablet PO SCH (08:38)
[2017-12-29] MEDS: Tiotropium Bromide 18 MCG/ACT Inhaler INH SCH (08:58)
[2017-12-29] MEDS: Budesonide-Formoterol 80/4.5 MCG 6.9 GM Inhaler INH SCH (09:00)
--- NOTE | 2017-12-29 09:29 | P.PNIM ---
Subjective Interval history: Says he is feeling on the little better today. Still short of breath with exertion. 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 He is not interested in cessation counseling at all. Patient also reports that he is on Adderall for ADHD. Patient also asks if there is security cameras to watch for people smoking. I advised him strongly that he is not to smoke Physical Exam Vital signs: Vital Signs 12/28/17 11:14 12/28/17 12:21 12/28/17 15:04 Temperature 97.6 F 97.6 F Pulse Rate 66 67 60 Respiratory Rate 20 16 18 Blood Pressure 132/78 131/79 125/71 Pulse Oximetry 97 97 96 12/28/17 19:00 12/28/17 19:26 12/28/17 22:49 Temperature 98.1 F 98.7 F Pulse Rate 68 63 Respiratory Rate 16 16 Blood Pressure 126/81 122/84 Pulse Oximetry 98 98 99 12/29/17 03:06 12/29/17 07:28 Temperature 98.1 F 98.3 F Pulse Rate 61 68 Respiratory Rate 17 18 Blood Pressure 128/77 127/91 H Pulse Oximetry 97 99 Intake & Output 12/28/17 12/29/17 12/29/17 18:59 06:59 18:59 Intake Total 1320 / 1320 240 / 240 Output Total 1949 1100 / 1100 Balance -630 / -630 -860 / -860 Weight 119 kg 120 kg Intake: Oral 1320 / 1320 240 / 240 Output: Urine 1949 1100 / 1100 Other: # Voids 2 Weight On Admission 119 kg Narrative: GENERAL: Patient lying in bed. Appears comfortable. Initially has oxygen on when I see him, however several months later oxygen as often is walking around the room without difficulty. SKIN: Warm and dry. HEAD: Normocephalic. EYES: No scleral icterus. No injection or drainage. NECK: Supple, trachea midline. No JVD or lymphadenopathy. CARDIOVASCULAR: Regular rate and rhythm without murmurs, gallops, or rubs. RESPIRATORY: Breath sounds equal bilaterally. No accessory muscle use. GASTROINTESTINAL: Abdomen soft, non-tender, nondistended. MUSCULOSKELETAL: No cyanosis, or edema. BACK: Nontender without obvious deformity. No CVA tenderness. Results - Labs CBC & Chem 7: 12/28/17 06:15 12/29/17 06:07 Laboratory Results - last 24 hr 12/28/17 12/28/17 12/28/17 13:27 17:11 20:59 Sodium Potassium Chloride Carbon Dioxide Anion Gap BUN Creatinine Estimated GFR POC Glucose 152 H 113 H 180 H Random Glucose Calcium 12/29/17 12/29/17 06:07 07:45 Sodium 144 Potassium 4.0 Chloride 106 Carbon Dioxide 29.9 Anion Gap 8 BUN 23 H Creatinine 1.72 H Estimated GFR 41 L POC Glucose 119 H Random Glucose 121 H Calcium 8.8 Assessment and Plan - Assessment (1) CHF (congestive heart failure) Code(s): I50.9 - Heart failure, unspecified Status: Acute (2) HTN (hypertension) Code(s): I10 - Essential (primary) hypertension Status: Acute (3) COPD (chronic obstructive pulmonary disease) Code(s): J44.9 - Chronic obstructive pulmonary disease, unspecified Status: Acute (4) DM (diabetes mellitus) Code(s): E11.9 - Type 2 diabetes mellitus without complications Status: Acute - Plan //CHF: Acute on Chronic. Systolic. Due to non-compliance. Echo 08/22/17 w/ EF 45%, states off Lasix for several days since he ran out. BNP 1012, increased in comparison to previous visits. CXR w/ no significant findings, images reviewed. S/p Lasix in ER, continue w/ Lasix 40mg IV bid, monitor I/O. = Continue diuresis. Creatinine 1.7. Relatively stable. Continue to monitor. Repeat BNP. // COPD: Chronic Respiratory Failure w/ Acute Exacerbation. Moderate. Wheezing on exam. Solu-Medrol, DuoNeb, Symbicort, resume home Spiriva, Non- compliant w/ meds-stressed importance of taking his medications as prescribed. = Continue Solu-Medrol, nebs. // HTN: Uncontrolled. Secondary to non-compliance compounded by SOB. S/p Clonidine and Lisinopril in ER, monitor BP, antihypertensives as needed for BP > 180, resume home medications. //DM: Sliding scale w/ Accu-Cheks. //DVT Prophylaxis: SCD/Teds Discharge Planning: Discharge when improved. PT consult pending. (1) CHF (congestive heart failure) Qualifiers:
[2017-12-29 11:58] VITALS: BP 123/86; PULSE 59; TEMP 97.9; O2SAT 93
[2017-12-29] MEDS ORDERED: traZODone 100 MG Tablet PO SCH (21:00)
== END 2017-12-29 15:45 | disposition home or self-care (01) ==
LOC: NEPC 18:01 → NEDA 18:01 → NEPFCDU 18:01
PROVIDERS: ADMIT Internal Medicine; ATTEND Internal Medicine

== ENCOUNTER 2018-01-29 22:11 | Observation (INO) ==
--- NOTE | 2018-01-29 22:51 | XR ---
EXAM DATE: 01/29/2018 10:48 PM EDT AGE/SEX: 57 years / Male INDICATIONS: Dysphagia CLINICAL DATA: This is the patient's initial encounter. Patient reports that signs and symptoms have been present for 1 day and indicates a pain score of 0/10. MEDICAL/SURGICAL HISTORY: Hypertension. Chronic obstructive pulmonary disease. Congestive heart failure. Diabetes. Myocardial infarction. CVA. .. None. COMPAR[place]: [facility] [place]27/2017. . FINDINGS: Cardiomegaly is stable from prior. There is a new ill-defined area of opacity at the left lung base w ith loss of delineation of portions of the left hemidiaphragm suggesting a nonconsolidative infiltrat e. The right lung is clear. The central bronchopulmonary markings are well delineated. CONCLUSION: Subsegmental nonconsolidative infiltrate left lung base. Electronically signed by: Pepe Harper MD 01/29/2018 10:50 PM EDT
[2018-01-29] MEDS ORDERED: Azithromycin Inj 500 MG in Sodium Chlor 0.9% Inj 250 ML IV.SIG ONE (22:53)
[2018-01-29] MEDS ORDERED: MethylPREDNISolone Sod Succinate Inj 125 MG/2 ML Vial IV.PUSH ONE (22:53)
[2018-01-29 23:15] LABS: Baso % (Auto) 0.4 % (0.0-2.0); Eos # (Auto) 0.1 th/mm3 (0.0-0.4); Hematocrit 46.4 % (39.0-51.0); Hemoglobin 15.6 gm/dL (13.0-17.0); Lymph % (Auto) 17.3 % (9.0-44.0); Mean Corpuscular HGB Conc 33.5 % (32.0-36.0); Mean Corpuscular Volume 89.4 fL (80.0-100.0); Mean Platelet Volume 9.3 fL (7.0-11.0); Mono # (Auto) 0.9 th/mm3 (0.0-0.9); Mono % (Auto) 7.6 % (0.0-8.0); Neut # (Auto) 8.3 th/mm3 (1.8-7.7); Neut % (Auto) 73.7 % (16.0-70.0); Platelet Count 168 th/mm3 (150-450); Red Blood Count 5.19 mil/mm3 (4.50-5.90); Red Cell Distribution Width 14.6 % (11.6-17.2); White Blood Count 11.3 th/mm3 (4.0-11.0)
[2018-01-29 23:16] LABS: INR 1.1 Ratio; Prothrombin Time 10.8 sec (9.8-11.6)
[2018-01-29 23:17] LABS: Alanine Aminotransferase 29 U/L (12-78); Albumin 3.8 g/dL (3.4-5.0); Anion Gap 8 meq/L (5-15); Aspartate Aminotransferase 14 U/L (15-37); Blood Urea Nitrogen 14 mg/dL (7-18); Calcium 8.5 mg/dL (8.5-10.1); Chloride 109 meq/L (98-107); Glomerular Filtration Rate 43 mL/min (>89); Glucose,Random 152 mg/dL (74-106); Potassium 3.5 meq/L (3.5-5.1); Sodium 143 meq/L (136-145)
[2018-01-29 23:20] LABS: Alkaline Phosphatase 66 U/L (45-117); Total Protein 7.7 g/dL (6.4-8.2); Troponin I 0.05 ng/mL (0.02-0.05)
--- NOTE | 2018-01-30 00:09 | ED ---
HPI General Chief Complaint: Shortness of Breath/Dyspnea Stated Complaint: respiratory Time Seen by Provider: 01/29/18 22:25 Source: patient Mode of arrival: ambulatory Limitations: no limitations History of Present Illness 57-year-old man who presents with 2 days of increasing dyspnea. His shortness of breath is especially bad with exertion but it is present even at rest. Patient also notes that he has much difficulty lying flat due to orthopnea. He typically sits upright in a car seat when he tries to sleep. He denies chest pain but describes the congestion in his chest as "like a vice was wrapped around it." He has a chronic nonproductive cough. He denies hemoptysis. He states that his legs are both swollen but it is not worse than typical. He claims compliance with all medications including his diuretics and antihypertensives and his respiratory inhalers. However he told me that he drinks a large volume of water in this due to heat exposure. Patient denies fever and chills. States he has been hospitalized at least 5 times in the past year for various respiratory complaints. MD Complaint: shortness of breath Onset (ago): day(s) (two) Related Data Home Medications Medication Instructions Recorded Confirmed trazodone 100 mg PO HS PRN 12/27/17 01/29/18 aspirin 325 mg PO DAILY 01/29/18 01/29/18 atorvastatin [Lipitor] 01/29/18 clonidine HCl 0.3 mg PO BID 01/29/18 01/29/18 clorazepate dipotassium 3.75 mg PO PRN PRN 01/29/18 01/29/18 cyclobenzaprine 10 mg PO BID 01/29/18 01/29/18 dextroamphetamine-amphetamine 10 mg PO DAILY 01/29/18 01/29/18 [Adderall XR] fluticasone-salmeterol [Advair 01/29/18 Diskus] furosemide [Lasix] 40 mg PO DAILY 01/29/18 01/29/18 gabapentin 800 mg PO HS 01/29/18 01/29/18 lisinopril 40 mg PO DAILY 01/29/18 01/29/18 metformin 1,000 mg PO DAILY 01/29/18 01/29/18 metoprolol tartrate 50 mg PO DAILY 01/29/18 01/29/18 oxycodone-acetaminophen 1 tab PO Q4-6H PRN 01/29/18 01/29/18 Previous Rx's Medication Instructions Recorded potassium chloride 10 meq PO DAILY #30 tab 12/29/17 sitagliptin [Januvia] 50 mg PO DAILY #30 tab 12/29/17 tiotropium bromide [Spiriva with 18 mcg INH DAILY #1 inh 12/29/17 HandiHaler] Allergies Allergy/AdvReac Type Severity Reaction Status Date / Time diatrizoate meglumine Allergy Severe Itching Verified 12/02/17 00:14 gadobenic acid Allergy Severe Itching Verified 12/02/17 00:14 gadodiamide Allergy Severe Itching Verified 12/02/17 00:14 gadoteridol Allergy Severe Itching Verified 12/02/17 00:14 iodixanol Allergy Severe Itching Verified 12/02/17 00:14 iohexol Allergy Severe Itching Verified 12/02/17 00:14 Iodinated Contrast- Oral and Allergy Unknown Hypotension Verified 12/27/17 18:19 IV Dye acetaminophen AdvReac Unknown Nausea/Vomi Verified 12/02/17 00:14 ting Review of Systems ROS: all other systems reviewed are negative Cardiovascular Denies chest pain, Reports leg edema, Reports dyspnea, Reports dyspnea on exertion and Reports orthopnea Respiratory Reports chest congestion, Reports cough, Denies hemoptysis, Denies pain on inspiration, Reports dyspnea, Reports dyspnea on exertion and Reports wheezing PMFSH Medical History Medical History Heart attack (Acute) History of cervical fracture (Acute) Cervical spine fracture (Acute) CVA (cerebral vascular accident) (Acute) Hypercholesteremia (Acute) Diabetes (Acute) CHF (congestive heart failure) (Acute) HTN (hypertension) (Acute) Surgical History Surgical History Status post right knee replacement (Acute) Family History Family History Mother Family history of diabetes mellitus Father Family history of cancer Social History Social History Substance History: No History of Abuse Second Hand Smoke Exposure: No Smoking Status: Current every day smoker Tobacco Type: Cigarettes Packs Per Day: 1 Cigarettes Per Day: 20.0 How Often Do You Have a Drink Containing Alcohol: Never Recent Travel in [place] within the Last 8 Weeks: No Recent Out of Country Travel within the Last 8 Weeks: No Immunization History Tetanus Immunization: >5 Years Hx Influenza Vaccine This Season: No Exam Narrative Exam Narrative: GENERAL: 57-year-old man seated on exam stretcher in upright position in no acute distress but appears to have increased work of breathing. No companions at bedside with patient at time of my exam. SKIN: Focused skin assessment warm/dry. HEAD: Atraumatic. Normocephalic. EYES: Pupils equal and round. No scleral icterus. No injection or drainage. ENT: No nasal bleeding or discharge. Mucous membranes pink and moist. NECK: Trachea midline. Fleshy neck limits evaluation of JVD. CARDIOVASCULAR: Regular rate and rhythm. No murmur appreciated. 2+ radial pulses bilaterally and 2+ dorsalis pedis pulses bilaterally. RESPIRATORY: No accessory muscle use. Wheezes throughout in both lungs. Tachypneic. Breath sounds equal bilaterally. GASTROINTESTINAL: Abdomen soft, non-tender, nondistended. Obese abdomen. MUSCULOSKELETAL: No obvious deformities. No clubbing. No cyanosis. Bilateral 1 + pitting edema to the level of the knees. NEUROLOGICAL: Awake and alert. No obvious cranial nerve deficits. Motor grossly within normal limits. Normal speech. PSYCHIATRIC: Appropriate mood and affect; insight and judgment normal. Course Hospital Course: Patient received 2 doses of DuoNeb in the emergency department however he had persistent wheezing despite these treatments. Also received Solu-Medrol and azithromycin with the intention of treating inflammatory changes of COPD. Consultations Consultation #1: Spoke with Dr. Caceres in person regarding the patient's case. She will admit patient for further treatment of his COPD exacerbation. Initial Documented Vital Signs Temperature 98.4 F 01/29/18 22:13 Pulse Rate 103 H 01/29/18 22:13 Respiratory Rate 23 01/29/18 22:13 Blood Pressure 117/82 01/29/18 22:13 Pulse Oximetry 96 01/29/18 22:13 Last Documented Vital Signs Temperature 97.9 F 01/30/18 02:05 Pulse Rate 94 H 01/30/18 02:05 Respiratory Rate 20 01/30/18 02:05 Blood Pressure 145/105 H 01/30/18 02:05 Pulse Oximetry 95 01/30/18 02:05 Medical Decision Making MDM Narrative Medical decision making narrative: 57-year-old man with complicated past medical history who presents with what is most consistent with a COPD exacerbation. Although he is not in respiratory failure he does have tachypnea and mild increased work of breathing with prominent wheezing. Cardiac asthma is also a possible cause of his symptoms and signs, but I favor COPD exacerbation at this time. Review of chest x-ray is negative for significant pulmonary edema and I believe favors COPD exacerbation despite patient's elevated BNP. Given that he did not have response to DuoNeb treatments I think that he ought to be admitted to the hospital for further care and observation. I think that PE is a remote differential diagnosis in this clinical scenario and the patient is also allergic to CT iodine contrast; therefore will not order D dimer or further consider workup for PE at this time. Medical Screen Exam Complete: Yes Emergency Medical Condition: Yes Medical Records Medical records reviewed: Yes I reviewed the patient's medical records. Lab Data Lab results reviewed: Yes I reviewed the patient's lab results. Result diagrams: 01/29/18 22:43 01/29/18 22:43 Lab Results 01/29/18 01/29/18 01/29/18 Range/Units 22:43 22:43 22:43 WBC 11.3 H (4.0-11.0) th/mm3 RBC 5.19 (4.50-5.90) mil/mm3 Hgb 15.6 (13.0-17.0) gm/dL Hct 46.4 (39.0-51.0) % MCV 89.4 (80.0-100.0) fL MCH 30.0 (27.0-34.0) pg MCHC 33.5 (32.0-36.0) % RDW 14.6 (11.6-17.2) % Plt Count 168 (150-450) th/mm3 MPV 9.3 (7.0-11.0) fL Neut % (Auto) 73.7 H (16.0-70.0) % Lymph % (Auto) 17.3 (9.0-44.0) % [place] % (Auto) 7.6 (0.0-8.0) % Eos % (Auto) 1.0 (0.0-4.0) % Baso % (Auto) 0.4 (0.0-2.0) % Neut # (Auto) 8.3 H (1.8-7.7) th/mm3 Lymph # (Auto) 2.0 (1.0-4.8) th/mm3 [place] # (Auto) 0.9 (0.0-0.9) th/mm3 Eos # (Auto) 0.1 (0.0-0.4) th/mm3 Baso # (Auto) 0.0 (0.0-0.2) th/mm3 WBC Differential . Differential Comment Auto diff final PT 10.8 (9.8-11.6) sec INR 1.1 Ratio Sodium 143 (136-145) meq/L Potassium 3.5 (3.5-5.1) meq/L Chloride 109 H (98-107) meq/L Carbon Dioxide 26.0 (21.0-32.0) meq/L Anion Gap 8 (5-15) meq/L BUN 14 (7-18) mg/dL Creatinine 1.65 H (0.60-1.30) mg/dL Estimated GFR 43 L (>89) mL/min POC Glucose (68-110) mg/dl Random Glucose 152 H (74-106) mg/dL Calcium 8.5 (8.5-10.1) mg/dL Magnesium (1.5-2.5) mg/dL Total Bilirubin 0.9 (0.2-1.0) mg/dL AST 14 L (15-37) U/L ALT 29 (12-78) U/L Alkaline Phosphatase 66 (45-117) U/L Troponin I 0.05 (0.02-0.05) ng/mL B-Natriuretic Peptide (0-100) pg/mL Total Protein 7.7 (6.4-8.2) g/dL Albumin 3.8 (3.4-5.0) g/dL 01/29/18 01/29/18 01/29/18 Range/Units 22:43 22:43 22:52 WBC (4.0-11.0) th/mm3 RBC (4.50-5.90) mil/mm3 Hgb (13.0-17.0) gm/dL Hct (39.0-51.0) % MCV (80.0-100.0) fL MCH (27.0-34.0) pg MCHC (32.0-36.0) % RDW (11.6-17.2) % Plt Count (150-450) th/mm3 MPV (7.0-11.0) fL Neut % (Auto) (16.0-70.0) % Lymph % (Auto) (9.0-44.0) % [place] % (Auto) (0.0-8.0) % Eos % (Auto) (0.0-4.0) % Baso % (Auto) (0.0-2.0) % Neut # (Auto) (1.8-7.7) th/mm3 Lymph # (Auto) (1.0-4.8) th/mm3 [place] # (Auto) (0.0-0.9) th/mm3 Eos # (Auto) (0.0-0.4) th/mm3 Baso # (Auto) (0.0-0.2) th/mm3 WBC Differential Differential Comment PT (9.8-11.6) sec INR Ratio Sodium (136-145) meq/L Potassium (3.5-5.1) meq/L Chloride (98-107) meq/L Carbon Dioxide (21.0-32.0) meq/L Anion Gap (5-15) meq/L BUN (7-18) mg/dL Creatinine (0.60-1.30) mg/dL Estimated GFR (>89) mL/min POC Glucose 153 H (68-110) mg/dl Random Glucose (74-106) mg/dL Calcium (8.5-10.1) mg/dL Magnesium 2.2 (1.5-2.5) mg/dL Total Bilirubin (0.2-1.0) mg/dL AST (15-37) U/L ALT (12-78) U/L Alkaline Phosphatase (45-117) U/L Troponin I (0.02-0.05) ng/mL B-Natriuretic Peptide 851 H (0-100) pg/mL Total Protein (6.4-8.2) g/dL Albumin (3.4-5.0) g/dL 01/30/18 01/30/18 Range/Units 01:52 02:05 WBC (4.0-11.0) th/mm3 RBC (4.50-5.90) mil/mm3 Hgb (13.0-17.0) gm/dL Hct (39.0-51.0) % MCV (80.0-100.0) fL MCH (27.0-34.0) pg MCHC (32.0-36.0) % RDW (11.6-17.2) % Plt Count (150-450) th/mm3 MPV (7.0-11.0) fL Neut % (Auto) (16.0-70.0) % Lymph % (Auto) (9.0-44.0) % [place] % (Auto) (0.0-8.0) % Eos % (Auto) (0.0-4.0) % Baso % (Auto) (0.0-2.0) % Neut # (Auto) (1.8-7.7) th/mm3 Lymph # (Auto) (1.0-4.8) th/mm3 [place] # (Auto) (0.0-0.9) th/mm3 Eos # (Auto) (0.0-0.4) th/mm3 Baso # (Auto) (0.0-0.2) th/mm3 WBC Differential Differential Comment PT (9.8-11.6) sec INR Ratio Sodium (136-145) meq/L Potassium (3.5-5.1) meq/L Chloride (98-107) meq/L Carbon Dioxide (21.0-32.0) meq/L Anion Gap (5-15) meq/L BUN (7-18) mg/dL Creatinine (0.60-1.30) mg/dL Estimated GFR (>89) mL/min POC Glucose 163 H 173 H (68-110) mg/dl Random Glucose (74-106) mg/dL Calcium (8.5-10.1) mg/dL Magnesium (1.5-2.5) mg/dL Total Bilirubin (0.2-1.0) mg/dL AST (15-37) U/L ALT (12-78) U/L Alkaline Phosphatase (45-117) U/L Troponin I (0.02-0.05) ng/mL B-Natriuretic Peptide (0-100) pg/mL Total Protein (6.4-8.2) g/dL Albumin (3.4-5.0) g/dL Imaging Data Radiologist's impression: Chest X-Ray 01/29/18 22:35 CONCLUSION: Subsegmental nonconsolidative infiltrate left lung base. ECG Data Attestation: I personally reviewed and interpreted this ECG as follows: Interpretation: Sinus rhythm, no ST depression or elevation, similar to previous ECGs. This is not a STEMI. Discharge Plan Discharge Disposition Patient Disposition: 30 Still Patient Discharge Condition Condition: Stable Discharge Details Diagnosis: Acute exacerbation of chronic obstructive pulmonary disease (COPD), Left lower lobe pneumonia Physicians Team ED Provider: Paul Sin Primary Care Provider: Duglas Sloan III Attending Provider: Lindsay Caceres Other Providers: [facility],Insurance Status ED Status: Left Department Discharge Information Discharge Date/Time: 01/30/18 02:00
[2018-01-30] MEDS ORDERED: Bisacodyl 10 MG Supp RECTAL PRN (01:28)
[2018-01-30] MEDS ORDERED: Acetaminophen 325 MG Tablet PO PRN (01:28)
[2018-01-30] MEDS ORDERED: traZODone 100 MG Tablet PO PRN (01:30)
[2018-01-30] MEDS ORDERED: Dextrose 50% in Water 50 ML Vial IV.PUSH PRN (01:34)
--- NOTE | 2018-01-30 01:39 | P.HP ---
History of Present Illness Service: [facility] Primary Care Physician: Duglas Sloan III, MD History of Present Illness: 57-year-old male with a past medical history significant for diabetes mellitus, CAD, CAD, CHF, history of CVA, hypertension, hyperlipidemia and COPD presents to the emergency department for the evaluation of shortness of breath. Patient is homeless and lives in his car. He reports he has been drinking a lot of water and Gatorade because of the heat. The patient denies any fever/chills. No chest pain. No abdominal pain. No nausea/vomiting/diarrhea. No weakness. No lateralizing signs/symptoms. Review of Systems All other systems reviewed negative except as stated in HPI [facility] - History History Provided By: Patient - Medical History Medical History: Medical History (Last Updated 01/29/18 @ 22:19 by Philly Pandey) Heart attack (Acute) History of cervical fracture (Acute) Cervical spine fracture (Acute) CVA (cerebral vascular accident) (Acute) Hypercholesteremia (Acute) Diabetes (Acute) CHF (congestive heart failure) (Acute) HTN (hypertension) (Acute) - Surgical History Surgical History: Surgical History (Last Updated 01/29/18 @ 22:19 by Philly Pandey) Status post right knee replacement (Acute) - Family History Family History: Family History (Last Updated 12/14/17 @ 08:55 by AMENA Burns) Mother Family history of diabetes mellitus Father Family history of cancer - Tobacco History Second Hand Smoke Exposure: Yes Tobacco Use In Past 30 Days: Yes Smoking Status: Current every day smoker Tobacco Type: Cigarettes Packs Per Day: 1 - Alcohol History How Often Do You Have a Drink Containing Alcohol: Never - Substance Use History Substance History: No History of Abuse - Travel History Recent Travel in the [place] Within the Last 8 Weeks: No Recent Travel Out of the Country Within the Last 8 Weeks: No - Immunization History Tetanus Immunization: >5 Years Hx Influenza Vaccine This Season: No Medications and Allergies Active Medications: Active Medications Acetaminophen (Tylenol) 650 mg PO Q4H PRN PRN Reason: Temp > 100.4 Al Hydroxide/Mg Hydroxide (Milk Of [place]amita Liq) 30 ml PO Q12H PRN PRN Reason: Mild Constipation Albuterol (Duoneb Neb (Dennys)) 1 ampul NEB Q4HR NEB [place] Aspirin (Aspirin) 325 mg PO DAILY [place] Atorvastatin Calcium (Lipitor) 10 mg PO HS [facility] Bisacodyl (Dulcolax Supp) 10 mg RECTAL DAILY PRN PRN Reason: SEVERE CONSITIPATION Clonidine HCl (Catapres) 0.3 mg PO BID [facility] Furosemide (Lasix) 40 mg PO DAILY [facility] Lactulose (Lactulose Liq) 30 ml PO DAILY PRN PRN Reason: SEVERE CONSITIPATION Levofloxacin (Levaquin) 750 mg PO DAILY [facility] Methylprednisolone Sodium Succinate (Solumedrol Inj) 60 mg IV.PUSH Q6H [facility] Metoprolol Tartrate (Lopressor) 50 mg PO DAILY [facility] Non-Formulary Medication (Fluticasone-Salmeterol [Advair Diskus]) 2 puff INH DAILY [facility] Non-Formulary Medication (Gabapentin [Gabapentin]) 800 mg PO HS [facility] Non-Formulary Medication (Lisinopril [Lisinopril]) 40 mg PO DAILY [facility] Ondansetron HCl (Zofran Inj) 4 mg IV.PUSH Q6H PRN PRN Reason: NAUSEA OR VOMITING Senna/Docusate Sodium (Anamaria-Colace) 1 tab PO BID [facility] Sennosides (Senokot) 17.2 mg PO Q12H PRN PRN Reason: Moderate Constipation Sodium Chloride (Ns Flush) 2 ml IV.FLUSH PRN PRN PRN Reason: FLUSH AFTER USING IV ACCESS Sodium Chloride (Ns Flush) 2 ml IV.FLUSH BID [place] Sodium Chloride (Ns Flush) 2 ml IV.FLUSH PRN PRN PRN Reason: FLUSH AFTER USING IV ACCESS Tiotropium [place] (Spiriva 18 Mcg Inh) 18 mcg INH DAILY [facility] Trazodone HCl (Desyrel) 100 mg PO HS PRN PRN Reason: Sleep Allergies Allergy/AdvReac Type Severity Reaction Status Date / Time diatrizoate meglumine Allergy Severe Itching Verified 12/02/17 00:14 gadobenic acid Allergy Severe Itching Verified 12/02/17 00:14 gadodiamide Allergy Severe Itching Verified 12/02/17 00:14 gadoteridol Allergy Severe Itching Verified 12/02/17 00:14 iodixanol Allergy Severe Itching Verified 12/02/17 00:14 iohexol Allergy Severe Itching Verified 12/02/17 00:14 Iodinated Contrast- Oral and Allergy Unknown Hypotension Verified 12/27/17 18:19 IV Dye acetaminophen AdvReac Unknown Nausea/Vomi Verified 12/02/17 00:14 ting Home Medications Medication Instructions Recorded Confirmed Type trazodone 100 mg PO HS PRN 12/27/17 01/29/18 History aspirin 325 mg PO DAILY 01/29/18 01/29/18 History atorvastatin [Lipitor] 01/29/18 History clonidine HCl 0.3 mg PO BID 01/29/18 01/29/18 History clorazepate dipotassium 3.75 mg PO PRN PRN 01/29/18 01/29/18 History cyclobenzaprine 10 mg PO BID 01/29/18 01/29/18 History dextroamphetamine-amphetamine 10 mg PO DAILY 01/29/18 01/29/18 History [Adderall XR] fluticasone-salmeterol [Advair 01/29/18 History Diskus] furosemide [Lasix] 40 mg PO DAILY 01/29/18 01/29/18 History gabapentin 800 mg PO HS 01/29/18 01/29/18 History lisinopril 40 mg PO DAILY 01/29/18 01/29/18 History metformin 1,000 mg PO DAILY 01/29/18 01/29/18 History metoprolol tartrate 50 mg PO DAILY 01/29/18 01/29/18 History oxycodone-acetaminophen 1 tab PO Q4-6H PRN 01/29/18 01/29/18 History Exam Vital signs: Vital Signs 01/29/18 22:13 01/29/18 22:14 01/29/18 22:29 Temperature 98.4 F Pulse Rate 103 H 103 H Respiratory Rate 23 23 Blood Pressure 117/82 175/114 H Pulse Oximetry 96 98 98 01/29/18 23:05 01/30/18 00:20 01/30/18 00:31 Temperature Pulse Rate 95 H 95 H 94 H Respiratory Rate 18 18 20 Blood Pressure 139/99 H Pulse Oximetry 98 99 Intake & Output 01/29/18 01/29/18 01/30/18 06:59 18:59 06:59 Intake Total 250 / 250 Balance 250 / 250 Weight 120.202 kg Intake: IV 250 / 250 Azithromycin Inj 500 MG In NS 250 / 250 Inj 250 ML @ 250 mls/hr IV.SIG ONCE ONE Rx#:[id number] Narrative: Gen.: No acute distress Head: Normocephalic. Atraumatic. EENT: Pupils equal round and reactive to light. Nose without drainage. Airway intact. Throat without injection. Cardiovascular: Regular rate and rhythm. No murmurs, rubs or gallops. Respiratory: Bilateral wheezes throughout. Abdomen: Soft, nontender, nondistended. No peritoneal signs. Musculoskeletal: No gross deformities. No edema. Skin: No obvious rashes or erythema. Neuro: Sensory and motor grossly intact. Cranial nerves II through XII grossly intact. Results - Labs CBC & Chem 7: 01/29/18 22:43 01/29/18 22:43 Labs: Laboratory Results - last 24 hr 01/29/18 01/29/18 01/29/18 22:43 22:43 22:43 WBC 11.3 H RBC 5.19 Hgb 15.6 Hct 46.4 MCV 89.4 MCH 30.0 MCHC 33.5 RDW 14.6 Plt Count 168 MPV 9.3 Neut % (Auto) 73.7 H Lymph % (Auto) 17.3 [place] % (Auto) 7.6 Eos % (Auto) 1.0 Baso % (Auto) 0.4 Neut # (Auto) 8.3 H Lymph # (Auto) 2.0 [place] # (Auto) 0.9 Eos # (Auto) 0.1 Baso # (Auto) 0.0 WBC Differential . Differential Comment Auto diff final PT 10.8 INR 1.1 Sodium 143 Potassium 3.5 Chloride 109 H Carbon Dioxide 26.0 Anion Gap 8 BUN 14 Creatinine 1.65 H Estimated GFR 43 L POC Glucose Random Glucose 152 H Calcium 8.5 Magnesium Total Bilirubin 0.9 AST 14 L ALT 29 Alkaline Phosphatase 66 Troponin I 0.05 B-Natriuretic Peptide Total Protein 7.7 Albumin 3.8 01/29/18 01/29/18 01/29/18 22:43 22:43 22:52 WBC RBC Hgb Hct MCV MCH MCHC RDW Plt Count MPV Neut % (Auto) Lymph % (Auto) [place] % (Auto) Eos % (Auto) Baso % (Auto) Neut # (Auto) Lymph # (Auto) [place] # (Auto) Eos # (Auto) Baso # (Auto) WBC Differential Differential Comment PT INR Sodium Potassium Chloride Carbon Dioxide Anion Gap BUN Creatinine Estimated GFR POC Glucose 153 H Random Glucose Calcium Magnesium 2.2 Total Bilirubin AST ALT Alkaline Phosphatase Troponin I B-Natriuretic Peptide 851 H Total Protein Albumin - Imaging Impressions Chest X-Ray 01/29/18 22:35 CONCLUSION: Subsegmental nonconsolidative infiltrate left lung base. Caprini VTE Risk Assessment Caprini VTE Risk Assessment: No/Low Risk (score <= 1) Caprini Risk Assessment Model: Point Value = 1 Point Value = 2 Point Value = 3 Point Value = 5 Age 41-60 Minor surgery BMI > 25 kg/m2 Swollen legs Varicose veins or History of unexplained or recurrent spontaneous Oral contraceptives or hormone replacement Sepsis (< 1 month) Serious lung disease, including pneumonia (< 1 month) Abnormal pulmonary function Acute myocardial infarction Congestive heart failure (< 1 month) History of inflammatory bowel disease Medical patient at bed rest Age 61-74 Arthroscopic surgery Major open surgery (> 45 min) Laparoscopic surgery (> 45 min) Malignancy Confined to bed (> 72 hours) Immobilizing plaster cast Central venous access Age >= 75 History of VTE Family history of VTE Factor V Leiden Prothrombin [id number] Lupus anticoagulant Anticardiolipin antibodies Elevated serum homocysteine Heparin-induced thrombocytopenia Other congenital or acquired thrombophilia Stroke (< 1 month) Elective arthroplasty Hip, pelvis, or leg fracture Acute spinal cord injury (< 1 month) Prophylaxis Regimen: Total Risk Factor Score Risk Level Prophylaxis Regimen 0-1 Low Early ambulation 2 Moderate Order ONE of the following: *Sequential Compression Device (SCD) *Heparin 5000 units SQ BID 3-4 Higher Order ONE of the following medications: *Heparin 5000 units SQ TID *Enoxaparin/Lovenox 40 mg SQ daily (WT < 150 kg, CrCl > 30 mL/min) *Enoxaparin/Lovenox 30 mg SQ daily (WT < 150 kg, CrCl > 10-29 mL/min) *Enoxaparin/Lovenox 30 mg SQ BID (WT < 150 kg, CrCl > 30 mL/min) AND/OR *Sequential Compression Device (SCD) 5 or more Highest Order ONE of the following medications: *Heparin 5000 units SQ TID (Preferred with Epidurals) *Enoxaparin/Lovenox 40 mg SQ daily (WT < 150 kg, CrCl > 30 mL/min) *Enoxaparin/Lovenox 30 mg SQ daily (WT < 150 kg, CrCl > 10-29 mL/min) *Enoxaparin/Lovenox 30 mg SQ BID (WT < 150 kg, CrCl > 30 mL/min) AND *Sequential Compression Device (SCD) Assessment and Plan - Plan Assessment/plan: 1. COPD exacerbation/shortness of breath/pneumonia Chest x-ray significant for infiltrate in the left lung base Patient reports increased sputum production and cough Levaquin Duo nebs Supplemental oxygen as needed 2. CHF BNP 851 Patient has not been following his fluid restriction Fluid restricted diet Continue home diuresis 3. Diabetes mellitus Holding home metformin Sliding-scale insulin Monitor blood glucose 4. Hypertension/hyperlipidemia/CAD Continue home medications 5. Chronic kidney disease Creatinine 1.65, approximately baseline for the patient Monitor renal function FEN Heart healthy diet with fluid restriction Electrolytes: Monitor and replete as needed
[2018-01-30] MEDS: Insulin NovoLOG Aspart Correctional Sugar Inj SQ SCH ×5 (02:06→20:26)
[2018-01-30] MEDS: MethylPREDNISolone Sod Succinate Inj 40 MG/ML Vial IV.PUSH SCH ×4 (05:15→22:07)
[2018-01-30] MEDS ORDERED: FLUTICASONE SALMETEROL INH SCH (09:00)
[2018-01-30] MEDS: Metoprolol Tartrate 50 MG Tablet PO SCH (09:01)
[2018-01-30] MEDS: Aspirin 325 MG Tablet PO SCH (09:01)
[2018-01-30] MEDS: levoFLOXacin 750 MG Tablet PO SCH (09:02)
[2018-01-30] MEDS: Lisinopril 20 MG Tablet PO SCH (09:03)
[2018-01-30] MEDS: Furosemide 40 MG Tablet PO SCH (09:03)
[2018-01-30] MEDS: Senna/Docusate Sodium 8.6/50 MG Tablet PO SCH ×2 (09:03→20:24)
--- NOTE | 2018-01-30 11:51 | P.PN ---
Subjective Interval history: Follow-up for COPD, CHF, pneumonia. Patient reports minimal improvement overnight. He states he does feel like he can now take a deeper breath, however still short of breath with wheezing and nonproductive cough. He denies any chest pain. Denies any fevers or chills. He does not feel ready for discharge. He lives out of his van. He states he does have Spiriva, Advair, and albuterol rescue inhaler. The patient does admit he ran out of his Lasix recently. He has also been drinking more Gatorade due to the heat. He is not on oxygen. He does not have a nebulizer. The patient only plans to stay in [place] for the next week, as he is moving back to [place]. He has no other medical complaints at this time. Physical Exam Vital signs: Vital Signs 01/29/18 22:13 01/29/18 22:14 01/29/18 22:29 Temperature 98.4 F Pulse Rate 103 H 103 H Respiratory Rate 23 23 Blood Pressure 117/82 175/114 H Pulse Oximetry 96 98 98 01/29/18 23:05 01/30/18 00:20 01/30/18 00:31 Temperature Pulse Rate 95 H 95 H 94 H Respiratory Rate 18 18 20 Blood Pressure 139/99 H Pulse Oximetry 98 99 01/30/18 01:49 01/30/18 02:05 01/30/18 03:28 Temperature 97.9 F Pulse Rate 88 94 H 89 Respiratory Rate 19 20 18 Blood Pressure 157/101 H 145/105 H Pulse Oximetry 98 95 01/30/18 03:34 01/30/18 08:00 Temperature 98.7 F 97.9 F Pulse Rate 87 77 Respiratory Rate 20 16 Blood Pressure 142/97 H 146/94 H Pulse Oximetry 97 Intake & Output 01/29/18 01/30/18 01/30/18 18:59 06:59 18:59 Intake Total 470 / 470 Output Total 250 / 250 Balance 220 / 220 Weight 120 kg Intake: IV 350 / 350 Azithromycin Inj 500 MG In NS 250 / 250 Inj 250 ML @ 250 mls/hr IV.SIG ONCE ONE Rx#:[id number] Rocephin Inj 1,000 MG In NS Inj 100 / 100 100 ML @ 200 mls/hr IV.SIG ONCE ONE Rx#:[id number] Oral 120 / 120 Output: Urine 250 / 250 Other: Date of Last Bowel Movement 01/28/18 Weight On Admission 120.2 kg Narrative: GENERAL: Well-nourished, well-developed middle-aged male patient in [facility]. SKIN: Warm and dry. No rash. HEENT: Normocephalic. Atraumatic. Pupils equal and round. Mucous membranes pink and moist. NECK: Supple. Trachea midline. CARDIOVASCULAR: Regular rate and rhythm. No murmur appreciated. RESPIRATORY: No accessory muscle use. Diffuse expiratory wheezing with scattered rhonchi, and breath sounds diminished at bilateral bases. GASTROINTESTINAL: Abdomen soft, non-tender, nondistended. Normoactive bowel sounds x4. MUSCULOSKELETAL: No obvious deformities. 1+ bilateral lower extremity edema. NEUROLOGICAL: Awake and alert. No obvious cranial nerve deficits. Motor grossly within normal limits. Moving all extremities spontaneously. Normal speech. PSYCHIATRIC: Appropriate mood and affect; insight and judgment normal. Results - Labs CBC & Chem 7: 01/29/18 22:43 01/29/18 22:43 Laboratory Results - last 24 hr 01/29/18 01/29/18 01/29/18 22:43 22:43 22:43 WBC 11.3 H RBC 5.19 Hgb 15.6 Hct 46.4 MCV 89.4 MCH 30.0 MCHC 33.5 RDW 14.6 Plt Count 168 MPV 9.3 Neut % (Auto) 73.7 H Lymph % (Auto) 17.3 [place] % (Auto) 7.6 Eos % (Auto) 1.0 Baso % (Auto) 0.4 Neut # (Auto) 8.3 H Lymph # (Auto) 2.0 [place] # (Auto) 0.9 Eos # (Auto) 0.1 Baso # (Auto) 0.0 WBC Differential . Differential Comment Auto diff final PT 10.8 INR 1.1 Sodium 143 Potassium 3.5 Chloride 109 H Carbon Dioxide 26.0 Anion Gap 8 BUN 14 Creatinine 1.65 H Estimated GFR 43 L POC Glucose Random Glucose 152 H Calcium 8.5 Magnesium Total Bilirubin 0.9 AST 14 L ALT 29 Alkaline Phosphatase 66 Troponin I 0.05 B-Natriuretic Peptide Total Protein 7.7 Albumin 3.8 01/29/18 01/29/18 01/29/18 22:43 22:43 22:52 WBC RBC Hgb Hct MCV MCH MCHC RDW Plt Count MPV Neut % (Auto) Lymph % (Auto) [place] % (Auto) Eos % (Auto) Baso % (Auto) Neut # (Auto) Lymph # (Auto) [place] # (Auto) Eos # (Auto) Baso # (Auto) WBC Differential Differential Comment PT INR Sodium Potassium Chloride Carbon Dioxide Anion Gap BUN Creatinine Estimated GFR POC Glucose 153 H Random Glucose Calcium Magnesium 2.2 Total Bilirubin AST ALT Alkaline Phosphatase Troponin I B-Natriuretic Peptide 851 H Total Protein Albumin 01/30/18 01/30/18 01/30/18 01:52 02:05 07:45 WBC RBC Hgb Hct MCV MCH MCHC RDW Plt Count MPV Neut % (Auto) Lymph % (Auto) [place] % (Auto) Eos % (Auto) Baso % (Auto) Neut # (Auto) Lymph # (Auto) [place] # (Auto) Eos # (Auto) Baso # (Auto) WBC Differential Differential Comment PT INR Sodium Potassium Chloride Carbon Dioxide Anion Gap BUN Creatinine Estimated GFR POC Glucose 163 H 173 H 184 H Random Glucose Calcium Magnesium Total Bilirubin AST ALT Alkaline Phosphatase Troponin I B-Natriuretic Peptide Total Protein Albumin - Imaging Impressions Chest X-Ray 01/29/18 22:35 CONCLUSION: Subsegmental nonconsolidative infiltrate left lung base. Assessment and Plan - Plan 57-year-old male with a past medical history significant for diabetes mellitus, CAD, CHF, history of CVA, hypertension, hyperlipidemia and COPD presents to the emergency department for the evaluation of shortness of breath. Patient is homeless and lives in his van. He plans to return to live in [place] in 1 week. Dyspnea: Suspect multifactorial secondary to COPD exacerbation, CHF exacerbation , and possible pneumonia. -See individual treatment below -Continue oxygen as needed, may need to perform walk test prior to discharge -Incentive spirometry -Acapella Acute COPD exacerbation: Patient with extensive wheezing on exam -Continue duo nebs every 4 hours -Continue steroids with IV Solu-Medrol 60 mg every 6 hours -Continue Symbicort/Spiriva -Monitor for improvement Acute systolic CHF exacerbation: Patient reports history of cardiac arrest back in 2004, diagnosed with CHF ever since. Patient admits to running out of Lasix. -BNP elevated at 851 -EMR reviewed, echocardiogram 08/22/17 showed EF 45% with mild global hypokinesis, trace MR, mild TR -Continue patient's Lasix 40 mg daily -Fluid/salt restrictions, monitor I's and O's, monitor daily weights -Provide CHF education -Monitor for improvement Community-acquired pneumonia: Acute -CXR reviewed, shows nonconsolidative infiltrate left lung base -Continue antibiotics with Levaquin 750 mg daily Diabetes mellitus: Chronic -Hold patient's metformin and Januvia for now -Monitor Accu-Cheks and cover with sliding scale insulin -Expect higher blood glucose on steroids -Continue patient's gabapentin CAD/HTN/HLD: Chronic, no complaints of chest pain -Continue patient's home medications including aspirin, statin, clonidine, lisinopril, metoprolol -Monitor BP, adjust antihypertensives as needed CKD: Cr 1.65, appears at baseline for the patient -Caution with diuresis -Avoid further nephrotoxins -Monitor BMP DVT prophylaxis: Heparin sq Discharge Planning: Discharge pending further clinical improvement, not yet ready for discharge.
[2018-01-30] MEDS: Budesonide-Formoterol 80/4.5 MCG 6.9 GM Inhaler INH SCH ×2 (11:57→20:20)
[2018-01-30] MEDS: Tiotropium Bromide 18 MCG/ACT Inhaler INH SCH (11:58)
[2018-01-30] MEDS: Heparin - SQ 10,000 UNITS/ML Vial SQ SCH (20:20)
[2018-01-30] MEDS ORDERED: Gabapentin 400 MG Capsule PO SCH (21:00)
[2018-01-31] MEDS: Insulin NovoLOG Aspart Correctional Sugar Inj SQ SCH ×4 (03:41→16:59)
[2018-01-31] MEDS: MethylPREDNISolone Sod Succinate Inj 40 MG/ML Vial IV.PUSH SCH ×3 (04:04→16:59)
[2018-01-31 08:58] LABS: Hematocrit 43.1 % (39.0-51.0); Hemoglobin 14.8 gm/dL (13.0-17.0); Lymph # (Auto) 0.6 th/mm3 (1.0-4.8); Lymph % (Auto) 5.3 % (9.0-44.0); Mean Corpuscular HGB Conc 34.4 % (32.0-36.0); Mean Corpuscular Hemoglobin 30.6 pg (27.0-34.0); Mean Corpuscular Volume 88.8 fL (80.0-100.0); Mono # (Auto) 0.3 th/mm3 (0.0-0.9); Mono % (Auto) 2.5 % (0.0-8.0); Neut # (Auto) 9.9 th/mm3 (1.8-7.7); Neut % (Auto) 92.2 % (16.0-70.0); Platelet Count 159 th/mm3 (150-450); Red Blood Count 4.85 mil/mm3 (4.50-5.90); Red Cell Distribution Width 14.9 % (11.6-17.2); White Blood Count 10.8 th/mm3 (4.0-11.0)
[2018-01-31 09:18] LABS: Carbon Dioxide 24.8 meq/L (21.0-32.0)
[2018-01-31] MEDS: Senna/Docusate Sodium 8.6/50 MG Tablet PO SCH (10:01)
[2018-01-31] MEDS: Aspirin 325 MG Tablet PO SCH (10:01)
[2018-01-31] MEDS: Metoprolol Tartrate 50 MG Tablet PO SCH (10:01)
[2018-01-31] MEDS: levoFLOXacin 750 MG Tablet PO SCH (10:01)
[2018-01-31] MEDS: Lisinopril 20 MG Tablet PO SCH (10:01)
[2018-01-31] MEDS: Heparin - SQ 10,000 UNITS/ML Vial SQ SCH (10:03)
[2018-01-31] MEDS: Furosemide 40 MG Tablet PO SCH (10:05)
[2018-01-31] MEDS: Budesonide-Formoterol 80/4.5 MCG 6.9 GM Inhaler INH SCH (10:13)
[2018-01-31] MEDS: Tiotropium Bromide 18 MCG/ACT Inhaler INH SCH (10:13)
--- NOTE | 2018-01-31 14:20 | P.PN ---
Subjective Interval history: Follow up for COPD, CHF, pneumonia. The patient reports feeling slightly better today, however still short of breath and wheezing. He reports attempting ambulation to the bathroom today, however became very winded. He reports a nonproductive cough. Leg swelling minimally improved. He denies any chest pain. He does not feel ready for discharge. He has no other medical complaints at this time. Physical Exam Vital signs: Vital Signs 01/30/18 15:34 01/30/18 16:00 01/30/18 20:00 Temperature 98.5 F 98.4 F Pulse Rate 97 H 64 87 Respiratory Rate 16 16 20 Blood Pressure 113/72 145/93 H Pulse Oximetry 98 97 01/30/18 20:47 01/30/18 23:54 01/30/18 23:55 Temperature 97.5 F L Pulse Rate 64 69 66 Respiratory Rate 16 18 16 Blood Pressure 123/76 Pulse Oximetry 100 01/31/18 03:20 01/31/18 03:32 01/31/18 07:00 Temperature 97.5 F L Pulse Rate 68 70 Respiratory Rate 16 20 Blood Pressure 122/65 Pulse Oximetry 97 94 L 01/31/18 07:41 01/31/18 08:00 01/31/18 11:18 Temperature 97.5 F L Pulse Rate 72 70 80 Respiratory Rate 14 18 16 Blood Pressure 126/78 Pulse Oximetry 94 L 01/31/18 12:00 Temperature 97.7 F Pulse Rate 76 Respiratory Rate 18 Blood Pressure 122/67 Pulse Oximetry 99 Intake & Output 01/30/18 01/31/18 01/31/18 18:59 06:59 18:59 Intake Total 420 / 420 720 / 720 240 / 240 Output Total 650 / 650 450 / 450 Balance -230 / -230 270 / 270 240 / 240 Weight 123 kg Intake: Oral 420 / 420 720 / 720 240 / 240 Output: Urine 650 / 650 450 / 450 Other: Date of Last Bowel Movement 01/30/18 Narrative: GENERAL: Well-nourished, well-developed middle-aged male patient in [facility]. SKIN: Warm and dry. No rash. HEENT: Normocephalic. Atraumatic. Pupils equal and round. Mucous membranes pink and moist. NECK: Supple. Trachea midline. CARDIOVASCULAR: Regular rate and rhythm. No murmur appreciated. RESPIRATORY: No accessory muscle use. Diffuse expiratory wheezing, improved. GASTROINTESTINAL: Abdomen soft, non-tender, nondistended. Normoactive bowel sounds x4. MUSCULOSKELETAL: No obvious deformities. 1+ bilateral lower extremity edema. NEUROLOGICAL: Awake and alert. No obvious cranial nerve deficits. Motor grossly within normal limits. Moving all extremities spontaneously. Normal speech. PSYCHIATRIC: Appropriate mood and affect; insight and judgment normal. Results - Labs CBC & Chem 7: 01/31/18 08:30 01/31/18 08:30 Laboratory Results - last 24 hr 01/30/18 01/30/18 01/31/18 16:49 20:17 03:33 WBC RBC Hgb Hct MCV MCH MCHC RDW Plt Count MPV Neut % (Auto) Lymph % (Auto) [place] % (Auto) Eos % (Auto) Baso % (Auto) Neut # (Auto) Lymph # (Auto) [place] # (Auto) Eos # (Auto) Baso # (Auto) WBC Differential Differential Comment Sodium Potassium Chloride Carbon Dioxide Anion Gap BUN Creatinine Estimated GFR POC Glucose 141 H 246 H 202 H Random Glucose Calcium 01/31/18 01/31/18 01/31/18 08:20 08:30 08:30 WBC 10.8 RBC 4.85 Hgb 14.8 Hct 43.1 MCV 88.8 MCH 30.6 MCHC 34.4 RDW 14.9 Plt Count 159 MPV 9.0 Neut % (Auto) 92.2 H Lymph % (Auto) 5.3 L [place] % (Auto) 2.5 Eos % (Auto) 0.0 Baso % (Auto) 0.0 Neut # (Auto) 9.9 H Lymph # (Auto) 0.6 L [place] # (Auto) 0.3 Eos # (Auto) 0.0 Baso # (Auto) 0.0 WBC Differential . Differential Comment Auto diff final Sodium 140 Potassium 4.0 Chloride 106 Carbon Dioxide 24.8 Anion Gap 9 BUN 24 H Creatinine 1.63 H Estimated GFR 44 L POC Glucose 211 H Random Glucose 220 H Calcium 9.0 01/31/18 11:51 WBC RBC Hgb Hct MCV MCH MCHC RDW Plt Count MPV Neut % (Auto) Lymph % (Auto) [place] % (Auto) Eos % (Auto) Baso % (Auto) Neut # (Auto) Lymph # (Auto) [place] # (Auto) Eos # (Auto) Baso # (Auto) WBC Differential Differential Comment Sodium Potassium Chloride Carbon Dioxide Anion Gap BUN Creatinine Estimated GFR POC Glucose 261 H Random Glucose Calcium - Imaging Chest X-Ray 01/29/18 22:35 CONCLUSION: Subsegmental nonconsolidative infiltrate left lung base. Assessment and Plan - Plan 57-year-old male with a past medical history significant for diabetes mellitus, CAD, CHF, history of CVA, hypertension, hyperlipidemia and COPD presents to the emergency department for the evaluation of shortness of breath. Patient is homeless and lives in his van. He plans to return to live in [place] in 1 week. Dyspnea: Suspect multifactorial secondary to COPD exacerbation, CHF exacerbation , and possible pneumonia. -See individual treatment below -Continue oxygen as needed, may need to perform walk test prior to discharge -Incentive spirometry -Acapella Acute COPD exacerbation: Patient with extensive wheezing on exam -Continue duo nebs every 4 hours -Continue steroids with IV Solu-Medrol 60 mg every 6 hours -Continue Symbicort/Spiriva -Monitor for improvement -Slowly improving, still wheezing today Acute systolic CHF exacerbation: Patient reports history of cardiac arrest back in 2004, diagnosed with CHF ever since. Patient admits to running out of Lasix. -BNP elevated at 851 -EMR reviewed, echocardiogram 08/22/17 showed EF 45% with mild global hypokinesis, trace MR, mild TR -Continue patient's Lasix 40 mg daily -Fluid/salt restrictions, monitor I's and O's, monitor daily weights -Provide CHF education -Monitor for improvement Community-acquired pneumonia: Acute -CXR reviewed, shows nonconsolidative infiltrate left lung base -Continue antibiotics with Levaquin 750 mg daily Diabetes mellitus: Chronic -Hold patient's metformin and Januvia for now -Monitor Accu-Cheks and cover with sliding scale insulin -Expect higher blood glucose on steroids -Continue patient's gabapentin CAD/HTN/HLD: Chronic, no complaints of chest pain -Continue patient's home medications including aspirin, statin, clonidine, lisinopril, metoprolol -Monitor BP, adjust antihypertensives as needed CKD: Cr 1.65, appears at baseline for the patient -Caution with diuresis -Avoid further nephrotoxins -Monitor BMP DVT prophylaxis: Heparin sq Discharge Planning: Discharge pending further clinical improvement, not yet ready for discharge. Hopefully discharge tomorrow.
--- NOTE | 2018-01-31 17:31 | ECG ---
Date Performed: 01/29/2018 Time Performed: 22:21:32 PTAGE: 57 years EKG: Sinus rhythm WITH OCCASIONAL SUPRAVENTRICULAR PREMATURE COMPLEXES MODERATE INTRAVENTRICULAR CONDUCTION DELAY NONS PECIFIC T-WAVE ABNORMALITY ABNORMAL ECG PREVIOUS TRACING : 12/27/2017 18.11 DOCTOR: Joce Gasca Interpretating Date/Time 01/31/2018 17:28:37
== END 2018-01-31 22:16 | disposition left against medical advice (07) ==
LOC: NEPC 22:11 → NEDA 22:11 → NEPHCDU 01-30 02:02
PROVIDERS: ADMIT Internal Medicine; ATTEND Internal Medicine